=== PATIENT | male | born 1945 | race Caucasian/White ===

== ENCOUNTER 2023-09-29 06:57 | Outpatient (OUT) | payer MEDICARE, OTHER, SELFPAY ==
--- NOTE | 2023-09-29 07:06 | CA_ITS ---
Patient Name: DEL MCMAHON MR#: [id number] : 1945 Exam Date: 09/29/2023 Ordering Doctor: BLAKE MERINO CNP ECHOCARDIOGRAM REPORT PROCEDURE: CA ECHO DOPPLER COMPLETE INDICATIONS: Aortic aneurysm COMPARISON: None. DESCRIPTION: COMPLETE ECHOCARDIOGRAM Real-time transthoracic echocardiography with 2D, M-mode, spectral and color flow Doppler performed. QUALITY: Technical quality was good. LEFT VENTRICLE: Normal chamber size. Normal left ventricular wall thickness. Global left ventricular systolic function is normal. LV EF: Estimated left ventricular ejection fraction is hyperdynamic at 65 %. DIASTOLIC: Diastolic function is indeterminate. ATRIAL SEPTUM: LEFT ATRIUM: Normal chamber size. RIGHT ATRIUM: Moderate dilatation. RIGHT VENTRICLE: Normal chamber size. Normal right ventricular systolic function. TRICUSPID VALVE: Normal mobility and thickness. No stenosis with trivial regurgitation. No evidence of pulmonary hypertension. RVSP 28 mmHg MITRAL VALVE: Normal mobility and thickness. No evidence of mitral valve stenosis. There is no mitral annular calcification. Trivial mitral regurgitation. AORTIC VALVE: Normal trileaflet appearance. Thickened aortic valve. Normal leaflet mobility. No evidence of aortic valve stenosis. Trivial aortic regurgitation. AORTIC ROOT: Normal diameter and appearance, measuring 3.8 cm. Moderate dilatation of the ascending aorta measuring 4.2 cm. PULMONIC VALVE: Normal thickness and mobility. No stenosis. Mild regurgitation. PERICARDIUM: No evidence of pericardial effusion. IVC: Collapses with inspirations. Normal size. PLEURA: CONCLUSION: 1. The left ventricle is normal in size and exhibits normal systolic function. LVEF is estimated at 65%. 2. Normal right ventricular size and systolic function. 3. Moderate left atrial dilatation. 4. No significant valvular dysfunction. 5. Normal right-sided pressures. 6. Moderately dilated ascending aorta measuring 4.2 cm. Adult Echocardiography Procedure Report Left Ventricle LVEDD (3.7 - 5.6 cm): 4.53 cm LVESD (2.2 - 4.0 cm): 2.85 cm LVIVS thickness (0.6 - 1.2 cm): 1.02 cm LVPW thickness (0.5 - 1.0 cm): 0.81 cm e': 0.07 m/s E - e': 10.21 LVOT Max Gradient: 5.58 mm[Hg] LVOT Area (cm2): 1.18 m/s Peak Velocity (LVOT): 1.18 m/s Mean Velocity (LVOT): 0.81 m/s LVOT Diameter 1.96 cm Left Ventricular Ejection Fraction: 65 % Left Atrium LA Volume Index (2D A2C): 28.33 ml/m2 Left Atrium Systolic Dimension: 4.05 cm Mitral Valve MV E to A Ratio: 0.72 Mitral Valve A-Wave Peak Velocity: 0.93 m/s Mitral Valve E-Wave Peak Velocity: 0.68 m/s Right Ventricle RV Internal Diastolic Dimension: 3.19 cm Aorta AO Root Diam: 3.83 cm Ascending Ao Diam: 4.20 cm Aortic Valve AoV Area (Peak Bar): 2.18 cm2, 2.18 cm2 AoV Area (VTI): 2.10 cm2, 2.10 cm2 Peak Velocity(Antegrade Flow): 1.64 m/s Peak Gradient(Antegrade Flow): 10.72 mm[Hg] Mean Velocity(Antegrade Flow): 1.10 m/s Mean Gradient(Antegrade Flow): 5.61 mm[Hg] Velocity Time Integral: 36.48 cm Tricuspid Valve Peak Velocity (Regurgitant Flow): 2.48 m/s, 2.21 m/s, 2.32 m/s Pulmonic Valve Mean Gradient: 1.79 mm[Hg], 1.96 mm[Hg] Mean Velocity: 0.61 m/s, 0.65 m/s Peak Velocity: 1.03 m/s Peak Gradient: 4.21 mm[Hg], 4.21 mm[Hg] Right Atrium Right Atrium Systolic Pressure: 45.13 ml, 43.04 ml, 47.22 ml Dictated by: Solomon Weiss M.D. on 09/29/2023 at 19:14 Approved by: Solomon Weiss M.D. on 09/29/2023 at 19:17
== END 2023-09-29 06:58 | disposition home or self-care (01) ==
LOC: CARD 07:03
PROVIDERS: PCP Internal Medicine; Visit Provider Nurse Practitioner Family
DX: I71.21 Aneurysm of the ascending aorta, without rupture (principal)
CPT/HCPCS: 93306

== ENCOUNTER 2024-07-19 08:52 | Outpatient (OUT) | payer MEDICARE, OTHER, SELFPAY ==
[2024-07-19 11:03] LABS: Alanine Aminotransferase 55 U/L (16-63); Aspartate Amino Transferase 28 U/L (15-37); Chol HDL Ratio 2.9; Cholesterol 210 mg/dL (<=200); HDL Cholesterol 72 mg/dL (40-60); Thyroid Stimulating Hormone 4.598 uIU/mL (0.358-3.740); Triglycerides 51 mg/dL (<=150); VLDL CHOLESTEROL 10.2 mg/dL
--- OUTSIDE RECORDS SUMMARY | 2024-07-29 09:09 | XMS_ITS | CCD ---
Author Organization [facility] Care Team Providers Care Powder Worker Tnt Name Role Phone DR MARCO A HUIZAR Primary Care Unavailable BALTA ROD Attending Unavailable BALTA ROD Admitting Unavailable DR MARCO A HUIZAR Primary Care Unavailable BALTA ROD Attending Unavailable BALTA ROD Consulting Unavailable BALTA ROD Admitting Unavailable Mario Hadley Unavailable Jose Nelson Unavailable Marco A Huizar DO Primary Care Provider EMANI HOLT Admitting Unavailable EMANI HOLT Attending Unavailable MARCO A HUIZAR Primary Care Unavailable LIDYA BENTLEY Attending Unavailable MARCO A HUIZAR JR Referring Unavailable MARCO A HUIZAR JR Primary Care Unavailable JR Marco A Huizar Primary Care Provider [phone] MD Andrés Fisher Admit Provider MD Daljit Khalil Other Provider DO Dionte Rosa Attending Provider AURELIO ROUSSEAU Referring Unavailable MARCO A HUIZAR JR Primary Care Unavailable MARCO A HUIZAR JR Primary Care Unavailable AURELIO ROUSSEAU Attending Unavailable KRISTIE BURR Attending Unavailable KRISTIE BURR Referring Unavailable KMONE MARCO A CRUZ Primary Care Unavailable KRISTIE BURR Attending Unavailable KRISTIE BURR Referring Unavailable VALONE MARCO A CRUZ Primary Care Unavailable KRISTIE BURR Attending Unavailable KRISTIE BURR Referring Unavailable VALONE MARCO A CRUZ Primary Care Unavailable KRISTIE BURR Attending Unavailable KRISTIE BURR Referring Unavailable VALMARCO A COLEY JR Primary Care Unavailable MAYA Castillo Attending Provider MD Sivakumar Garcia Attending Provider Giovanna Castillo Attending Unavailable Giovanna Castillo Admitting Unavailable Marco A Huizar Primary Care Unavailable Sivakumar Garcia Attending Unavailable Sivakumar Garcia Admitting Unavailable Marco A Huizar Primary Care Unavailable Andrés Fisher Admitting Unavailab Marco A [place] Primary Care Unavailable Dionte Rosa Attending Unavailable Daljit Khalil Consulting UnavailMarco A Saunders MD Primary Care Provider Gaye Flores DO, Charles L Primary Care Provider Daljit Perez DO Unavailable [phone] Gaye Flores DO, Charles L Primary Care Provider RAYMOND VINES Attending Unavailable DALJIT PEREZ Attending Unavailable MARCO A HUIZAR Referring Unavailable RAYMOND VINES Attending Unavailable RAYMOND VINES Attending Unavailable PANCHITO BALDERAS Attending Unavailable RAYMOND VINES Attending Unavailable PANCHITO BALDERAS Attending Unavailable BLAKE MERINO Attending Unavailable AURELIO LOERA Referring Unavailable BLAKE MERINO Attending Unavailable AURELIO LOERA Referring Unavailable Allergies Allergy Classification Reported Allergen(s) Allergy Type Date of Onset Reaction(s) Facility (18 sources) Diclofenac; Translations: [DICLOFENAC SODIUM] Drug Allergy 02-10-2022 [facility] Medications Current Medications Medication Drug Class(es) Dates Sig (Normalized) Sig (Original) acetaminophen 500 mg oral tablet (2 sources) Start: 02-10-2022 End: 02-17-2022 take 2 tablets by mouth three times daily as needed acetaminophen (TYLENOL) 500 mg tablet Take 2 tablets (1,000 mg total) by mouth 3 (three) times a day for 7 days. Take every 8 hours for one week, then as needed. Do not exceed 3,000 mg daily limit. 50 tablet 0 02/10/2022 02/17/2022 Active Start: 02-10-2022 End: 02-10-2022 take 1000 mg by mouth every six hours 1,000 mg, oral, Every 6 hours scheduled, First dose on Thu02/10/22 at 1200, [facility] ALPRAZolam 0.25 mg oral tablet (3 sources) Benzodiazepine Start: 02-20-2020 ALPRAZolam (XANAX) 0.25 mg tablet Indications: Tremor due to disorder of central nervous system Once daily up to 4x per week as needed for fine motor control and tremor control 20 tablet 5 02/20/2020 Active amLODIPine 5 mg oral tablet (3 sources) Dihydropyridine Calcium Channel Maru Start: 08-07-2023 take 5 mg by mouth once daily Amlodipine Active 5 MG PO Daily August 07, 2023 12:00am aspirin 81 mg chewable tablet (2 sources) Platelet Aggregation Inhibitor, Nonsteroidal Anti-inflammatory Drug Start: 02-11-2022 End: 03-25-2022 take 1 tablet by mouth twice daily, then take 1 tablet by mouth twice daily aspirin 81 mg chewable tablet Chew 1 tablet (81 mg total) 2 (two) times a day. 1) Aspirin 81 mg, 1 tab PO BID for 6 weeks, Disp appropriate quantity. If patient is prescribed Arixtra/Lovenox/Xa relto, do not begin Aspirin until that medication is finished and then Aspirin only needs to be taken for 4 weeks. 84 each 0 02/11/2022 03/25/2022 Active Start: 02-11-2022 End: 02-10-2022 aspirin EC tablet 81 mg celecoxib 200 mg oral capsule (19 sources) Nonsteroidal Anti-inflammatory Drug Start: 07-06-2023 End: 08-07-2023 celecoxib (CeleBREX) 200 MG capsule Take 200 mg by mouth Daily Twice a week. 07/06/2023 Active Start: 02-10-2022 End: 02-10-2022 celecoxib (CeleBREX) capsule 200 mg cephalexin 500 mg oral capsule (1 source) Cephalosporin Antibacterial Start: 02-10-2022 End: 02-11-2022 take 1 capsule by mouth three times daily cephalexin (KEFLEX) 500 mg capsule Take 1 capsule (500 mg total) by mouth 3 (three) times a day for 3 doses. 3 capsule 0 02/10/2022 02/11/2022 Active levothyroxine sodium 0.1 mg oral tablet (12 sources) l-Thyroxine Start: 02-05-2021 take 100 ug by mouth once daily Levothyroxine Active 100 MCG PO Daily November 23rd, 2021 1:00am levothyroxine (S YNTHROID, LEVOTHROID) 75 MCG tablet Take 100 mcg by mouth daily. Active take 1 tablet by nubia th once daily in the morning Levothyroxine Sodium 100 MCG 1 tablet in the morning on an empty stomach Orally Once a day Active levothyroxine (Synthroid, Le voxyl) 37.5 mcg split tablet (15 sources) levothyroxine (S ynthroid, Levoxyl) 37.5 mcg split tablet levothyroxine Active multivit-min/folic/vit K/lyc op (ONE-A-DAY MEN'S MULTIVITAMIN ORAL) (3 sources) multivit-min/fol ic/vit K/lycop (ONE-A-DAY MEN'S MULTIVITAMIN ORAL) Take by mouth daily. Active multivit-min/fol ic/vit K/lycop (ONE-A-DAY MEN'S MULTIVITAMIN ORAL) Take by mouth daily. 0 Active multivitamin tablet (1 source) take 1 tablet by mouth once daily multivitamin tablet Take 1 tablet by mouth daily. 0 Active ondansetron 4 mg oral tablet (1 source) Serotonin-3 Receptor Antagonist Start: 2 End: 2 take 1 tablet by mouth every eight hours for nausea ondansetron (ZOFRAN) 4 mg tablet Take 1 tablet (4 mg total) by mouth every 8 (eight) hours if needed for nausea or vomiting for up to 7 days. 20 tablet 0 02/10/2022 02/17/2022 Active oxyCODONE hydrochloride 5 mg oral tablet (2 sources) Opioid Agonist Start: 2 End: 2 oxyCODONE (ROXICODONE) 5 mg immediate release tablet Take 1-2 tablets (5-10 mg total) by mouth every 4 (four) hours if needed for moderate pain or severe pain for up to 7 days. Dx: Z96.6 Max Daily Amount: 60 mg 40 tablet 0 02/10/2022 02/17/2022 Active Start: 02-10-2022 End: 02-10-2022 take 5 mg by mouth every four hours as needed for pain 5 mg, oral, Every 4 hours PRN, Breakthrough pain, Starting on 02/10/22 at 0757, [facility] May consider scheduled oxyCODONE instead of PRN primidone 50 mg oral tablet (20 sources) Anti-epileptic Agent Start: 06-23-2024 take 2 tablets by mouth once daily in the evening primidone (MYSOLINE) 250 mg tablet TAKE 2 TABLETS BY MOUTH EVERY DAY IN THE EVENING 180 tablet 3 06/23/2024 Active Start: 06-23-2024 take 1 tablet by nubia th once daily primidone (MYSOLINE) 50 mg tablet Indications: Benign essential tremor TAKE 2.5-3 TABLETS BY MOUTH ONCE DAILY DIRECTED 270 tablet 3 06/23/2024 Active Start: 08-05-2023 take 500 mg by mouth once daily at bedtime Primidone Active 500 MG PO Daily at bedtime August 05, 2023 12:00am Start: 01-05-2023 End: 06-23-2024 take 2 tablets by mouth once daily in the evening primidone (Mysoline) 250 MG tablet TAKE 2 TABLETS BY MOUTH EVERY DAY IN THE EVENING 01/05/2023 Active Start: 01-05-2023 End: 06-23-2024 take 1 tablet by mouth once daily primidone (MYSOLINE) 50 mg tablet Indications: Benign essential tremor TAKE 2.5-3 TABLET BY MOUTH ONCE DAILY DIRECTED 270 tablet 3 05/05/2023 06/23/2024 Discontinued Start: 01-28-2022 take 2 tablets by mo uth at bedtime primidone (MYSOLINE) 250 mg tablet Take 2 tablets (500 mg total) by mouth at bedtime. 0 01/28/2022 Active Start: 12-02-2021 take 2 tablets by mo uth once daily primidone (MYSOLINE) 50 mg tablet Take 2 tablets (100 mg total) by mouth 1 (one) time each day. 0 12/02/2021 Active Start: 02-05-2021 take 150 mg by mouth once daily in the morning Primidone Active 150 MG PO Every morning February 05, 2021 1:00am take 1 tablet by nubia th every twenty-four hours Primidone 50 MG 1 tablet Orally Once a day Active tolnaftate 10 mg/ml topical solution (6 sources) tolnaftate (Kendra ctin) 1 % external solution Apply 1 application topically in the morning and 1 application before bedtime. Active traMADol hydrochloride 50 mg oral tablet (1 source) Opioid Agonist Start: 02-10-2022 End: 02-17-2022 take 50-100 mg by mouth every six hours as needed traMADoL (ULTRAM) 50 mg tablet Take 1-2 tablets (50-100 mg total) by mouth every 6 (six) hours if needed for moderate pain for up to 7 days. Dx: Z96.6 Max Daily Amount: 400 mg 40 tablet 0 02/10/2022 02/17/2022 Active triamcinolone acetonide 1 mg/ml topical cream (15 sources) Corticosteroid Start: 03-30-2023 triamcinolone (Kenalog) 0.1 % cream Indications: Other atopic dermatitis Apply to affected areas, up to twice a day when flared, do not use one the face, groin, or underarms, 30 day supply 454 g 03/30/2023 Active Completed/Discontinued Medications Medication Drug Class(es) Dates Sig (Normalized) Sig (Original) acetaminophen 325 mg / HYDROcodone bitartrate 5 mg oral tablet (3 sources) Opioid Agonist Start: 02-12-2021 take 1 tablet by mouth every four hours as needed HYDROcodone-Acetamin ophen 5-325 MG 1 tablet as needed Orally up to every 4 hrs for 5 days Jan, Not-Taking acetaminophen 325 mg / oxyCODONE hydrochloride 5 mg oral tablet (1 source) Opioid Agonist Start: 02-10-2022 End: 02-10-2022 oxyCODONE-acetaminop hen (PERCOCET) 5-325 mg per tablet 1 tablet albuterol 0.83 mg/ml inhalation solution (1 source) beta2-Adrenergic Agonist Start: 02-10-2022 End: 02-10-2022 albuterol 2.5 mg /3 mL (0.083 %) nebulizer solution 2.5 mg amoxicillin 875 mg / clavulanate 125 mg oral tablet (3 sources) Penicillin-class Antibacterial Start: 08-07-2023 End: 09-22-2023 take 1 tablet by mouth twice daily Amoxicillin-Pot Clavulanate Discontinued 1 TAB PO Twice daily August 07, 2023 12:00am September 22, 2023 3:36pm azithromycin 500 mg oral tablet (3 sources) Macrolide Antimicrobial Start: 08-07-2023 End: 09-22-2023 Azithromycin Discontinued 500 MG PO Daily 2 August 07, 2023 12:00am September 22, 2023 3:36pm start on day 2 of therapy calcium chloride 0.0014 meq/ml / potassium chloride 0.004 meq/ml / sodium chloride 0.103 meq/ml / sodium lactate 0.028 meq/ml injectable solution (1 source) Start: 02-10-2022 End: 02-10-2022 lactated Ringer's infusion ceFAZolin (ANCEF) 2 gram/20 mL IV syringe 2 g (1 source) Start: 02-10-2022 End: 02-10-2022 2 g, intravenous, Administer over 3 Minutes, Every 8 hours, First dose on Thu02/10/22 at 1400, For 2 doses, [facility] Indication: Prophylaxis-Surgical ciclopirox 80 mg/ml topical solution (15 sources) Start: 03-30-2023 End: 07-06-2024 Ciclopirox 8 % kit Indications: Onychomycosis Apply to affected nails once a day, remove once weekly to avoid build up, 30 day supply 6.6 mL 03/30/2023 07/06/2024 Discontinued diphenhydrAMINE (1 source) Histamine-1 Receptor Antagonist Start: 02-10-2022 End: 02-10-2022 diphenhydrAMINE (BENADRYL) injection 25 mg finasteride 5 mg oral tablet (6 sources) 5-alpha Reductase Inhibitor Start: 08-05-2023 End: 08-05-2023 take 5 mg by mouth once daily Finasteride Discontinued 5 MG PO Daily August 05, 2023 12:00am August 05, 2023 7:30am GENERIC COMPOUNDING MEDICATION (2 sources) End: 12-16-2023 GENERIC COMPOUNDING MEDICATION Apply 1 application topically Daily Urea 36%/Clobetasol 0.005% cream 12/16/2023 Discontinued GENERIC COMPOUND ING MEDICATION Apply 1 application topically Daily Urea 36%/Clobetasol 0.005% cream Active hyaluronate (1 source) Start: 08-27-2021 Gel-One Aug, 3 mL 1 ml hydrALAZINE hydrochloride 20 mg/ml injection (1 source) Arteriolar Vasodilator Start: 02-10-2022 End: 02-10-2022 hydrALAZINE (APRESOLINE) injection 5 mg 0.5 ml HYDROmorphone hydrochloride 1 mg/ml prefilled syringe (1 source) Opioid Agonist Start: 02-10-2022 End: 02-10-2022 HYDROmorphone (DILAUDID) injection 0.5 mg hydroxychloroquine sulfate 200 mg oral tablet (3 sources) Antimalarial, Antirheumatic Agent Start: 08-05-2023 End: 08-07-2023 take 200 mg by mouth once daily Hydroxychloroquine Discontinued 200 MG PO Daily August 05, 2023 12:00am August 07, 2023 9:54am 1 ml meperidine hydrochloride 50 mg/ml injection (1 source) Opioid Agonist Start: 02-10-2022 End: 02-10-2022 meperidine (DEMEROL) 50 mg/mL injection 12.5 mg metoprolol tartrate 50 mg oral tablet (7 sources) beta-Adrenergic Maru Start: 08-05-2023 End: 08-05-2023 take 1 tablet by mouth once daily Metoprolol Tartrate (Lopressor) 50 mg tablet Discontinued 50 MG PO Daily August 05, 2023 12:00am August 05, 2023 7:29am Start: 11-02-2021 take 0.5 tablet by m outh once daily metoprolol succinate (TOPROL-XL) 25 mg 24 hr tablet Take 0.5 tablets (12.5 mg total) by mouth 1 (one) time each day. 0 11/02/2021 Active metoprolol tartr ate (LOPRESSOR) 50 mg tablet Take 25 mg by mouth in the morning. Active Hjbsoria-Hvc-Powit-Vit K-Lycop (One-A-Day Men's Multivitamin) 400-20-300 mcg tablet (3 sources) Start: 08-05-2023 End: 08-07-2023 take 1 tablet by mouth once daily Xgprjznt-Wvn-Oxjsy-Vit K-Lycop (One-A-Day Men's Multivitamin) 400-20-300 mcg tablet Discontinued 1 TAB PO Daily August 05, 2023 12:00am August 07, 2023 9:54am nystatin 100 unt/mg topical powder (1 source) Polyene Antifungal Start: 12-16-2023 End: 01-15-2024 nystatin (Mycostatin) [id number] UNIT/GM powder Indications: Onychomycosis Apply 1 application topically in the morning and 1 application before bedtime. 60 g 1 12/16/2023 01/15/2024 ondansetron ODT (ZOFRAN-ODT) disintegrating tablet 4 mg (1 source) Start: 02-10-2022 End: 02-10-2022 ondansetron ODT (ZOFRAN-ODT) disintegrating tablet 4 mg Oxygen Therapy, Adult (1 source) Start: 02-10-2022 End: 02-10-2022 Oxygen Therapy, Adult Sodium Chloride (1 source) Start: 02-10-2022 End: 02-10-2022 sodium chloride 0.9 % flush 10 mL tamsulosin hydrochloride 0.4 mg oral capsule (6 sources) alpha-Adrener gic Maru Start: 08-05-2023 End: 08-05-2023 take 1 capsule by mouth twice daily Tamsulosin (Flomax) 0.4 mg capsule Discontinued 0.4 MG PO Twice daily August 05, 2023 12:00am August 05, 2023 7:29am terbinafine 250 mg oral tablet (3 sources) Allylamine Antifungal Start: 08-05-2023 End: 08-07-2023 take 250 mg by mouth once daily Terbinafine Hcl Discontinued 250 MG PO Daily August 05, 2023 12:00am August 07, 2023 9:54am Problems Active Problems Problem Classification Problem Date Documented Date Episodic/Chronic Acute and unspecified renal failure (1 source) Acute kidney failure, unspecified; Translations: [Acute kidney failure, unspecified] Onset: 08-04-2023 Episodic Allergic reactions (2 sources) Atopic dermatitis; Translations: [Other atopic dermatitis] 03-31-2024 Chronic Cardiac dysrhythmias (6 sources) Ventricular tachycardia; Translations: [Sick sinus syndrome] Onset: 05-08-2021 Chronic Conditions associated with dizziness or vertigo (1 source) Dizziness Onset: 08-04-2023 Episodic Conduction disorders (20 sources) Cardiac pacemaker in situ; Translations: [Presence of cardiac pacemaker] Onset: 01-19-2019 05-14-2023 Chronic E Codes: Fall (1 source) Fall Onset: 08-04-2023 Essential hypertension (2 sources) Essential (primary) hypertension; Translations: [Essential (primary) hypertension] Onset: 07-14-2023 Chronic Malaise and fatigue (1 source) Weakness; Translations: [Weakness] Onset: 08-04-2023 Episodic Mycoses (3 sources) Onychomycosis; Translations: [Tinea unguium] 04-06-2024 Episodic Neoplasms of unspecified nature or uncertain behavior (2 sources) Neoplastic disease; Translations: [Neoplasm of unspecified behavior of bone, soft tissue, and skin] 02-03-2024 Episodic Osteoarthritis (11 sources) Osteoarthritis of right knee joint; Translations: [Unilateral primary osteoarthritis, right knee] Onset: 12-25-2020 Resolved: 08-27-2021 Chronic Other circulatory disease (2 sources) Spider nevus; Translations: [Nevus, non-neoplastic] 03-31-2024 Episodic Other hereditary and degenerative nervous system conditions (1 source) Essential tremor; Translations: [Essential tremor] Onset: 01-03-2019 Chronic Other hereditary and degenerative nervous system conditions (20 sources) Essential tremor; Translations: [Essential tremor] Onset: 01-03-2019 05-14-2023 Chronic Other lower respiratory disease (2 sources) Hilar mass; Translations: [Other nonspecific abnormal finding of lung field] 09-22-2023 Episodic Other lower respiratory disease (2 sources) Other nonspecific abnormal finding of lung field; Translations: [Swelling, mass, or lump in chest] 09-22-2023 Episodic Other non-traumatic joint disorders (4 sources) Pain in right knee; Translations: [Acute pain of right knee M25.561] Onset: 12-25-2020 Resolved: 01-15-2021 Episodic Other nutritional; endocrine; and metabolic disorders (3 sources) Body mass index 30+ - obesity; Translations: [Obesity, unspecified] Onset: 06-06-2020 06-06-2020 Chronic Other skin disorders (2 sources) Actinic keratosis; Translations: [Actinic keratosis] 03-31-2024 Episodic Other skin disorders (2 sources) Seborrheic keratosis; Translations: [Other seborrheic keratosis] 03-31-2024 Episodic Other skin disorders (2 sources) Lentiginosis; Translations: [Other melanin hyperpigmentation] 03-31-2024 Episodic Other skin disorders (2 sources) Nail deformity; Translations: [Other nail disorders] 04-06-2024 Episodic Other skin disorders (3 sources) Callosity; Translations: [Corns and callosities] 04-06-2024 Episodic Other skin disorders (1 source) Asteatosis cutis; Translations: [Xerosis cutis] 04-06-2024 Episodic Pneumonia (except that caused by tuberculosis or sexually transmitted disease) (10 sources) Pneumonia; Translations: [Pneumonia, unspecified organism] Onset: 08-04-2023 08-05-2023 Episodic Residual codes; unclassified (2 sources) Obstructive sleep apnea (adult) (pediatric); Translations: [Obstructive sleep apnea (adult) (pediatric)] Onset: 01-30-2022 Chronic Respiratory failure; insufficiency; arrest (adult) (1 source) Acute respiratory failure with hypoxia; Translations: [Acute respiratory failure with hypoxia] Onset: 08-04-2023 Episodic Septicemia (except in labor) (7 sources) Sepsis; Translations: [Sepsis, unspecified organism] Onset: 08-05-2023 08-05-2023 Episodic Thyroid disorders (15 sources) Hypothyroidism; Translations: [Hypothyroidism, unspecified] Onset: 01-19-2019 05-14-2023 Chronic Unclassified (1 source) Weakness - Generalized Onset: 08-04-2023 Unclassified (1 source) EMS Onset: 08-04-2023 Unclassified (1 source) Aneurysm of the ascending aorta, without rupture; Translations: [Aneurysm of the ascending aorta, without rupture] Onset: 07-14-2023 Unclassified (1 source) Other ventricular tachycardia; Translations: [Other ventricular tachycardia] Onset: 07-14-2023 Unclassified (1 source) Other supraventricular tachycardia; Translations: [Other supraventricular tachycardia] Onset: 07-14-2023 Past or Other Problems Problem Classification Problem Date Documented Date Episodic/Chronic Cardiac dysrhythmias (2 sources) Bradycardia, unspecified; Translations: [Bradycardia, unspecified] Onset: 01-30-2022 Episodic Joint disorders and dislocations; trauma-related (4 sources) Other tear of medial meniscus, current injury, right knee, initial encounter; Translations: [Other tear of medial meniscus, current injury, right knee, subsequent encounter] Onset: 12-25-2020 Resolved: 08-27-2021 Episodic Other lower respiratory disease (3 sources) Dyspnea; Translations: [Shortness of breath] Onset: 09-24-2018 09-24-2018 Episodic Other screening for suspected conditions (not mental disorders or infectious disease) (3 sources) Cardiovascular stress test abnormal; Translations: [Abnormal result of other cardiovascular function study] Onset: 09-24-2018 09-24-2018 Episodic Residual codes; unclassified (3 sources) Other specified postprocedural states Onset: 02-12-2021 Resolved: 08-27-2021 Episodic Syncope (3 sources) Syncope and collapse; Translations: [Syncope and collapse] Onset: 05-05-2018 05-05-2018 Episodic Unclassified (3 sources) Onset: 06-15-2021 06-15-2021 Unclassified (1 source) Aneurysm of the ascending aorta, without rupture; Translations: [Aneurysm of the ascending aorta, without rupture] Onset: 07-14-2023 Unclassified (1 source) Other ventricular tachycardia; Translations: [Other ventricular tachycardia] Onset: 07-14-2023 Unclassified (1 source) Other supraventricular tachycardia; Translations: [Other supraventricular tachycardia] Onset: 07-14-2023 Results Test Name Value Interpretation Reference Range Facility No Panel Informationon 03-31 [facility] No Panel Informationon 02-02 Type of biopsy: valentin ential Informed consent: discussed and consent obtained Informed consent comment: The risks and benefits of the biopsy were discussed. Risks include but are not limited to bleeding, infection, scarring, pain, and nerve damage. An opportunity to ask questions prior to the procedure was permitted and all questions were answered. Patient was prepped and draped in usual sterile fashion: area cleansed with alcohol. Anesthesia: the lesion was anesthetized in a standard fashion Anesthetic: 1% lidocaine w/ epinephrine 1-100,000 buffered w/ 8.4% NaHCO3 Instrument used: DermaBlade Hemostasis achieved with: electrodesiccation Outcome: patient tolerated procedure well Outcome comment: The specimen was placed in a prelabeled formalin container to be sent for pathology Post-procedure details: sterile dressing applied and wound care instructions given Post-procedure details comment: Emphasized need to contact clinic for any signs of infection, uncontrollable bleeding, or complications. Dressing type: bandage Additional details: Photo taken yes Amount of lidocaine used: 0.5 cc [facility] No Panel InformationOrdered By: Jayashree De La Cruz on 02-03-2024 [facility] Office Visiton 02-02-2024 Follow-up visit [id number] Del Mcmahon 1945 M Date Provider Department Center 02/02/2024 [facility] Family History Problem Relation Age of Onset Hypertension Sister Family Status - Relation Status Age at Sister Level of Service:37830 SC OFFICE/OUTPATIENT ESTABLISHED LOW MDM 20 MIN Reason for Visit and Comments: Aortic Aneurysm [452] Hypertension [670854] Normal [facility] PSA Total (Not a Screen)on 0 10-02-2023 PSA Total (Not a Screen) 0.850 ng/mL Normal 0.000-4.00 0 [facility] Comment on above: Result Comment: Gustavo kline tumor marker results determined by assays using different manufacturers or methods may not be comparable. 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 PERFORMED BY: [place] [address] PATHOLOGIST MACHINE SOLE LEVELER KERLINE PRICE M.D. 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 36on 10-01-2023 36 Please let him know his ECHO shows his aortic aneurysm is stable, no change in size. Recommend yearly ECHOs for follow-up along with strict BP control (<130/90). The rest of his ECHO looked good, every thing was normal. F/U as planned. Thanks! Normal [facility] Telephoneon 10-01-2023 Telephone [id number] Del Mcmahon 1945 M Date Provider Department Center 10/01/2023 BLAKE WOODARD Family History Problem Relation Age of Onset Hypertension Sister Family Status - Relation Status Age at Sister Normal [facility] CT chest w conon 09-11-2023 CT chest w con [facility] [place] [address] [place] [address] CT Scan Report Signed Patient: Del Mcmahon MR#: [id number] : 1945 Acct:[id number] Age/Sex: 78 / M ADM Date: 09/11/23 Loc: CT Room: Type: [facility] Attending Dr: TOD Metcalf APRN Copies to: Giovanna Castillo APRN, ACNP-BC Ordering Provider: Giovanna Castillo APRN, ACNP-BC Date of Service: 09/11/23 CT/CT chest w con: pneumonia, ?hilar mass CT Chest with contrast TECHNIQUE: Axial imaging with 2-D reconstruction. 90 cc of [id number] CT exam was performed using one or more the following dose reduction techniques: Automated exposure control, adjustment of the MA and/or Kv according to patient size, or use of the iterative reconstruction technique. History: Follow-up for pneumonia. Question hilar mass. COMPARISON: None THYROID: Unremarkable TRACHEA AND BRONCHI: Patent ESOPHAGUS: Unremarkable. HEART: Within normal limits PERICARDIAL EFFUSION: None CORONARY ARTERY CALCIFICATION: None MEDIASTINUM: Small mediastinal lymph nodes. PULMONARY CHRISTY: Small bilateral hilar lymph nodes. Calcified left hilar lymph nodes. Right midlung calcified granuloma. THORACIC AORTA Unremarkable LUNG NODULE None LUNGS: Lingular atelectasis. Mild posterior basilar atelectasis PLEURAL EFFUSION: None PNEUMOTHORAX: No pneumothorax seen. CHEST WALL: No abnormality AXILLA:Unremarkable BONY STRUCTURES thoracic hyperostosis UPPER ABDOMEN: Images of the upper abdomen are noncontributory. Cardiac device intact CT/CT chest w con IMPRESSION: No hilar mass. Small mediastinal and hilar lymph nodes. The lingular and posterior basilar atelectasis. Impression dictated by: Chi Morrow M.D.09/11/2023 3:07 PM Dictation Location: [place] [address] Transcribed By: [facility] 09/11/23 1507 Dictated By: Chi Morrow DO 09/11/23 1500 Signed By: 06/28/24 1507 Normal [facility] ISTAT XRay CREon 09-11-2023 ISTAT GFR > 60.0 Normal [facility] Comment on above: Result Comment: PERF ORMED BY: [place] [address] PATHOLOGIST MACHINE SOLE LEVELER KERLINE PRICE M.D. Performed By: #### I SCRE #### [address] No Panel InformationOrdered By: Giovanna Castillo on 09-11-2023 Bedside Estimated GFR (eGFR) > 60.0 [facility] Whole blood creatinine measu rementOrdered By: Giovanna Castillo on 09-11-2023 Creatinine [Mass/Vol] 1.1 mg/dL Normal 0.6-1.3 [facility] Comment on above: ER/ESD physician is notified/shown all ISTAT results.Critical values may be confirmed by laboratory testing ifdeemed necessary by ER attending doctor. Result Comment: ER/E SD physician is notified/shown all ISTAT results. Critical values may be confirmed by laboratory testing if deemed necessary by ER attending doctor. Performed By: #### I SCRE #### [address] Basic Metabolic Panelon 07-15 Creatinine Clr Calc Pharmacy 71.50 Normal [facility] Comment on above: Performed By: #### C BCNO, BMP, MG #### [address] GFR/1.73 sq M.predicted MDRD (S/P/Bld) [Vol rate/Area] mL/min/{1.73_m2} Normal [facility] Comment on above: Performed By: #### C BCNO, BMP, MG #### [address] Calcium [Mass/volume] in Ser um or PlasmaOrdered By: Dionte Rosa on 08-06-2023 Calcium [Mass/Vol] 7.8 mg/dL Low 8.6-10.3 [facility] Comment on above: Performed By: #### C BCNO, BMP, MG #### [address] Carbon dioxide, total [Moles /volume] in Serum or PlasmaOrdered By: Dionte Rosa on 08-06-2023 CO2 [Moles/Vol] 20.6 mmol/L Low 21.0-31.0 [facility] Comment on above: Performed By: #### C BCNO, BMP, MG #### [address] Chloride [Moles/volume] in S gonzalo or PlasmaOrdered By: Dionte Rosa on 08-06-2023 Chloride [Moles/Vol] 105 mmol/L Normal 98-107 [facility] Comment on above: Performed By: #### C BCNO, BMP, MG #### [address] Creatinine [Mass/volume] in Serum or PlasmaOrdered By: Dionte Rosa on 08-06-2023 Creatinine [Mass/Vol] 1.05 mg/dL Normal 0.70-1.30 [facility] Comment on above: Performed By: #### C BCNO, BMP, MG #### [address] Erythrocyte distribution wid th [Ratio] by Automated countOrdered By: Dionte Rosa on 08-06-2023 Erythrocyte distribution width (RBC) [Ratio] 13.8 % Normal 12.0-14.8 [facility] Comment on above: Performed By: #### C BCNO, BMP, MG #### [address] Erythrocytes [#/volume] in B lood by Automated countOrdered By: Dionte Rosa on 08-06-2023 RBC (Bld) [#/Vol] 3.86 10*6/uL Low 3.90-5.60 [facility] Comment on above: Performed By: #### C BCNO, BMP, MG #### [place] [address] [place] Glucose [Mass/volume] in Ser um or PlasmaOrdered By: Dionte Rosa on 08-06-2023 Glucose [Mass/Vol] 114 mg/dL High 70-100 [facility] Comment on above: ADA recommended refe rence rangeRandom Glucose Reference Range is dependent on time and content of last meal. Glucose of more than 200 mg/dL in a nonstressed, ambulatory subject supports the diagnosis of Diabetes Mellitus. Result Comment: [place] om Glucose Reference Range is dependent on time and content of last meal. Glucose of more than 200 mg/dL in a nonstressed, ambulatory subject supports the diagnosis of Diabetes Mellitus. ADA recommended reference range Performed By: #### C BCNO, BMP, MG #### [address] Hematocrit [Volume Fraction] of Blood by Automated countOrdered By: Dionte Rosa on 08-06-2023 Hematocrit (Bld) [Volume fraction] 37.9 % Low 38.8-50.0 [facility] Comment on above: Performed By: #### C BCNO, BMP, MG #### [address] Hemoglobin [Mass/volume] in BloodOrdered By: Dionte Rosa on 08-06-2023 Hemoglobin (Bld) [Mass/Vol] 12.8 g/dL Low 13.0-17.0 [facility] Comment on above: Performed By: #### C BCNO, BMP, MG #### [address] Hemogram CBC Without Diffon 08-06-2023 Mean Corpuscular HGB Conc 33.8 g/dL Normal 32.5-35.6 [facility] Comment on above: Performed By: #### C BCNO, BMP, MG #### [address] WBC (Bld) [#/Vol] 13.3 10*3/uL High 4.1-10.5 [facility] Comment on above: Performed By: #### C BCNO, BMP, MG #### [place] [address] [place] Leukocytes [#/volume] correc paul for nucleated erythrocytes in Blood by Automated counOrdered By: Dionte Rosa on 08-06-2023 WBC corrected for nucl RBC Auto (Bld) [#/Vol] 13.3 10*3/uL High 4.1-10.5 [facility] MCH [Entitic mass] by Automa paul countOrdered By: Dionte Rosa on 08-06-2023 MCH (RBC) [Entitic mass] 33.2 pg Normal 27.5-35.2 [facility] Comment on above: Performed By: #### C BCNO, BMP, MG #### [facility] [address] MCHC Auto (RBC) [Mass/Vol]Or dered By: Dionte Rosa on 08-06-2023 MCHC (RBC) [Mass/Vol] 33.8 g/dL 32.5-35.6 [facility] MCV [Entitic volume] by Auto mated countOrdered By: Dionte Rosa on 08-06-2023 MCV (RBC) [Entitic vol] 98.0 fL Normal 83.5-101 [facility] Comment on above: Performed By: #### C BCNO, BMP, MG #### [facility] [address] [place] [address] Magnesium [Mass/volume] in S gonzalo or PlasmaOrdered By: Dionte Rosa on 08-06-2023 Magnesium [Mass/Vol] 1.8 mg/dL Low 1.9-2.7 [facility] Comment on above: Result Comment: PERF ORMED BY: [place] [address] PATHOLOGIST MACHINE SOLE LEVELER KERLINE PRICE M.D. Performed By: #### C BCNO, BMP, MG #### [facility] [address] [place] [address] No Panel InformationOrdered By: Dionte Rosa on 08-06-2023 Estimated GFR (CKD-EPI) > 60.0 mL/Min [facility] Creatinine Clearance (Chem 71.50 [facility] Platelet mean volume [Entiti c volume] in Blood by Automated countOrdered By: Dionte Rosa on 08-06-2023 Platelet mean volume (Bld) [Entitic vol] 10.5 fL High 6.6-10.1 [facility] Comment on above: Result Comment: PERF ORMED BY: [place] [address] PATHOLOGIST MACHINE SOLE LEVELER KERLINE PRICE M.D. Performed By: #### C BCNO, BMP, MG #### [address] Platelets [#/volume] in Bloo d by Automated countOrdered By: Dionte Rosa on 08-06-2023 Platelets (Bld) [#/Vol] 163 10*3/uL Normal 150-450 [facility] Comment on above: Performed By: #### C BCNO, BMP, MG #### [facility] [address] [place] [address] [place] Potassium [Moles/volume] in Serum or PlasmaOrdered By: Dionte Rosa on 08-06-2023 Potassium [Moles/Vol] 4.0 mmol/L Normal 3.5-5.1 [facility] Comment on above: Performed By: #### C BCNO, BMP, MG #### [address] Serum or plasma anion gap de terminationOrdered By: Dionte Rosa on 08-06-2023 Anion gap [Moles/Vol] 14.4 mmol/L Normal 6.0-15.[address] [facility] Comment on above: Performed By: #### C BCNO, BMP, MG #### [place] [address] [place] Sodium [Moles/volume] in Ser um or PlasmaOrdered By: Dionte Rosa on 08-06-2023 Sodium [Moles/Vol] 136 mmol/L Normal 136-145 [facility] Comment on above: Performed By: #### C BCNO, BMP, MG #### [place] [address] [place] Urea nitrogen [Mass/volume] in Serum or PlasmaOrdered By: Dionte Rosa on 08-06-2023 Urea nitrogen [Mass/Vol] 16 mg/dL Normal 10-07 [facility] Comment on above: Performed By: #### C BCNO, BMP, MG #### [facility] [address] Activated partial thrombopla stin time (aPTT) in platelet poor plasma by coagulation aOrdered By: Andrés Fisher on 08-05-2023 aPTT Coag (PPP) [Time] 30.4 s 25.1-36.[address] [facility] Comment on above: A hematocrit value g reater than 55% may lead to inaccurate results in coagulation testing. Patients having hematocrit values >55% require a special collection tube for coagulation studies. Please contact the laboratory at [phone] for redraw instructions. Aerobic Cultureon 08-05-2023 Aerobic Culture Moderate Normal Respiratory Kate 2 Days Gram Stain Result 2+ White Blood Cells 1+ Epithelial Cells 3+ Gram Positive Cocci 1+ Gram Positive Bacilli 1+ Gram Negative Bacilli PERFORMED BY: [place] [address] PATHOLOGIST MACHINE SOLE LEVELER KERLINE PRICE M.D. Normal [facility] Comment on above: Performed By: #### C MP, PT, PTT, DIFF CBC #### [place] [address] [place] Alanine aminotransferase [En zymatic activity/volume] in Serum or PlasmaOrdered By: Andrés Fisher on 08-05-2023 ALT [Catalytic activity/Vol] 88 U/L High [facility] Comment on above: Performed By: #### C MP, PT, PTT, DIFF CBC #### [facility] [address] [place] [address] [place] Albumin [Mass/volume] in Ser um or Plasma by Bromocresol green (BCG) dye binding methoOrdered By: Andrés Fisher on 08-05-2023 Albumin BCG dye [Mass/Vol] 3.4 g/dL Low 3.5-5.7 [facility] Alkaline phosphatase [Enzyma tic activity/volume] in Serum or PlasmaOrdered By: Andrés Fisher on 08-05-2023 ALP [Catalytic activity/Vol] 129 U/L High 34-104 [facility] Comment on above: Performed By: #### C MP, PT, PTT, DIFF CBC #### [facility] [address] Anisocytosis [Presence] in B lood by Light microscopyOrdered By: Andrés Fisher on 08-05-2023 Anisocytosis Ql (Bld) Slight Normal [facility] Comment on above: Performed By: #### C MP, PT, PTT, DIFF CBC #### [facility] [address] Aspartate aminotransferase [ Enzymatic activity/volume] in Serum or PlasmaOrdered By: Andrés Fisher on 08-05-2023 AST [Catalytic activity/Vol] 40 U/L High 13-39 [facility] Comment on above: Performed By: #### C MP, PT, PTT, DIFF CBC #### [facility] [address] Basophils Auto (Bld) [#/Vol] Ordered By: Andrés Fisher on 08-05-2023 Basophils (Bld) [#/Vol] N/A [facility] Basophils/100 WBC Auto (Bld) Ordered By: Andrésmartin Fisher on 08-05-2023 Basophils/100 WBC (Bld) N/A [facility] Bilirubin.total [Mass/volume ] in Serum or PlasmaOrdered By: Andrés Fisher on 08-05-2023 Bilirubin [Mass/Vol] 1.1 mg/dL High 0.3-1.0 [facility] Comment on above: Performed By: #### C MP, PT, PTT, DIFF CBC #### [facility] [address] Comprehensive Metabolic Pane michel 08-05-2023 Albumin [Mass/Vol] 3.4 g/dL Low 3.5-5.7 [facility] Comment on above: Performed By: #### C MP, PT, PTT, DIFF CBC #### [address] Anion gap [Moles/Vol] 14.8 mmol/L Normal 6.0-15.0 [facility] Comment on above: Performed By: #### C MP, PT, PTT, DIFF CBC #### [address] Calcium [Mass/Vol] 8.3 mg/dL Low 8.6-10.3 [facility] Comment on above: Performed By: #### C MP, PT, PTT, DIFF CBC #### [address] Chloride [Moles/Vol] 106 mmol/L Normal 98-107 [facility] Comment on above: Performed By: #### C MP, PT, PTT, DIFF CBC #### [address] CO2 [Moles/Vol] 20.4 mmol/L Low 21.0-31.0 [facility] Comment on above: Performed By: #### C MP, PT, PTT, DIFF CBC #### [address] Creatinine [Mass/Vol] 1.08 mg/dL Normal 0.70-1.30 [facility] Comment on above: Performed By: #### C MP, PT, PTT, DIFF CBC #### [address] Creatinine Clr Calc Pharmacy 68.86 Normal [facility] Comment on above: Result Comment: PERF ORMED BY: [place] [address] PATHOLOGIST MACHINE SOLE LEVELER KERLINE PRICE M.D. Performed By: #### C MP, PT, PTT, DIFF CBC #### [address] GFR/1.73 sq M.predicted MDRD (S/P/Bld) [Vol rate/Area] mL/min/{1.73_m2} Normal [facility] Comment on above: Performed By: #### C MP, PT, PTT, DIFF CBC #### [address] Glucose [Mass/Vol] 86 mg/dL Normal 70-100 [facility] Comment on above: Result Comment: [facility] Glucose Reference Range is dependent on time and content of last meal. Glucose of more than 200 mg/dL in a nonstressed, ambulatory subject supports the diagnosis of Diabetes Mellitus. ADA recommended reference range Performed By: #### C MP, PT, PTT, DIFF CBC #### [address] Potassium [Moles/Vol] 4.2 mmol/L Normal 3.5-5.1 [facility] Comment on above: Performed By: #### C MP, PT, PTT, DIFF CBC #### [address] Sodium [Moles/Vol] 137 mmol/L Normal 136-145 [facility] Comment on above: Performed By: #### C MP, PT, PTT, DIFF CBC #### [address] Urea nitrogen [Mass/Vol] 21 mg/dL Normal 7-25 [facility] Comment on above: Performed By: #### C MP, PT, PTT, DIFF CBC #### [address] Diff and CBCon 08-05-2023 Erythrocyte distribution width (RBC) [Ratio] 13.8 % Normal 12.0-14.8 [facility] Comment on above: Performed By: #### C MP, PT, PTT, DIFF CBC #### [address] Hematocrit (Bld) [Volume fraction] 40.5 % Normal 38.8-50.0 [facility] Comment on above: Performed By: #### C MP, PT, PTT, DIFF CBC #### [address] Hemoglobin (Bld) [Mass/Vol] 13.6 g/dL Normal 13.0-17.0 [facility] Comment on above: Performed By: #### C MP, PT, PTT, DIFF CBC #### [address] MCH (RBC) [Entitic mass] 33.1 pg Normal 27.5-35.2 [facility] Comment on above: Performed By: #### C MP, PT, PTT, DIFF CBC #### [address] MCV (RBC) [Entitic vol] 98.3 fL Normal 83.5-101 [facility] Comment on above: Performed By: #### C MP, PT, PTT, DIFF CBC #### [address] Mean Corpuscular HGB Conc 33.7 g/dL Normal 32.5-35.6 [facility] Comment on above: Performed By: #### C MP, PT, PTT, DIFF CBC #### [address] Platelet Estimate Normal Normal Normal [facility] Comment on above: Performed By: #### C MP, PT, PTT, DIFF CBC #### [address] Platelet mean volume (Bld) [Entitic vol] 9.6 fL Normal 6.6-10.1 [facility] Comment on above: Result Comment: PERF ORMED BY: [place] [address] PATHOLOGIST MACHINE SOLE LEVELER KERLINE PRICE M.D. Performed By: #### C MP, PT, PTT, DIFF CBC #### [address] Platelet Morphology Normal Normal Normal [facility] Comment on above: Result Comment: PERF ORMED BY: [place] [address] PATHOLOGIST MACHINE SOLE LEVELER KERLINE PRICE M.D. Performed By: #### C MP, PT, PTT, DIFF CBC #### [place] [address] Platelets (Bld) [#/Vol] 161 10*3/uL Normal 150-450 [facility] Comment on above: Performed By: #### C MP, PT, PTT, DIFF CBC #### [address] RBC (Bld) [#/Vol] 4.12 10*6/uL Normal 3.90-5.60 [facility] Comment on above: Performed By: #### C MP, PT, PTT, DIFF CBC #### [address] Eosinophils Auto (Bld) [#/Vo l]Ordered By: Andrés Fisher on 08-05-2023 Eosinophils (Bld) [#/Vol] N/A [facility] Eosinophils/100 WBC Auto (Bl d)Ordered By: Andrés Fisher on 08-05-2023 Eosinophils/100 WBC (Bld) N/A [facility] Folate [Mass/volume] in Seru m or PlasmaOrdered By: Andrés Fisher on 08-05-2023 Folate [Mass/Vol] 19.8 ng/mL >5.9 [facility] Comment on above: Folate reference ran ge: >5.9 ng/mlThe WHO technical consultation on folate and vitamin [id number] has determined that folate concentrations lessthan 4 ng/ml are considered deficient. Gram Stainon 08-05-2023 Microscopic observation Gram stain Nom (Unsp spec) Gram Stain Result 2+ White Blood Cells 1+ Epithelial Cells 3+ Gram Positive Cocci 1+ Gram Positive Bacilli 1+ Gram Negative Bacilli PERFORMED BY: [place] [address] PATHOLOGIST MACHINE SOLE LEVELER KERLINE PRICE M.D. Normal [facility] Comment on above: Performed By: #### C MP, PT, PTT, DIFF CBC #### [address] Gram stain for investigation of transfusion reactionOrdered By: Andrés Fisher on 08-05-2023 Microscopic observation Gram stain Nom (Unsp spec) 2 Days [facility] INR in Platelet poor plasma by Coagulation assayOrdered By: Andrés Fisher on 08-05-2023 INR Coag (PPP) [Relative time] 1.4 {INR} Normal [facility] Comment on above: INR Therapeutic Rang e A) Pre- and Peroperative OAT started two weeks before surgery. NOT HIP SURGERY: 1.5 - 2.5 HIP SURGERY: 2 - 3B) Primary and secondary prevention of venous THROMBOSIS: 2 - 3C) Active venous thrombosis, pulmonary embolismand prevention of recurrent venous thrombosis: 2 - 3D) Prevention of arterial thromboembolismincluding patients with mechanical heart valves: 3 - 4.5 Result Comment: INR Therapeutic Range A) Pre- and Peroperative OAT started two weeks before surgery. NOT HIP SURGERY: 1.5 - 2.5 HIP SURGERY: 2 - 3 B) Primary and secondary prevention of venous THROMBOSIS: 2 - 3 C) Active venous thrombosis, pulmonary embolism and prevention of recurrent venous thrombosis: 2 - 3 D) Prevention of arterial thromboembolism including patients with mechanical heart valves: 3 - 4.5 Performed By: #### C MP, PT, PTT, DIFF CBC #### [facility] [address] Leukocytes [#/volume] in Blo od by Automated countOrdered By: Andrés Fisher on 08-05-2023 WBC (Bld) [#/Vol] 16.5 10*3/uL High 4.1-10.5 [facility] Comment on above: Performed By: #### C MP, PT, PTT, DIFF CBC #### [facility] [address] Lymphocytes Auto (Bld) [#/Vo l]Ordered By: Andrés Fisher on 08-05-2023 Lymphocytes (Bld) [#/Vol] N/A [facility] Lymphocytes/100 WBC Auto (Bl d)Ordered By: Andrés Fisher on 08-05-2023 Lymphocytes/100 WBC (Bld) N/A [facility] Lymphocytes/100 leukocytes i n Blood by Manual countOrdered By: Andrés Fisher on 08-05-2023 Lymphocytes/100 WBC (Bld) 5 % Low 18-42 [facility] Comment on above: Performed By: #### C MP, PT, PTT, DIFF CBC #### [facility] [address] [place] [address] Manual blood segmented neutr ophils/100 leukocytesOrdered By: Andrés Cabralesor on 08-05-2023 Segmented neutrophils/100 WBC (Bld) 91 % High 50-70 [facility] Comment on above: Performed By: #### C MP, PT, PTT, DIFF CBC #### [facility] [address] [place] [address] Monocytes Auto (Bld) [#/Vol] Ordered By: Andrés Lorenzkpor on 08-05-2023 Monocytes (Bld) [#/Vol] N/A [facility] Monocytes/100 WBC Auto (Bld) Ordered By: Andrés Lorenzkpor on 08-05-2023 Monocytes/100 WBC (Bld) N/A [facility] Monocytes/100 leukocytes in Blood by Manual countOrdered By: Andrés Lorenzkpor on 08-05-2023 Monocytes/100 WBC (Bld) 4 % Normal 2-11 [facility] Comment on above: Performed By: #### C MP, PT, PTT, DIFF CBC #### [facility] [address] [place] [address] Neutrophils Auto (Bld) [#/Vo l]Ordered By: Andrés Cabralesor on 08-05-2023 Neutrophils (Bld) [#/Vol] N/A [facility] Neutrophils/100 WBC Auto (Bl d)Ordered By: Andrés amekpor on 08-05-2023 Neutrophils/100 WBC (Bld) N/A [facility] Nucleated erythrocytes [Pres ence] in Blood by Automated countOrdered By: Andrés Cabralesor on 08-05-2023 Nucleated RBC Auto Ql (Bld) N/A [facility] Partial Thromboplastin Timeo n 08-05-2023 aPTT Coag (Bld) [Time] 30.4 s Normal 25.1-36.5 [facility] Comment on above: Result Comment: A he matocrit value greater than 55% may lead to inaccurate results in coagulation testing. Patients having hematocrit values >55% require a special collection tube for coagulation studies. Please contact the laboratory at [phone] for redraw instructions. PERFORMED BY: [place] [address] PATHOLOGIST MACHINE SOLE LEVELER KERLINE PRICE M.D. Performed By: #### C MP, PT, PTT, DIFF CBC #### [address] Peripheral white blood cell differential % bands, microscopic examOrdered By: Andrés Fisher on 08-05-2023 Band form neutrophils/100 WBC (Bld) 1 % Normal 0-5 [facility] Comment on above: Performed By: #### C MP, PT, PTT, DIFF CBC #### [address] Platelet adequacy [Presence] in Blood by Light microscopyOrdered By: Andrés Fisher on 08-05-2023 Platelets LM Ql (Bld) Normal Normal [facility] Platelet morphology finding [Identifier] in BloodOrdered By: Andrés Fisher on 08-05-2023 Platelet morphology finding Nom (Bld) Normal Normal [facility] Protein [Mass/volume] in Ser um or PlasmaOrdered By: Andrés Fisher on 08-05-2023 Protein [Mass/Vol] 6.5 g/dL Normal 6.4-8.9 [facility] Comment on above: Performed By: #### C MP, PT, PTT, DIFF CBC #### [address] Prothrombin time (PT)Ordered By: Andrés Fisher on 08-05-2023 PT Coag (PPP) [Time] 16.4 s High 9.0-12.9 [facility] Comment on above: A hematocrit value g reater than 55% may lead to inaccurate results in coagulation testing. Patients having hematocrit values >55% require a special collection tube for coagulation studies. Please contact the laboratory at [phone] for redraw instructions. Result Comment: A he matocrit value greater than 55% may lead to inaccurate results in coagulation testing. Patients having hematocrit values >55% require a special collection tube for coagulation studies. Please contact the laboratory at [phone] for redraw instructions. Performed By: #### C MP, PT, PTT, DIFF CBC #### [address] RBC morphologyOrdered By: Fr sloane Fisher on 08-05-2023 RBC morphology finding Nom (Bld) N/A [facility] Serum globulin measurement b y calculation (mass/volume)Ordered By: Andrés Fisher on 08-05-2023 Globulin (S) [Mass/Vol] 3.1 g/dL Normal [facility] Comment on above: Performed By: #### C MP, PT, PTT, DIFF CBC #### [address] Serum or plasma albumin/glob ulin mass ratioOrdered By: Andrés Fisher on 08-05-2023 Albumin/Globulin [Mass ratio] 1.1 {ratio} Normal [facility] Comment on above: Performed By: #### C MP, PT, PTT, DIFF CBC #### [address] Thyroid Stim Hormone w/Rflxo n 08-05-2023 Thyroid Stim Hormone w/Rflx 2.58 u[iU]/mL Normal 0.45-5.33 [facility] Comment on above: Performed By: #### C MP, PT, PTT, DIFF CBC #### [address] Thyrotropin [Units/volume] i n Serum or PlasmaOrdered By: Andrés Fisher on 08-05-2023 TSH Qn 2.58 m[IU]/L 0.45-5.33 [facility] Vit. B12/Folate Profileon Folate 19.8 ng/mL Normal >5.9 [facility] Comment on above: Result Comment: [place] te reference range: >5.9 ng/ml The WHO technical consultation on folate and vitamin b12 deficiencies has determined that folate concentrations less than 4 ng/ml are considered deficient. Performed By: #### V [id number], TSH3 wRFLX, [id number] #### [facility] [address] Vitamin B12 ser/plasOrdered By: Andrés Fisher on 08-05-2023 Cobalamin (Vitamin B12) [Mass/Vol] 514 pg/mL Normal 180-914 [facility] Comment on above: Performed By: #### V [id number], TSH3 wRFLX, [id number] #### [facility] [address] Vitamin D 25 Hydroxy Totalon 08-05-2023 Vitamin D 25 Hydroxy Total 33.9 ng/mL Normal 30-100 [facility] Comment on above: Result Comment: AR MIN D STATUS 25(OH)VITAMIN D RANGE (ng/mL) Deficient <20 Insufficient 20 to <30 Sufficient 30 to 100 Reference: Selma Henry, Thomas MARX, et al. Evaluation,treatment, and prevention of vitamin D deficiency; an Endocrine Society clinical practice guideline. JCEM. 2010; 96(7):1911-30. PERFORMED BY: [place] [address] PATHOLOGIST MACHINE SOLE LEVELER KERLINE PRICE M.D. Performed By: #### C MP, PT, PTT, DIFF CBC #### [facility] [address] [place] [address] Vitamin D+Metabolites [Mass/ volume] in Serum or PlasmaOrdered By: Andrés Fisher on 08-05-2023 Vitamin D+Metabolites [Mass/Vol] 33.9 ng/mL 30-100 [facility] Comment on above: VITAMIN D STATUS 25( [place])VITAMIN D RANGE (ng/mL) Deficient <20 Insufficient 20 to <30Sufficient 30 to 100Reference: Selma Henry, Thomas MARX, et al. Evaluation,treatment, and prevention of vitamin D deficiency; an Endocrine Society clinical practice guideline. JCEM. 2010; 96(7):4991-30. BLOOD CULTUREon 08-04-2023 Bacteria identified Aer cx Nom (Bld) CULTURE RESULTS NO GROWTH 5 DAYS Normal [facility] Bacteria identified Aer cx Nom (Bld) CULTURE RESULTS NO GROWTH 5 DAYS Normal [facility] CBC AND AUTO DIFFon 08-04-19 Erythrocyte distribution width (RBC) [Ratio] 13.8 % Normal 11.5-15.0 [facility] Comment on above: Performed By: #### C BCA, 38101-6, CMP, 5643-2, 2157-6, 58067- 9, 2639-3, 56898-2 #### [facility] ([id number]) [address] [place] [address] 96394 Hematocrit (Bld) [Volume fraction] 40.5 % Normal 39-49 [facility] Comment on above: Performed By: #### C RAÚL, 93085-0, CMP, 5643-2, 2157-6, 58091- 9, 2639-3, 49578-2 #### [facility] ([id number]) [address] [place] [address] 16042 Hemoglobin (Bld) [Mass/Vol] 13.8 g/dL Normal 13.0-17.0 [facility] Comment on above: Performed By: #### C BCA, 42008-0, CMP, 5643-2, 2157-6, 35079- 9, 2639-3, 60525-5 #### [facility] ([id number]) [address] [place] [address] 35250 Lymphocytes (Bld) [#/Vol] 0.4 10*3/uL Low 1.0-3.5 [facility] Comment on above: Performed By: #### C BCA, 26995-1, CMP, 5643-2, 2157-6, 67730- 9, 2639-3, 74006-5 #### [facility] ([id number]) [address] [place] [address] Lymphocytes/100 WBC (Bld) 2.0 % Normal [facility] Comment on above: Performed By: #### C BCA, 03107-0, CMP, 5643-2, 2157-6, 67129- 9, 2639-3, 02577-1 #### [facility] ([id number]) [address] [place] [address] 31023 MCH (RBC) [Entitic mass] 33.2 pg Normal 27-34 [facility] Comment on above: Performed By: #### C BCA, 47726-3, CMP, 5643-2, 2156-6, - 9, 9-3, 30713-8 #### [facility] ([id number]) [address] [place] [address] 78654 MCHC (RBC) [Mass/Vol] 34.2 g/dL Normal 32-36 [facility] Comment on above: Performed By: #### C BCA, 68751-6, CMP, 5643-2, 2156-6, 29111- 9, 2638-3, 39962-0 #### [facility] ([id number]) [address] [place] [address] 54378 MCV (RBC) [Entitic vol] 97 fL Normal 80-100 [facility] Comment on above: Performed By: #### C BCA, 44769-9, CMP, 5643-2, 2156-6, - 9, 2638-3, 23997-8 #### [facility] ([id number]) [address] [place] [address] 89150 Monocytes (Bld) [#/Vol] 1.2 10*3/uL High 0-0.9 [facility] Comment on above: Performed By: #### C BCA, 84741-9, CMP, 5643-2, 2156-6, 00528- 9, 2639-3, 61866-9 #### [facility] ([id number]) [address] [place] [address] 67512 Monocytes/100 WBC (Bld) 7.0 % Normal [facility] Comment on above: Performed By: #### C RAÚL, 08008-1, CMP, 5643-2, 2157-6, 67871- 9, 2639-3, 27742-5 #### [facility] ([id number]) [address] [place] [address] 81949 Neutrophils (Bld) [#/Vol] 16.0 10*3/uL High 1.5-6.6 [facility] Comment on above: Performed By: #### C RAÚL, 51707-4, CMP, 5643-2, 2156-6, 35939- 9, 2639-3, 14231-7 #### [facility] ([id number]) [address] [place] [address] 20486 Platelet mean volume (Bld) [Entitic vol] 9.4 fL Normal 7-12 [facility] Comment on above: Performed By: #### C RAÚL, 62373-1, CMP, 5643-2, 2156-6, 20030- 9, 2639-3, 28747-5 #### [facility] ([id number]) [address] [place] [address] 79262 Platelets (Bld) [#/Vol] 175 10*3/uL Normal 150-450 [facility] Comment on above: Performed By: #### C BCA, 04580-6, CMP, 5643-2, 2157-6, 89512- 9, 2639-3, 90396-9 #### [facility] ([id number]) [address] [place] [address] 97128 RBC COUNT 4.17 X10E12/L Normal 4.10-5.70 [facility] Comment on above: Performed By: #### C BCA, 36276-7, CMP, 5643-2, 2157-6, 97536- 9, 2639-3, 92674-1 #### [facility] ([id number]) [address] [place] [address] 52286 RBC morphology finding Nom (Bld) REVIEWED Normal [facility] Comment on above: Performed By: #### C BCA, 46857-6, CMP, 5643-2, 2157-6, 15189- 9, 2639-3, 73486-6 #### [facility] ([id number]) [address] [place] [address] 18040 SEG NEUTROPHIL 91.0 % Normal [facility] Comment on above: Performed By: #### C BCA, 19710-3, CMP, 5643-2, 2157-6, 14838- 9, 2639-3, 68861-1 #### [facility] ([id number]) [address] [place] [address] 31318 WBC (Bld) [#/Vol] 17.6 10*3/uL High 4.0-11.0 [facility] Comment on above: Performed By: #### C BCA, 93648-3, CMP, 5643-2, 2157-6, 14748- 9, 2639-3, 20121-1 #### [facility] ([id number]) [address] [place] [address] 11746 CK [Catalytic activity/Vol]o n 08-04-2023 CPK 196 U/L High 24-195 [facility] Comment on above: Performed By: #### C BCA, 63612-9, CMP, 5643-2, 2157-6, 82667- 9, 2639-3, 00101-4 #### [facility] ([id number]) [address] [place] [address] 23329 COMPREHENSIVE METABOLIC PANE Michel 08-04-2023 Albumin [Mass/Vol] 3.5 g/dL Normal 3.2-5.3 [facility] Comment on above: Performed By: #### C BCA, 60883-3, CMP, 5643-2, 2157-6, 90092- 9, 2639-3, 94939-4 #### [facility] ([id number]) [address] [place] [address] 62533 ALP [Catalytic activity/Vol] 131 U/L High 39-130 [facility] Comment on above: Performed By: #### C BCA, 11759-4, CMP, 5643-2, 2157-6, 35851- 9, 2639-3, 94347-0 #### [facility] ([id number]) [address] [place] [address] 82803 ALT [Catalytic activity/Vol] 123 U/L High 0-40 [facility] Comment on above: Performed By: #### C BCA, 02038-2, CMP, 5643-2, 2157-6, 65318- 9, 2639-3, 52637-7 #### [facility] ([id number]) [address] [place] [address] 48235 Anion gap [Moles/Vol] 12 mmol/L Normal 5-15 [facility] Comment on above: Performed By: #### C BCA, 34881-9, CMP, 5643-2, 2157-6, 04767- 9, 2639-3, 79942-5 #### [facility] ([id number]) [address] [place] [address] 20115 AST [Catalytic activity/Vol] 71 U/L High 0-41 [facility] Comment on above: Performed By: #### C BCA, 56032-8, CMP, 5643-2, 2157-6, 31647- 9, 2639-3, 78239-8 #### [facility] ([id number]) [address] [place] [address] 02841 Bilirubin [Mass/Vol] 1.1 mg/dL Normal 0.3-1.2 [facility] Comment on above: Performed By: #### C BCA, 01526-8, CMP, 5643-2, 2157-6, 38315- 9, 2639-3, 54232-2 #### [facility] ([id number]) [address] [place] [address] 79098 Calcium [Mass/Vol] 8.4 mg/dL Low 8.5-10.5 [facility] Comment on above: Performed By: #### C BCA, 26438-5, CMP, 5643-2, 2157-6, 22721- 9, 2639-3, 89351-5 #### [facility] ([id number]) [address] [place] [address] 93893 Chloride [Moles/Vol] 104 mmol/L Normal 98-109 [facility] Comment on above: Performed By: #### C BCA, 96066-2, CMP, 5643-2, 2157-6, - 9, 2639-3, 22650-3 #### [facility] ([id number]) [address] [place] [address] 38507 CO2 [Moles/Vol] 21 mmol/L Low 22-32 [facility] Comment on above: Performed By: #### C BCA, 23934-5, CMP, 5643-2, 2157-6, 30240- 9, 2639-3, 12150-8 #### [facility] ([id number]) [address] [place] [address] 91106 Creatinine [Mass/Vol] 1.53 mg/dL High 0.70-1.20 [facility] Comment on above: Result Comment: METH OD TRACEABLE TO IDMS STANDARD Performed By: #### C BCA, 01138-3, CMP, 5643-2, 2157-6, 88281-4, 2639-3, 44337-3 #### [facility] ([id number]) [address] [place] [address] 29853 GFR/1.73 sq M.predicted among non-blacks MDRD (S/P/Bld) [Vol rate/Area] 47 mL/min/{1.73_m2} Low >59 [facility] Comment on above: Result Comment: Reported eGFR is based on the CKD-EPI 2020 equation that does not use a race coefficient. Performed By: #### C BCA, 08596-1, CMP, 5643-2, 2157-6, 17678-5, 2639-3, 10422-5 #### [facility] ([id number]) [address] [place] [address] 46120 Glucose [Mass/Vol] 166 mg/dL High 65-99 [facility] Comment on above: Performed By: #### C BCA, 52357-4, CMP, 5643-2, 2156-6, 73539- 9, 2639-3, 82148-4 #### [facility] ([id number]) [address] [place] [address] 82215 Potassium [Moles/Vol] 3.9 mmol/L Normal 3.5-5.0 [facility] Comment on above: Performed By: #### C BCA, 97869-1, CMP, 5643-2, 7-6, 14433- 9, 2639-3, 92859-4 #### [facility] ([id number]) [address] [place] [address] 68937 Protein [Mass/Vol] 6.9 g/dL Normal 6.0-8.0 [facility] Comment on above: Performed By: #### C BCA, 78262-1, CMP, 5643-2, 2156-6, 66906- 9, 2639-3, 34557-9 #### [facility] ([id number]) [address] [place] [address] 61899 Sodium [Moles/Vol] 137 mmol/L Normal 134-146 [facility] Comment on above: Performed By: #### C BCA, 15743-5, CMP, 5643-2, 2157-6, 13006- 9, 2639-3, 11093-6 #### [facility] ([id number]) [address] [place] [address] Urea nitrogen [Mass/Vol] 29 mg/dL High 5-27 [facility] Comment on above: Performed By: #### C BCA, 69925-1, CMP, 5643-2, 2157-6, 04940- 9, 2639-3, 34858-5 #### [facility] ([id number]) [address] [place] [address] CT ABDOMEN AND PELVIS W CONT on 08-04-2023 CT ABDOMEN AND PELVIS W CONT CT ABDOMEN AND PELVIS W CONT History: Dizziness. Weakness. Fever. Sepsis. Elevated LFTs Exam/Technique: Abdomen and pelvis CT imaging is performed with IV contrast. Comparison: No previous CTs of the abdomen and pelvis. Contrast-enhanced chest CT from 01/26/2019 Findings: There is a prominent area of atelectasis and consolidation inferiorly in the left upper lobe with a probable left hilar mass. The liver, spleen, pancreas, adrenal glands, right kidney, and gallbladder display no significant abnormalities. No biliary dilatation demonstrated. The abdominal aorta is of normal caliber throughout its length. Status post left nephrectomy. Mild changes of diverticulosis with no evidence of associated inflammatory change. No bowel dilatation or other gross abnormalities of the unopacified bowel loops demonstrated. The appendix appears normal. There is no free intraperitoneal fluid or gas, and no gross abnormal fluid collections. There are no gross abnormalities of the unopacified urinary bladder suggested. Mild compression deformity of T12 is unchanged from a chest CT from 2019. Mild compression of the L1 vertebral body with prominent inferior endplate sclerosis is increased from that time but otherwise there are no gross studies for comparison to establish age and the appearance is suggestive of chronic fracture. IMPRESSION: * Concern with partially included mass lesion at the left hilum and some associated left upper lobe atelectasis/consolidation. * Recommend correlation with complete contrast-enhanced chest CT. * No acute abnormalities displayed in the abdomen or pelvis All CT scans at this facility use dose modulation, iterative reconstruction, and/or weight based dosing when appropriate to reduce radiation dose to as low as reasonably achievable. Finalized by Devon Pickering MD on 08/04/2023 3:41 PM Normal [facility] CT CHEST WO CONTon 4 CT CHEST WO CONT CT CHEST WO CONT CT CHEST WO CONT HISTORY: Respiratory illness, nondiagnostic x-ray, possible hilar mass on CT abdomen and pelvis. COMPARISON: CT chest without contrast 11/08/2019. CT abdomen and pelvis 08/04/2023. TECHNIQUE: Multidetector axial CT Chest performed without IV contrast. Sagittal and coronal 2-D reconstructed images were also obtained. Automated exposure control was utilized. All CT scans at this facility use dose modulation, iterative reconstruction, and/or weight based dosing when appropriate to reduce radiation dose to as low as reasonably achievable. FINDINGS: Limited evaluation of the hilar regions and vessels in the absence of IV contrast. LUNGS/PLEURA: The airways are patent without filling defect. No pneumothorax or pleural effusion. Consolidation of the inferior left upper lobe along the major fissure. Additional focus of consolidation along the medial right upper lobe apex. Mild bilateral dependent atelectasis. Unchanged 0.9 cm left lower lobe calcified 7granuloma. HEART/VESSELS/MEDIASTINUM: No cardiomegaly or pericardial effusion. No dilation of the ascending aorta measuring 4.3 cm. The pulmonary outflow tract measures 3.4 cm. No significant coronary artery calcifications. Multiple prominent mediastinal lymph nodes measuring up to 0.9 cm. Calcified left hilar lymph node measuring 1.3 cm appears stable since 2019. LOWER NECK AND MUSCULOSKELETAL: The visualized thyroid is unremarkable. No acute osseous abnormality. Chronic compression deformities of T12 and L1. UPPER ABDOMEN: No adrenal mass or splenomegaly. IMPRESSION: * Multifocal consolidation within the left upper lobe without evidence of airway obstruction, favored to represent infectious process. Underlying neoplasm cannot be completely excluded on this noncontrast examination. Follow-up recommended. Approved by Resident Wilson Perez MD on 08/04/2023 4:43 PM I, Juan Sal MD have personally reviewed the image(s) and agree with and/or edited the report Finalized by Juan Sal MD on 08/04/2023 5:26 PM Normal [facility] DRUG SCREEN, URINEon 024 AMPHETAMINE/METHAMP Negative Normal NEG [facility] Comment on above: Result Comment: AMPH /METH screening cut off = 1000 ng/mL Performed By: #### C BCA, 33966-5, CMP, 5643-2, 2157-6, 50059-6, 2639-3, 51000-4 #### [facility] ([id number]) [address] [place] [address] 25110 BARBITURATES Positive Abnormal NEG [facility] Comment on above: Result Comment: Conf irmation available upon request. Barbiturates screening cut off value = 200 ng/mL Performed By: #### C RAÚL, 01744-5, CMP, 5643-2, 7-6, 20782-6, 2639-3, 82344-5 #### [facility] ([id number]) [address] [place] [address] 13121 BENZODIAZEPINES Negative Normal NEG [facility] Comment on above: Result Comment: Angel odiazepines screening cut off value = 200 ng/mL Performed By: #### C RAÚL, 60077-5, CMP, 5643-2, 2156-6, 53826-5, 2639-3, 31576-6 #### [facility] ([id number]) [address] [place] [address] 64739 CANNABINOIDS Negative Normal NEG [facility] Comment on above: Result Comment: Jody abinoids/THC screening cut off value = 50 ng/mL Performed By: #### C BCA, 33539-3, CMP, 5643-2, 7-6, 02213-4, 2639-3, 10896-5 #### [facility] ([id number]) [address] [place] [address] 61434 COCAINE METABOLITE Negative Normal NEG [facility] Comment on above: Result Comment: Coca ine screening cut off value = 300 ng/mL Performed By: #### C BCA, 33529-3, CMP, 5643-2, 2157-6, 35717-4, 2639-3, 71582-9 #### [facility] ([id number]) [address] [place] [address] 98493 ECSTASY Negative Normal NEG [facility] Comment on above: Result Comment: Ecst asy screening cut off value = 500 ng/mL This report is intended for use in clinical monitoring or management of patients. Performed By: #### C BCA, 98610-8, CMP, 5643-2, 2157-6, 46348-8, 2639-3, 16605-4 #### [facility] ([id number]) [address] [place] [address] 41946 METHADONE Negative Normal [facility] Comment on above: Result Comment: Meth adone screening cut off value = 300 ng/mL. Performed By: #### C BCA, 52266-5, CMP, 5643-2, 7-6, 35087-6, 2639-3, 66080-3 #### [facility] ([id number]) [address] [place] [address] 24346 OPIATES Negative Normal [facility] Comment on above: Result Comment: Opia manjeet screening cut off value = 300 ng/mL NOTE: This test is used for the detection of codeine, hydrocodone (>1000 ng/mL), morphine and hydromorphone (>900 ng/mL) in urine. Performed By: #### C BCA, 87440-3, CMP, 5643-2, 2157-6, 80392-4, 2639-3, 38948-1 #### [facility] ([id number]) [address] [place] [address] [place] [address] OXYCODONE Negative Normal NEG [facility] Comment on above: Result Comment: Oxyc odone screening cut off value = 300 ng/mL NOTE: This test is used for the detection of oxycodone and oxymorphone in urine. Performed By: #### C BCA, 57277-4, CMP, 5643-2, 2157-6, 12075-4, 9-3, 27256-4 #### [facility] ([id number]) [address] [place] [address] 67225 PHENCYCLIDINE Negative Normal NEG [facility] Comment on above: Result Comment: Phen cyclidine screening cut off value = 25 ng/mL Performed By: #### C BCA, 14758-1, CMP, 5643-2, 2156-6, 25449-6, 2639-3, 46167-0 #### [facility] ([id number]) [address] [place] [address] 85874 ETHANOLon 08-04-2023 Ethanol [Mass/Vol] mg/dL Normal 0.00-0.08 [facility] Comment on above: Result Comment: This report is intended for use in clinical monitoring or management of patients. Performed By: #### C BCA, 42214-2, CMP, 5643-2, 2156-6, 22754-6, 2638-3, 64050-2 #### [facility] ([id number]) [address] [place] [address] 05423 Lactate (P mary) [Moles/Vol]o n 08-04-2023 Lactate [Moles/Vol] 1.0 mmol/L Normal 0.4-2.0 [facility] Comment on above: Performed By: #### C BCA, 58824-6, CMP, 5643-2, 2156-6, - 9, 2639-3, 73706-3 #### [facility] ([id number]) [address] [place] [address] 33180 LACTATE W/REFLEX 2.3 mmol/L High 0.4-2.0 [facility] Comment on above: Performed By: #### C BCA, 55425-3, CMP, 5643-2, 2156-6, - 9, 9-3, 97188-0 #### [facility] ([id number]) [address] [place] [address] MAGNESIUMon 08-04-2023 Magnesium [Mass/Vol] 1.8 mg/dL Normal 1.8-2.6 [facility] Comment on above: Performed By: #### C BCA, 69039-7, CMP, 5643-2, 2156-08, 9, 9-3, 74969-9 #### [facility] ([id number]) [address] [place] [address] Myoglobin [Mass/Vol]on 08-03 SERUM MYOGLOBIN 436.0 ng/mL High 17.4-105.7 [facility] Comment on above: Performed By: #### C BCA, 51875-1, CMP, 5643-2, 2156-08, , 2638-3, 24538-0 #### [facility] ([id number]) [address] [place] [address] Troponin I.cardiac High sens itivity method [Mass/Vol]on 08-04-2023 1 HOUR TROP I, HIGH SENSITIVITY 47 ng/L High <21 [facility] Comment on above: Result Comment: Elevations of hs-Troponin may be due to causes other than myocardial ischemia. Recommend serial hs-Troponin testing be performed. For the initial evaluation and management of chest pain patients, refer to the algorithms linked below. Emergency Patient: [email or web address] Inpatient: [email or web address] Performed By: #### C BCA, 01111-9, CMP, 5643-2, 2156-6, 93139-8, 9-3, 21153-3 #### [facility] ([id number]) [address] [place] [id number] TROPONIN I, HIGH SENSITIVITY 31 ng/L High <21 [facility] Comment on above: Result Comment: Elevations of hs-Troponin may be due to causes other than myocardial ischemia. Recommend serial hs-Troponin testing be performed. For the initial evaluation and management of chest pain patients, refer to the algorithms linked below. Emergency Patient: [email or web address] uh=[email or web address] Inpatient: [email or web address] uh=[email or web address] Performed By: #### C BCA, 65185-8, CMP, 5643-2, 2157-6, 82155-5, 2639-3, 82128-9 #### [facility] ([id number]) [address] [place] [id number] URN MACROSCOPIC NURon 2023 BILIRUBIN JIMY Negative Normal NEG [facility] Comment on above: Performed By: #### C BCA, 84916-7, CMP, 5643-2, 2157-6, 40068- 9, 2639-3, 45154-9 #### [facility] ([id number]) [address] [place] [address] [address] BLOOD/HGB JIMY Trace Abnormal NEG [facility] Comment on above: Performed By: #### C BCA, 02745-8, CMP, 5643-2, 2157-6, 41159- 9, 2639-3, 70449-6 #### [facility] ([id number]) [address] [place] [address] GLUCOSE JIMY Negative Normal NEG [facility] Comment on above: Performed By: #### C BCA, 52963-3, CMP, 5643-2, 2157-6, 41884- 9, 2639-3, 85143-3 #### [facility] ([id number]) [address] [place] [address]7829 KETONES JIMY Negative Normal NEG [facility] Comment on above: Performed By: #### C BCA, 08533-1, CMP, 5643-2, 2157-6, 48771- 9, 2639-3, 36869-2 #### [facility] ([id number]) [address] [place] [address] 11537 LEUKOCYTE ESTERASE JIMY Negative Normal NEG Pr [facility] Comment on above: Performed By: #### C BCA, 55785-8, CMP, 5643-2, 2156-6, 60935- 9, 9-3, 66075-5 #### [facility] ([id number]) [address] [place] [address] 57713 NITRITE JIMY Negative Normal NEG [facility] Comment on above: Performed By: #### C BCA, 55872-5, CMP, 5643-2, 2157-6, 26220- 9, 2639-3, 87434-1 #### [facility] ([id number]) [address] [place] [address]1008 PH JIMY 5.5 Normal 5.0-8.5 [facility] Comment on above: Performed By: #### C BCA, 24244-0, CMP, 5643-2, 2157-6, 48608- 9, 2639-3, 38619-3 #### [facility] ([id number]) [address] [place] [address] 86993 PROTEIN JIMY 30 mg/dL Abnormal NEG [facility] Comment on above: Performed By: #### C BCA, 35928-9, CMP, 5643-2, 2157-6, 25279- 9, 2639-3, 41581-1 #### [facility] ([id number]) [address] [place] [address] SPECIFIC GRAVITY JIMY 1.010 Normal 1.003-1 .03 5 [facility] Comment on above: Performed By: #### C BCA, 49219-1, CMP, 5643-2, 2157-6, 51956- 9, 2639-3, 61942-7 #### [facility] ([id number]) [address] [place] [address] UROBILINOGEN JIMY 1.0 eu/dL Normal <1.1 [facility] Comment on above: Performed By: #### C BCA, 67093-7, CMP, 5643-2, 7-6, 17444- 9, 2639-3, 59138-8 #### [facility] ([id number]) [address] [place] [address] Office Visiton 07-14-2023 Follow-up visit [id number] Del Mcmahon 1945 M Date Provider Department Center 07/14/2023 [facility] Family History Problem Relation Age of Onset Hypertension Sister Family Status - Relation Status Age at Sister Level of Service:10243 [place] OFFICE/OUTPATIENT ESTABLISHED LOW MDM 20 MIN Reason for Visit and Comments: Follow-up [205446] - 6 months Normal [facility] Glucose Auto test strip (Bld ) [Mass/Vol]on 02-10-2022 Glucose [Mass/Vol] 119 mg/dL High 70-99 [facility] Comment on above: Performed By: #### 2 340-8 #### [facility] [address] [place] [address] Glucose [Mass/Vol] 119 mg/dL High 70 - 99 mg/dL [facility] Interpretation and review of laboratory results Abnormal [facility] SARS-CoV-2 (COVID-19) RNA NA A+probe Ql (Resp)on 02-10-2022 Interpretation and review of laboratory results Normal [facility] SARS-CoV-2 (COVID-19) RdRp gene DILSHAD+probe Ql (Resp) Not detected Not Detected [facility] SARS-CoV-2 RNA Resp Ql DILSHAD+p robeon 02-10-2022 SARS-CoV-2 (COVID-19) RNA DILSHAD+probe Ql (Resp) Not detected Normal Not Detected [facility] Comment on above: Performed By: #### 9 4500-6 #### [facility] [address] [place] [address] Basic metabolic 2000 panelon 01-22-2022 Anion gap [Moles/Vol] 10 mmol/L Normal 6-18 [facility] Comment on above: Performed By: #### 2 4321-2 #### [facility] [address] [place] [address] Calcium [Mass/Vol] 8.9 mg/dL Normal 8.9-10.3 [facility] Comment on above: Performed By: #### 2 4321-2 #### [facility] [address] [place] [address] Chloride [Moles/Vol] 102 mmol/L Normal 98-107 [facility] Comment on above: Performed By: #### 2 4321-2 #### [facility] [address] [place] [address] CO2 [Moles/Vol] 25 mmol/L Normal 22-32 [facility] Comment on above: Performed By: #### 2 4321-2 #### [facility] [address] [facility] [address] Creatinine [Mass/Vol] 1.01 mg/dL Normal 0.60-1.30 [facility] Comment on above: Performed By: #### 2 4321-2 #### [facility] [address] [place] [address] GFR/1.73 sq M.predicted among non-blacks MDRD (S/P/Bld) [Vol rate/Area] 78 mL/min/{1.73_m2} Normal >=60 [facility] Comment on above: Result Comment: Rosalina ctive December 22, 2021, calculation based on the?Chronic Kidney Disease Epidemiology Collaboration (CKD-EPI) equation refit?without adjustment for race. Performed By: #### 2 4321-2 #### [facility] [address] [place] [address] Glucose [Mass/Vol] 70 mg/dL Normal 70-99 [facility] Comment on above: Performed By: #### 2 4321-2 #### [facility] [address] [place] [address] Potassium [Moles/Vol] 4.4 mmol/L Normal 3.6-5.1 [facility] Comment on above: Performed By: #### 2 4321-2 #### [facility] [address] [place] [address] Sodium [Moles/Vol] 137 mmol/L Normal 136-145 [facility] Comment on above: Performed By: #### 2 4321-2 #### [facility] [address] [place] [address] Urea nitrogen [Mass/Vol] 26 mg/dL High 8-20 [facility] Comment on above: Performed By: #### 2 4321-2 #### [facility] [address] [facility] [address] Urea nitrogen/Creatinine [Mass ratio] 25.7 mg/mg High 12.0-20.0 [facility] Comment on above: Performed By: #### 2 4321-2 #### [facility] [address] [place] [address] Hemogram and platelets WO di fferential panel (Bld)on 01-22-2022 Basophils (Bld) [#/Vol] 0.07 10*3/uL Normal 0.00-0.20 [facility] Comment on above: Performed By: #### 2 4317-0 #### [facility] [address] [place] [address] Basophils/100 WBC (Bld) 1.0 % Normal 0.0-2.0 [facility] Comment on above: Performed By: #### 2 4317-0 #### [facility] [address] [place] [address] Eosinophils (Bld) [#/Vol] 0.74 10*3/uL High 0.00-0.70 [facility] Comment on above: Performed By: #### 2 4317-0 #### [facility] [address] [place] [address] Eosinophils/100 WBC (Bld) 10.4 % High 0.0-7.0 [facility] Comment on above: Performed By: #### 2 4317-0 #### [facility] [address] [place] [address] Erythrocyte distribution width (RBC) [Ratio] 13.0 % Normal 11.0-14.8 [facility] Comment on above: Performed By: #### 2 4317-0 #### [facility] [address] [place] [address] Hematocrit (Bld) [Volume fraction] 47.9 % Normal 39.0-49.0 [facility] Comment on above: Performed By: #### 2 4317-0 #### [facility] [address] [place] [address] 35868 Hemoglobin (Bld) [Mass/Vol] 16.4 g/dL Normal 13.5-17.5 [facility] Comment on above: Performed By: #### 2 4317-0 #### [facility] [address] [place] [address] Immature granulocytes (Bld) [#/Vol] 0.01 10*3/uL Normal 0.00-0.10 [facility] Comment on above: Performed By: #### 2 4317-0 #### [facility] [address] [place] [address] Immature granulocytes/100 WBC (Bld) 0.1 % Normal 0.0-1.2 [facility] Comment on above: Performed By: #### 2 4317-0 #### [facility] [address] [place] [address] Lymphocytes (Bld) [#/Vol] 1.67 10*3/uL Normal 1.00-4.80 [facility] Comment on above: Performed By: #### 2 4317-0 #### [facility] [address] [place] [address] 75247 Lymphocytes/100 WBC (Bld) 23.5 % Normal 17.9-49.6 [facility] Comment on above: Performed By: #### 2 4317-0 #### [facility] [address] [place] [address] 12198 MCH 33.1 pcg Normal 27.0-34.0 [facility] Comment on above: Performed By: #### 2 4317-0 #### [facility] [address] [place] [address] MCHC (RBC) [Mass/Vol] 34.2 g/dL Normal 30.8-35.3 [facility] Comment on above: Performed By: #### 2 4317-0 #### [facility] [address] [facility] [place] [address] MCV (RBC) [Entitic vol] 96.8 fL Normal 80.0-97.0 [facility] Comment on above: Performed By: #### 2 4317-0 #### [facility] [address] [place] [address] Monocytes (Bld) [#/Vol] 0.71 10*3/uL Normal 0.00-0.90 [facility] Comment on above: Performed By: #### 2 4317-0 #### [facility] [address] [place] [address] 22903 Monocytes/100 WBC (Bld) 10.0 % Normal 0.0-12.0 [facility] Comment on above: Performed By: #### 2 4317-0 #### [facility] [address] [place] [address] 10956 Neutrophils Absolute 3.90 K/mcL Normal 1.80-7.70 [facility] Comment on above: Performed By: #### 2 4317-0 #### [facility] [address] [place] [address] 02600 Neutrophils/100 WBC (Bld) 55.0 % Normal 38.1-75.5 [facility] Comment on above: Performed By: #### 2 4317-0 #### [facility] [address] [place] [address] 64632 Platelet mean volume (Bld) [Entitic vol] 10.7 fL Normal 6.2-12.1 [facility] Comment on above: Performed By: #### 2 4317-0 #### [facility] [address] [place] [address] 69793 Platelets (Bld) [#/Vol] 181 10*3/uL Normal 142-424 [facility] Comment on above: Performed By: #### 2 4317-0 #### [facility] [address] [place] [address] 20639 RBC (Bld) [#/Vol] 4.95 10*6/uL Normal 4.30-5.70 [facility] Comment on above: Performed By: #### 2 4317-0 #### [facility] [address] [place] [address] WBC (Bld) [#/Vol] 7.1 10*3/uL Normal 4.6-10.2 [facility] Comment on above: Performed By: #### 2 4317-0 #### [facility] [address] [place] [address] Consent Formson 05-08-2021 Consent Forms [id number] Normal [facility] ECHOCARDIO M/2D COMPLETEon 0 05-08-2021 ECHOCARDIO M/2D COMPLETE Patient: DEL MCMAHON Exam Date: 05/08/2021 : 1945 Gender:M Ordering : BALTA ROD Admission #: [id number] Family : DR MARCO A HUIZAR D.O. Order #: [id number] CLICK HERE TO VIEW EXAM ECHOCARDIOGRAM REPORT PROCEDURE: CARDIO PULMONARY ECHOCARDIO M/2D COMP INDICATIONS: Ventricular tachycardia, pacemaker COMPARISON: None. DESCRIPTION: COMPLETE ECHOCARDIOGRAM Real-time transthoracic echocardiography with 2D, M-mode, spectral and color flow Doppler performed. QUALITY: Technical quality was good. LEFT VENTRICLE: Normal chamber size. Mild concentric left ventricular hypertrophy. Global left ventricular systolic function is normal. LV EF: Normal left ventricular ejection fraction, (>55%). DIASTOLIC: Diastolic function is indeterminate. ATRIAL SEPTUM: LEFT ATRIUM: Normal chamber size. RIGHT ATRIUM: Normal chamber size. RIGHT VENTRICLE: Normal chamber size. Normal systolic function. Pacer wire present. TRICUSPID VALVE: Normal mobility and thickness. No stenosis with trivial regurgitation. No evidence of pulmonary hypertension. RVSP 27 mmHg MITRAL VALVE: Normal mobility and thickness. No evidence of mitral valve stenosis. There is no mitral annular calcification. Trivial mitral regurgitation. AORTIC VALVE: Trileaflet appearance with mildly thickened leaflets. Normal leaflet mobility. No evidence of aortic valve stenosis. No aortic regurgitation. AORTIC ROOT: Normal diameter and appearance. PULMONIC VALVE: Normal thickness and mobility. No stenosis. Trivial regurgitation. PERICARDIUM: No evidence of pericardial effusion. IVC: Collapses with inspirations. PLEURA: CONCLUSION: 1. Normal ventricular systolic function. 2. No significant valvular dysfunction. 3. Mild concentric left ventricular hypertrophy. 4. Normal right sided pressures. 5. No pericardial effusion. Adult Echocardiography Procedure Report Left Ventricle LVEDD (3.7 - 5.6 cm): 3.46 cm LVESD (2.2 - 4.0 cm): 2.19 cm LVIVS thickness (0.6 - 1.2 cm): 1.27 cm LVPW thickness (0.5 - 1.0 cm): 1.28 cm e': 6.14 cm/s E - e': 10.50 LVOT Area (cm2): 4.15 cm2 LVOT Diameter 2.30 cm Left Ventricular Ejection Fraction: 67.70 % Left Atrium LA Volume Index (2D A2C): 23.70 ml/m2 Left Atrium Systolic Dimension: 3.70 cm Left Atrium Systolic Area(A2C): 18.40 cm2 Left Atrium Systolic Area(A4C): 14.20 cm2 Left Atrium Systolic Volume(A2C): 89637 mm3 Left Atrium Systolic Volume(A4C): 06362 mm3 Mitral Valve MV E to A Ratio: 0.60 Mitral Valve A-Wave Peak Velocity: 104.00 cm/s Mitral Valve E-Wave Peak Velocity: 64.70 cm/s Deceleration Time: 343 ms Right Ventricle Aorta AO Root Diam: 4.00 cm Aortic Valve AoV Area (Peak Bar): 3.23 cm2 Peak Velocity(Antegrade Flow): 120.00 cm/s Peak Gradient(Antegrade Flow): 6 mm[Hg] Tricuspid Valve Peak Velocity (Regurgitant Flow): 243.00 cm/s, 218.00 cm/s, 194.00 cm/s Pulmonic Valve Peak Velocity: 85.70 cm/s Peak Gradient: 3 mm[Hg] Right Atrium Dictated by: Solomon Weiss M.D. on 05/08/2021 at 14:17 Approved by: Solomon Weiss M.D. on 05/08/2021 at 14:22 [facility] Coding Summaryon 04-26-2021 Coding Summary HTMLBase 64 TuosteqrBEi2zHh+PGhlYWQ+PE 4AMFNoV83aqBPonE3MF8uVRD1Y VYOVVUUXIG7JXT0mvQO6OIfuB7 VybiAv TrexeJEeFA63WWp6RDP8gBifND wnpC7jyJMmJ4e5OpZsGK63wX58 VLgtWHWuLnB7LsCzepkziKIy M4yjVoKjgPAxZoj+PHRhYmxlIH bwHDWaNEcsYAEhEaPtoDpqPT9d Lh1fDZZzBOBpiMehzCNwSiCa q4yfFBVuZTlmKU0eaNnjK3NjkG X8RWEjz2c5Km91hUD+PHRkIHN0 ySwmLBclh103XhSnk7zlWFG0 bLKkQFqxTVK7R93lv9F4METjAP MuINB6rOT1bN4mnLdkagkiN1Ie tAXfVdE2KJD8tHVqjO8ulIkp zxmvlN1eUca+M21FHB4ERGJHBA 1LKnr0M4KrUmfmnIF+DA44DXKq MS67cXGyrKVrd3vmqRu4AoTo VKIsDWO7mIatUUntz8TgUXCnF0 2fjOPvp1U8VTZfsAawhATfMrAl iCB9xQ5ePDhcpcqhv4yctmgt Gokjw5ntve24wN89I91wTFktAT XpTAM7XEGiGNModQfmgw2jlO1b Ii8+MBisr5pba8fcaSs4AeOk OHKnfrGlnXaqYML2o6YaSo87T4 IwkGnrl9UjDwq4vw41cZVxo5L7 qEB0RHkjJGKdvW5ySAetHqB9 GPRhHdGjlS42iGHpTMtqSh4jyC fgoMaqMT6vODPdcpdoXJKqxN6v WQRqsDHwxCnsRS6fUSOibeik i275MvQwTFK1BUOgpTMbF0XiiZ 3xEiGmWEAnCMBuX3TxiDUjJSny I934DAkgRmZ6OZVvtwCwH3Qq CGItzJhsEhK1d9E0Hh5Rq7Jddl hmEHD3PRiqGDMwIqSrGxBkOjQ0 S8DgAuc8DVOrxReyQJ2yC1Tk WTFrnpjvhezdwOE6MCYvXNAwgL 09qHGjYHxhYj1vg7L5f782LNQv KEKxqB73Vc3gxIpbXRLdxACW pP7ggudsz0nvjlnjGsSyPTPoPJ b7YPl2QYHzoGufVwRqTIZ9ZhE2 CKJ6gBBfnA0gnPxnytxmrB1n Oyc+L07omQ1kWSC2GSI2uoldBL JugdGnYF38PB63C7EjAnekbOKp bGU+CYSowtUevUyzTM7fMjLv j8ozp1HhRAswR0NtDCEgVIcsLr r2SNWpPPM9lAN7kV3uDCIhHAnv n3U4vDF5G5RfwkFzah6cp4up VCGyWQtxF99baSDll2T1AQVtaB P5PIYqdTxwDkEtaS37Adw+PGNv yQwwd2MwXyngy9adh5tkwWr7 WaAoXKQsqqFclFfdKXM5x8DyTo 24O45iJTwgACEaHRIwDLBoXSDy qEmkol2mzJ6cIb1+PGNvbCB3 eXN8rT2uNZHhGeG8QCikZ759Gj OgjQNdOzivh7esr4vzhCc9IiIj TGCsrpNufIqjALA1t7NsKz55 Z13qOJuyLYInPMIaBPVqZSMidT jtjl5ksD7xHg6+RK0xi8ifst24 eW59mHU+DDByRYA9oQitWLcr VEDcpN4eRAwkFeX6BRBkFcTfuF 79yPPoJOhbDz7xzExhnNabDZ0n XIDrdmevq682JlAvi2bkWOYi qLZvTTonZRM0M02ti5M8SXGaTT GvKTO6nHI5xI1vaTyfujxzmTTe qPsiriWumRfbMLyaLCmaA247 IHRvcDsnPlBhdGllbnQgTmFtZT z0H1PlHux4EAJowWzfPY3jvVNq NHuoXq4bdFvslOrnDV8aVGXc hzcjm059HhMqs8egVQNzfQBvEH cdYOJ3M38he5U7OAQmJKSmWGJ4 cKA2lA9cmBxwzppnfRGuqPsg xnIcuXquOWflQGvkZ430YWBorP rrIyFamaXhMBSmtRV5YL41ER49 gHSbg1L5lLW3I3TnZDBfjbrw rdelmQC8MCDrVMQzwO33Cy0hgJ ooGa8lMCHpRPJ9UHOpwKDaI7Ru yP2xOuGnKHQgJFUoK1HaxJXd BXbhS380ZGhjBmR7HSRrswIqH5 WjIYGjzPxuVpU6y2D9Td7XS4L1 AT47ZI69rWXqt1B4vSA5E5Wq LZJiprxywkbpvLZ2YQQrRIVqcU 55Oy4wkHdbVd7yTGQaGQZ1YDMv kTQgG0PphC4cQdDwZVYrUQKx Z1AuoCJsJDrfL954YDbnCrX3CL EckjFqS2AiBPVrtSwtAbA5e6I4 Mv0SPAd0SX42MZ45eZZqr3Q3 oDV0W9VtPKSscfjvzeltoGC6JZ UkBBSuwR47Xn2piVkcTs1pZCBl KFF5ERVeqUYnH8KhuP4hSeCj VQOdTNNfO9MjqEMlANjaX491SE efEpS7YZHalnMwF3ApDWOayMwr PsP4p1W6Jp6KNTCnWJ33FLN6 oCZ9ML74PS54H3TtPdtyyBDfdR U+PHRhYmxlIHdpZHRoPScxMDAl XeMsyNdkHT0dYi4tFBOzKDTq lUaqhJWyPkSie7utYJWgEWodNP 5cuNfsO8WoyNX0ZXWdb9q4Lw90 W37lL2XpdGB+BFDpzMB7lPL3 rX8rKmBbZuY8PClkT885PqAfzD PlMrimr2sgh4uyoNv6SiI5UDMy klDudFcaDQR7k9EqXa60L96h IHdpZHRoPSIxNSUiIHZhbGlnbj 4kxS2qDy6+PPQwbJZ7nUX3nB7h HdWbQoM3VMzmT523KiCamKBs Kqvmy8bcf7kcsTo9LaMjMAQhek DmmGzmUKU2p4UdEi48M9AdtTbz d5WwWiw7jb45eLMup8R1oOA1 V9MkHAXkgcevxZQesDewXY0oUI KqixubNKHqgI5lUDLzD6v9BnLe YzX9BQhbJ1QnjjL8UJEpoKWg JIuqYLK6V29fz0H6HFZfQKDzNK K0dXY5mT4yqWoxmqnlbKLwaXzs mvFyhTdcSGxiIHwxE188YNHv uXgnCHEjmJ2bGIOrkJNxbLppDJ 2jSXPocmjcNtXJKs2GCraGCC3z OYsSAy1MWSROLKLHP5RSDJfU UjwvdGQ+NRIxCTB3dCpgVUlrPK ZapB0sPQXcJ1k4EnQqJvU1WFxi E1XoVPBdvytyJk89iQ5bOyFp KzG6OAznI6ZvpbR0XATyfOSgHR bfVFW3P96jd2H7KTZoUKVcGVK1 zOF4sB1spFhvvhumsRBwpStb akBwjUmvUTceQJqwE106DHFlnM skRiLdVzXpOpH1UNt0A2RiCrm7 CIWewCaxPB6xxDKkESiwWp7t cZsnaBwoHQ3cFDHakvpkDQVosC 0rYNGqqXDzjEtzIV0cTCPdoeuk v372RpSwUHL4XGFybDFnG2Qo pA9sIeUbLZSpDZCtM0TheQHdTK wqI627PCdgTdD9RHCpppUuJ5Qb JJRlzHkmXkS5d8M3Ns53TEJA ZWFyczwvdGQ+FSBjYQR3ePjaRB dfSZQklD9zGRNtA1w1XvUySdL0 NBkiB5FuCSEnsymmQz33tQ2m FuKiDqQ9PIruD8JlorK3WYUtuP QfQEdnJSY0M92gb3H6SYDmWHEa BLW5vEM5jM2mkLghwuwpoMWu hJzqitXetAawYHdyVHkpT652XM OknQciLp8HBPX2L0YtPht1BCQs rJirGM5jfKKbMEebEx0gxFdv xZtnCH9iFTFukfssTFEppJ0hRG VqoJTdmYphDR2eBXHpsrkuf115 FvOrRIJ2FCIrbWNmT6TfyG3g ObCgQVQfKEVxP6VwmPLuHWsnW4 29SOvrKkJ6FPMlhfDcN6ItSZXo eGspFmC7b5L3Kf9YfJMjH2Es L4t2W5KfAjaiaGD+JK34EBRzWF 18zPYikHTri9dzrYx0QcQqBNPn EPV2dHinLExdt5JlHGOnR51m zIWwt0K0CUQwtGehdIPpYoGirV V0xV8qPJjptldrh2fcdrfwUkoz f3vujd60fH40S61kAYthTKCs BDZeJTJjDEItzCabgf8ieY2aDo 8+EIPjdQS9iRP2oD0lJgVqExU4 NAcrE252XoMrgIAeDxfmp3bt v2yeqBx9KgSuPXSchpYdkXljZH O5c7RsHf60H82nRPsmQHKwUUZp WTMvRJDgcItowu2gpR1qYg2+ GV8ne6qkdy18sC92bAB+PHRkIH A7xRjhRQbqMBQmhS3vQEeiDoY9 VODqKcZxqX20nAIxJBysTt3u xSuhgMzjBD6mWTWznqgbh915Wd Qal4ufPIBunLYsBTvqEGR3B50w z9P8AFUqHHKcUZX3aUH2tZ7i bGlnbjogbGVmdDsgdmVydGljYW laCLygA663ERAurEsaWdLelLEt E6myglBSNQ1hRqyefWZ+PHRk ZMQ0uOynKPxxJMCzcF0qDTHgV8 h7MlLpFqK5SUpyG3RmayL9CXDg bYJoOXGgrWEStI7yxvpph2jo hvxwXgYlAGCuFOt7ELn2HRIcfR tqZcWyBAC7DpD6OJC8oZPpeE2h kIubnpljvC3ePpb+RklOOjwv dGQ+FQKoAVL8kYjgNBnoQWLabB 9eZLTvI4i2EtCrBzN7RTluD5Cb oeH2INJcgBTrIKVgnDAEiL7h sjrtd5qgcsnrQnWrVSAlSPd9EX x9VTItnUxrXvXuOTN7OwJ7XSQ3 hIZkbP6tpQezenimhO5nAal+ TVJOOjwvdGQ+CCLaNTQ9gNxnHE rdIPBeyT0oOLXvX9y1FjJuVqR7 IYmeX5HonmY4VNBklQQuFZOr dAQWeC8ycmuka3vaqmoiLpRaWE UkCWp2LGx5QISfpStfMwLeOQV3 AdZ1UOC8lUAwrP9afQxnowuj wZ3kLoe+VHK1ZYH4AJ52BO24N1 RyPjwvdGFibGU+PHRhYmxlIHdp BAVvQXtzXHXfMcMczZofTB8z Ym9 (more content not included)... [facility] Coding Summary HTMLBase 64 VukjucoeDFk5zEk+PGhlYWQ+PE 1DXPKkX95xzOZqnU4EC1oNJF4Z PSZQDWURNJ0KAT1sgBF9BZxjB5 VybiAv WgsbdIRbWL27YCq4DGC6jTwrMA esdF6drPKgG9o4IyOgRN38kV41 TZjnEPEtJhB2IsPbusyqdFIu Q9skMuKnuDZdPbw+PHRhYmxlIH hmWPDuGWzyJMEdWdOmpWhmBU8h Nh3eGNWoOFOnnConzYXlCxBw x3dhDCNoXBosFS5xmOftH1HukU D3HSXrg1o9Cr76xVL+PHRkIHN0 cGorWJsgm334TbCwb9ecOGG4 gLGbIJfpBBE9P52xm7M0MNWnDV RvBSN7rJS4hQ8piFdogbggJ5Ap oCYsSgQ3HJK5kXYraN7dtCkr baupoY8tOqo+U78IBF4QCJELAB 0YKrn4L4FnSkpceRA+QT23HHNk BW82mKHuwKEne4znqJa9HgXe XDCtYLC0wHkqBUtiz6KaUWYeM9 8cmIHti9U0VGYmmWcxpKLnEvJp fON2dR8qVIzbregii3dxtztn Wdbyo4gujh65jK62Z44cRSsaLY DcWIW6QXTrHKKxmQehmq5ovI6h Ii8+JFkml6jkv1xmuIn4NkTh EHAxfrMtnRenWFH0g8EtUf94J0 YdcBqny3TdBqa1ps13rPIkl6X7 rWY0PXpeWZVlrN6mRFixSkA1 FKKxVfLnyC38iIOvMXerAc3trI fwdDviXK9dBHXlbhdvSOZirF3w ATDqhSZtfXezLK3gJAHqrvfc y954NbDnZQD0KLSsqXJkP9FuoM 1bUsPmJQYeHAUnF8RjmVYqQWbn P679RBqqPwJ6OIOawpMuF2Zv FJDokUolCiR6g6J1Yw1Fa0Zkjs xtWQJ3YLpkSFKeQpMwJzXeXpN5 W1TkNqd4OXAdbXteTL6yM5Iz WSUbltrwtqwiwUY8RCTpMSIvwL 62xNVnRNmlSp3nc1T3i066DRTi ONZafN85Ib1ggZaxANTbwNZB vP5gnbkwi3spntvlLkXfYXZxHT q2ZRu7GFFrwZjeUkAxFJQ3WoW1 PBK4wGCsvS4aiBttenviyK9a Oyc+M49qsB6xOCR5REP5rhwxAC ScdnNlOD15KH90V2GzXopomZGm bGU+RXRigfMstZpkLJ2kRjKb e1xsu8ZqQMtpZ6WhRCVdWYzxWg u8ZGDiDLX2fDH5qJ0mHEAsJEcr g4Q9nSF0V5TszzGnzv9uc7wn HMPxNTfhE90jtKOrc0D8BIKktH G9ABRcgIfuWuCktX04Rcd+PGNv eIskn4YsGogqi3wnx0hmoLo5 YqBaSAGqkvBqcPbzYOY8b5SrSp 85W90lIXczZHImDRZoHAWoRUZl yWlqmb7hoL6vWc5+PGNvbCB3 yHB9pW5bZIEkClT5HDffH734Dk RnaYKhRszlk0was3tbaWh8OcOd RNNwolZnqYuwKGQ5j9TuOo69 O94vETonESIjEOYeCPCxTROuqV ysnx7rxP9gSq9+HG6cq9tktg53 fV99lHK+WMVoCEN4cGieMZbl TIQykW6uSPavBtJ1SVLeXkIyrI 88vSKzZGcsTn1reAzflOswVR9j NJCyzpfkk137EzSku3mjDISx jGKxBYneOLU2N64ug0X1QZUcGF EfAEQ5lXV0gD8riJtdnxyawPYt uFhzdcQzmIlmLOthCIauY952 IHRvcDsnPlBhdGllbnQgTmFtZT u1G4WtRbq5AAWmjCnmKD4qcBYy OCfrBg3oxNsyeIcoPW6bBQSq pgwbz855KkMpe7bgCCVcwATpXX omZIV2B43wm8D8VAJpLPIxHFG1 bVY0iW7cdFchezygbPNttMnk udFuyXmlMVsfVDfhV963XYZqdO spArMdohJfZLKwhCC9XT60QY79 tTKwe6F5hBY9S7IrBMApdwdb lnmwrVT3WNPnBJFfvU43Jm7srO bqNf8yWDIuZSO8MDHwzWVvX0Ng oA2nWtJaKBKdHGSvS0WjiWZm TOnhT165NOzlZfI1HKVvbrNwQ6 ZkDPGduJmtVzM9t1U7Ea5AD3C4 OQ67IR72dFHst3H7tSE9C7Vq DFNvdqnxqtpqpHP7HQLlDMKpoD 45Kb6xvHihYd5gVBOiJQX4SAQe wIDjI3OxkD2uDwFjKGQqGWFw I7OmsXNwATlwC413THitBvX7BO ZomoGmF9HsCCDbcGbeLcQ7o8O9 Wk2SCSj6QL59OE00eSAmq9C5 iDN8H5AlFTOonkalsjfhtXR8SD TiZGKgrR10Zz9hcPszRo8gWMHd JBF5AYDmoRVpU6JttJ8qCeUz VPNoUIQhA8AiiONlCAsrI034ZT zlUuE7URWgkzFkX8IbQTQsrCsv NvP0v4X6Ii3OBVUwRH48CDR7 vHG8QR15EJ76R6AkDdoirFQczW U+PHRhYmxlIHdpZHRoPScxMDAl GdIjqWgrVP0pDl4pHDVgUACd oVuwqTMiUwUhx5kdKONmBDneKI 2gsOfbP9VjjWK1NTAoq0q3Ze52 O51pF3BcuVT+WZOlmUP0uLN9 xB6zAoVaEqB6ZSzvE373RpWtyY WaRrqnp2cgv0nphJg1MoK8BTRk dtShwWvcGLT1o8QkOm52B42h IHdpZHRoPSIxNSUiIHZhbGlnbj 5kgR5yBc5+HKUgwOU2xIY2eL7q AeXfSyG8FNxoJ407HfRstMZx Poxqf4ail1wzuKa0YsCsJALrfc BmwHqoXHH4s7SfQn46L9DhoSre f1YtBmv6oh11nMMby8S0vJZ2 E1AdHPLuhqxprYLavIgpIC7uXX UlatlbCYKycW1jQNRjB6i1FmZo UzQ7ZOlqX4CdnjH3KEDbqHNa MOjkWIK8R69ih7T1LZEvGYKhPF U2jHL8jE3vhQifwgpufXFdfLsl ygTwrQkwBDbqNNqkI094WETd jTrtRYLijA6kUICytGCnfFwaKA 3mBPCmkimdNkJHTv9VRxfZUO2a ACaHVh3KXPOXHQMUK5HRLYdD UjwvdGQ+LWYrOCL1kQouQExzGO RmyV9xHEEtN3j2EpGkHrO7PIfy T1AqRBVhgkblKi24lK0xGmJv MzW4BHrbE4FrbxJ2NJKxvYXdOB voAKN5D67cx6V5CTBjJAAkFQI4 dEJ4dO1tfByvkbzlgHWmhIqm bhIgpTynOEkqZUygX666HZOeiB fgOoLcKmXxJuF1CWs5H1JbGvs7 UKFiyZflXC8twDGcVKysMe4x fKgabYwsRY4dGEFiclibMGCsvW 5hBBFdaQGsjFsbWL2oWJTaecwz e807NbZuHTZ5RFBfqHTwR9Mt gI8nXrTfSMEuJTJeM6YlwXNpDL kvF510TZjxGtO6NDMvgqQpO6If FLVaoVduMwL2p2S5Ia78DZNO ZWFyczwvdGQ+WRTySDZ0jZwsCM bdYPJprS1lFHEcA8p5IdHgOxO0 HZydG1WmWHYsqexzWi89xC9f QwIlRkK1YYqrH7KelhN0ZXRawB AlPOsaJOR9S69cg7J7LEQsPMSd ORV0fTB7dO2smAhuoguonBOq oJrxdbGssYicYUxvEBxkF142BS CrbIxcTw6KFOE4C8ArLho2ECRt sTsrAH0pyKMcYQnjBj5qkXbq hRqyJK3zOGAmzratZZCtsI3tIA TppPYzdUoyYE5hEBXbuctea646 TwHsROP1NVXiqCHaK6FwgU7y TfRbJROyQZKnW1YtcYNyJNonO7 18EOgiAsD6PVAjenRsC6SkPOJe uNrzWzK0h3O1Dl7APZqzM6Yo L2QmwOhisFT+IG29fr39O6NaBl zzKnt4WNNrIGI8vEC1yB8mRGDq PHmgo1K3oMH3D1QslyXkgp4a w8vuSWCaJWybM36xkRGut5M9KI HjwPX7UUZdrHknOwAweR96Rrl+ BOJepFaxt1TdFfrlf9raj7wf uTr7MjNzXSPtnnVhiQabGMH5j0 LdIx33W48hIVsfWVGhGPBrPLIh UNFhtAkfqs9wpY2bZy1+PGNv tMF8qBV1uD7uFhCdNsE2KQnwS2 57CrZjhTMsMmfdq8xks0aajVx3 KdWvYKBlkvEsoKcjIRT1o6Jm Yw40N0QabZohk3QsLnd2nm91cX Sqv5O6vRS5O4NpRIHjumshySDw lDgyOF6uIJRgnoaaSYBtmV3h VMUjA7a6FoFeIjU1HZlkL9Lsgu T5RUUlvHKbQOZzgVMAuN4ssdvn n0nvpxqwWkEiZTAkFKj4PAv2 VQQmpSbaDsIoWMP7YrM5SIO7hZ HyiZ2hgWkiyrsewE0sPoh+UGh5 d5bcbQXgEI5avPN2BG16WR27 pLZmx0X0aAW0V9VeFSOrbfalgi sbhAK2OUKoOTOgeT41Ws6hiLgn Sx5hESXfYQM2GZUtmALcK6Te fD0rClSoMKHaXUPxE1QfbQFvTO wbX328OUvcHgA7YTObdeSjR3Sh NWFqeRckDdL0b4V8Qy3BRU17 [id number] YnzloarbnuoTY7ETFhRAQyeK93 Zh5tqKamTa8eSCXuYZQ5IATb cSCyF6CkxK6mKmWeUSEtCJUxR3 HssDScYYkdG429WRvmEuF3AIWw cgBxF9ByEBGesIxcZlD0r8F9 Qg4CAi94PQ44CM74wGEfg0N0dH U9C3SeLFRkjlyihucctZO3LSNi XHHwyN73Du4qwRjlYy4nCEPe BRL3GIWjxSImT1OcsB1mZeMjJH HfSQXcX1ByzFGdYIaeE925PBdh ZxJ2BZNdxgJkB3PnVGIueVid KtQ3b6W0Gt0WUIniiuw6K9UvLq wvdHI+RA85EHCgPF34gDLdxFGi f8avgNa2DmYdKDNgKXU0tCov PSd (more content not included)... [facility] - [facility] Resultson Lab - AP Results [id number]#1.00[facility] Pathology Sendout Teston Pathology Send Out. See Report [facility] Comment on above: Order Comment: prost ate chips Performed By: #### 2 [id number] ####[facility] (DEFAULT)[address] [place] [address] Consent Formson 04-24-2021 Consent Forms [id number]#1.00[facility] Implantable Deviceson 2021 Implantable Devices [id number]#1.00[facility] Provider Orderson 04-24-2021 Provider Orders [id number]#1.00[facility] Provider Orders [id number]#[address] [place] [address] Anesthesia Noteon 04-23-2021 Anesthesia Note Patient: DEL MCMAHON Age: 76 years Sex: MALE : 1945 Associated Diagnoses: None Author: Sivakumar Larsen MD Postoperative Information Post Operative Note: Phase 2 Room 210. Anesthetic utilized: Monitored anesthesia care. Health Status Allergies: Allergic Reactions (All) No known allergies Physical Examination VS/Measurements Vital Signs (last 24 hrs) Last Charted Heart Rate Peripheral 60 bpm (APR 23 09:45) Resp Rate 16 br/min (APR 23 09:45) SBP 138 mmHg (APR 23 09:45) DBP H 95 mmHg (APR 23 09:45) General: Alert and oriented, No acute distress. Respiratory: Respirations are non-labored. Cardiovascular: Normal rate, Regular rhythm. Review / Management Condition: Stable. Assessment Anesthetic outcome No anesthetic complications noted. Adequate pain relief. No Complaint of nausea and vomiting. Plan Transfer/ Discharge: Patient can be discharged from anesthesia care. [Electronically Signed on: 04/23/2021 09:56 EST] Sivakumar Larsen MD [Verified on: 04/23/2021 09:56 EST] Sivakumar Larsen MD [facility] Anesthesia Note Patient: DEL MCMAHON Age: 76 years Sex: MALE : 1945 Associated Diagnoses: None Author: Sivakumar Larsen MD Preoperative Information Anesthesia history: Patient history: No nausea and vomiting with anesthesia, No prior anesthesia problems, No problems with local anesthetics. Review of Systems Constitutional: Negative. Respiratory: No shortness of breath. Cardiovascular: No chest pain. Health Status Allergies: Allergic Reactions (All) No known allergies Current medications: Home Medications (4) Active aspirin 81 mg oral tablet 81 mg = 1 tab(s), PO, Daily levothyroxine 100 mcg (0.1 mg) oral tablet 100 mcg = 1 tab(s), PO, Daily primidone 50 mg oral tablet 100 mg = 2 tab(s), PO, Once a day (at bedtime) triamcinolone 0.1% topical cream 1 jose, TOP, Daily Problem list (past medical history): All Problems Cardiac pacemaker / SNOMED CT 3286542142 / Confirmed Hypothyroidism / SNOMED CT 90567711 / Confirmed Tremors of nervous system / SNOMED CT 99906072 / Confirmed Histories Family History: No family history items have been selected or recorded. Procedure history: Laser ablation of prostate ([id number]) on 09/25/2020 at 75 Years. Comments: 09/25/2020 12:12 EDT - Marta Velez RN Greenlight laser, cystoscopy Kidney ([id number]). 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 Colonoscopy ([id number]). Arthroscopy of knee ([id number]). Comments: 04/05/2021 13:03 Praveena Camacho RN left Social History Electronic Cigarette/Vaping Assessment Electronic Cigarette Use: Never. Alcohol Assessment Use: Current. Comment: rarely Tobacco Assessment Never (less than 100 in lifetime) Tobacco Use:. Substance Abuse Assessment Substance use: Never. . Social & Psychosocial Habits Alcohol 09/18/2020 Alcohol Use: Current Comment: rarely - 09/18/2020 08:40 - Alexis Moran RN Substance Abuse 09/18/2020 Substance use: Never Tobacco 09/18/2020 Smoking tobacco use: Never (less than 100 in l Electronic Cigarette/Vaping 09/18/2020 Electronic Cigarette Use: Never . Physical Examination VS/Measurements Vital Signs (last 24 hrs) Last Charted Heart Rate Peripheral 60 bpm (APR 23:25) Resp Rate 16 br/min (APR 23:) SBP H 142 mmHg (APR 23:25) DBP H 91 mmHg (APR 23:) Pain assessment: Self-reports no pain. General: Alert and oriented, No acute distress, Slow historian.. Airway: Mallampati classification: I (soft palate, fauces, uvula, pillars visible). Mouth: Teeth ( Within normal limits ). Respiratory: Respirations are non-labored. Cardiovascular: Normal rate, Regular rhythm. Neurologic: Alert, Oriented. Review / Management Laboratory Results Plan [place] [employer]#(ASA) physical status classification: Class III. Anesthetic Preoperative Plan Anesthesia: General. , Plan for TIVA with LMA.. Anesthetic plan, risks, benefits, and alternatives discussed with the patient and/or family. Patient verbalized understanding. Informed consent was given. Consent was signed by the patient. present at interview. . [Electronically Signed on: 04/23/2021 08:23 EST] Sivakumar Larsen MD [Verified on: 04/23/2021 08:23 EST] Sivakumar Larsen MD [facility] ED Clinical Summaryon 2021 ED Clinical Summary [facility] - Emergency Department [address] [place], [place] [id number] ED Clinical Summary PERSON INFORMATION Name: DEL MCMAOHN Age: 76 Years Sex: MALE : 1945 MRN: Acct#: Visit Reason: Catheter check; CATHETER CHECK Arrival: 04/23/2021 13:23:04 Discharge: 04/23/2021 14:30:00 LOS: 000 01:07 Check In: 04/23/2021 13:23:04 Checkout:04/23/2021 14:30:00 Address: [address] [place] [address] [facility] [address] PCP: MARCO A HUIZAR JR. PROVIDER INFORMATION Provider Role Assigned Unassigned MARIE SORIANO ED PA 04/23/2021 13:24:57 Yoanna RN, Adina Sagastume ED Nurse 04/23/2021 13:34:30 VITALS INFORMATION Vital Sign Triage Latest Temperature Tympanic Temperature Temporal Artery Pulse Rate 59 bpm 59 bpm O2 Sat 96 % 96 % Respiratory Rate Blood Pressure /86 mmHg /86 mmHg MEDICAL INFORMATION Medications Given: Allergy Information: No known allergies PHYSICIAN DOCUMENTATION Patient: DEL MCMAHON Age: 76 years Sex: MALE : 1945 Associated Diagnoses: Valladares catheter problem; Elevated blood pressure reading Author: MARIE SORIANO Basic Information Time seen: Date & time 04/23/2021 13:32:00. History source: Patient. Arrival mode: Private vehicle, walking. Additional information: Chief Complaint from Nursing Triage Note : Chief Complaint 04/23/2021 7:25 EST Chief Complaint Difficulty starting stream- for Cystoscopy w/ TURP injection of stem cells (Modified) . History of Present Illness Patient is a 76-year-old male presenting to the emergency department with complaint of Valladares catheter not draining. Patient states earlier today he had a cystoscopy with TURP injection of stem cells by Dr. Garcia. He states that a catheter was placed he was told to keep this in place until when the reevaluate the patient. He states that since he is going home his catheter has not been draining and he feels a pressure in his bladder area feels as though he needs to urinate. States he contacted urologist was told to come to the emergency department. Patient denies any other significant issues at this time. Review of Systems Constitutional symptoms: No fever, Skin symptoms: No rash, Eye symptoms: Vision unchanged. ENMT symptoms: No sore throat, no nasal congestion. Respiratory symptoms: No shortness of breath, no cough. Cardiovascular symptoms: No chest pain, no tachycardia. Gastrointestinal symptoms: Abdominal pain, mild, suprapubic, pressure, no nausea, no vomiting, no diarrhea. Genitourinary symptoms: No dysuria, Musculoskeletal symptoms: No back pain, Neurologic symptoms: No headache, Health Status Allergies: Allergic Reactions (Selected) No known allergies. Medications: (Selected) Inpatient Medications Ordered LR 1,000 mL: 20 mL/hr, IV Lidocaine 1% injectable solution: 0.1 mL, ID, Once, PRN: Other (see comment) traMADol: 50 mg = 1 tab(s), PO, Once, PRN: Pain - Moderate Prescriptions Prescribed Keflex 500 mg oral capsule: 500 mg = 1 cap(s), PO, q8hr, for 5 day(s), 15 cap(s), 0 Refill(s) Ultram 50 mg oral tablet: 50 mg = 1 tab(s), PO, q6hr (int), PRN: as needed for pain, 10 tab(s), 0 Refill(s) Documented Medications Documented aspirin 81 mg oral tablet: 81 mg = 1 tab(s), PO, Daily, 30 tab(s), 0 Refill(s) levothyroxine 100 mcg (0.1 mg) oral tablet: 100 mcg = 1 tab(s), PO, Daily, 30 tab(s), 0 Refill(s) primidone 50 mg oral tablet: 100 mg = 2 tab(s), PO, Once a day (at bedtime), 60 tab(s), 0 Refill(s) triamcinolone 0.1% topical cream: 1 jose, TOP, Daily, 80 gm, 0 Refill(s). Past Medical/ Family/ Social History Family history: No family history items have been selected or recorded.. Social history: Social & Psychosocial Habits Alcohol 09/18/2020 Alcohol Use: Current Comment: rarely - 09/18/2020 08:40 - Alexis Moran RN Substance Abuse 09/18/2020 Substance use: Never Tobacco 09/18/2020 Smoking tobacco use: Never (less than 100 in l Electronic Cigarette/Vaping 09/18/2020 Electronic Cigarette Use: Never . Physical Examination Vital Signs Vital Signs 04/23/2021 10:30 EST Peripheral Pulse Rate 60 bpm Respiratory Rate 16 br/min Systolic Blood Pressure 145 mmHg HI Diastolic Blood Pressure 100 mmHg HI SpO2 97 % Oxygen Therapy Room air 04/23/2021 10:15 EST Peripheral Pulse Rate 61 bpm Respiratory Rate 16 br/min Systolic Blood Pressure 141 mmHg HI Diastolic Blood Pressure 100 mmHg HI SpO2 97 % Oxygen Therapy Room air 04/23/2021 10:00 EST Peripheral Pulse Rate 62 bpm Respiratory Rate 16 br/min Systolic Blood Pressure 149 mmHg HI Diastolic Blood Pressure 96 mmHg HI SpO2 97 % Oxygen Therapy Room air 04/23/2021 9:45 EST Peripheral Pulse Rate 60 bpm Respiratory Rate 16 br/min Systolic Blood Pressure 138 mmHg Diastolic Blood Pressure 95 mmHg HI SpO2 97 % Oxygen Therapy Room air 04/23/2021 9:40 EST Peripheral Pulse Rate 62 bpm Respiratory Rate 16 br/min Systolic Bloo (more content not included)... Normal [facility] ED Note - Physicianon 2021 ED Note - Physician Patient: DEL MCMAHON Age: 76 years Sex: MALE : 1945 Associated Diagnoses: Valladares catheter problem; Elevated blood pressure reading Author: MARIE SORIANO Basic Information Time seen: Date & time 04/23/2021 13:32:00. History source: Patient. Arrival mode: Private vehicle, walking. Additional information: Chief Complaint from Nursing Triage Note : Chief Complaint 04/23/2021 7:25 EST Chief Complaint Difficulty starting stream- for Cystoscopy w/ TURP injection of stem cells (Modified) . History of Present Illness Patient is a 76-year-old male presenting to the emergency department with complaint of Valladares catheter not draining. Patient states earlier today he had a cystoscopy with TURP injection of stem cells by Dr. Garcia. He states that a catheter was placed he was told to keep this in place until when the reevaluate the patient. He states that since he is going home his catheter has not been draining and he feels a pressure in his bladder area feels as though he needs to urinate. States he contacted urologist was told to come to the emergency department. Patient denies any other significant issues at this time. Review of Systems Constitutional symptoms: No fever, Skin symptoms: No rash, Eye symptoms: Vision unchanged. ENMT symptoms: No sore throat, no nasal congestion. Respiratory symptoms: No shortness of breath, no cough. Cardiovascular symptoms: No chest pain, no tachycardia. Gastrointestinal symptoms: Abdominal pain, mild, suprapubic, pressure, no nausea, no vomiting, no diarrhea. Genitourinary symptoms: No dysuria, Musculoskeletal symptoms: No back pain, Neurologic symptoms: No headache, Health Status Allergies: Allergic Reactions (Selected) No known allergies. Medications: (Selected) Inpatient Medications Ordered LR 1,000 mL: 20 mL/hr, IV Lidocaine 1% injectable solution: 0.1 mL, ID, Once, PRN: Other (see comment) traMADol: 50 mg = 1 tab(s), PO, Once, PRN: Pain - Moderate Prescriptions Prescribed Keflex 500 mg oral capsule: 500 mg = 1 cap(s), PO, q8hr, for 5 day(s), 15 cap(s), 0 Refill(s) Ultram 50 mg oral tablet: 50 mg = 1 tab(s), PO, q6hr (int), PRN: as needed for pain, 10 tab(s), 0 Refill(s) Documented Medications Documented aspirin 81 mg oral tablet: 81 mg = 1 tab(s), PO, Daily, 30 tab(s), 0 Refill(s) levothyroxine 100 mcg (0.1 mg) oral tablet: 100 mcg = 1 tab(s), PO, Daily, 30 tab(s), 0 Refill(s) primidone 50 mg oral tablet: 100 mg = 2 tab(s), PO, Once a day (at bedtime), 60 tab(s), 0 Refill(s) triamcinolone 0.1% topical cream: 1 jose, TOP, Daily, 80 gm, 0 Refill(s). Past Medical/ Family/ Social History Family history: No family history items have been selected or recorded.. Social history: Social & Psychosocial Habits Alcohol 09/18/2020 Alcohol Use: Current Comment: rarely - 09/18/2020 08:40 - Alexis Moran RN Substance Abuse 09/18/2020 Substance use: Never Tobacco 09/18/2020 Smoking tobacco use: Never (less than 100 in l Electronic Cigarette/Vaping 09/18/2020 Electronic Cigarette Use: Never . Physical Examination Vital Signs Vital Signs 04/23/2021 10:30 EST Peripheral Pulse Rate 60 bpm Respiratory Rate 16 br/min Systolic Blood Pressure 145 mmHg HI Diastolic Blood Pressure 100 mmHg HI SpO2 97 % Oxygen Therapy Room air 04/23/2021 10:15 EST Peripheral Pulse Rate 61 bpm Respiratory Rate 16 br/min Systolic Blood Pressure 141 mmHg HI Diastolic Blood Pressure 100 mmHg HI SpO2 97 % Oxygen Therapy Room air 04/23/2021 10:00 EST Peripheral Pulse Rate 62 bpm Respiratory Rate 16 br/min Systolic Blood Pressure 149 mmHg HI Diastolic Blood Pressure 96 mmHg HI SpO2 97 % Oxygen Therapy Room air 04/23/2021 9:45 EST Peripheral Pulse Rate 60 bpm Respiratory Rate 16 br/min Systolic Blood Pressure 138 mmHg Diastolic Blood Pressure 95 mmHg HI SpO2 97 % Oxygen Therapy Room air 04/23/2021 9:40 EST Peripheral Pulse Rate 62 bpm Respiratory Rate 16 br/min Systolic Blood Pressure 135 mmHg Diastolic Blood Pressure 100 mmHg HI SpO2 100 % Oxygen Flow Rate 6 L/min Oxygen Therapy Simple mask 04/23/2021 9:35 EST Peripheral Pulse Rate 60 bpm Respiratory Rate 16 br/min Systolic Blood Pressure 128 mmHg Diastolic Blood Pressure 88 mmHg SpO2 100 % Oxygen Flow Rate 7 L/min Oxygen Therapy Simple mask 04/23/2021 9:30 EST Peripheral Pulse Rate 60 bpm Respiratory Rate 18 br/min Systolic Blood Pressure 116 mmHg Diastolic Blood Pressure 83 mmHg SpO2 98 % Oxygen Flow Rate 7 L/min Oxygen Therapy Simple mask 04/23/2021 9:25 EST Peripheral Pulse Rate 60 bpm Respiratory Rate 18 br/min Systolic Blood Pressure 118 mmHg Diastolic Blood Pressure 78 mmHg SpO2 99 % Oxygen Flow Rate 7 L/min Oxygen Therapy Simple mask 04/23/2021 9:20 EST Peripheral Pulse Rate 60 bpm Respiratory Rate 16 br/min Systolic Blood Pressure 113 mmHg Diastolic Blood Pressure 70 mmHg SpO2 99 % Oxygen Flow (more content not included)... Normal [facility] ED Note-Nursingon 04-23-2021 ED Note-Nursing Patient arrives to [facility] ED via private vehicle. Ambulated with a steady gait to ED room 3. Alert and oriented X4.C/O catheter problem. Patient reports having surgery today by Dr. Garcia. Patient reports having scar tissue removed and stem cells injected this morning. States was discharged with catheter in place around 1000. Patient reports calling Dr. Garcia after experiencing pelvic pressure and noticing decrease in urine output. Patient reports was advised to go to the ED. Noted small amount of red urine in leg bag. Normal [facility] ED Patient Summaryon 022 ED Patient Summary [facility] - Emergency Department [address] [place] [address] PATIENT DISCHARGE INSTRUCTIONS Patient Information Name: DEL MCMAHON Age: 76 Years Date of : 1945 Reason For Visit: Catheter check; CATHETER CHECK Arrival Time: 04/23/2021 13:23:04 Primary Care Physician: MARCO A HUIZAR JR. Attending Physician: Rolly Rivas MD Comment: Visit Diagnosis: Diagnoses This Visit Catheter check ([id number]) Elevated blood pressure reading (R03.0) Valladares catheter problem (T83.9XXA) Prescription Information: If you have been given a prescription for narcotics, seek immediate medical attention if you have any difficulty breathing or any sudden status changes such as confusion and sleepiness. If you or anyone you know is experiencing suicidal thoughts, mental health, alcohol and/or drug addiction problems; contact the [facility] 06/10 Crisis Hotline -Text 4HAEQ to 032758. If you received any narcotics, sedation, or any other medication that causes drowsiness for the next 24 hours, unless otherwise directed: ? Do not drive a car. ? Do not operate machinery such as power tools, lawn mowers, drills, sewing machines, or stoves ? Avoid alcoholic beverages and drugs for allergies, nerves, or sleep ? Do not make important personal or business decisions or sign any legal documents With: Address: When: MARCO A HUIZAR JR. [address] [place] [address] [id number] Business (1) Within 3 to 5 days With: Address: When: Sivakumar Garcia [address] [place] [address] [phone] Business (1) Within 2 to 4 days Comments: Follow-up with your urologist in the next few days. Continue to keep a close eye on the catheter, if this continues to cause you issues with draining return to the emergency department for reevaluation. Medication Information: The exam and treatment you received today in the [facility] Emergency Department were for an urgent problem and are not intended as complete care. It is important for you to follow up with a doctor, nurse practitioner, or physician?s assistant vice president for ongoing care. If your symptoms become worse or you do not improve as expected and you are unable to reach your usual health care provider, you should return to the Emergency Department, we are available 24 hours a day. For those patients who have received Radiology results, the interpretation of your X-ray as given to you by our Emergency Department physician is only a preliminary report. The Radiologist will review your films and if there is a change in the diagnosis you will be notified by phone. Please make sure you have provided a working phone number so we can reach you if necessary. In the event that you had a lab culture while you were a patient in the Emergency Department, you will be notified by phone if there is a need to change your antibiotic. Please make sure you have provided a working phone number so we can reach you if necessary. [facility] Emergency Department has provided you with a complete list of medications post discharge. Please inform your rn primary care/provider of your visit and for further instruction on these medications. Any specific questions regarding your chronic medications and dosages should be discussed with your primary care physician(s) and/or pharmacist. Additional medications on your home medication list not specifically addressed. Please contact the ordering physician if you have questions about these medications. aspirin (aspirin 81 mg oral tablet) 1 tab(s) Oral every day. cephalexin (Keflex 500 mg oral capsule) 1 cap(s) Oral Every 8 hours for 5 Days. Refills: 0. levothyroxine (levothyroxine 100 mcg (0.1 mg) oral tablet) 1 tab(s) Oral every day. primidone (primidone 50 mg oral tablet) 2 tab(s) Oral once a day (at bedtime). traMADol (Ultram 50 mg oral tablet) 1 tab(s) Oral every 6 hours as needed as needed for pain. Refills: 0. triamcinolone topical (triamcinolone 0.1% topical cream) 1 jose Topical every day. Visit Information Allergies: Substance Reaction Symptoms Type Comments No known allergies Drug Vital Signs: Vitals and Measurements this Visit (last charted value for your 04/23/2021 visit) Vital Signs This Visit Temperature Oral: 36.4 DegC Peripheral Pulse Rate: 59 bpm Systolic Blood Pressure: 168 mmHg Diastolic Blood Pressure: 86 mmHg SpO2: 96 % Oxygen Therapy: Room air Measurements This Visit Height/Length Dosin.340 cm Height/Length Estimated: 180.340 cm Weight Dosin.400 kg Weight Estimated: 101.400 kg Problems List: Problem Onset Comments Cardiac pacemaker Hypothyroidism Tremors of nervous system Patient Education Hypertension, Adult High blood pressure (hypertension) is when the force of blood pumping through the arteries is too (more content not included)... Normal [facility] Inpatient Patient Summaryon 04-23-2021 Inpatient Patient Summary [place] [id number] Patient Discharge Instructions Name: DEL MCMAHON : 1945 Patient Address: [address] [place] [address] [place] [id number] Primary Care Provider: Name: GAYE MARCO A After you are discharged if you find you have any questions, please, call [phone] ext [phone] to speak to a nurse. Discharge Diagnosis: Bladder neck contracture Prescription Information: If you have been given a prescription for narcotics, seek immediate medical attention if you have any difficulty breathing or any sudden status changes such as confusion and sleepiness. If you or anyone you know is experiencing suicidal thoughts, mental health, alcohol and/or drug addiction problems; contact the [facility] 06/10 Crisis Hotline -Text 4HOPE to 761849. If you received any narcotics, sedation, or any other medication that causes drowsiness for the next 24 hours, unless otherwise directed: ? Do not drive a car. ? Do not operate machinery such as power tools, lawn mowers, drills, sewing machines, or stoves ? Avoid alcoholic beverages and drugs for allergies, nerves, or sleep ? Do not make important personal or business decisions or sign any legal documents [facility] would like to thank you for allowing us to assist you with your healthcare needs. The following includes patient education materials and information regarding your injury/illness. DEL MCMAHON has been given the following list of follow-up instructions, prescriptions, and patient education materials: Follow-up Instructions With: Address: When: MARCO A GAYE FLORES [address] [place] [address] [place] [id number] Business (1) Medications During the course of your visit, your medication list was updated with the most current information. The details of those changes are reflected below: New Medications Printed Prescriptions cephalexin (Keflex 500 mg oral capsule) 1 cap(s) Oral Every 8 hours for 5 Days. Refills: 0. traMADol (Ultram 50 mg oral tablet) 1 tab(s) Oral every 6 hours as needed as needed for pain. Refills: 0. Medications That Were Updated - Follow Below Instructions Other Medications Updated: triamcinolone topical (triamcinolone 0.1% topical cream) 1 jose Topical every day. Medications to Continue That Have Not Changed Other Medications aspirin (aspirin 81 mg oral tablet) 1 tab(s) Oral every day. levothyroxine (levothyroxine 100 mcg (0.1 mg) oral tablet) 1 tab(s) Oral every day. primidone (primidone 50 mg oral tablet) 2 tab(s) Oral once a day (at bedtime). It is important to always keep an active list of medications available so that you can share with other providers and manage your medications appropriately. As an additional courtesy, we are also providing you with your final active medications list that you can keep with you. aspirin (aspirin 81 mg oral tablet) 1 tab(s) Oral every day. cephalexin (Keflex 500 mg oral capsule) 1 cap(s) Oral Every 8 hours for 5 Days. Refills: 0. levothyroxine (levothyroxine 100 mcg (0.1 mg) oral tablet) 1 tab(s) Oral every day. primidone (primidone 50 mg oral tablet) 2 tab(s) Oral once a day (at bedtime). traMADol (Ultram 50 mg oral tablet) 1 tab(s) Oral every 6 hours as needed as needed for pain. Refills: 0. triamcinolone topical (triamcinolone 0.1% topical cream) 1 jose Topical every day. Take only the medications listed above. Contact your doctor prior to taking any medications not on this list. Diet & Activity Patient Activity Level: As Tolerated Patient Diet: Regular Patient Activity Restrictions: Other: remove valladares on at home. There are 10mLs in the balloon. Hold aspirin for 7 days following the procedure. Comment: Patient education materials, if any, will display below Viruses or Bacteria What?s got you sick? Antibiotics only treat bacterial infections. Viral illnesses cannot be treated with antibiotics. When an antibiotic is not prescribed, ask your healthcare professional for tips on how to relieve symptoms and feel better. Usual Cause Illness Viruses Bacteria Antibiotic Needed Cold/Runny Nose NO Bronchitis/Chest Cold (in otherwise healthy children and adults) NO Whooping Cough Yes Flu NO Strep Throat Yes Sore Throat (except strep) NO Fluid in the middle ear (otitis media with effusion) NO Urinary Tract Infection Yes Antibiotics Aren?t Always the Answer www.cdc.gov/getsmart GET SMART Know When Antibiotics Work [place] Department of Health and Human Services Centers for Disease Control and Prevention November 2013 [facility] MAGR Intraoperative Recordon 04-23-2021 MAGR Intraoperative Record MAGR Intra-Op Record Summary Primary Physician: Sivakumar Garcia MD Finalized Date/Time: 04/23/21 09:47:53 Pt. Name: DEL MCMAHON Kym/Sex: 1945 MALE Med Rec #: [id number] Physician: Sivakumar Garcia MD Financial #: [id number] Pt. Type: D Room/Bed: / Admit/Disch: 04/23/21 06:30:35 - Institution: Case Times MAGR Entry 1 Patient In Room Time 04/23/21 08:27:00 Out Room Time 04/23/21 09:14:00 Anesthesia Start Time 04/23/21 08:25:00 Stop Time 04/23/21 09:15:00 Surgery Start Time 04/23/21 08:40:00 Stop Time 04/23/21 09:06:00 Last Modified By: Christy Gupta RN 04/23/21 09:35:08 Case Attendance MAGR Entry 1 Entry 2 Entry 3 Case Attendee Sivakumar Garcia MD, Bradley MD Radloff, Leigh-Ann CST Role Performed Surgeon - Primary Anesthesiologist of Drawbench Operator Record Time In 04/23/21 08:27:00 04/23/21 08:27:00 04/23/21 08:27:00 Time Out 04/23/21 09:14:00 04/23/21 09:14:00 04/23/21 09:14:00 Procedure Cystoscopy TURP Cystoscopy TURP Cystoscopy TURP Last Modified By: Alonso LEROY, Christy Gupta RN, Christy Gupta RN, Christy Moore 04/23/21 09:35:09 04/23/21 09:35:09 04/23/21 09:35:09 Entry 4 Entry 5 Case Attendee Boo GREEN, Brigitte Echeverria RN Role Performed Scrub Personnel Repair Coil Winder Time In 04/23/21 08:27:00 04/23/21 08:27:00 Time Out 04/23/21 09:14:00 04/23/21 09:14:00 Procedure Cystoscopy TURP Cystoscopy TURP Last Modified By: Gupta Christy LEROY RN, Kristin N 04/23/21 09:35:09 04/23/21 09:35:09 Surgical Procedures MAGR Pre-Care Text: A.20 Verifies operative procedure, surgical site, and laterality Im.150 Develops individualized plan of care Entry 1 Procedure Cystoscopy TURP Primary Procedure Yes Primary Surgeon Jose LYLE, Sivakumar Ott Surgeon Comment Cystoscopy, TURP with injection of stem cells Start 04/23/21 08:40:00 Stop 04/23/21 09:06:00 Anesthesia Type MAC Surgical Service Urology Wound Class Clean-Contaminated Technique Details Closure Technique N/A Entire procedure No was performed via laparoscope or robotic assistance Last Modified By: Christy Gupta RN 04/23/21 09:47:25 Post-Care Text: O.730 The patient's care is consistent with the individualized perioperative plan of care General Case Data MAGR Pre-Care Text: A.350.1 Classifies surgical wound Entry 1 Case Information OR MAGR OR 01 Case Level Level 3 Wound Class Clean-Contaminated Specialty Urology ASA Class 3 Diagnosis Preop Diagnosis Bladder neck contracture Postop Same As Preop Yes Postop Diagnosis Bladder neck contracture Blunt or No Is the procedure No penetrating injury considered occured prior to Emergent/Urgent? the start of the procedure: Last Modified By: Christy Gupta RN 04/23/21 09:47:46 Post-Care Text: O.760 Patient receives consistent and comparable care regardless of the setting Time Out MAGR Entry 1 Time out date/time 04/23/21 08:37:00 All team members Yes have introduced themselves by name and role Surgeon, Yes Surgeon reviews Yes anesthesia, nurse critical or confirm patient, unexpected steps, site, procedure operative duration, anticipated blood loss Anesthesia team Yes Nursing team Yes reviews any reviews sterility patient-specific (including concerns indicator results) and equipment issues/concerns Antibiotic Antibiotic Yes Administration Time 08:26 prophylaxis given within the last 60 minutes Is essential N/A imaging displayed? Last Modified By: Christy Gupta RN 04/23/21 08:52:36 Patient Positioning MAGR Pre-Care Text: A.280 Identifies baseline musculoskeletal status Im.40 Positions the patient Im.80 Applies safety devices Entry 1 Procedure Cystoscopy TURP Body Position Low Lithotomy Left Arm Position Extended on padded arm Right Arm Position Extended on padded arm board board Left Leg Position Secured in Stirrup Right Leg Position Secured in Stirrup Feet Uncrossed? Yes Press Points Checked Yes Positioning Device Stirrups, Safety Strap Outcome Met (O.80) Yes Last Modified By: Christy Gupta RN 04/23/21 08:47:04 Post-Care Text: E.290 Evaluates musculoskeletal status O.80 Patient is free from signs and symptoms of injury related to positioning Skin Prep MAGR Pre-Care Text: A.30 Verifies allergies Im.270 Performs skin preparation Im.270.1 Implements protective measures to prevent skin and tissue injury due to chemical sources Entry 1 Skin Prep Syntegrity Prep Agents (Im.270) Other Prep By Brigitte Kathleen RN Prep Area (Im.270) Perineum Prep Area Details Bilateral Skin Prep Agent Dry Yes Without Pooling Hair Removal Syntegrity Hair Removal Methods No hair removal performed Outcome Met (O.100) Yes Last Modified By: Christy Gupta RN 04/23/21 08:47:31 Post-Care Text: E.10 Evaluates for signs and symptoms of physical injury to skin and tissue O.100 Patient is free from s (more content not included)... [facility] Postoperative Record MAGR Phase II Record Summary Primary Physician: Sivakumar Garcia MD Finalized Date/Time: 04/23/21 10:47:18 Pt. Name: DEL MCMAHON Kym/Sex: 1945 MALE Med Rec #: [id number] Physician: Sivakumar Garcia MD Financial #: [id number] Pt. Type: D Room/Bed: / Admit/Disch: 04/23/21 06:30:35 - Institution: Phase II Case Times MAGR Pre-Care Text: Patient is free from s/s of injury. Patient remains free from compromised physical state related to surgery or anesthesia. Patient comfort maintained. Patient/family verbalize understanding of discharge instructions. Entry 1 In PACU II 04/23/21 09:17:00 Discharge from PACU 04/23/21 10:45:00 II Last Modified By: Ligia Cerna RN 04/23/21 10:47:16 Post-Care Text: The patient remains free from s/s of injury. Patient's vital signs stable, circulation maintained, return to preop mental and physical status, opsite/dressing intact, minimal or absent nausea and vomiting, tolerates po intake. Patient verbalizes adequate pain control. Patient/family express understanding of discharge instructions. General Comments: Fast-tracked to OPS room 210 Finalized By: Ligia Cerna RN Document Signatures Signed By: Ligia Cerna RN 04/23/21 10:47 [facility] MAGR Preoperative Record MAGR Pre-Op Record Summary Primary Physician: Sivakumar Garcia MD Finalized Date/Time: 04/23/21 09:22:29 Pt. Name: DEL MCMAHON /Sex: 1945 MALE Med Rec #: [id number] Physician: Sivakumar Garcia MD Financial #: [id number] Pt. Type: D Room/Bed: / Admit/Disch: 04/23/21 06:30:35 - Institution: Pre-Op Case Times MAGR Pre-Care Text: Patient will be optimally prepared for surgery. Patient is free from s/s of injury. Provide information to patient/family related to plan of care. Verify patient allergies. Confirm identity and verify consent before the operative or invasive procedure. Entry 1 Patient Arrival Time 04/23/21 06:45:00 Preop Departure 04/23/21 08:25:00 Last Modified By: Ligia Cerna RN 04/23/21 09:22:24 Post-Care Text: Patient is prepared mentally and physically and is ready for surgery. The patient remains free from s/s of injury. Patient/family express understanding of plan of care and participate in decisions affecting his or her perioperrative plan of care. Allergies documented appropriately. Patient identifiers and consent correct. General Comments: Patient arrived to [facility].Patient denies any sleep apnea, diabetes, or CP. Patient does have pacemaker and states he has has a nonproductive and runny nose/nasal drainage that is clear to occasionnally yellow- Dr. Valenzuela notified Finalized By: Ligia Cerna RN Document Signatures Signed By: Ligia Cerna RN 04/23/21 09:22 [facility] Patient Handouton 04-23-2021 Patient Handout Normal [facility] 2019 Novel Coronavirus (CoVI D-19), DILSHAD LCon 04-18-2021 SARS-CoV-2 (COVID-19) RNA DILSHAD+probe Ql (Unsp spec) Not detected Invalid Interpretation Code Not Detected [facility] Comment on above: Order Comment: [id number] Result Comment: This nucleic acid amplification test was developed and its performance characteristics determined by [employer] Nucleic acid amplification tests include RT- PCR and TMA. This test has not been FDA cleared or approved. This test has been authorized by FDA under an Emergency Use Authorization (EUA). This test is only authorized for the duration of time the declaration that circumstances exist justifying the authorization of the emergency use of in vitro diagnostic tests for detection of SARS-CoV-2 virus and/or diagnosis of COVID-19 infection under section 564(b)(1) of the Act, 21 U.S.C. 360bbb-3(b) (1), unless the authorization is terminated or revoked sooner. When diagnostic testing is negative, the possibility of a false negative result should be considered in the context of a patient's recent exposures and the presence of clinical signs and symptoms consistent with COVID-19. An individual without symptoms of COVID-19 and who is not shedding SARS-CoV-2 virus would expect to have a negative (not detected) result in this assay. Performed At: [address] [id number] Dedra Martinez PhD Ph:[phone] Performed By: #### [id number] ####[facility] (DEFAULT)[address] [place] [address] Coding Summaryon 04-18-2021 Coding Summary [employer]Base 64 PzmhhbybNDu2nGq+PGhlYWQ+PE 3CWUIrB02lwJCswS9MW2xZSS2O KQSVJIKENZ1PIX8dpYI9WQoqA9 VybiAv QrwmyDWqCK88UPi7URU7mNqoKW asqT3uoNNiN3q7ShMaEK43yM47 KPnpXUSxPjL5HaNjlctenLDb R0msSfCbaIKoNyd+PHRhYmxlIH uyTFJpSOozYWQiCyNpnRaaVC5n Kx1bVXLqIGEizIjxaXIaLkZp x2jvCRHxJWcvXL7bmHfwO9HnmV Y0CVXqv9n2Qf67eNP+PHRkIHN0 vSheUNlzf688QjZdt0ddHFJ5 mDQdVJvsUBG5L12ha2C3WUWnIM MlBDW0pDC5pI0vpKeejymfP4Th kRAjQyX8URO4gYQbzM9ogRsj cfghkF4uMyq+F42RTT6NYAPBZQ 4XTqx0E3PfTwxthUN+NS81JFDz SS22pJCaaMRwt9ioqNg0XfAn OMEeFAL5fWhhGNyha2JcKMKhK1 6bnFGto7G8OLMmpYgxyCGyDrKb eMH5bH6sHPcyyswxm7ohpbmi Shvqe7hork43jX43Q03zVFckEP NaVJO0FFSbLUTkxZhcio3acW5q Ii8+QJszw7olc4losWv6XgDo HSHvtsTgaLlbXZU3s2FaNv40B8 ZcaGqlt8AqIfy4kd86hUYvr9O3 lBY9HEhgAMYteE1kRJciUkC6 JXDmIrTezZ14yGYhWElvUd6qbO hzgPagRQ0gJTZcgwndSAKjnF4q XYAwbUKkmTciVM7gNDNarrep h563RcNlTOQ4HVTitKTzU1AnaZ 8uZyUkVKBoYUDmB7MqbKUsSFwx B798LSczErI2MDOxeuUwD4In XAXeyNhnFfR1x6W8Wf7Hp0Jddx egHBT0PGopMJQpWlYqXsGvAlF3 Q5RgFoe0QWExlVylVT5aD8Ls RNSoegxesagxjDR9GNAaJFUjuP 16uGVtAMlyGg0rm1P1c672OFPw ZDNegR70Xb5uvVeuAVWdiDSW aF5dzsdfu5cgeowlYnOlFWReDQ d6WDz4TLXnvIovZcApJNG1AjP3 TBC4jLAzoG1vtXmuxuediO5h Oyc+S50wfR7hJDY7ZSB9rlzdNO SgltZsQT61ID50I1SqQnewgOXm bGU+ALTtxbIryXgrWQ9sDhUm p4mlj7GcQHvbI7XpTHDlKCqqOk h7GRFtPNP5mTS4iW9dOVLqGTch o1O6rBL2L2MezmFuhc2jw6op JCAfYLepV80yfFGah5I7GKAowU L7BHVkbNfaIpDefN94Qvo+PGNv oMtzn0BzFknww1nde9ialEw2 KpLlXADfpqCuuDebLBP8f1JhFv 34K66pHVkbKZCsFGHvFMCeCALj ePvvbd2lpQ4mEe0+PGNvbCB3 fXY9bJ5zEQQcYyB0DScsN720Bm WfcHDaLqmsa9ubq3pyzHl6KzZl MFUkuaLufPguQRB0g1XdIr06 U24sYYmdVKXuDRTdPGIkZJFlyW hpvw3cdJ2bVr6+OH4se2ekyw49 uP37pQS+NVMzWLL0pNdsAQuh XTAaiK8kVXlyVyX3KXWbYjVizP 53rSNgGXpvAo5beGdppHkxNZ1n BPJrpvspi757CeEme6piXBZf xYMcFTbaEUL3S43te0R4UCHhQS TuXHA3xLN6pS3ezQpznsblwUVv nZnutqGhsUrhDNtzIPpvC616 IHRvcDsnPlBhdGllbnQgTmFtZT b9P3JlMdd4NKKexWlsPW3ffWVh MHoyMi9clRkoxRmuFT8jODSv qqifx215FjBdo0mgNAMccUYnRM htZUL5A49ms9Y9NKJuQHWeNWX0 pEI1gJ6pvPavytkohWFdsXvk uqYzgLidABkhFYvqB265SWXouZ ygVwMxceTaRGIjtWD7ZU28HV93 pAXnl6P7dUK1I6IrRVAsiwrm xzclmNM4BKIcQVFnhE06An9oyR fbFe2bALJxKKX8FLNxqWVwJ8Fo tF1jUeCrHNPsTSJwV9WuvEQu LYqdV647HIpvCcF9MIXhzlPfO1 JsKNJrgDesNjA9u1Q0Ik6YF8U7 XI97IU89rSLpn9A5tEL2L6Su GMKuyxhimsbdqDH8PUSwLFAcnH 02Nj1alHrdKb1vZSUiAGV5GBQw lTWoZ1IxjA1kLjSuFQFiALPh C2WjbANyPDizM546EXldRlR7TI FylwIyG8XgJDMfoSyzDgM0t3W2 Wm7IYDw0CN69IJ56yCVke5O2 hER5E5DeQBJkxrheppnguKX6UR HrLHGrfR53Rh3haPayNa8cCKRj BEB5RHGmbKUhM0TfgZ0mAdIg VJXjHGTcQ4VdiDUyMWgdL454FK vlVuL1KORuviAfA8YfDCAijIrq VnR1q8O5Hq9DGAZgRX88MIY7 dIB3HF96HO99D3QtNzntyHHppB U+PHRhYmxlIHdpZHRoPScxMDAl OdHpvCbjQF3rGb8kPYLbUPUr lGuhpMZrVwGjk2fiMTYzFKvqBC 5qqHliO5HqhRC5ZVUfx3o4Pb67 V25uI6XnxSD+SXZhzXX9zTH9 lV7jLsFxXwJ7IMioR539GjZuvF WjIjjpz2bgw6bvaVi2WnP8YCTp nhIbdKrgKSV2u8JmOc29O19t IHdpZHRoPSIxNSUiIHZhbGlnbj 0kgM1qDd3+JKMszYU1nZQ6qY2c DrFsYaR1OZwuO388ZeUpxLYu Wmvhp7zua0sqqLd0AdFhUZXwju VtqQwcBMB1i2UzJs82O8IfwUbb p5ZwEbb4lq29lOMly2B6pVU6 W7YdZHNcjgibjRZdfSpvSQ6fKI VvdahpGIJsuN6oIDQaI6m5JtZk IrD7EJioG9LkgsO0LUQdcAZj HNyrTMM1A46zm0U2HDXpLXAyMB A7kPM4cT1lpMvzhxzdpEYalRcs aaRfpTqbLQkkEHvrT768GXJr yKngCANvvJ5gBMXopNXnuJruGC 9qIHDmygrzSgGWSe4UQcvUBY2h MFcLRv6FAHSTZBBTW8NWAFsU UjwvdGQ+ECQfFHQ2cZywOGxzNE NnjU6qAQPqD4d0VpKhZkT2WWzn R5YqMJLpdxjtBy23yZ8zQvSa DvM0OLvtQ0UrsvL4WUOmfLMtQP ykAYV3Y35xx2S1HJTlNOYvUCJ2 aJJ3dA5qlNprfjyhyMJztTts ujCndHyfYVmgPRucE195OVNcvB zbLwSzTnArPxU5QEw7X5JePlr8 IYBsiNtuBN7ahAQoJYivQi5d vPhsvAufSM8wDWUrmaysIYTmeP 7yQAKzjGFnzLwfYI9sZKLsssez f802YdNvFIH9KTBkmNPdN7Za jO3dBgMfEYTyKQAiK7NnsWFkAU llY098AJhbOhY9DVIrehYiE2El PQMypIwxMsD3b8E0Xt62WLQY ZWFyczwvdGQ+MLJwFND9pIhnJZ itQNYmuX3uAWCrN8j1CtEjHgC7 CDhnR5AdYEUiqfkoSp06wX6n AjKzIdC6FCqxH8JtqlR3ZACdfU SsGNmvVEI4R05in6I9SWZtMMFl QYL7sAT9fU8pbXxehizgzYRh wMdfieCdtNcnYVrsWMlgW934IU BmwYjwHm9SVTJ7J8ZmCzl6KHYf iMfsZV5axPHkUEokGm2fsTib iZjpYK8bZBEojpukNMLuwD0aHM QgeJOeaKfeFE0xNTViledsv566 CqGzQZL8XFYjgOZrS2WroE8a CwPsVWXsSMXsA9MfnNEyDVzuM3 28LKovKbC1TGNbshXqP2MmHHGi cKwiIvW9s3O2Av0ERKxypEU+ GA17ta66C0FxAfdgAen0VKIeVF P0lJC6kT1hXUHdWAakt9E5sYE7 T6CynxTzff3lb3heTTVdPIpd E14atXXja7A0YKRmiSH0AJHqlY viSzKhxU00Vyz+BRVhvIgvr2Du Inaum7zom0qzrDj2MpPuGGWh vzStwSveDHJ2j4MdIc15B50vHG npKYQsTPLwZTZqRGRhxUykyd0u nQ7pKp7+WIWlySJ7uRC1xS1r GlMqUwQ1IUtbE731LePsrVGtOa cwc6qpc3ruvEy6NxPmXZIedgKl aUavTDA1c8IzWu07D8OutDgl r8VbBpu8vk10fLSel9H4mYL6O6 RbYBKzpwownKPngJxvQJ1bERHr yimnWRVfpF6cQPJnL5y2OeWx NeF7SPuiR1QwpuR2BXHvtXXaKJ XbcCXMtZ7fsecge7gehktoAsWd RANvZUr7CJc7LKXexCoxXsBp DNZ9DcO5BHV6oSBdqL9vwCcsws hrdY0sOdl+CKb1f4vesPZsKT4i pSV1MH30UY90fOIfz4R2dOX0 I9PoPJYfcgbxbipioZC7BAOhYF FlyO32Qv5rfXogXu5oNSDqQPG0 SHKhaWLmK4CslG6pGlRsLJWt VOJeK7WliMLrPTciH093MHewCw D6FWYyieRyY2AiHYWuuKlrPbF1 k4J8Yp6UFZ63RU54CT06nABc q7B7tXP8V5CxCHXsuyrfcyafiR M5EKJhQEJksL30Jj8kuFurUp9u DMGuNCI7BQXmiOCxD9UcjY4r TlIhNSVgBPBgU0HtwMUhTThaE8 16ZNfnIzN7WAWkadLjL1WdMACs xAykDkV5l1W2Nk7WKn70TY26 XB59wIOho1Y4jYI3C7KqABIgst gxhnvhmHO2EXMwPEShfD66Wf6z xFhgOt8kDGSkXXP1TPHmvVLd D5LrzJ0yUlXjYAYaTPOwK1CpzD YzATrdF403UFvdFsQ5VDAoatNw Y7ZnQGCctVpnVlZ1p4H5Ol1T KYeuati5I3AoRrbuvTW+PC90YW JzDU91kSWcpJTsg8tjhTj2QkJv TZNzQTY6iKkbIUgyw1LyYPHa Y29 (more content not included)... [facility] Coding Summaryon 04-11-2021 Coding Summary HTMLBase 64 HljmsofdIFz8sGm+PGhlYWQ+PE 8HGNJbT81dfDJnxN4YF6lZDB3E XKXFDPFXWY5RKP6dqOG6SQzfX0 VybiAv CexepJIwFB87KTu3HPY5qCaiHG ufmT5zbFZoU3x7ChBdMU51sN72 EUjjCKWzVyU3FyOjjjhjxWYq A9uxFkTdzHJkJfn+PHRhYmxlIH wbHGVwRWqrWNWkDrLwnSykSD7h Vj6iLFBhNDRcmZdddUOkGzVk s8puXBLlURwzDJ2knLxfY8WfsI Z7ZQRcc7b1Zn15cKK+PHRkIHN0 bEpaKUxem288LuZpy9oqAZM2 zEJiAOvyWWK4S15wd4F6RXRaNB OfLIK9cVJ6iM9wbKrjkqecH8Nh jPHkZjR7WTY2lZNgqO6sqWdr saqwtO2lYwu+W04UJU8JDXJKVH 1WFkl0J0GfEexmkFR+ZC52JJQl JG99oNKnjXIgy5ypqAp9ZmJd JGXiWQB2wKrbKMzqe6PnBKKzQ7 6xnLEpj6E6IHGofIeswSSsAqCy yHW3tF2kTSvccxqjp3hgatxq Waixf9rket44vW73U57vWJjrYS IbZZZ2AKAgXKBiuBsrqn3ksV8c Ii8+NFvpp1hdx3qhtGi8GtCa OGRbddRhpObyBSF2s5NiGf04B4 AemZgwl7KpCwp8xh74yGIyd2A1 mIN3PLowZAKhzL5lJFckFlY2 HYHpNgLcwV30pNRaWSfsJc2axB rteJecTD6xGWJebiwnLSLqaW3i TPVbhQVyjWswFA5iTFPoiarp l595BjPtHAF8FIPxpSFwS5CqfG 8gOdJlGTPrMHZjA1VwuHDwAAgj S229KNlbCrL1LYKagzOlW4Vs XOQrnRlkGuJ9g4U0Jo0Lb4Lasu oqGHU1QKzjXPCuKiL9DhZjEwD6 E8KpYjl3IWFstKmiTX7hK7Di NMHmigdxqjfksHY4UPNuWXAwgE 80hPWxUJjiXp2ag6Q6l114OYCj GNFwcL99Pu9fiUkhKEVcxARI uW2bkrmct0xihcljGyIcWRHsHW a3SZq3YRKphHscUrIaOLY4UvR8 NGQ5rCUcyT9acWpqofetfP8j Oyc+W22bbA4rSMG3QLF0yahtKT NnyaGaXC56WM56S2AoDixjwLWl bGU+OKDuokWbiZriBC5oWoTe e3znx3MwDAlyE1ZnPMQrHNzfEc f3BQYxPZH7aMF0qI3eHFKyUCet g5S9xQB7G2BelfYvpt1bw1vn ZSEfUYgsH35edOEap0M6QFOirR P9GSQicExuHfDstF20Yzi+PGNv kAysf2NnOdjtx7cbs5wrqYu7 UeVdNBCndpPqmCtfOXS6s3SdIt 99I56wRErdNSYsYNVuNAXqXVJp sJhhpw1dyK7mOs9+PGNvbCB3 xPS9vU5bZMZgUwS9MCveO385Rc WpmFUzDqzbp9pvu3rjyMw4JfEz EBVpmbPbqWlfCHF7v6AkMi26 B57nOLbxUPUmQLFuCTStUUTgfG rvdf0nhG4cCw2+JN0wt4dnub19 eK00aYI+VVNdUHM6rVgsAZnb WXBhdR2bFEcvTcN4KZNxNbTtqL 16xMCjGUsrEn8hyGtgvSyhHI5x TWHzmfqro940GtVzz6rnYZQt aZMsNTgwLSS3R99oy9L0UMElZC GcOMH1wFU3pI9ppIhyjccurXUo qYmwooArqXtrNIxaPAvjR458 IHRvcDsnPlBhdGllbnQgTmFtZT h6G4QrObu8BAYdbIsnYP0ypYGo EHmeAr9ffLzfqRtaGT3rJFNl iwwwf195TfTgj2fzBHMgoILePO nzPGP8E29ju6A6KPGiXPIbXGY3 jVR0pS0auPtfbumchVHzsQqf awNpiTjcKTrlAWokZ593PIVvaI cnDsXebxLaNUSriGN4YY18BJ01 lDCrw3M9qSI4R8QxMMRqofwk bqklbOD2ZHXiGDKkfS11Oj9rjJ bbXv4fSDQqSLG8HSVlvQFxN9Kt nV4oSjQlHHErWTWmI3VvcFUi ISbkX894JRfuUyZ2DYVkhqUfD7 NnAEVgdEneKmJ9j4D0Es7DR8J3 QZ29BB85hBCyn0N8cQQ0K1Pr YHUmlgepqwhxqTU5RIDoCWQioX 87Bx3icDpuXp6lBJGjBFO2JDYm iQJxU8QlyP3vRqBiRXWfVDIi G7VlnXJaQIiaE956UKwmBhH7MG QwnjMmH4XpHMIwoExwJgV7y5D9 Cc7SLUd3RW39ND72vQCac6Y4 lLS1M7NqSYEmsqwacyijpUY0SQ JnYHGnyJ78Iu7cyBwwHn5uUQJj CSG4FHAbtEXyM1GtdB3gLoWq BEYnZVEuE3DqzDWlXUoyL793HT hpStX3OIMkhbYtU4ZaNGMtlIii DgL8z2G7Bz9UPWYkPI36FSM2 mLW5UP25MX91A5RqGceamLMrgA U+PHRhYmxlIHdpZHRoPScxMDAl NfPomWjyOW8kWe9jEIDoDEWs sPlbhXQmVzNlv7leAMQvQGvbCB 5xuHbeT7QdpJF0OPZth7r4Ra75 F68eI6ZbeRI+NBFysHL5vWP7 eM6yPqHtWnH9ULjhZ226DaOcaW ZbNgcdo5ubp2bhlBt8WeO3EJOh scPseVgeKFT8q4EzJy90K52m IHdpZHRoPSIxNSUiIHZhbGlnbj 5glY4jJr8+WUPemBE1cBH4iM5d OePjTeW5LNocF730SqOndSDp Xjhiq8vhm7ypaBz3GyAsIETurz GsrBnaTVM3i9BcGb36P7ZnyHze q5CtIqz8ka80yERpd2C9tVW5 M9LuUJVzweczdWRpdCslQN3qMM VfeuzgOEGauN3rVAKgL0c4QzEd OiC1HDtuM4IioqC7KQLfbPFp MJvkING0W23mo3X1YTBlWONhSV D2bIE0uR5hlRsijfajwGFgnSdq rzXvoDndDFwbJYslY194WNTo eBqcOPFucH9iVXJkmJIvgXqoXE 2tKIDpfzhqKjKPJx3LDjfSQM3x WKdGQi6AVRGUAZHRH7UTPCdT UjwvdGQ+FYHiYYP8hFofOCreQW FdyJ4xDQYqM2r9PxDqAiD1CMbo P7JcMUPohxhuVn43nS5tTdAr LpN4IVmhZ9YaehR9EQIdwRJqGR xpZIS4E05kv2M0UPGjCEKtUWO7 bVB2vM7atYwobcwcqVUurPdr ceRdiMztAPrmOUagO323JBPgfZ csAqCdOuEnDlZ1UYq3Q7IqDch1 JDEblIpoII0vkSHxMGeqEa2i iGrwxGtoJX1fHNYqbqblIKKzsD 3dKZWwqFPgbRcjCG2gLTVdevbz v660KpOlCAU7ZOPztAKmE4Yo vF9tLcYbKJTzEJWsO3JwmCWdCS fyB646XAgfByG5PNNlfgTbE0Gc PRXhaAynAuA4v4A5Pi00MBSD ZWFyczwvdGQ+XCCyQNM5nCfkMO jhSJMnkL2eDCImZ6a3TuBxEbC1 YGjaJ2HxAELzewdjPt54wG2o QuBtAjU6JJbpW3CeeuA7IYGggA TeYNovYJM7E98to0F4VDXeHMJb QRP0wMI9sM1vyPgsxqfjjLAx hBytjiYbcOsoKBwsUZgxL698UK GfqQruUo1XWNJ8Q5QhRmd4DQSw oAtlNV6waYQxOWfoEn6wbKta bIayPN1qOEHcammdFHSeqS6oGC TnuPEhgQqvRA2kDWQtehges073 BwWbMXR7ATOcvRZhI9MguM6s BkLaZBMqAMEtO2XtvAGcXYngP7 18QZxgXfB8IMFkfaYzY3IoKBZb bSleTjW7y2F8Oo6XRJcvqDZ+ LZ81gm67J8TeNzpmMlr6CUNxOV F3dJL8oS1cDVIuXOqqq4T1zGY9 A6BfzmTacm9jn4gxKDMaSEzo N64wqIZvd0N3XYLusSL2CRKwdJ fbQmTcaH16Wqr+WJDnsKydt5My Gcazt0emn2cwkBi3PvJeSWQl jfCclNqrZDE8h0DwQz14J06mHO blBIEcEQTiKNAwJRZzzWdcxw8g qG3pDb4+SSPucFI7bHJ3zY5t ZhHlArF9TMitU248OaPqlDBbYj ijs0ftl8qtuQt3MzKaWREczhBc zNbqFFM5o5KtCh63M5HngBri u1CrWqh8ky21gJXeo1G2pPR3O7 BdXXHebbjdbFGjrIxfDT9kHDBo ahzbVZPgbO6oHGFoY1n1UbHk EhM1USwvZ4RnptJ5AONbhRJlKF ShkQELpP2ukgwfo4wwlbbcZjHk FOQcSZa5OCt7EKEvjUhoUtXd LMG3QvU9BSG9yTAuqS5lvImnom yqpA0rQdo+IYt1t3xenPSlKL0i fYW7EF85ES70jLYrq7T1gDS0 U0GeOHHnoefxzokosBX1NAAxTG WwqR27Uv1nbKykPv1sZPBjRQB0 FOJqgFLgS8LocI5iFjBcRNHr IVMnC1EnvPJdARpyO149ZTnuPh N2TZSaaeBzF4KdPUGwpMmsWiY7 g5O0Ug8NGM12UJ40GI59qGLa z7R3aNZ7T6FoJBRqzwpwdcyqrT U9TIQxYUEsfW99Mi8okAaoFj6g FBMkUFF9GGJmpRHdF1RrpA2y PvAcPYKnUCKiB3HftKDiFSvfG6 83VAouRdB9KECfzmQdD5DgVVPs mQkuMsM1k1H0Td0JIu58CN97 DN24aOPer6O8jVD3V0JzIYHpat oenkripDR6FGWwVHCjuP00Cd2x eEnrWv9qRMUrDXW2FGBwgAOo P4YsdN8zWgCeFZWoRUBqU6KkqH GmCHpwQ569FDguMhK2KBYrakMw W9GwWOCpyFmbWnC7v7G0Rn7R LUabvjc9O5PgUkbhiIL+PC90YW MiOD23bNJsuSOld0dqsYl7FvVu UPQgEAL2tAqtMVwep8MyDIZq Y29 (more content not included)... [facility] Progress Note - Nurseon 03-17 Progress Note - Nurse PAT review done dahiana Deng, no orders received. [Electronically Signed on: 04/09/2021 14:57 EST] Praveena Lowe RN [Verified on: 04/09/2021 14:57 EST] Praveena Lowe RN [facility] Provider Orderson 04-08-2021 Provider Orders [id number] [facility] C Urineon 04-07-2021 C Urine No growth at 2 days. Normal [facility] Comment on above: Performed By: #### 6 [id number] #### [facility] (DEFAULT) [address] [place] [address] .Auto Diff 1on 04-05-2021 Auto Mower % 11 % Normal 12 [facility] Comment on above: Performed By: #### 7 [id number] ####[facility] (DEFAULT)[address] [place] [address] Baso Abs# 0.0 x10 Normal 0.0-0.2 [facility] Comment on above: Performed By: #### 7 [id number] ####[facility] (DEFAULT)[address] [place] [address] Basophils/100 WBC (Bld) 0.7 % Normal 0.2-2.0 [facility] Comment on above: Performed By: #### 7 [id number], [id number] ####[facility] (DEFAULT)[address] [place] [address] [id number] Eos Abs# 1.0 x10 High 0.0-0.4 [facility] Comment on above: Performed By: #### 7 [id number], [id number], [id number] ####[facility] (DEFAULT)[address] [place] [address] 42850 Eosinophils/100 WBC (Bld) 12.9 % High 0.9-4.0 [facility] Comment on above: Performed By: #### 7 [id number], [id number], [id number] ####[facility] (DEFAULT)[address] [place] [address] Lymph Abs# 1.8 x10 Normal 1.3-2.9 [facility] Comment on above: Performed By: #### 7 [id number], [id number] ####[facility] (DEFAULT)[address] [place] [address] 64794 Lymphocytes/100 WBC (Bld) 24 % Normal 14-48 [facility] Comment on above: Performed By: #### 7 [id number], [id number], [id number] ####[facility] (DEFAULT)[address] [place] [address] Mower Abs# 0.9 x10 High 0.0-0.8 [facility] Comment on above: Performed By: #### 7 [id number], [id number], [id number] ####[facility] (DEFAULT)[address] [place] [address] [id number] Neut Abs# 3.9 x10 Normal 1.5-9.2 [facility] Comment on above: Performed By: #### 7 [id number], [id number], [id number] ####[facility] (DEFAULT)[address] [place] [address] Neutrophils/100 WBC (Bld) 51 % Normal 44-88 [facility] Comment on above: Performed By: #### 7 [id number], [id number], [id number] ####[facility] (DEFAULT)[address] [place] [address] BMP Standardon 04-05-2021 eGFR Non AA >60 Invalid Interpretation Code [facility] Comment on above: Performed By: #### 7 [id number], [id number], [id number] ####[facility] (DEFAULT)[address] [place] [address] 53341 eGFR AA >60 Invalid Interpretation Code [facility] Comment on above: Result Comment: [place] [employer] rosmery Kidney disease could be indicated at eGFRs of less than 60 ml/min/1.73m2. Kidney Failure is indicated at less than 15 ml/min/1.73m2 Performed By: #### 7 [id number], [id number], [id number] ####[facility] (DEFAULT)[address] [place] [address] Anion gap [Moles/Vol] 12.0 mmol/L Normal 5.0-19.0 [facility] Comment on above: Performed By: #### 7 [id number], [id number], [id number] ####[facility] (DEFAULT)[address] [place] [address] 72115 Calcium [Mass/Vol] 9.0 mg/dL Normal 8.9-10.3 [facility] Comment on above: Performed By: #### 7 [id number], [id number], [id number] ####[facility] (DEFAULT)[address] [place] [address] 30182 Chloride [Moles/Vol] 102 mmol/L Normal 101-111 [facility] Comment on above: Performed By: #### 7 [id number], [id number], [id number] ####[facility] (DEFAULT)[address] [place] [address] 46841 CO2 [Moles/Vol] 27 mmol/L Normal 21-32 [facility] Comment on above: Performed By: #### 7 [id number], [id number], [id number] ####[facility] (DEFAULT)[address] [place] [address] 29977 Creatinine [Mass/Vol] 1.12 mg/dL Normal 0.90-1.30 [facility] Comment on above: Performed By: #### 7 [id number], [id number], [id number] ####[facility] (DEFAULT)[address] [place] [address] 14176 Glucose [Mass/Vol] 93.0 mg/dL Normal 74.0-118.0 [facility] Comment on above: Performed By: #### 7 [id number], [id number], [id number] ####[facility] (DEFAULT)[address] [place] [address] 63113 Osmolality 279 mOsm/L Invalid Interpretation Code [facility] Comment on above: Performed By: #### 7 [id number], [id number], [id number] ####[facility] (DEFAULT)[address] [place] [address] 93559 Potassium [Moles/Vol] 4.1 mmol/L Normal 3.6-5.1 [facility] Comment on above: Performed By: #### 7 [id number], [id number], [id number] ####[facility] (DEFAULT)[address] [place] [address] 92179 Sodium [Moles/Vol] 137.0 mmol/L Normal 136.0-144 . 0 [facility] Comment on above: Performed By: #### 7 [id number], [id number], [id number] ####[facility] (DEFAULT)[address] [place] [address] 44045 Urea nitrogen [Mass/Vol] 29 mg/dL High 8-26 [facility] Comment on above: Performed By: #### 7 385205, [id number], [id number] ####[facility] (DEFAULT)[address] [place] [address] 69490 Urea nitrogen/Creatinine [Mass ratio] 26.0 mg/mg High 4.6-16.2 [facility] Comment on above: Performed By: #### 7 155581, [id number], [id number] ####[facility] (DEFAULT)[address] [place] [address] 31893 CBC w/ Auto Diffon Erythrocyte distribution width (RBC) [Ratio] 13.6 % Normal 11.5-15.0 [facility] Comment on above: Performed By: #### 7 [id number], [id number], [id number] ####[facility] (DEFAULT)[address] [place] [address] 41372 Hematocrit (Bld) [Volume fraction] 49.4 % Normal 34.8-51.9 [facility] Comment on above: Performed By: #### 7 [id number], [id number], [id number] ####[facility] (DEFAULT)[address] [place] [address] 35331 Hemoglobin (Bld) [Mass/Vol] 16.0 g/dL Normal 11.8-17.7 [facility] Comment on above: Performed By: #### 7 204197, [id number], [id number] ####[facility] (DEFAULT)[address] [place] [address] Instr WBC 7.7 x10 Invalid Interpretation Code [facility] Comment on above: Performed By: #### 7 [id number], [id number], [id number] ####[facility] (DEFAULT)[address] [place] [address] Man Diff? Auto Normal [facility] Comment on above: Performed By: #### 7 [id number], [id number], [id number] ####[facility] (DEFAULT)[address] [place] [address] MCH (RBC) [Entitic mass] 31 pg Normal 24-34 [facility] Comment on above: Performed By: #### 7 [id number], [id number], [id number] ####[facility] (DEFAULT)[address] [place] [address] 07926 MCHC (RBC) [Mass/Vol] 32 g/dL Normal 26-37 [facility] Comment on above: Performed By: #### 7 [id number], [id number], [id number] ####[facility] (DEFAULT)[address] [place] [address] 02165 MCV (RBC) [Entitic vol] 97 fL Normal 81-100 [facility] Comment on above: Performed By: #### 7 [id number], [id number], [id number] ####[facility] (DEFAULT)[address] [place] [address] Platelet 172 x10 Normal 138-427 [facility] Comment on above: Performed By: #### 7 081274, [id number], [id number] ####[facility] (DEFAULT)[address] [place] [address] 48846 Platelet mean volume (Bld) [Entitic vol] 9.9 fL Normal 6.3-10.2 [facility] Comment on above: Performed By: #### 7 350170, [id number], [id number] ####[facility] (DEFAULT)[address] [place] [address] RBC 5.11 x10 Normal 3.70-5.30 [facility] Comment on above: Performed By: #### 7 075893, [id number], [id number] ####[facility] (DEFAULT)[address] [place] [address] 03391 WBC 7.7 x10 Normal 3.5-10.5 [facility] Comment on above: Performed By: #### 7 907441, [id number], [id number] ####[facility] (DEFAULT)[address] [place] [address] Provider Orderson 02-03-2021 Provider Orders [id number] Normal [facility] Progress Note - Nurseon 01-14 Progress Note - Nurse Patient to PSW amb ulatory- pt accompanied with - pt arrived for valladares removal. 16 Fr valladares present on arrival and connected to leg bag draining clear yellow urine. Balloon deflated then valladares removed without difficulty- no bleeding noted. Both patient and informed if patient unable to urinate in 6-8 hours then to contact Dr. Garcia or go to Emergency room. [Electronically Signed on: 01/25/2021 08:34 EST] Marta Velez RN [Verified on: 01/25/2021 08:34 EST] Marta Velez [facility] Coding Summaryon 01-24-2021 Coding Summary HTMLBase 64 HlfuypaxKSo8oTc+PGhlYWQ+PE 0LDLFoO12uzZDmtU0NN6fFFL1K CQWKVADKJL0FOS6vkHD2HWorN5 VybiAv TofnkTBxIE80NOy7EQP0kCfmTU fxjC0juVKiO3h5JrVuVT36iG81 IIbrLNTnJzP8BqXdyhbeuUUa H4veIdMqdUWeHpq+PHRhYmxlIH yrZPLkPXnhNUDoFvOvbUidWG4n Ou4pFPOaWWOacDeaxHAmDzEa a7dlCSZlVFueVR2asSiwW3WlhQ F3NZJue3d3Vn31lDE+PHRkIHN0 wIhuXKtkm522DmWus4xdDKB8 xLCfPSoqSCR6G07nx9C0MNVbXH RqBXY5mGR6cU4unBzuvwgcX4Ud nHAnUoG9WRS2uWVnyC7gcIcr jjisqW2cMet+U80PXC8KRENKKD 3GTen5U7TnZdepmMM+RN54INKm TV98qSCfxCYys0zmzDa3CpYw JLIlFWJ0lYzvNJaqz5CsMRRdE3 7fcPMba8T9SOYewQydoRUwJbFa vVJ1vS5bBXrewpahy1vuxgyu Kzpwv1jiom95vB05U48qWNgcDQ JoHCK1FYWfWXPmlNohqs7yqX3x Ii8+CNvkd7mle4wrbKk6OkCr PEWkwyFeoPjeGBH8x5IiIl88R6 FfvVafo0OnTda4bj80sRCtb0B5 nPT1MGxaGXLakE5nMMeoNmS6 PITzHjLamC92pOByEMupVn6rzK fpuAsjBT6jLICtcaimAIMffM6q SDXzxMAevZqeWI3qLLJdjmdr t747FpMbLFL6YMErrNAbW4KpnU 5sMkYqBCZlTQXkH8YmvKKrQOhc L854IXhhEtF8ZOGwmrKmN3Dv WFLsxTzgSrJ3q4N9Xc9Ch3Bkrk ezSPQ3JSyiCFOzBtUqXtNyAvC6 N3WuRzh9IPVdcScxSW7aD2Wt AGFwnwhtaumqkUS2TBJzXUNcsO 91rRGnMJalMe3oo7Q0n438GDPe KQQnlG51Yt1nrMsiQSMsyAZV zI8mqtdwi3fdosonOcTlJASeFZ b2UBy3LNAbfUygFyJyPQR0HzN6 XMA6yJSmuQ1klOkgzsvqqC2d Oyc+U20fkY3tYTC5SWH2arksRT HjtyLpTG01EF12B1FqLwwqjXPs bGU+YOHsprNtfVttER8jChJy f8wez6WlJGotZ5CmCBVfRNdsPf x0BQVcMGX2eIV1qF3qWKWbSGok f4O7tDP1A7KrjwFrat5ot1so TXEuJFqwV21yrYHea6L7HPTzlY L6WEYdsOpvEbCrdN45Yfw+PGNv bUbnm4MqPsokf3vgw9pfdYn2 IbXjSHNomzWjhUotLFS6f5TwAu 71O05rSZeiWBHzPXLhSEXdEHWv vXvmxg4jsC1cIn2+PGNvbCB3 fHL4yD5rZGIiOcK8EPqvS571Vh MqoCIeAltfl6mfe0pbtEv6TzPo AOFfrvNnkOybRAC4j8QbDy55 Q05tUGqgJAVzAAItKRCrMUBwjW vrmg2aeY4zDf3+LZ1rj4omfg32 mN38nPE+PBQpVSB5hRvxNMns LZQwvB5wVMawHrY6UFLmKpYtrX 99vAWnIOwbUn8cvYdodLceEQ5d JICgehuqo551NeBif5uiFGCx jHFrDKffIRN0W15sg4J3WKSnGX PdISL8zGE8cW8zsCsrqocknHSx mVxhxiTowOneEGwrVQvwS037 IHRvcDsnPlBhdGllbnQgTmFtZT t7K6CpMse0YVDzyJsbSO5neMQe JIpkHa8arGxolIatNR1tWZQv hrntz456IuQmd6hrFLBktSLjZP ebOWI4W54an0G9XEQoBTWzNXQ9 fHX2pM2ioRoewsjfdIWnkGki fiHmiUjeEUdgNCrsE528VFWfdQ kcKeLewiAlRDDroYP3AZ64BJ23 nHKso3F3iFD2T9DcFNGmmofc pvoejFZ1CFUiLWEovN92Bf2bmC krGm4lSBVjYSO6QGRsaTVaN5So vV6wPaUkKQXpMWQnV9FcvZZx FAtqZ165OHiwJbB3BUIcdzLaC1 NuSDEzkShaDnH3k1H6Xx1OK9M4 FW13NF93mSCzx8J4pHV9J2Qe RYYxpgsoikhgbBX8XQVoUVHldH 57Ta3nqQraLc7iLEQiOBQ7PCBv aEItP8XhoD4gDzSeEQWgOMRq F8HdcYSzTXvnJ684VDjiVmE0IW SbpqHrS8QyZJKckLdoLbJ5p6E2 Hv6BJZc0DY83CD52qZKzr6Y9 oFC5I6CpRLGicxkivxpxwJP2UN EfXIPvaC55Hk4ujNhwDr9cJYIm NVT0BDXijMXuP8VtbD3sIlAf XNRiLGWqF7GhuTJkDJlwO710CZ laGaZ2JVSlnbFjI4AmYPLbgXek KqF3f5J7Nk4VYRGzTA02MVS1 jRC4FP78UU21A8SwUueltBUiyQ U+PHRhYmxlIHdpZHRoPScxMDAl OnFedQzfIR3iDi5fOPZtZIEg dAvotYUnQdXou0psAXPrXTesXN 7woDjhQ8KijHG2UNMni6r7Eu50 A31gL1NxuOG+CPNakHW9oYH9 fE0cOqJdNdB0HAemU017GjZbtN StFtmbs8ehn2vvtSp3YiY4KQKh zyNdiJvjRJS3w7XpTm37A46q IHdpZHRoPSIxNSUiIHZhbGlnbj 2phX9bMo3+MNAqoHZ9gPS5oT1z DoPvVoT9LRytW522DmMlbGFv Kfned4abe9pljGv3WbWlSTEggo AdeIplKDX6d8ZuCp58N7NwsXvt y4SmHea3de64dSKqn9T3gDX3 V9KyDROaituixDIeoGvlME9tSI OoaddpGIQqqY7qKYZnB5h1ZpRj SmT0YShmJ0TipqS6BVWxzMYw NYuyLCD2W72fk5E2NWGtWURyGB E0qIV3oT7tkNrwefbzxJSzwMhh siWreBhpVOflAVtwV523BIEw hCopUCGscG0kQVQvuREodDzzUF 3hTEXmqgrpTbDNGj8AXnhZRP1c GUoUXq3ZHZwxhAJ+PHRkIHN0 kGeoDNkyIZLeuC9gHZXhP8w2Qn YuKlA3YMqzO7XjXMMkcnoqBb34 oK5jPcXrFcU9PFhnX7TmohQ5 QJOktWQkUPgjYRZ5D44wy0Y1OE IyOZQwGMZ2yEQ4qZ8ocVrwhido bGVmdDsgdmVydGljYWwtYWxp C967XPMcjNrpUoBqPnNdFoN6FQ v7X1YrVwu0PKJraQfxMZ4ydGGk ELjbRu4iyOpysJwbAB3aTQPi mxnnIHQerD6aEHQcvOOmsKcpHC 3gDBTfdrgva752OrDxMQN0CTKd aWSzK9IqsV2xCyNzQPIlXWAx P0FzrIWoYBpxC325HXixUyK9HG DtaeGyR9DyUQKdsSbdErZ8n3A4 Yj40SkGVPXMqmgqtgGI+PHRk BDG4dCkyIUdkVDLsiA9aTIBgW9 i9GiSmAhU1YCuvM0LiZQSipfzs Gd51vE5mIcRiIzA3TKcyX7Cn dqH1PCSvyNMhJLoqFLE5S42xs6 O7VEYhBKUnAZQ9yRL0eC9knGor bjogbGVmdDsgdmVydGljYWwt KIwiP533DSEoaAlrVd8ZXFL4S9 ZhSvb3IUQqrNgcXB1arRGiYXho Pd8udUswhAsjJA0kUOIvpnoo SGQogY8nHWFonMThjZnjFW2uWW Xzaustl028RyHyDVI0IERmgDUv X7EwtL0tFlLzDBMnDORnL2Pv pVZiPWxdP647UZrlZbT6YBXfmv OtP3NlLUGqnGhwEnH1t5U3La3I RKwxI9IgV3KdjUdksMU+PC90 rs67B0HiVrhkLmu7LUAnCXV9cT L6cS0wMPSmLRmoo9J7eVE4L8Qr njZfqc0vd0ifCFJcKFxrN06y kTRxm5E8LSJhjYY3VXWwvUnjWd DyyX50Xyd+YILvhWjkc0TyQeqf c9opj4rjeLn9EnDkESRbjxMz aXjgVZE7r5RbCl94L99pBOywUC XsAZXzIXCsCOMjvSxsww9bfW7t Ii8+HGEyxVD4xHJ1hQ1uGaWs QcS2LNcgG022PaXczYKiMwsao6 nwz7nbjWf6KtPoNTTrfnLusEhp OVY4n2PzZk00O5MicAuac1Gg Lml4cs54iIGbr1J7kHY1G5DzMJ HkkdzxtMOoeRclPD0sATXcxpqd BZQytQ6hSUSxV1p6JlBcOiC5 AFvhQ7JteuU1FRSqfLAlDQHnaV WPvC8phwfmc4ethbmqPfAkAFDg PQt1NDr4SUPwsPacBnCyHQL9 JcR4VFY1wVOfyA5rhLdazpbvqZ 9wOyc+LKm2d6filKZwUU0mcOY5 JI18BF74lCOni9W6aWN3Z1Ni DYCizkurycwziKF6YRDoGQGvfZ 83Wr0xgQrhLg8aKWLqIBD6ZHWs iXTaS7BozC8nGxDyPGVrFMZp X9XfrGAzGEdrY203FZobWtG8BM HcjpWyV3BjEYKchQxuRpN9e5S8 Au6EVA61MI06MD48kOZzn3C1 lXZ7U6EnYBUomkkocblrhYZ1GN GjBCJugE35Hg7fwAboPn0uCOYb VZU6LARkgDXeI1EscB2aCdNt OUVsYCEpC4TaxARjRXlqI402TC buHeB9BYKlubEgZ8LaEVGwvWxh FqF3a3F3Gd4FWp77WE50CG58 sIJkw7O3oLW3W9GkFKGvfppkri qxwLZ2OVPiBKEiiG45La0wcPhs Cl3zWPWtRZU4BVKrlWVvB3Pc jN4oPhTmRKLdRAStO9XixJYqJS azG320JSxbZiS4DLArcdFzX1Pu XDEigTawEcD7o4E5Dv9MGCib yfn5L2SuGpmtwRR+VN08NIVjYH 30eMFwnAZzf1itsPp2AnMsEWNe QST9hReqTAqgg8OlRVLqO64j bGF (more content not included)... [facility] Consent Formson 01-23-2021 Consent Forms [id number] [facility] Consent Forms [id number] [facility] Inpatient Patient Summaryon 01-22-2021 [place] [address] Patient Discharge Instructions Name: DEL MCMAHON : 1945 Patient Address: [address] [place] [address] [place] [address] Primary Care Provider: Name: MARCO A HUIZAR JR. After you are discharged if you find you have any questions, please, call [phone] ext [phone] to speak to a nurse. Discharge Diagnosis: OAB (overactive bladder) Prescription Information: If you have been given a prescription for narcotics, seek immediate medical attention if you have any difficulty breathing or any sudden status changes such as confusion and sleepiness. If you or anyone you know is experiencing suicidal thoughts, mental health, alcohol and/or drug addiction problems; contact the [facility] 06/10 Crisis Hotline -Text 4HOPE wl 140858. If you received any narcotics, sedation, or any other medication that causes drowsiness for the next 24 hours, unless otherwise directed: ? Do not drive a car. ? Do not operate machinery such as power tools, lawn mowers, drills, sewing machines, or stoves ? Avoid alcoholic beverages and drugs for allergies, nerves, or sleep ? Do not make important personal or business decisions or sign any legal documents [facility] would like to thank you for allowing us to assist you with your healthcare needs. The following includes patient education materials and information regarding your injury/illness. DEL MCMAHON has been given the following list of follow-up instructions, prescriptions, and patient education materials: Follow-up Instructions With: Address: When: MARCO A HUIZAR JRWilla [address] [place], [place] [id number] Business (1) Medications During the course of your visit, your medication list was updated with the most current information. The details of those changes are reflected below: New Medications Printed Prescriptions ciprofloxacin (Cipro 500 mg oral tablet) 1 tab(s) Oral Every 12 hours scheduled time for 3 Days. Refills: 0. Medications to Continue That Have Not Changed Other Medications levothyroxine (levothyroxine 100 mcg (0.1 mg) oral tablet) 1 tab(s) Oral every day. primidone (primidone 50 mg oral tablet) 2 tab(s) Oral once a day (at bedtime). It is important to always keep an active list of medications available so that you can share with other providers and manage your medications appropriately. As an additional courtesy, we are also providing you with your final active medications list that you can keep with you. ciprofloxacin (Cipro 500 mg oral tablet) 1 tab(s) Oral Every 12 hours scheduled time for 3 Days. Refills: 0. levothyroxine (levothyroxine 100 mcg (0.1 mg) oral tablet) 1 tab(s) Oral every day. primidone (primidone 50 mg oral tablet) 2 tab(s) Oral once a day (at bedtime). Take only the medications listed above. Contact your doctor prior to taking any medications not on this list. Diet & Activity Patient Activity Level: As Tolerated Patient Diet: Regular Patient Activity Restrictions: Comment: Patient education materials, if any, will display below Viruses or Bacteria What?s got you sick? Antibiotics only treat bacterial infections. Viral illnesses cannot be treated with antibiotics. When an antibiotic is not prescribed, ask your healthcare professional for tips on how to relieve symptoms and feel better. Usual Cause Illness Viruses Bacteria Antibiotic Needed Cold/Runny Nose NO Bronchitis/Chest Cold (in otherwise healthy children and adults) NO Whooping Cough Yes Flu NO Strep Throat Yes Sore Throat (except strep) NO Fluid in the middle ear (otitis media with effusion) NO Urinary Tract Infection Yes Antibiotics Aren?t Always the Answer www.cdc.gov/getsmart GET SMART Know When Antibiotics Work [place] Department of Health and Human Services Centers for Disease Control and Prevention November 2013 [facility] MAGR Intraoperative Recordon 01-22-2021 MAGR Intraoperative Record MAGR Intra-Op Record Summary Primary Physician: Sivakumar Garcia MD Finalized Date/Time: 01/22/21 09:45:21 Pt. Name: DEL MCMAHON /Sex: 1945 MALE Med Rec #: [id number] Physician: Sivakumar Garcia MD Financial #: [id number] Pt. Type: D Room/Bed: / Admit/Disch: 01/22/21 07:47:00 - Institution: Case Times MAGR Entry 1 Patient In Room Time 01/22/21 09:12:00 Out Room Time 01/22/21 09:32:00 Anesthesia Start Time 01/22/21 09:17:00 Stop Time 01/22/21 09:30:00 Surgery Start Time 01/22/21 09:17:00 Stop Time 01/22/21 09:30:00 Last Modified By: Lara Lofton RN 01/22/21 09:31:16 Case Attendance MAGR Entry 1 Entry 2 Entry 3 Case Attendee Sivakumar Garcia MD RN, Scott Lawrence [facility] Role Performed Surgeon - Primary Scrub Personnel Repair [employer] Winder Time In 01/22/21 09:12:00 01/22/21 09:12:00 01/22/21 09:12:00 Time Out 01/22/21 09:30:00 01/22/21 09:32:00 01/22/21 09:32:00 Procedure Cystoscopy Local Cystoscopy Local Cystoscopy Local Last Modified By: Lara Lofton RN 01/22/21 Lara Lofton RN 01/22/21 Lara Lofton RN 01/22/21 09:31:26 09:31:26 09:31:26 Entry 4 Case Attendee Lara Lofton RN Role Performed Repair Coil Winder Time In 01/22/21 09:12:00 Time Out 01/22/21 09:32:00 Procedure Cystoscopy Local Last Modified By: Lara Lofton RN 01/22/21 09:31:26 Surgical Procedures MAGR Pre-Care Text: A.20 Verifies operative procedure, surgical site, and laterality Im.150 Develops individualized plan of care Entry 1 Procedure Cystoscopy Local Primary Procedure Yes Primary Surgeon Sivakumar Garcia MD Surgeon Comment LOCAL CYSTO Start 01/22/21 09:17:00 Stop 01/22/21 09:30:00 Anesthesia Type Local Surgical Service Urology Wound Class Clean-Contaminated Technique Details Closure Technique N/A Entire procedure No was performed via laparoscope or robotic assistance Last Modified By: Lara Lofton RN 01/22/21 09:31:32 Post-Care Text: O.730 The patient's care is consistent with the individualized perioperative plan of care General Case Data MAGR Pre-Care Text: A.350.1 Classifies surgical wound Entry 1 Case Information OR MAGR OR 02 Case Level Level 2 Wound Class Clean-Contaminated Specialty Urology ASA Class N/A Diagnosis Preop Diagnosis URINARY FREQUENCY Postop Diagnosis BNC Blunt or No Is the procedure No penetrating injury considered occured prior to Emergent/Urgent? the start of the procedure: Last Modified By: Lara Lofton RN 01/22/21 09:20:55 Post-Care Text: O.760 Patient receives consistent and comparable care regardless of the setting Time Out MAGR Entry 1 Time out date/time 01/22/21 09:16:00 All team members Yes have introduced themselves by name and role Surgeon, Yes Surgeon reviews Yes anesthesia, nurse critical or confirm patient, unexpected steps, site, procedure operative duration, anticipated blood loss Anesthesia team Yes Nursing team Yes reviews any reviews sterility patient-specific (including concerns indicator results) and equipment issues/concerns Antibiotic Last Modified By: Lara Lofton RN 01/22/21 09:21:21 Patient Positioning MAGR Pre-Care Text: A.280 Identifies baseline musculoskeletal status Im.40 Positions the patient Im.80 Applies safety devices Entry 1 Procedure Cystoscopy Local Body Position Supine Left Arm Position Resting at Side Right Arm Position Resting at Side Left Leg Position Extended Right Leg Position Extended Press Points Checked Yes Outcome Met (O.80) Yes Last Modified By: Lara Lofton RN 01/22/21 09:21:31 Post-Care Text: E.290 Evaluates musculoskeletal status O.80 Patient is free from signs and symptoms of injury related to positioning Skin Prep MAGR Pre-Care Text: A.30 Verifies allergies Im.270 Performs skin preparation Im.270.1 Implements protective measures to prevent skin and tissue injury due to chemical sources Entry 1 Skin Prep Syntegrity Prep Agents (Im.270) Other Prep By Lara Lofton RN Prep Area (Im.270) Perineum Skin Prep Agent Dry Yes Without Pooling Hair Removal Syntegrity Hair Removal Methods No hair removal performed Outcome Met (O.100) Yes Last Modified By: Lara Lofton RN 01/22/21 09:22:05 Post-Care Text: E.10 Evaluates for signs and symptoms of physical injury to skin and tissue O.100 Patient is free from signs and symptoms of chemical injury General Comments: HIBICLENS USED FOR PREP Departure from OR MAGR Entry 1 Present on Depart N/A Via Stretcher Post-op Destination Home Skin DFO Condition Dry Description Condition Warm Description Airway Maintenance Patient Status Stable Oxygen in Use? No Last Modified By: Lara Lofton RN 01/22/21 09:31:00 Case Comments Finalized By: Lara Lofton RN Document Signatures Signed By: Lara Lofton RN 01/22/21 09:45 [facility] Preoperative Record MAGR Pre-Op Record Summary Primary Physician: Sivakumar Garcia MD Finalized Date/Time: 01/22/21 09:48:36 Pt. Name: DEL MCMAHON/Sex: 1945 MALE Med Rec #: [id number] Physician: Sivakumar Garcia MD Financial #: [id number] Pt. Type: D Room/Bed: / Admit/Disch: 01/22/21 07:47:00 - Institution: Pre-Op Case Times MAGR Pre-Care Text: Patient will be optimally prepared for surgery. Patient is free from s/s of injury. Provide information to patient/family related to plan of care. Verify patient allergies. Confirm identity and verify consent before the operative or invasive procedure. Entry 1 Patient Arrival Time 01/22/21 07:55:00 Preop Departure 01/22/21 09:05:00 Last Modified By: Praveena Lowe RN 01/22/21 09:48:33 Post-Care Text: Patient is prepared mentally and physically and is ready for surgery. The patient remains free from s/s of injury. Patient/family express understanding of plan of care and participate in decisions affecting his or her perioperrative plan of care. Allergies documented appropriately. Patient identifiers and consent correct. General Comments: Patient arrived to [facility] ambulatory. Patient denies any recent cold/flu symptoms, SOB, sleep apnea, diabetes, or CP. Patient does have a pacemaker. Finalized By: Praveena Lowe RN Document Signatures Signed By: Praveena Lowe RN 01/22/21 09:48 [facility] Patient Handouton 01-22-2021 Patient Handout [facility] Coding Summaryon 09-27-2020 Coding Summary HTMLBase 64 KngeasbvWBg2jMt+PGhlYWQ+PE [id number] GBCBKZZOKQ5TNH8rfZQ5VDhnW4 VybiAv PgzevOJgQQ95NOx0VIE5hIuxDE jilC5cpWQbI4m3DlKzRE77cE24 MZccRCXlCeD3OhWzhmhiyNCe B5dxLwAhqVYuNbj+PHRhYmxlIH fpVSNfLYzaQOUjYgAtvNtsUQ1k Kx7hMJGsVKJmyAkknJQqYgHm x7zeABPtWAgjYU0qaYwsV5VgkJ B4NRVkb9i3Al89iJK+PHRkIHN0 cMbpXHfjy222ZqXpf0jfQST8 yVHoAUbyPIQ7Y03te5H0OVEgBK PmUUT7fEP8qA4ckSptysuvI2Cm dKZfXcJ2TUU4zUCcoI4uyTvw acgqyI3lKyr+C46DLV4DKEFCQS 1NUlb4Q4NyYncuoVQ+WD02BLUk EZ56mRTmvBAbp4jruFl3BqAk SWSeOIG3dHovVZvpp1PcIVRpT6 4xnJZui2N5RYPesCzfmDVqJfEg kFF0kG1pSUqokqrse1hpcklu Jwxrz1shkq72cA79M38nYRkrAB IjICA8EIIePCBkjEvhrj8gqM2c Ii8+GKlqn4mqg8vufCa4NwOj JBAxdyDwyNaeLXG6t4PuBt25Y4 FkrYeuj1XzCfr5lc91pBDsm8C7 mWC3HXwcTGFhaH8xTGszFdD2 PSAnJbPxbP87uXXfEDwlLm8hxV fvuQogDN7iITBsszafJADeeQ4o PULllQLmtKkqJS5jOSPfjgwe u539BjVxVVE7UNEvnBLeP1DcuH 1cDiEwQXFqLODkF8RgjUNnGOqe R318VOhoFfB7OYChflAgV6Hc WIGwuUjhFfI3b9B1Po8Js2Kpsh mjCDI9LTfbDFP7MnA2OnMwMbH8 Y8UdAds9QVShkMkmSX5bU8Ms ZNBxdkdzsnyhzDX2FXLgXDKpyP 44oOMeQUrtMc9gn1P0u871YFUf BHShxD51Bv0gxYgwBKJnqMRO fU4sejppv5wxjfycRvJyGBSjJD h3MXu5XJUjnXqlAkBhZMG5MxX2 LZQ9hQOcqC0byHpyjhffgS9s Oyc+W46adF9dZPG3EQD4ptolTE NdzoXhIZ17BY15A9MeYwkfnSEw bGU+WHUhdiDkxGmuDM6qLgVm z1zjb7VhWEwgN6UjMTGzFUhtPm n0CIInYIH0jFJ2fZ3iEFGaIUcs o0T7pOE8C6PgusAown9zz2cy MDYpZMhdQ23rbLWme7Z6NFJvjZ F1ZRRlkCdjGrOmwS22Mwi+PGNv iXcki5NsQblkm4vme7gccHh0 MpFfAFMvqnYrlKajLBY0k0GxSm 07F76mINazYUQyHGIhUFAkQMBd aUulrt7cdL2wZe2+PGNvbCB3 dIL5pN5oNISyMfK6OPvsP708Hz WwiBTiGqyyd4whw0whyEt8NpCd RSVjukBvuTtyOCQ3g4SbDd59 Z10nIBqdANTiMNXwBATeLZGkvB sioc2mvD2uVp1+WQ3tb1norb50 yM62pWQ+MSAmWTO1mSodVQte RHPprG0cRAyvDfW6ZCOlMyDurK 36nKVySGabFq9kqRnvaXizLX4f PLVgumuuq063LlPzf3lhCABv qORiWDenMZB3R53ij0W9VAIaPA BnATF9xFW4qE6gcZbatkxpjHMr lPptbqDhjSzeIKhwJNyqV415 IHRvcDsnPlBhdGllbnQgTmFtZT p8D4NtDry9OUTpuBxbGM2qxZLs RHpxKg3wpLznzWqeQE9zERKl smiqa685VrYmn7jeJFXrhQGzSZ kdXYK7V35xv4V3QXQiMTJrSDG5 qXE9rK7snYqnlytgeMJsbHge slHlgDzfPPfrPDlsY656UVTqlD tzVxUmtbKgECVcxAR2MS37TQ44 tOLfh8I0kFB9A2EgCMOhdprv cqgazXT7ONItRXLkoF89Vp7ejE xvVg4xHOLoEFA7UMIupUOpZ1Xk mT2pQcJkDZXnFNIpI1JzuFOy VPvvQ567OHebDyS1VVJyjnEzA1 DjKEShcIyyLiN6k6M3Wd7EB8N7 GU23DV95sSAyn6C5wLW7A3Qz JTWpbrfpdrwdsEB1SOKtCQXxnR 11Yz8ziDppVw7iJRXpXHK0YNFm cAGbL3OrmO3sTjCvUAOyHWGh C2IlmEChVWowD877QRkjJoJ5DQ EhxxUgA5BjJGCnlHhwRbS9r5U6 Zz0ECGl0DA76HH18pUVvb9N1 xRK7C7IePIElwygparvjqPR0BC KkSDYegL77Pd8dxGdnLp2oELNu NNN8TSTfuRAyM2LtjE5dGgEl AVZbJVKcX4VbdWBvLZnlR831LB boEfV5NCSerlBqY6NrADYehCzd QuL7s7F1Oq8DDLMnDH33VBF8 dUA9XM91IU87U9GnQmeciAQupE U+PHRhYmxlIHdpZHRoPScxMDAl UpTtjFxkIV2eHq7xVXRdTAZu jKsrxDVdDqGgo8biRCEtTYspML 9jrJrrG5XxwLW2PVIvf5j1Qs53 O37uL7AsuDZ+HUCsgKG3tHA2 wK5xDnScZoP6UKhkO574GhAfjS SaKzjqg1ndo8ncgKj5FjG1RGTa ykQxlQcyTYS4c2BfJb97B74h IHdpZHRoPSIxNSUiIHZhbGlnbj 4tvF8aUv4+IKAquAS0iTM4bB4z DlHiRtL6HZjfT313IkWxyGSq Wjkvy4gix7bjvUx1GaYuJXLypa WiqSisFVL7z1KmWg20D9TwkJqp r9XrPru9oo22tAHra8B9dUV4 P7ReFURwyilblHKliCgtFA3jGE XxkfwoCLNdwM5hQMAyL5k5BbVo MuE1FUdfJ3LpiiV4WDUcgIGb DSioFZY6S03zd2Z0REMhHIViJQ D7oIG9sK7xcNgbbjxvhBLhlBvg ufRadCqkPAvsNOzwM857DWQy qQenJIBqbD2xCLJnySGofCxdDT 7fULMoxwjxQtKRWo1LYzgUGV3p TOmIWh7DVTaqsWQ+PHRkIHN0 vOfqWRwnJRHnrV8rZBZnN6p3Nn BbFwZ5CUidV6PyHXFnsbwqHb35 iJ2nUuLcHiI2IJhuQ3SsuiA2 FBGfrNLbFEgaGSR9D58nz8M8FA WoLSDjTUF0vAG6wE9tgWyjbroh bGVmdDsgdmVydGljYWwtYWxp D617ZRErqDsgGhPcCjXbXaJ0XZ g1O2JpIvz9ZIBnzOnsEE9cvTIq FPxuRu2ijNcfvNmrMA8sKGIz rbzhOWTyqG1iZHVvxCOktEztXM 8iSUKnqhizt066MrWhRMF7DZRm aNGgT0EglQ0eTmFjFUBtJPQj Q5YnbYTjBGnmG616FBumNbR1YH QptuEuO6IyHSBqsRfgCaX6j3W4 Zk91YbVOMJLvwokmxMF+PHRk OWA0nSjtPYvbXOOffL7hCOQgW1 b8ReFzYeL7ADizF1QdAHTscjar Je54nZ0oWgZcCxS0AOceV7Cy dwL9DXWvsVLxJIxrEMX7Q29hj5 C9RPPoPWEeCTU8fEJ4uC0iiPij bjogbGVmdDsgdmVydGljYWwt SAjpD784JGLodAptGl2NDKQ8G4 FrFgt9VKPvmFohBW5uoCLwXYjf Rt0nnKqonPwoAB9jNFXrdmjy OLGcaS3iBJLroRRknGeoSM2rJK Gfpgrbv367LvLjNUG0FWTzfJTh O9YcbW8rKzZjBZMbDIElJ6Sv oJShOMosT553MGrtXcT2JBJcow UvH7KtINWfsXhtUbB7g9N7Mw3M KHgcS5UtI3EdxDiemBC+PC90 ga68Q6XlDeibVsv2XBLpINP4gX V6uD4fWBMsLCjzu8J1pRL8G9Ok foNhoe4uf4wpXDTcNQqyX73a aHVbz3K8XVCikPZ1APAksAstIc AocK09Lro+HWCwaJqgu0TwAzpg m1uix4ornQf5WlFiPZJmndIn oIlpMTI3n1KjCt04X68rCRjcUD ZrNHPmBLIjHLWznVpthd0fyX3m Ii8+KIVflWH9eMI9rW8iEnHa QwP6VWzgP274PiUvjYVjZktnr0 mev2izgDv9ZlVbFKOecmExxWqf NMD5l5UhEr50W2SciPtxv1Ts Eda2ba72dXXiv6O3rHG7O2UzXR NzbfjcbKGwuXpzPW7dFBWfrxoe WLQqvP0aLYHaX3n5ZsCwYzI8 SHwfP2IjwnN4YHGeaMGePYFflM VQcA9lglsjj5yijsndAyLxDHMp HSa2RNj4AKKhoOeyAlGiFGN2 JgS7ISL7hDFuhH3jdFijdgnroY 9wOyc+OPw6w5objCDeAC5efII6 ZA38LZ31cZXwp5R7iCD8I8Gm PMBenzsqubjupXW2GUKkMPSjeY 96Zf5psPihHw1fOYXlJEP3VVJh hVDyP0ZwmI4dEdSzJRWoNTRa H2XobKClNMigA636MBhiZsO2KI WimxBhE5JdLZIkxSeyMeU3r8I6 Ka1MTI48OP20VF88cDAge6H3 fYY3I2XnDSNydsgsgpmwpEC9TS BaBKEvvK97Ak4doSnoNf4lGQDq PON5OOEsaBIaZ4JxtN2sPqLo FAUrWTWeK1LybNAfPQojX835JV gbNtK0VDIbvgPmP5VtJRUlnNav OkA8k5G1Zm7ROa47YT00ZS83 mOMqs4I9mOU2C5BgBWIptotitn gezKW1XYKsYNVolA58Pe8doKbw Pq0lKKKwLXM2PGFflMJjS6Oy hO1nHjZzZGFtXEZgH5WoxAWoYI lcS117IGfxOwS1IRGynxQkO9Qb JBBbuCxuIyW6p8F8Wv7ZQGzl lys6O6ZnCdyxaSX+PA96ILBpBC 34bFXrrSNem7zjmIr1EeIeERZk BUY9sBrsKLkya6OaJAXeJ44a bGF (more content not included)... [facility] Provider Orderson 09-27-2020 Provider Orders [id number]#1.00[facility] Advance Directive Documentso n 09-26-2020 Advance Directive Documents [id number]#1.00[facility] Advance Directive Documents [id number]#1.00[facility] Consent Formson 09-26-2020 Consent Forms [id number]#1.00[facility] Implantable Deviceson 2020 Implantable Devices [id number]#1.00[facility] Outside Recordson 09-26-2020 Outside Records [id number]#1.00[facility] Telemetry Stripson Telemetry Strips [id number]#1.00[facility] Anesthesia Noteon 09-25-2020 Anesthesia Note Patient: DEL MCMAHON Age: 75 years Sex: MALE : 1945 Associated Diagnoses: None Author: Corbin Tang MD Postoperative Information Post Operative Note: Post Anesthesia Care Unit. Health Status Allergies: Allergic Reactions (All) No known allergies Physical Examination General: No acute distress. Respiratory: Respirations are non-labored. Review / Management Condition: Stable. Assessment Anesthetic outcome No anesthetic complications noted. Adequate pain relief. No Complaint of nausea and vomiting. Plan Transfer/ Discharge: Patient can be discharged from PACU when criteria met. Condition stable. [Electronically Signed on: 09/25/2020 08:29 EDT] Corbin Tang MD [Verified on: 09/25/2020 08:29 EDT] Corbin Tang MD [facility] Anesthesia Note Patient: DEL MCMAHON Age: 75 years Sex: MALE : 1945 Associated Diagnoses: None Author: Corbin Tang MD Preoperative Information Anesthesia history: Patient history: slow to wake up, No difficult intubation, No malignant hyperthermia. Family history: No malignant hyperthermia. Review of Systems Respiratory: No shortness of breath, No apnea. Cardiovascular: pacemaker for SSS, No chest pain. Gastrointestinal: No heartburn. Health Status Allergies: Allergic Reactions (All) No known allergies Current medications: Home Medications (5) Active finasteride 5 mg oral tablet 5 mg = 1 tab(s), PO, Daily levothyroxine 100 mcg (0.1 mg) oral tablet 100 mcg = 1 tab(s), PO, Daily Multivitamin, generic 1 tab(s), PO, Daily primidone 50 mg oral tablet 100 mg = 2 tab(s), PO, Once a day (at bedtime) tamsulosin 0.4 mg oral capsule 0.4 mg = 1 cap(s), PO, BID Problem list (past medical history): All Problems Cardiac pacemaker / SNOMED CT 0416565644 / Confirmed Hypothyroidism / SNOMED CT 49509857 / Confirmed Histories Family History: No family history items have been selected or recorded. Procedure history: Kidney (820532333). 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 Social History Electronic Cigarette/Vaping Assessment Electronic Cigarette Use: Never. Alcohol Assessment Use: Current. Comment: rarely Tobacco Assessment Never (less than 100 in lifetime) Tobacco Use:. Substance Abuse Assessment Substance use: Never. . Physical Examination VS/Measurements Vital Signs (last 24 hrs) Last Charted Heart Rate Peripheral 71 bpm (SEP 25 06:15) Resp Rate 18 br/min (SEP 25 06:15) SBP H 156 mmHg (SEP 25:36) DBP H 103 mmHg (SEP 25:) General: Alert and oriented, No acute distress. Airway: Mallampati classification: II (soft palate, fauces, uvula visible). Mouth: Within normal limits. Respiratory: Respirations are non-labored. Cardiovascular: Normal rate. Review / Management Laboratory Results ECG interpretation: atrial paced, old inferior infarct. Plan [place] [employer]#(ASA) physical status classification: Class III. Anesthetic Preoperative Plan Anesthesia: General. . Anesthetic plan, risks, benefits, and alternatives discussed with the patient and/or family. Patient verbalized understanding. Family/Guardian present. Informed consent was given. Consent was signed by the patient. [Electronically Signed on: 09/25/2020 07:08 EDT] Corbin Tang MD [Verified on: 09/25/2020 07:08 EDT] [facility] Coding Summaryon 09-25-2020 Coding Summary HTMLBase 64 ZzvvadwkEWr3xQt+PGhlYWQ+PE 8WLXAgL35hiJBodZ5KL4bYWQ4U UMLUCBHZZK3QNV6czPA3NOlvS5 VybiAv VmtqvLNlUG74VFm0RTD2jGdmPA pgcO9pnJVxK6j7VsEeBQ06cL40 CGfcLDFgHrF4XfXqlzlkrFPr E8opQhKwgGYyUjo+PHRhYmxlIH zvBDVxFQdvRNJkYsCrmVgbTT1l Ng0zLIFrKSPepOxmcGRlBwOz q8uzFYMpTDdtUY0xgWtpY5KddM S4GJGjk8n0Ez88nOT+PHRkIHN0 lWfaUZeru006RtQff1dmGCM5 qIXoPGanRIQ6B93ep5D5JQFgBD AwZAP5dXS7pW8pkWtmbipnH5Al tVYsFdN4DPC3pVMteA2hwZnx fmnmyT4aVik+I33TZO8TLDBVZT 1ESjn8R2YzFwhfoDH+VY49FJHr RS80fKHjhJGll9uhmYv4JxIj VFTxAYC1oMrdSHnwz3PiCNXnB8 4ztMZsz3H7WTBjiZnhfMZmHzWb rPV6xH8eYMdwrdyei5kdparm Dnwid8qnff69jK45Z86mEEskVZ YfYQV7DLWzZGHyuMyhap8woE6d Ii8+XDfai2wks5cffNk8OxWm UGWwrlUrmIrnTWH4x9LmSk75F7 ZsoYzrf3BzRpc7sm94hUJdz0X2 rXU9DVymOCNjnG4oGDsrQbT8 ATRdXjSpdC39fQLsKOglOu4ssS havIijVW1xWIAshxrvBIUxrX7x AVRszZEuuTeiTY7ySZSsaege j187LzGxTZK0WGHtdSQfE3ViaK 2cRwSfMYXsNZByA5SphUMfHYth S707GKppRdB6MVVahkQlT7Ly JEWxkHghUcB6l9W5St8Ya2Vaak kdKTR3YAvhLFB2EuXwIgCfVkY4 R7OjJne6YISiePvyLR8gV8Jl WBSpeiitdrexiZC7JRGtHVAcqV 83jHCmIEnlMw8sm5C2v617CHJm NGRzvK41Ee2pnYqoILQpvQAQ rK2bvfhcy7xnfaevMtKmBOFbMA h6VCe7JQSncBjwIpNnBWG7FyG1 YNZ7yDRtvV0pqOxfksrpdQ4c Oyc+Y35zjK0hLGZ4BEI8awmnDC AobzLiKX04VL41V8NxTglkpQZo bGU+EHBoovYsyUcnGE7bGiBs j8wag7LsNLttS0UtXUYuYBxhUp n9DAZyHKP8bOV6cR9rYCGxZNig s7P5yZA9C2EtawIrlm2ue6dj AYRiSQrzJ58lmOLch8O7XFTtyI W8BTSbdEmpMsOheA82Ftf+PGNv vMxik3AeBmvhz1wic6hrdYx1 GjEqEJUtnwGwkYajZCL6h3QiTd 96T83kBNykGOVfFGQtIBBpIXNb sWafou3enT1bRp1+PGNvbCB3 sES7gU8fNNOySpA1MRvxI979Ch RhkBAzQxpty9dmr0lzdMj8VqYu VUHlfyNjrCxnBCO1m1DcIe51 V13kYHweXSQjHUZiUWBgVREcfU sfvn7yzS9vLx7+EV1xu0aerd70 oO43dAC+CDHfAHU9sKnzAMgf XCMqjJ7aKEgmQyK0UUMpNrJcpU 59lDQcQYkoPb1xnKwxoObiMK2k KLFkyicur208KtUlw3cmTTCn bQYnRHbqUKZ6E64sy0U3ZNRdPW SyCCZ4rQX0qT4esLteykhnkGJq aVnrqsChlKbsUNrxYPzoF509 IHRvcDsnPlBhdGllbnQgTmFtZT g1P8ZrHhu4DWYxeLfgHS8dkMXe DUdmYm8kyTnffYrdUZ4cAVGu hdaey395MfXvy4dbIVJpoYKrFP qnKCC0W08ar5L8IWHvUVRuWTJ1 tNK0cB2clEvrfnxwjJHmpJca tjGifWfeAOjsFFhyO709TEGvlI hoFwCnkxWyDSYjuHK2NL87AF74 lUVqe9E2nHJ2H0HaPMHeabio swpmnCP8GWXoIEIzrO20Za0ojT vrGv5tYIRpHGK8BDAnlIZsH3Py rH4nPbXvJOVmJVPtZ3QpnGLm VFcoC763AQiwMmZ4FBAqvaTaM1 BsPSOxvCwbAuC8k8R7Gg2FZ4K4 CP14EZ02tMJvh1B3dJY3X2Lq QCRctkcrcuxfcOI7HBFdIKGceW 54Dl9kqXjuAy9jABYyRCT1GNKd lEBmH1PidV7rQrZkYDMqNDNb W6PnrUMtEYnwK100YVfmEsW4GG ForeIeI2OnUPQrqXvgJuE9b6G1 Wr7PTGh9PE93KM84mTOvt0J6 aJR3I5KqJGPdydopqxbqkHL4BM LqHNHhdX71Fd8knEvsFw3rFURq VRS0XNGqcJVlO6JgvJ0yWdPb GZNjKZWwX7DyeVQkDPuzE546BG woLsI6INWumiUaF7QaMUAvbSoc BcQ8g1X7Ha8JHHAmRD08QEY9 uYD5RW82OF36V6XzBiwdkALscP U+PHRhYmxlIHdpZHRoPScxMDAl DgKwsCykYD0rPc6yLKOiPFGz lBhrtFKbOmOby9srPMVzFUnpBL 6tyAocX5FknFD5VVTre4s3Ms38 K46eM9ZyhZH+DCGuiVB4oCM9 lB5yIzLaUrF5ZUdyK861BkJgeZ QqKthze5jip6fxeTw8VgO2LRIk opOblGmoLTI6b9CiHr31B27w IHdpZHRoPSIxNSUiIHZhbGlnbj 3yyI4jJv0+HPXvvTR6aMX2gY3y YzEkNgP9JCjyZ647TsOcmKRs Ikrqk4waz5fgyZa5NhFsYJAojb EqjLslUYP1d3RfLf15H0XnpImq j3KkJkr2mw07tPLlp6G6fKV1 U4FfXAWrybiboUOsqOnxFW2sMS TpzownBHFepK5vGIBlW7d0UgYh MqG1IGtoE8UpzaO1POCopUHp AKabHAU8L29te7Y2FFUmPMRfEB T9eZU1aC5ukBdtfldsaGAgpAax ypSyrUfiYTuzCVnaF904BHVe nIvvALYjrD6cIYGttLWvxBhkCG 7vSMDkqmkbVcBDHi4CZlbAOG8n IUuOAo1WOIrcjRL+PHRkIHN0 rGuxRMmhWUVurO8yNOIlW7d7Hu EyDnY0CAzfF0HxBCLsdmlrZl08 kK7mDiKvKcE0HJgiY8QgchO1 WXFnvJEiLSarWCD3Y77km6O5ME MhVHXgGKP4fUS8uP2gcGwbyoym bGVmdDsgdmVydGljYWwtYWxp Y198YXJbyIooWiEkPfSoFnQ0ZB a9J6HjTvb9DUUdvWotNW0lqDQk GXrtRt7jvBjfqEtqGB4vJWGg lstkTGFasG1mOKXsuDXlwKqdFF 0pPTPdnhrnn962WbJzMHP6BWGg iBBuV2UilH0oAfWdFIFzXMMg S3OblYYbRUaxX354DHveEeG2KT EgacOqZ8DhYIYmvChcYcI8j7H1 Ec00FmSVJTFgsrzijUW+PHRk KFJ0qBakHSbpVUPihF6wSRWtK6 c0FbKeWvE0KYovT0JlHDBaruxq Pu98eS3pHpJyGnO7YVzjS4Lb hbJ6GEVdxAYtDAifBVD6I84rc1 A9WMWdBFKfJCI6mGH1dG8rfQgn bjogbGVmdDsgdmVydGljYWwt EMiqD995LHVfaJmpCz6YEWL8N0 NbMre7XVZgoHtlMI6htILlEAdo Nn0hkFgcyYgpSO3kAJXwxsaj COUcfW8iUYLadQRogMfzOX7hNB Mmpllwm880CkFdVSW7QTYbnEHg E7OvtK4aGsGtDFJcHUOnT3Cb aMTmZDjyK188RTckIjO6LRFrws DtV8GiFQAkfJdkArZ0s6A2Ax1V UDwvdGQ+PS52ff05L0DdEvda Rwu0GYLwPRX8qRR4gO2eOXExQO qau2C9vGK0O5WpllScov1zi6ut ZNIhLCjeY38hvAVux7Y7GVKk xFK6BHFpbXeeQeQnrL60Onw+PG WnmDuqi3TnEseps7azw4mboQh8 QiStGWYhkqVnkWfbCGO9n1Rq Xc47I20eRAhrJEXgFYAzGIUsNT QzyHdchl8gqQ1eWh4+PGNvbCB3 mYS1cU2cLkHeTrK5FIsyL560 XcUugZRvQhrti6jhx3alsUs9Ch GqSWGtkdYvlNiuQHP5a5DgGs53 X0KdpFoxc2LeIjz4rg43pSWv k5U6kKS3A5KrCZHuwsypmZCtnX bkCV0wEJXacebxPIStpN4aOUQz G0c0OzIrLtW9WYmbI4WalhT3 OTErtTNeVRIacABXmT4dvrqom8 tthufkOtAsCCUpWYf3YOd7OWFq vDfkRuBgBUP4UdT9RZK2cSJo dD5riMrnkgasqY4iMlr+UGh5c2 oooITeEX3aiDJ5TH20NM87xIBa u4B4sSJ3V4HvJRGqwdvoshkt oCU9FQZnENUotP02Ja1lyJxqTn 6vRITiIIZ3BMFftOSlQ7GdnR3q ZjWgDQArUSZcP6YxiFMkSPpt Z382SRnjLaE2PMWnxlUqJ6EbTQ IjpWfuMdV4f6L4Lp5BMY41VX40 LV84uFSec8H2iRS3R3KwACWu hkwsievqgXQ6FDDeQYGlhV38Sk 1gaSzhEb7rXGYqIIB3NNDwkNVe I8TopL8fIvEkKAKmVYRzS5Cb yJDaJPyaB733ASozSfY0XCSxzl XvX2TuORBcjLivBlD6n4C0Ro8E Hu70XE73CB18nOCpr7F3fVS1 P6XcPLYcemmaupyvhEQ9QDSrRQ DuzF32Fp4veJocOc5iTOHmHVO3 SJUtgBTtM1ItkU1vPiDgTQDv EDUaL6TqaMBsOQojG967XJsdQm R5SBWgpmGyX4FoBWPgpDdcAyC4 p3D2Je1LKBvuzxh8D0SwZwrb dHI+YG66LLPtKM39bZXvlDTpl0 ibpOe6McVxHATsPPL6tXmhMGtg q5PaHVThJ62gmSJhx8N3DHOk bGx (more content not included)... [facility] Inpatient Patient Summaryon 09-25-2020 Inpatient Patient Summary [place] [id number] Patient Discharge Instructions Name: DEL MCMAHON : 1945 Patient Address: [address] [place] [address] [address] [facility] Primary Care Provider: Name: MARCO A HUIZAR JR. After you are discharged if you find you have any questions, please, call [phone] ext [phone] to speak to a nurse. Discharge Diagnosis: BPH (benign prostatic hyperplasia) Prescription Information: If you have been given a prescription for narcotics, seek immediate medical attention if you have any difficulty breathing or any sudden status changes such as confusion and sleepiness. If you or anyone you know is experiencing suicidal thoughts, mental health, alcohol and/or drug addiction problems; contact the [facility] 06/10 Crisis Hotline -text 4HHHA ie 714340. If you received any narcotics, sedation, or any other medication that causes drowsiness for the next 24 hours, unless otherwise directed: ? Do not drive a car. ? Do not operate machinery such as power tools, lawn mowers, drills, sewing machines, or stoves ? Avoid alcoholic beverages and drugs for allergies, nerves, or sleep ? Do not make important personal or business decisions or sign any legal documents [facility] would like to thank you for allowing us to assist you with your healthcare needs. The following includes patient education materials and information regarding your injury/illness. LISANDRO DEL has been given the following list of follow-up instructions, prescriptions, and patient education materials: Follow-up Instructions With: Address: When: Follow up with family doctor about your elevated blood pressure during pre-admission testing and the day of surgery. With: Address: When: Sivakumar Garcia [address] [facility], [place] [address] Business (1) With: Address: When: MARCO A HUIZAR JR. [address] [place] [address] [phone] Business (1) Medications During the course of your visit, your medication list was updated with the most current information. The details of those changes are reflected below: New Medications Printed Prescriptions cephalexin (Keflex 500 mg oral capsule) 1 cap(s) Oral Every 8 hours. Refills: 0. traMADol (Ultram 50 mg oral tablet) 1 tab(s) Oral every 6 hours as needed as needed for pain. Refills: 0. Medications to Continue That Have Not Changed Other Medications levothyroxine (levothyroxine 100 mcg (0.1 mg) oral tablet) 1 tab(s) Oral every day. multivitamin (Multivitamin, generic) 1 tab(s) Oral every day. primidone (primidone 50 mg oral tablet) 2 tab(s) Oral once a day (at bedtime). tamsulosin (tamsulosin 0.4 mg oral capsule) 1 cap(s) Oral 2 times a day. No Longer Take the Following Medications finasteride (finasteride 5 mg oral tablet) 1 tab(s) Oral every day. It is important to always keep an active list of medications available so that you can share with other providers and manage your medications appropriately. As an additional courtesy, we are also providing you with your final active medications list that you can keep with you. cephalexin (Keflex 500 mg oral capsule) 1 cap(s) Oral Every 8 hours. Refills: 0. levothyroxine (levothyroxine 100 mcg (0.1 mg) oral tablet) 1 tab(s) Oral every day. multivitamin (Multivitamin, generic) 1 tab(s) Oral every day. primidone (primidone 50 mg oral tablet) 2 tab(s) Oral once a day (at bedtime). tamsulosin (tamsulosin 0.4 mg oral capsule) 1 cap(s) Oral 2 times a day. traMADol (Ultram 50 mg oral tablet) 1 tab(s) Oral every 6 hours as needed as needed for pain. Refills: 0. Take only the medications listed above. Contact your doctor prior to taking any medications not on this list. Diet & Activity Patient Activity Level: As Tolerated Patient Diet: Regular Patient Activity Restrictions: Comment: Patient education materials, if any, will display below Green Light Laser Prostate Treatment, Care After This sheet gives you information about how to care for yourself after your procedure. Your health care provider may also give you more specific instructions. If you have problems or questions, contact your health care provider. What can I expect after the procedure? After the procedure, it is common to have: ? Swelling and discomfort around your urethra. The opening of the urethra is at the end of the penis. ? Blood in your urine. This should go away after a few days. ? Trouble urinating or sudden need to urinate (urgency). These problems should get better over time. You may continue to have a thin tube (catheter) inserted into your urethra to help drain your urine from your bladder for a few days after the procedure. Follow these instructions at home: Medicines ? Take ehus-oxp-ivxtnzd and prescription medicines only as told by your health care provider. ? If you were (more content not included)... [facility] MAGR Intraoperative Recordon 09-25-2020 MAGR Intraoperative Record MAGR Intra-Op Record Summary Primary Physician: Sivakumar Garcia MD Finalized Date/Time: 09/25/20 08:48:17 Pt. Name: DEL MCMAHON/Sex: 1945 MALE Med Rec #: [id number] Physician: Sivakumar Garcia MD Financial #: [id number] Pt. Type: D Room/Bed: / Admit/Disch: 09/25/20 06:01:00 - Institution: Case Times MAGR Entry 1 Patient In Room Time 09/25/20 07:34:00 Out Room Time 09/25/20 08:25:00 Anesthesia Start Time 09/25/20 07:34:00 Stop Time 09/25/20 08:28:00 Surgery Start Time 09/25/20 07:44:00 Stop Time 09/25/20 08:20:00 Last Modified By: Leyla Hdz RN 09/25/20 08:47:53 Case Attendance MAGR Entry 1 Entry 2 Entry 3 Case Attendee Jose LYLE, Corbin Fowler MD, Barbara RN Role Performed Surgeon - Primary Anesthesiologist of Repair Coil Winder Record Time In 09/25/20 07:34:00 09/25/20 07:34:00 09/25/20 07:34:00 Time Out 09/25/20 08:25:00 09/25/20 08:25:00 09/25/20 08:25:00 Procedure Cystoscopy PVP Cystoscopy PVP Cystoscopy PVP Greenlight Laser Greenlight Laser Greenlight Laser Prostate Prostate Prostate Last Modified By: Leyla Hdz RN, Barbara RN Long, Barbara RN 09/25/20 08:25:22 09/25/20 08:25:22 09/25/20 08:25:22 Entry 4 Case Attendee Rosanna Gonzales Role Performed Scrub Personnel Time In 09/25/20 07:34:00 Time Out 09/25/20 08:25:00 Procedure Cystoscopy PVP Greenlight Laser Prostate Last Modified By: Leyla Hdz RN 09/25/20 08:25:22 General Comments: Jacek Boss Surgical Procedures MAGR Pre-Care Text: A.20 Verifies operative procedure, surgical site, and laterality Im.150 Develops individualized plan of care Entry 1 Procedure Cystoscopy PVP Primary Procedure Yes Greenlight Laser Prostate Primary Surgeon Sivakumar Garcia MD Surgeon Comment CYSTOSCOPY GREENLIGHT Start 09/25/20 07:44:00 Stop 09/25/20 08:20:00 Anesthesia Type General Surgical Service Urology Wound Class Clean-Contaminated Technique Details Closure Technique N/A Entire procedure No was performed via laparoscope or robotic assistance Last Modified By: Leyla Hdz RN 09/25/20 08:25:28 Post-Care Text: O.730 The patient's care is consistent with the individualized perioperative plan of care General Case Data MAGR Pre-Care Text: A.350.1 Classifies surgical wound Entry 1 Case Information OR MAGR OR 01 Case Level Level 4 Wound Class Clean-Contaminated Specialty Urology ASA Class 3 Diagnosis Preop Diagnosis BPH Postop Same As Preop Yes Postop Diagnosis BPH Blunt or No Is the procedure No penetrating injury considered occured prior to Emergent/Urgent? the start of the procedure: Last Modified By: Leyla Hdz RN 09/25/20 07:48:54 Post-Care Text: O.760 Patient receives consistent and comparable care regardless of the setting Time Out MAGR Entry 1 Time out date/time 09/25/20 07:43:00 All team members Yes have introduced themselves by name and role Surgeon, Yes Surgeon reviews Yes anesthesia, nurse critical or confirm patient, unexpected steps, site, procedure operative duration, anticipated blood loss Anesthesia team Yes Nursing team Yes reviews any reviews sterility patient-specific (including concerns indicator results) and equipment issues/concerns Antibiotic Antibiotic Yes Administration Time 07:32 prophylaxis given within the last 60 minutes Last Modified By: Leyla Hdz RN 09/25/20 07:49:49 Patient Positioning MAGR Pre-Care Text: A.280 Identifies baseline musculoskeletal status Im.40 Positions the patient Im.80 Applies safety devices Entry 1 Procedure Cystoscopy PVP Body Position Low Lithotomy Greenlight Laser Prostate Left Arm Position Extended on padded arm Right Arm Position Extended on padded arm board board Left Leg Position Secured in Stirrup Right Leg Position Secured in Stirrup Press Points Checked Yes Positioning Device Safety Strap, Stirrups Outcome Met (O.80) Yes Last Modified By: Leyla Hdz RN 09/25/20 07:49:58 Post-Care Text: E.290 Evaluates musculoskeletal status O.80 Patient is free from signs and symptoms of injury related to positioning Skin Prep MAGR Pre-Care Text: A.30 Verifies allergies Im.270 Performs skin preparation Im.270.1 Implements protective measures to prevent skin and tissue injury due to chemical sources Entry 1 Skin Prep Syntegrity Prep Agents (Im.270) Other Prep By Leyla Hdz RN Prep Area (Im.270) Perineum Skin Prep Agent Dry Yes Without Pooling Hair Removal Syntegrity Hair Removal Methods No hair removal performed Outcome Met (O.100) Yes Last Modified By: Leyla Hdz RN 09/25/20 07:50:42 Post-Care Text: E.10 Evaluates for signs and symptoms of physical injury to skin and tissue O.100 Patient is free from signs and symptoms of chemical injury General Comments: hibiclens prep Patient Care Devices MAGR Pre-Care Text: A.200 Assesses risk for normoth (more content not included)... [facility] MAGR PACU Recordon MAGR PACU Record MAGR PACU Record Sum sudhir Primary Physician: Sivakumar Garcia MD Finalized Date/Time: 09/25/20 09:41:02 Pt. Name: DEL MCMAHON/Sex: 1945 MALE Med Rec #: [id number] Physician: Sivakumar Garcia MD Financial #: [id number] Pt. Type: D Room/Bed: / Admit/Disch: 09/25/20 06:01:00 - Institution: PACU Case Times MAGR Entry 1 In PACU I 09/25/20 08:26:00 Discharge from PACU 09/25/20 09:20:00 I Last Modified By: Lara Lofton RN 09/25/20 09:41:01 Finalized By: Lara Lofton RN Document Signatures Signed By: Lara Lofton RN 09/25/20 09:41 [facility] MAGR Postoperative Recordon 09-25-2020 MAGR Postoperative Record MAGR Phase II Record Summary Primary Physician: Sivakumar Garcia MD Finalized Date/Time: 09/25/20 12:23:31 Pt. Name: DEL MCMAHON/Sex: 1945 MALE Med Rec #: [id number] Physician: Sivakumar Garcia MD Financial #: [id number] Pt. Type: D Room/Bed: / Admit/Disch: 09/25/20 06:01:00 - Institution: Phase II Case Times MAGR Pre-Care Text: Patient is free from s/s of injury. Patient remains free from compromised physical state related to surgery or anesthesia. Patient comfort maintained. Patient/family verbalize understanding of discharge instructions. Entry 1 In PACU II 09/25/20 09:20:00 Discharge from PACU 09/25/20 11:05:00 II Last Modified By: Marta Velez RN 09/25/20 12:23:26 Post-Care Text: The patient remains free from s/s of injury. Patient's vital signs stable, circulation maintained, return to preop mental and physical status, opsite/dressing intact, minimal or absent nausea and vomiting, tolerates po intake. Patient verbalizes adequate pain control. Patient/family express understanding of discharge instructions. General Comments: Patient discharged per protocol. Finalized By: Marta Velez RN Document Signatures Signed By: Marta Velez RN 09/25/20 12:23 [facility] MAGR Preoperative Recordon 0 09-25-2020 MAGR Preoperative Record MAGR Pre-Op Record Summary Primary Physician: Sivakumar Garcia MD Finalized Date/Time: 09/25/20 07:47:12 Pt. Name: DEL MCMAHON.O.B./Sex: 1945 MALE Med Rec #: [id number] Physician: Sivakumar Garcia MD Financial #: [id number] Pt. Type: D Room/Bed: / Admit/Disch: 09/25/20 06:01:00 - Institution: Pre-Op Case Times MAGR Pre-Care Text: Patient will be optimally prepared for surgery. Patient is free from s/s of injury. Provide information to patient/family related to plan of care. Verify patient allergies. Confirm identity and verify consent before the operative or invasive procedure. Entry 1 Patient Arrival Time 09/25/20 06:10:00 Preop Departure 09/25/20 07:32:00 Last Modified By: Leyla Hdz RN 09/25/20 07:47:12 Post-Care Text: Patient is prepared mentally and physically and is ready for surgery. The patient remains free from s/s of injury. Patient/family express understanding of plan of care and participate in decisions affecting his or her perioperrative plan of care. Allergies documented appropriately. Patient identifiers and consent correct. General Comments: Reviewed with patient/ for the next 24 hours not to do anything that takes concentration. Denies chest pain, shortness of breath or illnessess. Pacemaker upper left chest. Denies sleep apnea. Finalized By: Leyla Hdz RN Document Signatures Signed By: Leyla Hdz RN 09/25/20 07:47 [facility] Patient Handouton 09-25-2020 Patient Handout Urology Green Light Laser Prostate Treatment, Care After This sheet gives you information about how to care for yourself after your procedure. Your health care provider may also give you more specific instructions. If you have problems or questions, contact your health care provider. What can I expect after the procedure? After the procedure, it is common to have: ? Swelling and discomfort around your urethra. The opening of the urethra is at the end of the penis. ? Blood in your urine. This should go away after a few days. ? Trouble urinating or sudden need to urinate (urgency). These problems should get better over time. You may continue to have a thin tube (catheter) inserted into your urethra to help drain your urine from your bladder for a few days after the procedure. Follow these instructions at home: Medicines ? Take [id number] and prescription medicines only as told by your health care provider. ? If you were prescribed an antibiotic medicine, take it as told by your health care provider. Do not stop taking the antibiotic even if you start to feel better. Bathing ? Do not take baths, swim, or use a hot tub until your health care provider approves. Ask your health care provider if you may take showers. You may only be allowed to take sponge baths. Activity ? Do not drive for 24 hours if you were given a medicine to help you relax (sedative) during your procedure. ? Do not drive or use heavy machinery while taking prescription pain medicine. ? Ask your health care provider what activities are safe for you. Most people can return to normal activities within a few days. ? Do not have sex or engage in sexual activity until your health care provider approves. ? Do not lift anything that is heavier than 10 lb (4.5 kg), or the limit that you are told, until your health care provider says that it is safe. General instructions ? If you have a urinary catheter, care for it as told by your health care provider. This may include: ? Washing your hands before and after touching the catheter. ? Emptying your drainage bag when it is ??? full, or emptying it at least 2?3 times a day. ? Keeping the area around the catheter clean and dry. ? Avoiding any bends or breaks in the catheter. ? Keeping air out of the catheter. ? Making sure that the catheter is not placed under water. ? Do not use any products that contain nicotine or tobacco, such as cigarettes and e-cigarettes. If you need help quitting, ask your health care provider. ? Drink enough fluid to keep your urine pale yellow. ? Keep all follow-up visits as told by your health care provider. This is important. Contact a health care provider if: ? You have trouble: ? Having a bowel movement. ? Getting an erection. ? You have swelling around your urethra and it gets worse. ? You have blood in your urine for more than 2 days after the procedure. ? You have pain or burning when you urinate, or other problems that do not go away or cause discomfort. ? You have problems with your catheter or your catheter is blocked. ? You have a fever. ? You have nausea or you vomit. ? You have swelling in your legs. Get help right away if: ? Your urine has blood clots in it. ? Your urine is dark red. ? You cannot urinate after your catheter is removed. ? You have blood in your stool. ? You have severe pain that does not get better with medicine. ? You have shortness of breath. Summary ? After the procedure, it is common to have swelling and discomfort around your urethra and blood in your urine for a few days. ? Some men may have problems urinating after this procedure. These problems should go away after a few days. If you have pain or burning while urinating, contact your health care provider. ? If you have a catheter after this procedure, care for it as told by your health care provider. ? If you have severe pain, dark red urine, or urine with blood clots, get medical help right away. This information is not intended to replace advice given to you by your health care provider. Make sure you discuss any questions you have with your health care provider. Document Revised: 06/23/2019 Document Reviewed: 09/10/2017 [employer] ([employer]) Patient Education ? 2019 [employer] ([employer]) Inc. Normal [facility] C Urineon 09-20-2020 C Urine <10,000 cfu/ml Normal [facility] Comment on above: Performed By: #### 6 [id number] ####[facility] (DEFAULT)[address] [place] [address] [id number] Progress Note - Nurseon 07-0 Progress Note - Nurse PAT review done dahiana Graham, no orders received. [Electronically Signed on: 09/19/2020 09:34 EDT] Praveena Lowe RN [Verified on: 09/19/2020 09:34 EDT] Praveena Lowe RN Normal [facility] Provider Orderson 09-19-2020 Provider Orders [id number] [facility] .Auto Diff 1on 09-18-2020 Auto Mower % 14 % High 1-12 [facility] Comment on above: Performed By: #### 7 [id number], [id number] #### [facility] (DEFAULT) [address] [place] [address] 24539 Baso Abs# 0.0 x10 Normal 0.0-0.2 [facility] Comment on above: Performed By: #### 7 [id number], [id number] #### [facility] (DEFAULT) [address] [place] [address] 13671 Basophils/100 WBC (Bld) 0.7 % Normal 0.2-2.0 [facility] Comment on above: Performed By: #### 7 [id number], [id number] #### [facility] (DEFAULT) [address] [place] [address] 09551 Eos Abs# 0.7 x10 High 0.0-0.4 [facility] Comment on above: Performed By: #### 7 [id number], [id number] #### [facility] (DEFAULT) [address] [place] [address] 88935 Eosinophils/100 WBC (Bld) 10.1 % High 0.9-4.0 [facility] Comment on above: Performed By: #### 7 [id number], [id number] #### [facility] (DEFAULT) [address] [place] [address] 34386 Lymph Abs# 1.5 x10 Normal 1.3-2.9 [facility] Comment on above: Performed By: #### 7 [id number], [id number] #### [facility] (DEFAULT) [address] [place] [address] 58732 Lymphocytes/100 WBC (Bld) 21 % Normal 14-48 [facility] Comment on above: Performed By: #### 7 [id number], [id number] #### [facility] (DEFAULT) [address] [place] [address] 09834 Mower Abs# 1.0 x10 High 0.0-0.8 [facility] Comment on above: Performed By: #### 7 [id number], [id number] #### [facility] (DEFAULT) [address] [place] [address] 91077 Neut Abs# 3.8 x10 Normal 1.5-9.2 [facility] Comment on above: Performed By: #### 7 [id number], [id number] #### [facility] (DEFAULT) [address] [place] [address] 26298 Neutrophils/100 WBC (Bld) 55 % Normal 44-88 [facility] Comment on above: Performed By: #### 7 [id number], [id number] #### [facility] (DEFAULT) [address] [place] [address] 65096 CBC w/ Auto Diffon 1 Erythrocyte distribution width (RBC) [Ratio] 13.3 % Normal 11.5-15.0 [facility] Comment on above: Performed By: #### 7 [id number], [id number] #### [facility] (DEFAULT) [address] [place] [address] 90675 Hematocrit (Bld) [Volume fraction] 44.8 % Normal 34.8-51.9 [facility] Comment on above: Performed By: #### 7 [id number], [id number] #### [facility] (DEFAULT) [address] [place] [address] 30878 Hemoglobin (Bld) [Mass/Vol] 15.0 g/dL Normal 11.8-17.7 [facility] Comment on above: Performed By: #### 7 [id number], [id number] #### [facility] (DEFAULT) [address] [place] [address] 42133 Instr WBC 7.0 x10 Invalid Interpretation Code [facility] Comment on above: Performed By: #### 7 [id number], [id number] #### [facility] (DEFAULT) [address] [place] [address] 20109 Man Diff? Auto Normal [facility] Comment on above: Performed By: #### 7 [id number], [id number] #### [facility] (DEFAULT) [address] [place] [address] 17975 MCH (RBC) [Entitic mass] 32 pg Normal 24-34 [facility] Comment on above: Performed By: #### 7 [id number], [id number] #### [facility] (DEFAULT) [address] [place] [address] 68750 MCHC (RBC) [Mass/Vol] 34 g/dL Normal 26-37 [facility] Comment on above: Performed By: #### 7 [id number], [id number] #### [facility] (DEFAULT) [address] [place] [address] 85080 MCV (RBC) [Entitic vol] 97 fL Normal 81-100 [facility] Comment on above: Performed By: #### 7 [id number], [id number] #### [facility] (DEFAULT) [address] [place] [address] 00361 Platelet 132 x10 Low 138-427 [facility] Comment on above: Performed By: #### 7 [id number], [id number] #### [facility] (DEFAULT) [address] [place] [address] 72647 Platelet mean volume (Bld) [Entitic vol] 9.9 fL Normal 6.3-10.2 [facility] Comment on above: Performed By: #### 7 [id number], [id number] #### [facility] (DEFAULT) [address] [place] [address] 30755 RBC 4.61 x10 Normal 3.70-5.30 [facility] Comment on above: Performed By: #### 7 [id number], [id number] #### [facility] (DEFAULT) [address] [place] [address] 84251 WBC 7.0 x10 Normal 3.5-10.5 [facility] Comment on above: Performed By: #### 7 [id number], [id number] #### [facility] (DEFAULT) [address] [place] [address] Progress Note - Nurseon 08-16 Progress Note - Nurse Patient was schedu led today for upcoming surgery 09/25/20. Patient did not show up. Multiple calls attempted with no answer. Call made to Dr. Garcia's office. Spoke with Latoya informed of above. [Electronically Signed on: 09/12/2020 13:21 EDT] Abimbola Neri RN [Verified on: 09/12/2020 13:21 EDT] Abimbola Neri RN [facility] NM DARWIN SCANon 03-14-2020 NM DARWIN SCAN [facility] Department of Radiology [address] [place] [address] Patient Name: DEL MCMAHON : 1945 Sex: M Age: Race: White Pt. Location: [facility] Patient Status: D Ordered Date: 02/20/2020 12:15:00 PM Completed Date: 03/14/2020 01:36 PM Requesting Provider: AMANDA CONLEY Attending Provider: AMANDA CONLEY Report Copy To: MARCO A HUIZAR Signs & Symptoms: R25.1 History: Order in [facility] [phone] NPC PER MEDICARE ABN PASSED [id number] 02-22-20 ROGERS Comments: r/o Essential vs. PD tremor Exam: NM DARWIN SCAN NM DARWIN SCAN 03/14/2020 1:36 PM CLINICAL INDICATIONS: R25.1 TECHNOLOGIST COMMENTS: Hx of hand tremors for years, rule out ET vs PD. 5.5 mCi I123 DaTscan. 400 mg potassium perchlorate given 1 hour prior to injection. QUESTION FOR THE RADIOLOGIST: r/o Essential vs. PD tremor PROTOCOL: Following injection of 99mTc Ioflupane, SPECT images of the head were obtained and reconstructed in axial plane. Radiopharmaceutical Dose: Datscan Ioflupane I 123 Injection, 5.5 Millicuries, Intravenous COMPARISON: None available.. FINDINGS: There is symmetric accumulation of radiotracer material within the globus pallidus and caudate nucleus giving rise to the normal comma shaped distribution. There is no evidence of asymmetry. IMPRESSION: There is no molecular imaging evidence of nigrostriatal degeneration. Electronically signed: Mookie Schafer. Transcribed by: [email or web address], User Resident: Electronically Signed by: MOOKIE SCHAFER @ 03/15/2020 03:41 PM Normal [facility] Comment on above: Order Comment: r/o E ssential vs. PD tremor Vital Signs Date Time Vital Sign Value Performing Clinician Malui tomas 05-05-2024 08:23-0500 Body weight 101.42 kg Daljit Perez [employer] Work Phone: [facility] [employer] 05-05-2024 08:23-0500 Diastolic blood pressure 88 mm[Hg] [employer] Work Phone: [facility] [employer] 05-05-2024 08:23-0500 Heart rate 65 /min [employer] Work Phone: [facility] 05-05-2024 08:23-0500 SaO2% (BldA) [Mass fraction] 97 % [employer] Work Phone: [facility] 05-05-2024 08:23-0500 Systolic blood pressure 158 mm[Hg] Daljit Perez DO Work Phone: [facility] 09-22-2023 15:39-0400 Body height 180.34 cm JR Strickland [employer] Work Phone: [facility] 09-22-2023 15:39-0400 Body mass index (BMI) [Ratio] 28 kg/m2 JR Marco A Valone Work Phone: [facility] 09-22-2023 15:39-0400 Body temperature 96.8 [degF] JR Marco A Valone Work Phone: [facility] 09-22-2023 15:39-0400 Body weight 91.17 kg JR Marco A Valone Work Phone: [facility] 09-22-2023 15:39-0400 Diastolic blood pressure 75 mm[Hg] JR Marco A Valone Work Phone: [facility] 09-22-2023 15:39-0400 Heart rate 65 /min JR Strickland Valone Work Phone: [facility] 09-22-2023 15:39-0400 Respiratory rate 20 /min JR Marco A Valone Work Phone: [facility] 09-22-2023 15:39-0400 SaO2% (BldA) [Mass fraction] 98 % JR Marco A Valone Work Phone: [facility] 09-22-2023 15:39-0400 Systolic blood pressure 118 mm[Hg] JR Marco A Valone Work Phone: [facility] 08-07-2023 08:30-0400 Body temperature 98.5 [degF] JR Marco A Valone Work Phone: [facility] 08-07-2023 08:30-0400 Diastolic blood pressure 82 mm[Hg] Marco A Valone Work Phone: [facility] 08-07-2023 08:30-0400 Heart rate 65 /min JR Marco A Valone Work Phone: [facility] 08-07-2023 08:30-0400 Respiratory rate 22 /min JR Marco A Huizar Work Phone: [facility] 08-07-2023 08:30-0400 SaO2% (BldA) [Mass fraction] 93 % JR Marco A Huizar Work Phone: [facility] 08-07-2023 08:30-0400 Systolic blood pressure 165 mm[Hg] JR Marco A Huizar Work Phone: [facility] 08-07-2023 06:00-0400 Body weight 98 kg JR Marco A Huizar Work Phone: [facility] 08-06-2023 08:30-0400 Inhaled oxygen flow rate 1 L/min JR Marco A Huizar Work Phone: [facility] 08-05-2023 15:41-0400 Body height 180.34 cm JR Marco A Huizar Work Phone: [facility] 05-05-2023 10:42-0500 Body height 180.3 cm Lidya Bentley MD Work Phone: [facility] 05-05-2023 10:42-0500 Body mass index (BMI) [Ratio] 28.6 kg/m2 Lidya Bentley MD Work Phone: [facility] [employer] [facility] 05-05-2023 10:42-0500 Body weight 92.99 kg Lidya Bentley MD Work Phone: [facility] 05-05-2023 10:42-0500 Diastolic blood pressure 77 mm[Hg] Lidya Bentley MD Work Phone: [facility] [employer] [facility] 05-05-2023 10:42-0500 Heart rate 60 /min Lidya Bentley MD Work Phone: [facility] [employer] [facility] 05-05-2023 10:42-0500 Systolic blood pressure 132 mm[Hg] Lidya Bentley MD Work Phone: [employer] 02-10-2022 10:29-0500 Body temperature 98.2 [degF] Emani Holt MD Work Phone: [employer] 02-10-2022 10:29-0500 Diastolic blood pressure 94 mm[Hg] Emani Holt MD Work Phone: [employer] 02-10-2022 10:29-0500 Heart rate 59 /min Emani Holt MD Work Phone: [employer] 02-10-2022 10:29-0500 Respiratory rate 16 /min Emani Holt MD Work Phone: [employer] 02-10-2022 10:29-0500 SaO2% (BldA) [Mass fraction] 92 % Emani Holt MD Work Phone: [employer] 02-10-2022 10:29-0500 Systolic blood pressure 173 mm[Hg] Emani Holt MD Work Phone: [employer] 02-10-2022 05:45-0500 Body height 180.3 cm Emani Holt MD Work Phone: [employer] 02-10-2022 05:45-0500 Body mass index (BMI) [Ratio] 28.5 kg/m2 Emani Holt MD Work Phone: [employer] 02-10-2022 05:45-0500 Body weight 92.7 kg Emani Holt MD Work Phone: [employer] 08-27-2021 12:15-0400 Body height 180.34 cm Jose Olexa Other [employer] Other 08-27-2021 12:15-0400 Body mass index (BMI) [Ratio] 29.29 kg/m2 Jose Olexa Other [employer] Other 08-27-2021 12:15-0400 Body weight 95.26 kg Jose Olexa Other [employer] Other 02-19-2021 11:45-0500 Body height 180.34 cm Jose Olexa Other [employer] Other 02-19-2021 11:45-0500 Body mass index (BMI) [Ratio] 29.84 kg/m2 Jose Olexa Other [employer] Other 02-19-2021 11:45-0500 Body weight 97.07 kg Jose Olexa Other [employer] Other 01-15-2021 10:00-0400 Body height 180.34 cm Jose Olexa Other [employer] Other 01-15-2021 10:00-0400 Body mass index (BMI) [Ratio] 29.76 kg/m2 Jose Olexa Other [employer] Other 01-15-2021 10:00-0400 Body weight 96.8 kg Jose Olexa Other [employer] Other 12-25-2020 09:30-0400 Body height 180.34 cm Mario Hadley Other [employer] Other 12-25-2020 09:30-0400 Body mass index (BMI) [Ratio] 28.59 kg/m2 Mario Hadley Other [employer] Other 12-25-2020 09:30-0400 Body weight 92.99 kg Mario Hadley Other [employer] Other Encounters Encounter Date Encounter Type Care Provider Facility Start: 07-06-2024 End: 07-06-2024 Anisha flowsvon Vines DPM Work Phone: [facility] Start: 07-06-2024 End: 07-06-2024 Bamboo flowsheet Raymond Vines DPM Work Phone: [facility] Start: 07-06-2024 End: 07-06-2024 ambulatory RAYMOND VINES Not Available Start: 07-06-2024 End: 07-06-2024 Patient encounter procedure Raymond Vines DPM Work Phone: [facility] Comment on above: Onychomycosis; Deformity of toenail; Pre-ulcerative calluses Start: 07-05-2024 End: 07-05-2024 ambulatory [facility] Start: 06-22-2024 End: 06-23-2024 Agnes Bentley MD [facility] Comment on above: Benign essential irwin mor Start: 05-05-2024 End: 05-05-2024 Bamboo flowsheet Daljit Perez DO Work Phone: [facility] Start: 05-05-2024 End: 05-05-2024 Bamboo flowsheet Daljit Perez DO Work Phone: [facility] Start: 05-05-2024 End: 05-05-2024 Office outpatient new 45 minutes Daljit Perez DO Work Phone: [facility] Comment on above: Essential tremor (Pr imary Dx); Sick sinus syndrome (CMS/HCC); AICD (automatic cardioverter/defibrillator) present Start: 05-05-2024 End: 05-05-2024 ambulatory DALJIT PEREZ Not Available Start: 04-06-2024 End: 04-06-2024 Bamboo flowsheet Raymond Vines DPM Work Phone: [facility] Start: 04-06-2024 End: 04-06-2024 Bamboo flowsheet Raymond Vines DPM Work Phone: [facility] Start: 04-06-2024 End: 04-06-2024 Office outpatient visit 15 minutes Raymond Vines DPM Work Phone: [facility] Comment on above: Onychomycosis (Prima ry Dx); Deformity of toenail; Pre-ulcerative calluses; Xerosis of skin Start: 04-06-2024 End: 04-06-2024 ambulatory RAYMOND VINES Not Available Start: 03-31-2024 End: 03-31-2024 Bamerick Balderas MD Work Phone: [facility] Start: 03-31-2024 End: 03-31-2024 Bamgilberto chantal Balderas MD Work Phone: [facility] Start: 03-31-2024 End: 03-31-2024 ambulatory PANCHITO BALDERAS Not Available Start: 03-31-2024 End: 03-31-2024 Office outpatient visit 15 minutes Panchito Balderas MD Work Phone: [facility] Comment on above: Other atopic dermati tis (Primary Dx); Actinic keratosis; Capillary angioma; Seborrheic keratosis; Lentigines Start: 02-03-2024 End: 02-03-2024 Anisha Balderas MD Work Phone: [facility] Start: 02-03-2024 End: 02-03-2024 Bamerick Balderas MD Work Phone: [facility] Start: 02-03-2024 End: 02-03-2024 Patient encounter procedure Panchito Balderas MD Work Phone: [facility] Comment on above: Neoplasm of unspecif ied behavior of bone, soft tissue, and skin (Primary Dx) Start: 02-03-2024 End: 02-03-2024 ambulatory PANCHITO BALDERAS Not Available Start: 02-02-2024 End: 02-02-2024 ambulatory [facility] Start: 12-22-2023 End: 12-22-2023 ambulatory [facility] Start: 12-16-2023 End: 12-16-2023 Patient encounter procedure Raymond Vines DPM Work Phone: [facility] Comment on above: Pre-ulcerative callu ses (Primary Dx); Onychomycosis Start: 12-16-2023 End: 12-16-2023 Bamboo flowsheet Raymond Vines DPM Work Phone: [facility] Start: 12-16-2023 End: 12-16-2023 Bamboo flowsheet Raymond Vines DPM Work Phone: [facility] Start: 12-16-2023 End: 12-16-2023 ambulatory RAYMOND VINES Not Available Start: 10-02-2023 End: 10-02-2023 Patient encounter procedure JR Marco A Huizar Work Phone: [facility] [place] Work Phone: Start: 10-02-2023 End: 10-02-2023 ambulatory Marco A Huizar Work Phone: [facility] Work Phone: Start: 09-22-2023 End: 09-22-2023 ambulatory JR Marco A Huizar Work Phone: [facility] Work Phone: Start: 09-22-2023 End: 09-22-2023 Patient encounter procedure Marco A Huizar Work Phone: [facility] Work Phone: Start: 09-11-2023 End: 09-11-2023 Patient encounter procedure Marco A Huizar Work Phone: [facility] [place] Work Phone: Start: 09-11-2023 End: 09-11-2023 ambulatory Giovanna Anna Facility:[facility] Start: 08-06-2023 End: 08-06-2023 ambulatory AURELIO ROUSSEAU [facility] Start: 08-05-2023 End: 08-07-2023 Non-patient / Non-visit JR Marco A Huizar Work Phone: [facility] Work Phone: Start: 08-05-2023 End: 08-07-2023 Evaluation and management of inpatient JR Marco A Huizar Work Phone: [facility] [place] [facility] Work Phone: Start: 08-04-2023 End: 08-05-2023 Emergency department patient visit [facility] Start: 08-04-2023 End: 08-05-2023 Emergency department patient [facility] Start: 08-04-2023 End: 08-05-2023 Emergency department patient visit MARCO A HUZIAR [facility] Start: 08-04-2023 End: 08-04-2023 ambulatory RAYMOND VINES Not Available Start: 07-14-2023 End: 07-14-2023 ambulatory [facility] Start: 06-28-2023 End: 06-29-2023 Refill Lidya Bentley MD Work Phone: [facility] Comment on above: Benign essential irwin mor Start: 05-05-2023 End: 05-05-2023 ambulatory LIDYA BENTLEY [facility] Start: 05-05-2023 End: 05-05-2023 Office outpatient visit 15 minutes Lidya Bentley MD Work Phone: [facility] Comment on above: Benign essential irwin mor (Primary Dx) Start: 02-10-2022 End: 02-10-2022 ambulatory EMANI HOLT [facility] Start: 02-10-2022 End: 02-10-2022 Evaluation and management of inpatient Emani Holt MD Work Phone: [facility] Start: 02-10-2022 End: 02-10-2022 Subsequent hospital visit by physician Emani Holt MD Work Phone: [facility] Start: 08-27-2021 End: 08-27-2021 ambulatory Jose Olexa Other [employer] Other Start: 08-27-2021 Office outpatient vi sit 15 minutes Jose Adkinsxa [facility] Start: 05-08-2021 End: 05-09-[address] MARCO A HUIZAR Facility:[facility]1 Start: 02-19-2021 End: 02-19-2021 ambulatory Jose Olexa Other [place] [facility] Other Start: 02-19-2021 Postop follow up vis it related to original px Jose Olexa [facility] Start: 02-12-2021 End: 02-12-2021 ambulatory Jose Olexa Other [place] Other Start: 02-12-2021 Telephone encounter Jose Adkinsxa [facility] Start: 01-15-2021 End: 01-15-2021 ambulatory Jose Olexa Other [place] Other Start: 01-15-2021 Encounter for other preprocedural examination Jose Olexa [facility] Start: 01-15-2021 Office outpatient vi sit 25 minutes Jose Adkinsxa [facility] Start: 12-25-2020 Office outpatient vi sit 25 minutes Mario Hadley [facility] Procedures Date Procedure Procedure Detail Performing Clinician Start: 03-31-2024 CRYOTHERAPY SKIN LESION Panchito Balderas MD Work Phone: Start: 02-03-2024 SKIN / NAIL BIOPSY Kt Balderas MD Work Phone: Start: 09-11-2023 CT of thorax with contrast JR Marco A Huizar Work Phone: Start: 08-05-2023 Investigation of transfusion reaction JR Marco A Huizar Work Phone: Start: 02-10-2022 POCT GLUCOSE BLOOD Jv Holt MD Work Phone: Start: 02-10-2022 Sars-cov-2 detection by dna/rna Emani Holt MD Work Phone: Plan of Treatment Date Care Activity Detail Author Start: 03-30-2025 End: 03-30-2025 Patient encounter procedure 03/30/2025 10:20 AM EST Office Visit [facility] [address] [place] [address] Panchito Balderas MD [address] [place] [address] [facility] Start: 11-14-2024 Influenza vaccination [facility] Start: 10-05-2024 End: 10-05-2024 Patient encounter procedure 10/05/2024 1:15 PM EDT Procedure Visit [facility] [address] [place] [phone] Raymond Vines, DPM [address] [place] [address] [facility] Start: 08-23-2024 End: 08-23-2024 Patient encounter procedure 08/23/2024 8:40 AM EDT Office Visit [facility] [address] [facility] [address] [place] [phone] Jessica Ardon, SUZANNE [address] [address] [facility] Start: 08-03-2024 Tobacco Screening Tobacco Screening [facility] Start: 07-05-2024 End: 07-05-2024 Patient encounter procedure 07/05/2024 9:45 AM EDT Procedure Visit [facility] [address] [place] [phone] Raymond Vines, DPM [address] [place] [address] [facility] Start: 05-05-2024 Adult BMI Screening Adult BMI Screening [facility] Start: 05-05-2024 Tobacco Screening Tobacco Screening [facility] Start: 05-05-2024 End: 05-05-2024 Patient encounter procedure 05/05/2024 8:30 AM EST Office Visit [facility] [address] [facility] [address] [place] [phone] Daljit Perez DO [address] [place] [address] Arrived [facility] Comment on above: Arrived Start: 04-06-2024 End: 04-06-2024 Patient encounter procedure [facility] Comment on above: Arrived Start: 03-31-2024 End: 03-31-2024 Patient encounter procedure 03/31/2024 10:30 AM EST Office Visit [facility] [address] [place] [phone] Panchito Balderas MD [address] [place] [address] [facility] Start: 03-24-2024 End: 03-24-2024 Patient encounter procedure 03/24/2024 1:15 PM EST Procedure Visit [facility] [address] [place] [phone] Raymond Vines DPM [address] [place] [address] [facility] Start: 02-03-2024 End: 02-03-2024 Patient encounter procedure 02/03/2024 11:35 AM EST Office Visit [facility] [address] [place] [phone] Panchito Balderas MD [address] [place] [address] Arrived [facility] Comment on above: Arrived Start: 12-16-2023 End: 12-16-2023 Patient encounter procedure 12/16/2023 2:15 PM EDT Procedure Visit [facility] [address] [place] [phone] Raymond Vines, DPM [address] [place] [address] Arrived [facility] Comment on above: Arrived Start: 11-15-2023 COVID-19 Vaccine ( season) COVID-19 Vaccine ( season) [facility] Start: 11-15-2023 Influenza vaccination [facility] Start: 08-07-2023 [facility] Start: 08-05-2023 Consultation [facility] Start: 08-05-2023 Hospital admission [facility] Start: 02-10-2023 Falls Risk Assessment Falls Risk Assessment [facility] Start: 11-28-2022 Adult BMI Screening Adult BMI Screening [facility] Start: 11-28-2022 Tobacco Screening Tobacco Screening [facility] Start: 11-14-2022 COVID-19 Vaccine ( season) COVID-19 Vaccine ( season) [facility] Start: 11-14-2022 Influenza vaccination Influenza Vaccine [facility] Start: 06-11-2022 Adult BMI Follow Up Plan Adult BMI Follow Up Plan [facility] Start: 02-10-2022 End: 02-10-2022 Arthrp knee condyle&plateau medial/lat cmprt ARTHROPLASTY KNEE UNICONDYLAR Unilateral primary osteoarthritis, right knee Pain in right knee 02/10/2022 6:30 AM EST [facility] Start: 11-14-2021 Influenza vaccination Influenza Vaccine (#1) [facility] Start: 11-13-2021 Adolescent depression screening assessment Depression Screening [facility] Start: 11-13-2021 Hepatitis C screening Hepatitis C Screening [facility] Start: 11-13-2021 Lipid panel Cholesterol Screening (Lipid Panel) [facility] Start: 11-13-2021 Medicare Annual Wellness Visit Medicare Annual Wellness Visit [facility] Start: 11-13-2021 Screening for malignant neoplasm of colon Colorectal Cancer Screening: Colonoscopy [facility] Start: 11-13-2021 Social Influencers of Health Screening Social Influencers of Health Screening [facility] Start: 2021 COVID-19 Vaccine (3 - Booster for Yanet series) COVID-19 Vaccine (3 - Booster for Yanet series) [facility] Start: 2012 Fall Risk Screening Fall Risk Screening [facility] Start: 2012 Pneumococcal Vaccine: 65+ Years (1 of 1 - PCV) Pneumococcal Vaccine: 65+ Years (1 of 1 - PCV) [facility] Start: 1997 Pneumococcal Vaccine: 65+ Years (1 of 1 - PCV) Pneumococcal Vaccine: 65+ Years (1 of 1 - PCV) [facility] Start: 1966 DTaP,Tdap and Td Vaccines (1 - Tdap) DTaP,Tdap and Td Vaccines (1 - Tdap) [facility] Start: 1966 DTaP,Tdap,and Td Vaccines (1 - Tdap) DTaP,Tdap,and Td Vaccines (1 - Tdap) [facility] Start: 1966 Zoster Vaccines (1 of 2) Zoster Vaccines (1 of 2) [facility] Start: 1965 Adult BMI Follow Up Plan Adult BMI Follow Up Plan [facility] Start: 1959 Depression Screening Depression Screening [facility] Start: 1953 Pneumococcal Vaccine: 65+ Years (1 - PCV) Pneumococcal Vaccine: 65+ Years (1 - PCV) [facility] Start: 1947 Hepatitis B Vaccines (1 of 3 - 3-dose series) Hepatitis B Vaccines (1 of 3 - 3-dose series) [facility] Start: 1947 Medicare Annual Wellness Visit Medicare Annual Wellness Visit [facility] CT Chest W contrast IV [facility] Dermatopathology exam Dermatopat hology exam Pathology and Cytology Timed Neoplasm of unspecified behavior of bone, soft tissue, and skin Release Upon Ordering for 1 Occurrences starting 02/03/2024 [facility] Work Phone: Comment on above: Release Upon Ordering for 1 Occurrences starting 02/03/2024 Patient Education Know your Meds [facility] Work Phone: Patient referral [facility] Work Phone: Immunizations Immunization Date Immunization Notes Care Provider Kim peralta 01-09-2021 COVID-19 mRNA-1273 (Moderna) JR Marco A Huizar Work Phone: [facility] 05-21-2020 COVID-19 Ad26.COV2.S (Yanet) Marco A Huizar Work Phone: [facility] 01-14-2019 influenza virus vaccine, unspecified formulation Lidya Bentley MD Work Phone: [facility] [employer] [facility] Payers Date Payer Category Payer Unknown [id number] 2023 Self-pay [id number] 2023 Private Health Insurance [employer] [id number] 2013 Managed Care Other (unspecified) [facility] [id number] 2013 Unknown [id number] [id number]. [id number] 2013 Unknown [id number] [id number] 2012 Medicare [id number] [id number]. [id number] 1959 Medicare [id number] 1959 Self-pay [id number] 1959 Unknown [id number] 1947 Unknown [id number] 2.16.840.1.165287.3.579. 2.593 1947 Unknown [id number] 2.16.840.1.596905.3.579. 2.593 1947 Unknown [id number] 2.16.840.1.258699.3.579. 2.1143 1947 Unknown [id number] 2.16.840.1.796335.3.579. 2.1286 1947 Unknown [id number] 2.16.840.1.303637.3.579. 2.1286 1947 Unknown [id number] 2.16.840.1.448838.3.579. 2.1286 1947 Unknown [id number] 2.16.840.1.067430.3.579. 2.1286 1947 Unknown [id number] 2.16.840.1.066501.3.579. 2.1286 1947 Unknown [id number] 2.16.840.1.315802.3.579. 2.1286 1947 Unknown [id number] 2.16.840.1.986541.3.579. 2.1286 1947 Unknown [id number] 2.16.840.1.915701.3.579. 2.1259 1947 Unknown [id number] 2.16.840.1.399553.3.579. 2.1259 1947 Unknown [id number] 2.16.840.1.859928.3.579. 2.1259 1947 Unknown [id number] 2.16.840.1.639609.3.579. 2.1259 1947 Unknown [id number] 2.16.840.1.766382.3.579. 2.1259 1947 Unknown [id number] 2.16.840.1.708507.3.579. 2.1259 1947 Unknown [id number] 2.16.840.1.941234.3.579. 2.1259 Unknown [id number] 2.16.840.1.681149.3.579. 2.531 Unknown [id number] 2.16.840.1.754698.3.579. 2.531 Social History Date Type Detail Facility Start: 08-04-2023 End: 07-06-2024 Sex Assigned At [facility] Other Start: 02-03-2022 End: 03-30-2023 Tobacco smoking status MNIS Never smoked tobacco [facility] Start: 02-03-2022 End: 03-30-2023 Tobacco use and exposure Smokeless tobacco non-user [facility] Start: 02-10-2022 Alcohol intake Ex-drinker (finding) [facility] Start: 02-03-2022 Alcohol Comment social [facility] Start: 1945 Sex Assigned At Not on file T [facility] Start: 01-24-2022 End: 02-03-2022 Exposure to SARS-CoV-2 (event) Not sure [facility] Start: 1945 Sex Assigned At Male [facility] Start: 08-10-2023 End: 07-06-2024 Alcoholic beverage intake Lifetime non-drinker (finding) [facility] Start: 08-04-2023 End: 07-06-2024 History of Social function [facility] Start: 05-05-2023 End: 08-04-2023 Alcohol intake Current non-drinker of alcohol (finding) [facility] Frequency of Alcohol Consumption Never [facility] Start: 10-19-2014 Sex Male (finding) [facility] Medical Equipment Procedure Code Equipment Code Equipment Origin al Text Equipment Identifier Dates Cement Bone Biom et R 1x40 [facility] - [id number], [id number] FDA Start: 02-10-2022 Femoral Component [id number] [id number], [id number] FDA Start: 02-10-2022 Goals Date Patient Goal Desired Activity /State Functional Status Date Assessment Result Facility 08-07-2023 Functional status Patient at Baseline [facility] Work Phone: Mental Status Date Assessment Result Facility 08-07-2023 Cognitive function Cognitive Sta tus Patient at Baseline [facility] Work Phone: Clinical Notes 09-25-2020 to 07-06-2024 Raymond Vines DPM - 07/06/2024 1:00 PM Toño Perez DO - 05/05/2024 8:30 AM Sheri Vines DPM - 04/06/2024 8:00 AM Ksenia Balderas MD - 03/31/2024 10:30 AM EST Note Date & Type Note Facility 07-06-2024 History of Present illness Narrative Images from the original note were not included. Reason for Visit: Established Patient: Recheck onychomycosis/Nailcare HPI Established patient seen today for recheck of onychomycosis and debridement of elongated, mycotic toenails. Patient is applying Tolcylen to all toenails once a day. He is applying OTC powder to the feet once daily. Patient has no pain to the toenails. PCP: Dr. Huizar Date Last seen: 06/2024. Review of Systems General: Chills denies. Fatigue denies. Fever denies. Night sweats denies. Endocrine: Diabetes denies. Hyperpigmentation denies. Weakness denies. Cardiovascular: Chest pain denies. Shortness of breath denies. Gastrointestinal: Constipation denies. Diarrhea denies. Nausea denies. Vomiting denies. Hematology: Anemia denies. Bleeding problems denies. Easy bruising denies. Musculoskeletal: Bone/joint symptoms denies. Leg cramps denies. Peripheral Vascular: Edema denies. Raynaud's denies. Rest pain denies. Varicose veins denies. Skin: Nail changes denies. Rash denies. Skin lesion(s) denies. Ulceration admits. Neurologic: Dizziness denies. Gait abnormality denies. Headache denies. Tingling/Numbness denies. Examination General Examination: GENERAL EXAMINATION: awake, aware of surroundings, in no acute distress. Vascular: DORSALIS PEDIS PULSE: palpable bilateral. POSTERIOR TIBIAL PULSE: palpable bilateral. TEMPERATURE GRADIENT: warm to cool. EDEMA: none. VARICOSITIES: present bilaterally. CAPILLARY FILLING TIME(sec): less than 2 seconds bilateral. Ankle / Foot: MUSCLE STRENGTH: 5/5 to the major muscle groups. Neurologic: NEUROLOGIC: normal. Dermatologic: SKIN FINDINGS: Skin is thin, shiny, atrophic and dry with absent pedal hair to the bilateral lower extremity. Patient's skin is exceptionally dry with xerosis. High risk for infection unless changes are made. HYPERKERATOSIS: Pre-ulcerative callus: Bilateral plantar medial hallux, Bilateral foot first MPJ region. NAIL PATHOLOGY: Intact toenails to 1-5 bilaterally. Orthopedic: JOINT RANGE OF MOTION: normal. DEFORMITIES: hallux valgus bilaterally SHOE GEAR EVALUATION: casual lace up shoes bilateral foot. Nail Pathology Left: 1 Long, Thick, Crumbly, Deformed, Discolored, Brittle, Dystrophic. 2 Elongated, non-dystrophic. 3 Long, Thick, Crumbly, Deformed, Discolored, Brittle, Dystrophic. 4 Elongated, non-dystrophic. 5 Elongated, non-dystrophic. Nail Pathology Right: 1 Long, Thick, Crumbly, Deformed, Discolored, Brittle, Dystrophic. 2 Long, Thick, Crumbly, Deformed, Discolored, Brittle, Dystrophic. 3 Elongated, non-dystrophic. 4 Long, Thick, Crumbly, Deformed, Discolored, Brittle, Dystrophic. 5 Long, Thick, Crumbly, Deformed, Discolored, Brittle, Dystrophic. Assessments B35.1 Onychomycosis - Elongated, mycotic toenails 1,2,4,5 right and 1,3 left L60.8 - Deformity of toenail - Elongated, non-dystrophic toenails 3 right and 2,4,5 left L84 - Pre-ulcerative callus - Bilateral hallux, Bilateral foot first MPJ region Xerosis of skin bilateral foot Plan Onychomycosis 1. Patient seen today for follow up examination. 2. I debrided elongated, onychomycotic toenails 1,2,4,5 right and 1,3 left via manual and mechanical means. 3. Patient should continue to wash and dry bilateral foot twice a day and re-start application of topical Tolcylen twice a day to all ten toenails until full resolution of onychomycosis. Patient dispensed one tube of Tolcylen, at his cost, for topical treatment. Patient advised that Tolcylen is a patient responsibility, understood and purchased today. Patient advised that he may stop Penlac 8% application to the toenails. 4. Patient should obtain refill of Urea 36%/Clobetasol 0.005% cream from [facility] and apply to thickened toenails at bedtime under occlusion. 5. Patient should continue to self-debride toenails with emery board, not using same surface twice, to avoid recontamination. 6. Patient should apply topical Nystatin powder twice a day to bilateral foot web spaces, post bathing, to assist with moisture and fungal reduction and prevention. 7. Reappoint 10-12 weeks. Deformity of toenail 1. Established patient seen today for examination. 2. I debrided elongated, non-dystrophic toenails 3 right and 2,4,5 left via manual and mechanical means. 3. Reappoint in 10-12 weeks. Pre-ulcerative Callus 1. Established patient seen today for examination. 2. I debrided pre-ulcerative calluses to the bilateral hallux and bilateral foot first MPJ region via manual and mechanical means. 3. RX: Urea 36%/Clobetasol 0.005% cream from [facility] and apply to calluses twice a day as prescribed to soften callused skin. 4. Reappoint in 10-12 weeks. Xerosis of skin Patient was seen today for follow up examination. Patient shows extreme dry xerotic type skin he was advised that his skin is his protection from outside morrow of germs and needs to cream his skin significantly more often and it was advised about types of skin cream that are thick, heavy, unscented that he should apply these include though are not limited to the following: Eucerin, Aveeno, gold schmitt, CeraVe. He should keep the skin clean, soft and supple well hydrated and daily foot inspections are imperative , or skin could crack and infection could set it including need for treatment for cellulitis, hospitalization or amputation. documented in this encounter [facility] 05-05-2024 History of Present illness Narrative Images from the original note were not included. Chief complaint: Tremor Subjective Del Maria Dolores Mcmahon, 79 y.o., male Patient presents today for a neurologic consult at the request of Dr. Huizar for tremor. Patient states he has had a tremor for at least 5 years. This is located in bilateral hands. This is constant but some days worse than others. He is right handed but thinks they are both about the same. He notices a change in his handwriting. He admits to some difficulty with drinks especially coffee in the morning. This is why he decided to be seen he said this can be embarrassing. 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 He has been on primidone a few years and he is unsure if this is helpful. He noticed an improvement when he first started taking this. Review of Systems Constitutional: Negative for appetite change, fatigue and fever. Respiratory: Negative for cough, shortness of breath and wheezing. Cardiovascular: Negative for chest pain, palpitations and leg swelling. Gastrointestinal: Negative for abdominal pain, constipation, diarrhea and nausea. Musculoskeletal: Negative for arthralgias, gait problem and myalgias. Neurological: Positive for tremors. Negative for dizziness, numbness and headaches. Past Medical History: Diagnosis Date Actinic keratosis Hypothyroidism (acquired) ([facility]/HCC) Pacemaker 12/2019 Pneumonia 10/2023 Past Surgical History: Procedure Laterality Date CARDIAC PACEMAKER PLACEMENT CT ANGIOGRAM HEART CORONARY 11/01/2018 CT ANGIOGRAM HEART CORONARY 11/01/2018 NEPHRECTOMY PROSTATE SURGERY Family History Problem Relation Name Age of Onset Melanoma Neg Hx Social History Tobacco Use Smoking status: Never Smokeless tobacco: Never Substance Use Topics Alcohol use: Never Allergies: Diclofenac sodium Vitals: 05/05/24 0823 BP: 158/88 Pulse: 65 SpO2: 97% There is no height or weight on file to calculate BMI. weight: 223 lb 9.6 oz Neurologic exam: Mental status: Awake, alert to person, place and time. Recent and remote memory are intact. Language is fluent without aphasia. Vocal tremor noted. Attention and concentration are normal. Fund of knowledge is appropriate for level of education. Cranial nerves: CN II: Visual acuity is normal. Visual manzanares full to confrontation. CN III, IV, : pupils equal round and reactive to light. Extraocular movements intact. No ptosis present. CN V: Facial sensation is normal. CN VII: Full and symmetric facial movement. CN VIII: Hearing is normal to finger rub bilaterally: CN IX and X: Palate elevates symmetrically. CN XI: Shoulder shrug is normal bilaterally. CN XII: Tongue is midline without atrophy or fasciculation. Motor: RUE Strength deltoid, , biceps , triceps , wrist extensors , wrist flexor , managing broker strength 5/5. LUE Strength deltoid , biceps , triceps , wrist extensors , wrist flexor , managing broker strength 5/5. RLE Strength illopsoas, quadriceps, tibialis anterior, and gastrocnemius strength 5/5. LLE Strength illopsoas, quadriceps, tibialis anterior, and gastrocnemius strength 5/5. Normal tone x4 extremities. Bulk is normal. Tremor noted in the bilateral upper extremities. No rigidity. No bradykinesia. Sensory: Sensation is intact to light touch throughout Four extremities. Reflexes: RUE biceps reflex 2+ brachioradialis reflex 2+ . LUE biceps reflex 2+ brachioradialis reflex 2+ . RLE knee reflex 2+ . LLE knee reflex 2+ . Martin's sign negative. Coordination: [id number]-[id number] testing and rapid alternating movements are normal Gait: Normal Review and summary of old records: I have reviewed the patient's notations from [place] [facility], Dr. Bentley, on 05/05/2023. The patient was seen after an 18 month gapping care and the decision was made to increase the patient's primidone 150 mg in the morning and 500 mg at night. They suggested to monitor for dizziness, sleepiness or being off balance and wanted to see the patient back in follow up in 6 months. Assessment/Plan Diagnoses and all orders for this visit: Essential tremor Sick Sinus Syndrome AICD Present It is my impression that the patient has essential tremor. The patient has been seen [place] movement disorder specialist, Dr. Lidya Bentley and last saw the patient in April of 2023 with a plan to increase primidone to 150 mg in the morning and 500 mg at night. The patient states that he occasionally notices the tremor and that it really does not bother him as much but his considers it somewhat socially embarrassing. She wants him to get a further opinion and explore potential surgical options. He is quite fearful of this option. He also shared with me that he has previously had a monitoring specialist placed and was found to have pauses and had an AICD placed after being diagnosed with sick sinus syndrome. As such, He is not on propranolol. PLAN: Avoid propranolol due to history of sick sinus syndrome Continue primidone 150 mg in the morning and 500 mg at night. Data would suggest increase dosages beyond this are unlikely to be clinically beneficial and the patient already does complain of some fatigability. I did offer to send a referral to [facility] for consideration of surgical intervention for essential tremor. Patient states that he is not comfortable with this at this time and does not wish to pursue this. Should he change his mind in the future we can pursue it. Pt has been fully educated on their diagnosis, lab results, treatment options, follow up plan, and return instructions documented in this encounter [facility] 04-06-2024 History of Present illness Narrative Images from the original note were not included. Reason for Visit: Established Patient: Recheck onychomycosis/Nailcare HPI Established patient seen today for recheck of onychomycosis and debridement of elongated, mycotic toenails. Patient is applying Tolcylen to all toenails and Nysatin Powder in between toes once a day. Patient has no pain to the toenails. PCP: Dr. Huizar Date Last seen: 12/15/2023. Review of Systems General: Chills denies. Fatigue denies. Fever denies. Night sweats denies. Endocrine: Diabetes denies. Hyperpigmentation denies. Weakness denies. Cardiovascular: Chest pain denies. Shortness of breath denies. Gastrointestinal: Constipation denies. Diarrhea denies. Nausea denies. Vomiting denies. Hematology: Anemia denies. Bleeding problems denies. Easy bruising denies. Musculoskeletal: Bone/joint symptoms denies. Leg cramps denies. Peripheral Vascular: Edema denies. Raynaud's denies. Rest pain denies. Varicose veins denies. Skin: Nail changes denies. Rash denies. Skin lesion(s) denies. Ulceration admits. Neurologic: Dizziness denies. Gait abnormality denies. Headache denies. Tingling/Numbness denies. Examination General Examination: GENERAL EXAMINATION: awake, aware of surroundings, in no acute distress. Vascular: DORSALIS PEDIS PULSE: palpable bilateral. POSTERIOR TIBIAL PULSE: palpable bilateral. TEMPERATURE GRADIENT: warm to cool. EDEMA: none. VARICOSITIES: present bilaterally. CAPILLARY FILLING TIME(sec): less than 2 seconds bilateral. Ankle / Foot: MUSCLE STRENGTH: 5/5 to the major muscle groups. Neurologic: NEUROLOGIC: normal. Dermatologic: SKIN FINDINGS: Skin is thin, shiny, atrophic and dry with absent pedal hair to the bilateral lower extremity. Patient's skin is exceptionally dry with xerosis. High risk for infection unless changes are made. HYPERKERATOSIS: Pre-ulcerative callus: Bilateral plantar medial hallux, Bilateral foot first MPJ region. NAIL PATHOLOGY: Intact toenails to 1-5 bilaterally. Orthopedic: JOINT RANGE OF MOTION: normal. DEFORMITIES: hallux valgus bilaterally SHOE GEAR EVALUATION: casual lace up shoes bilateral foot. Nail Pathology Left: 1 Long, Thick, Crumbly, Deformed, Discolored, Brittle, Dystrophic. 2 Elongated, non-dystrophic. 3 Long, Thick, Crumbly, Deformed, Discolored, Brittle, Dystrophic. 4 Elongated, non-dystrophic. 5 Elongated, non-dystrophic. Nail Pathology Right: 1 Long, Thick, Crumbly, Deformed, Discolored, Brittle, Dystrophic. 2 Long, Thick, Crumbly, Deformed, Discolored, Brittle, Dystrophic. 3 Elongated, non-dystrophic. 4 Long, Thick, Crumbly, Deformed, Discolored, Brittle, Dystrophic. 5 Long, Thick, Crumbly, Deformed, Discolored, Brittle, Dystrophic. Assessments B35.1 Onychomycosis - Elongated, mycotic toenails 1,2,4,5 right and 1,3 left L60.8 - Deformity of toenail - Elongated, non-dystrophic toenails 3 right and 2,4,5 left L84 - Pre-ulcerative callus - Bilateral hallux, Bilateral foot first MPJ region Xerosis of skin bilateral foot Plan Onychomycosis 1. Patient seen today for follow up examination. 2. I debrided elongated, onychomycotic toenails 1,2,4,5 right and 1,3 left via manual and mechanical means. 3. Patient should continue to wash and dry bilateral foot twice a day and re-start application of topical Tolcylen twice a day to all ten toenails until full resolution of onychomycosis. Patient dispensed one tube of Tolcylen, at his cost, for topical treatment. Patient advised that Tolcylen is a patient responsibility, understood and purchased today. Patient advised that he may stop Penlac 8% application to the toenails. 4. Patient should obtain refill of Urea 36%/Clobetasol 0.005% cream from [facility] and apply to thickened toenails at bedtime under occlusion. 5. Patient should continue to self-debride toenails with emery board, not using same surface twice, to avoid recontamination. 6. Patient should apply topical Nystatin powder twice a day to bilateral foot web spaces, post bathing, to assist with moisture and fungal reduction and prevention. 7. Reappoint 10-12 weeks. Deformity of toenail 1. Established patient seen today for examination. 2. I debrided elongated, non-dystrophic toenails 3 right and 2,4,5 left via manual and mechanical means. 3. Reappoint in 10-12 weeks. Pre-ulcerative Callus 1. Established patient seen today for examination. 2. I debrided pre-ulcerative calluses to the bilateral hallux and bilateral foot first MPJ region via manual and mechanical means. 3. Patient should obtain refill of Urea 36%/Clobetasol 0.005% cream from [facility] and apply to calluses twice a day as prescribed to soften callused skin. 4. Reappoint in 10-12 weeks. Xerosis of skin Patient was seen today for follow up examination. Patient shows extreme dry xerotic type skin he was advised that his skin is his protection from outside morrow of germs and needs to cream his skin significantly more often and it was advised about types of skin cream that are thick, heavy, unscented that he should apply these include though are not limited to the following: Eucerin, Aveeno, gold schmitt, CeraVe. He should keep the skin clean, soft and supple well hydrated and daily foot inspections are imperative , or skin could crack and infection could set it including need for treatment for cellulitis, hospitalization or amputation. documented in this encounter [facility] 03-31-2024 History of Present illness Narrative Skin Check Location: Patient requests a skin examination from the waist up Dermatologic history: history of Actinic Keratosis Last visit: 1 year ago Established patient Lesions: Location: back of right leg Duration: months Quality: itchy Modifying factors: rubs on clothing Associated symptoms: rough Treatments: none Follow up Diagnosis: atopic dermatitis Location: legs Last visit: 1 year ago Status: clear per patient Current treatment: TAC 0.1% cream- has not used, states Dr. Huizar is prescribing something else for him that he is happy with Follow up Diagnosis: Onychomycosis Location: Left Hallux Toe Nail Plate, Right Hallux Toe Nail Plate Last visit: 1 year ago Symptoms: nail thickening Status: improved, seeing podiatry Current treatment: Ciclopirox 8% solution-not using All pertinent medical history, medications, and allergies were reviewed. General Exam: alert, oriented to person, place, and time, normal affect, well appearing Unaccompanied A complete skin exam was offered, pt declined. Areas not examined despite medical recommendation: From the knees down Scalp, Examined Head, Face Examined Neck Examined Chest Examined Back Examined Abdomen Examined Right arm Examined Left arm Examined Hands Examined Digits,nails: Examined Right Leg: Examined Lymphatics: Not examined 1. Actinic keratosis Right Parotid Area Erythematous scaly papules Patient was counseled regarding these sun-induced growths that can develop into squamous cell carcinoma if left untreated. Discussed treatment with cryotherapy. It was emphasized that any treated lesions that fail to resolve should be re-evaluated. Cryotherapy performed today; see procedure note Diagnosis: Actinic keratosis Indication: Precancerous Location: see skin exam Consent: Verbal consent was obtained and risks were discussed, including, but not limited to risks of scarring, darker or crab meat processor pigmentary changes, recurrence, incomplete removal and infection. Method: Liquid nitrogen was used to treat the lesion(s) with two 5-10 second freeze-thaw cycles. Number of lesions treated: 1 Post-procedure instructions: Instructions were given orally and in writing. The office will be contacted if the lesion fails to resolve despite treatment, or if a side effect develops such as abnormal crusting, scabbing, redness or tenderness Cryotherapy, skin lesion - Right Parotid Area 2. Capillary angioma Torso - Posterior (Back) Scattered reyes-red papule(s). The patient was informed that angiomas are benign growths on the the skin. No treatment is necessary. 3. Other atopic dermatitis Torso - Posterior (Back) Scaly erythematous plaques, lichenification, excoriations. Some flaring today. Discussed that atopic dermatitis is a chronic condition that can be controlled but not cured. Continue using cream PCP prescribes. Notify office if worsening despite current treatment. Related Medications triamcinolone (Kenalog) 0.1 % cream Apply to affected areas, up to twice a day when flared, do not use one the face, groin, or underarms, 30 day supply 4. Seborrheic keratosis (3) Left Arm, Right Anterior Neck, Right Arm Stuck on verrucous, youssef-brown papules and plaques. Patient was counseled regarding these benign growths. Removal is normally not necessary, but they may be removed if they are symptomatic or for cosmetic reasons. 5. Lentigines (3) Head - Anterior (Face), Left Arm, Right Arm Scattered youssef macules in sun-exposed areas. The patient was informed that lentigines are benign pigmented lesions that occur on sun-exposed and sun-damaged skin. No treatment is necessary. Recommended regular use of broad spectrum sunscreen SPF 30 or higher Next Visit: 1 year documented in this encounter [facility] 02-02-2024 Note Patient here for 6 m o follow up AAA, NSVT, and symptomatic bradycardia s/p PPM. Had device check and EKG last month. Echo was performed back in September 2023. He's been taking a full tablet of metoprolol daily, instead of half tablet PRN. He denies chest pain, SOB, and palpitations. Doing very well. Review of Systems Skin: Positive for suspicious lesions. All other systems reviewed and are negative. [facility] 02-02-2024 Note Cardiovascular Medic [facility] SUBJECTIVE Chief Complaint Patient presents with Aortic Aneurysm Hypertension Del Mcmahon is a 78 y.o. male here for follow-up. HPI Past medical history including bradycardia s/p PPM placement and brief NSVT consistent with AT noted on device interrogation. BRENNAN. Aortic aneurysm. He denies any cardiac changes since last seen. He had PNA over the summer. Denies any cardiac sx's including no CP, dyspnea, orthopnea, PND, LE edema, dizziness/LH, palpitations. He has a skin lesion above his left eye. Patient Active Problem List Diagnosis Abnormal stress test Benign essential tremor Cardiac pacemaker in situ SOB (shortness of breath) Hypothyroidism Obesity (BMI 30-39.9) Obstructive sleep apnea syndrome Symptomatic sinus bradycardia Syncope and collapse Tremor Other atopic dermatitis Bradycardia Hilar mass Pneumonia Sepsis (CMS/HCC) Past Medical History: Diagnosis Date Abnormal ECG Aneurysm (CMS/HCC) Arrhythmia Hypertension Hypothyroidism Sleep apnea Symptomatic sinus bradycardia Family History Problem Relation Name Age of Onset Hypertension Sister Social History Tobacco Use Smoking status: Never Smokeless tobacco: Never Substance Use Topics Alcohol use: Not Currently Allergies Allergen Reactions Diclofenac Sodium the doctor gave me this and it turned red and ate my knee Review of Systems Constitutional: Negative for chills, decreased appetite, fever, malaise/fatigue and weight gain. Eyes: Negative. Cardiovascular: Negative for chest pain, claudication, dyspnea on exertion, irregular heartbeat, leg swelling, near-syncope, orthopnea, palpitations, paroxysmal nocturnal dyspnea and syncope. Hematologic/Lymphatic: Negative for bleeding problem. Does not bruise/bleed easily. OBJECTIVE Visit Vitals BP 108/70 (BP Location: Left arm, Patient Position: Sitting) Pulse 60 Ht 1.803 m (5' 11 ) Wt 98 kg (216 lb) SpO2 94% BMI 30.13 kg/m??? Smoking Status Never BSA 2.22 m??? Medications: Current Outpatient Medications: hydroxychloroquine (Plaquenil) 200 mg tablet, Take 1 tablet by mouth in the morning., Disp: , Rfl: levothyroxine (Synthroid, Levoxyl) 100 mcg tablet, TAKE ONE TABLET BY MOUTH IN THE MORNING BEFORE MEALS, Disp: , Rfl: metoprolol succinate XL (Toprol-XL) 25 mg 24 hr tablet, Take 25 mg by mouth in the morning., Disp: , Rfl: primidone (Mysoline) 250 mg tablet, Take 500 mg by mouth., Disp: , Rfl: amLODIPine (Norvasc) 5 mg tablet, Take 5 mg by mouth in the morning., Disp: , Rfl: celecoxib (CeleBREX) 200 mg capsule, TAKE 1 CAPSULE BY MOUTH WITH SUPPER, Disp: , Rfl: Physical Exam Vitals reviewed. Constitutional: Appearance: Normal appearance. He is normal weight. HENT: Head: Normocephalic and atraumatic. Right Ear: External ear normal. Left Ear: External ear normal. Eyes: Extraocular Movements: Extraocular movements intact. Pupils: Pupils are equal, round, and reactive to light. Neck: Vascular: No carotid bruit. Cardiovascular: Rate and Rhythm: Normal rate and regular rhythm. Pulses: Normal pulses. Heart sounds: Normal heart sounds. Pulmonary: Effort: Pulmonary effort is normal. Breath sounds: Normal breath sounds. Abdominal: General: Bowel sounds are normal. Palpations: Abdomen is soft. Musculoskeletal: General: Normal range of motion. Cervical back: Neck supple. Right lower leg: No edema. Left lower leg: No edema. Skin: General: Skin is warm and dry. Neurological: General: No focal deficit present. Mental Status: He is alert and oriented to person, place, and time. Psychiatric: Mood and Affect: Mood normal. Behavior: Behavior normal. Thought Content: Thought content normal. Judgment: Judgment normal. Labs: 08/04/2023 Cr 1.53, BUN 29, K 3.9, Na 137, eGFR 47, AST 71, ALT 123 WBC 17.6, hgb 13.8, plt 175 Testing/Procedures: Legacy Encounter on 01/11/2019 Component Date Value Ref Range Status Ventricular Rate 01/11/2019 60 BPM Final Atrial Rate 01/11/2019 60 BPM Final SC Interval 01/11/2019 208 ms Final QRS DURATION 01/11/2019 76 ms Final QT Interval 01/11/2019 394 ms Final QTC CALCULATION(BEZET) 01/11/2019 394 ms Final P [place] 01/11/2019 -5 degrees Final R-[place] 01/11/2019 -27 degrees Final T Wave [place] 01/11/2019 38 degrees Final Diagnosis 01/11/2019 Final Value:Atrial-paced rhythm Inferior infarct (cited on or before 07-JAN-2019) Abnormal ECG When compared with ECG of 07-JAN-2019 22:20, Electronic atrial pacemaker has replaced Sinus rhythm Confirmed by Kole Mckeon ([id number]) on 01/11/2019 8:27:44 AM ECHO 09/29/2023 LVEF 65% Normal RV size and systolic function Moderate LA dilatation No significant valvular dysfunction Normal right sided pressures Moderately dilated AscAo measuring 4.2cm ECHO 05/08/2021 CTA coronary with calcium scoring (11/09/2018) IMPRESSIONS: * Total danette (more content not included)... [facility] 12-16-2023 History of Present illness Narrative Images from the original note were not included. Reason for Visit: Established Patient: Recheck onychomycosis/Nailcare HPI Established patient seen today for recheck of onychomycosis and debridement of elongated, mycotic toenails. Patient is applying Penlac 8% to toenails. He was applying Tolcylen to all toenails twice a day however its about out. Patient states GRACE hallux is giving problems with fungus. PCP: Dr. Huizar Date Last seen: 12/15/2023. Review of Systems General: Chills denies. Fatigue denies. Fever denies. Night sweats denies. Endocrine: Diabetes denies. Hyperpigmentation denies. Weakness denies. Cardiovascular: Chest pain denies. Shortness of breath denies. Gastrointestinal: Constipation denies. Diarrhea denies. Nausea denies. Vomiting denies. Hematology: Anemia denies. Bleeding problems denies. Easy bruising denies. Musculoskeletal: Bone/joint symptoms denies. Leg cramps denies. Peripheral Vascular: Edema denies. Raynaud's denies. Rest pain denies. Varicose veins denies. Skin: Nail changes denies. Rash denies. Skin lesion(s) denies. Ulceration admits. Neurologic: Dizziness denies. Gait abnormality denies. Headache denies. Tingling/Numbness denies. Examination General Examination: GENERAL EXAMINATION: awake, aware of surroundings, in no acute distress. Vascular: DORSALIS PEDIS PULSE: palpable bilateral. POSTERIOR TIBIAL PULSE: palpable bilateral. TEMPERATURE GRADIENT: warm to cool. EDEMA: none. VARICOSITIES: present bilaterally. CAPILLARY FILLING TIME(sec): less than 2 seconds bilateral. Ankle / Foot: MUSCLE STRENGTH: 5/5 to the major muscle groups. Neurologic: NEUROLOGIC: normal. Dermatologic: SKIN FINDINGS: Skin is thin, shiny, atrophic and dry with absent pedal hair to the bilateral lower extremity. HYPERKERATOSIS: Pre-ulcerative callus: Bilateral plantar medial hallux, Bilateral foot 1st and 5th MPJ region. NAIL PATHOLOGY: Intact toenails to 1-5 bilaterally. Orthopedic: JOINT RANGE OF MOTION: normal. DEFORMITIES: hallux valgus bilaterally SHOE GEAR EVALUATION: casual lace up shoes bilateral foot. Nail Pathology Left: 1 Long, Thick, Crumbly, Deformed, Discolored, Brittle, Dystrophic. 2 Elongated, non-dystrophic. 3 Long, Thick, Crumbly, Deformed, Discolored, Brittle, Dystrophic. 4 Elongated, non-dystrophic. 5 Elongated, non-dystrophic. Nail Pathology Right: 1 Long, Thick, Crumbly, Deformed, Discolored, Brittle, Dystrophic. 2 Long, Thick, Crumbly, Deformed, Discolored, Brittle, Dystrophic. 3 Elongated, non-dystrophic. 4 Long, Thick, Crumbly, Deformed, Discolored, Brittle, Dystrophic. 5 Long, Thick, Crumbly, Deformed, Discolored, Brittle, Dystrophic. Assessments B35.1 Onychomycosis - Elongated, mycotic toenails 1,2,4,5 right and 1,3 left L60.8 - Deformity of toenail - Elongated, non-dystrophic toenails 3 right and 2,4,5 left L84 - Pre-ulcerative callus - Bilateral hallux, Bilateral foot 1st and 5th MPJ region Plan Onychomycosis 1. Patient seen today for follow up examination. 2. I debrided elongated, onychomycotic toenails 1,2,4,5 right and 1,3 left via manual and mechanical means. 3. Patient should continue to wash and dry bilateral foot twice a day and re-start application of topical Tolcylen twice a day to all ten toenails until full resolution of onychomycosis. Patient dispensed one tube of Tolcylen, at his cost, for topical treatment. Patient advised that Tolcylen is a patient responsibility, understood and purchased today. Patient advised that he may stop Penlac 8% application to the toenails. 4. Patient should obtain refill of Urea 36%/Clobetasol 0.005% cream from [facility] and apply to thickened toenails at bedtime under occlusion. 5. Patient should continue to self-debride toenails with emery board, not using same surface twice, to avoid recontamination. 6. Patient should apply topical Nystatin powder twice a day to bilateral foot web spaces, post bathing, to assist with moisture and fungal reduction and prevention. Refill of Nystatin powder eRx(G8553) to [facility] for continued use. 7. Reappoint 10-12 weeks. Deformity of toenail 1. Established patient seen today for examination. 2. I debrided elongated, non-dystrophic toenails 3 right and 2,4,5 left via manual and mechanical means. 3. Reappoint in 10-12 weeks. Pre-ulcerative Callus 1. Established patient seen today for examination. 2. I debrided pre-ulcerative calluses to the bilateral hallux and bilateral foot First and 5th MPJ region via manual and mechanical means. 3. Patient should obtain refill of Urea 36%/Clobetasol 0.005% cream from [facility] and apply to calluses twice a day as prescribed to soften callused skin. 4. Reappoint in 10-12 weeks. documented in this encounter [facility] 08-06-2023 Progress note Note Date/Time August 06, 2023 8:02am [facility] [address] [place], [place] [address] Pulmonology Progress Note Signed Patient: Del Mcmahon MR#: [id number] : 1945 Acct:[id number] Age/Sex: 78 / M Adm Date: 4 Loc: Room: [address] [place] [address] Type: ADM IN Attending Dr: Dionte Rosa DO Copies to: ~ Date of Service: 08/06/2023 Subjective Subjective Narrative: Patient is awake and sitting in chair. Overall he does report feeling better. He has no further vertigo and denies respiratory complaints Exam Physical Exam Vital Signs: Temp Pulse Resp BP Pulse Ox O2 Del Method O2 Flow Rate 98.2 F 61 26 H 159/81 H 94 L Nasal Cannula 2 08/06/23 03:57 08/06/23 03:57 08/06/23 03:57 08/06/23 03:57 08/06/23 03:57 08/06/23 03:57 08/06/23 03:57 Const General: cooperative Orientation: alert and awake HEENT Head: normal to inspection Ears: hearing grossly normal bilaterally and external ears normal Nose: external nose normal Face and sinus: normal facial exam Eyes Eyelids: eyelids normal Sclera: sclerae normal Neck Neck: normal visual inspection Resp Effort & Inspection: normal respiratory effort Auscultation: clear to auscultation bilaterally, diminished lung sounds, no rales, no rhonchi and no wheezes Cardio Rate: regular rate Rhythm: regular rhythm Heart Sounds: S1 normal, S2 normal and no murmurs GI Inspection: normal to inspection Palpation: soft and nontender General: deferred Skin General: no rashes or lesions noted (Warm and dry) Extrem General: no pedal edema Objective Intake and Output I&O - Last 24 Hours: Intake & Output 08/05/23 08/06/23 08/06/23 23:59 07:59 15:59 Intake Total 850 / 1550 600 / 600 Balance 850 / 1550 600 / 600 Weight 216 lb 7.903 oz Labs 08/06/23 04:31 08/06/23 04:31 Microbiology Micro: Microbiology 3 08/05/23 11:40 Gram Stain - Final Sputum - Expectorated Sputum revealed moderate normal respiratory kate x 1 day Assessment/Plan Assessment/Plan (1) Sepsis: (2) Pneumonia: Plan Hospital day #2 for patient admitted in transfer from [facility] for left upper lobe pneumonia with concern for hilar mass. As per discussion with hospitalist and in their note, plan is to complete course of treatment for commune acquired pneumonia with repeat CT scan of the thorax with contrast in 4 to 6 weeks after presumed clearance of consolidation. This was also discussed with the patient who voiced understanding of this plan. Patient was given our contact information. We will arrange for follow-up appointment in 4 to 6 weeks and can work on arranging repeat CT scan of the thorax with contrast immediatelyprior to that visit. Documented By: Daljit Khalil MD 4 [id number] Signed By: <Electronically signed by MD Daljit Khalil> 08/06/231999 [facility] Work Phone: [phone] 305-382605-23-2024 Progress note Author Dionte Rosa [facility] August 06, 2023 11:49am Note Date/Time August 06, 2023 11:50 am [facility] [address] [place] [address] Hospitalist Progress Note Signed Patient: Del Mcmahon MR#: [id number] : 1945 Acct:[id number] Age/Sex: 78 / M Adm Date: 4 Loc: Room: [address] [place] [address] Type: ADM IN Attending Dr: Dionte Rosa DO Copies to: ~ Date of Service: 08/06/2023 Subjective Subjective Narrative: Seen and evaluated, patient currently laying in bed and says he feels tired. Heis still requiring nasal cannula this morning, did instruct the bedside RN to titrate off today to see how he does on room air. Patient did have some questions regarding the possible mass seen on CT scan, I did review the plan with him to treat his pneumonia now and then he will follow-up with pulmonology in approximately 4 to 6 weeks for a repeat CT scan with contrast for further information. Patient was appreciative of the conversation. was not present at bedside though he says she will be here later. Exam Physical Exam Vital Signs: Temp Pulse Resp BP Pulse Ox O2 Del Method O2 Flow Rate 98.1 F 60 22 154/81 H 95 Room Air 1 08/06/23 11:42 08/06/23 11:42 08/06/23 11:42 08/06/23 11:42 08/06/23 11:42 08/06/23 11:42 08/06/23 08:30 Narrative: General: Awake alert, no acute distress HEENT: head atraumatic, normocephalic, moist mucous membranes Neck: supple no masses, no lymphadenopathy CVS: regular rate and rhythm, no murmurs or gallops Respiratory: Lung sounds are CTAB, did not really appreciate any rales or rhonchi over the area of question on the CT scan GI: soft, nondistended, nontender, positive bowel sounds with no organomegaly Extremity: moves all extremities, no restrictions of movements, no calf tenderness, no edema Neuro: AOx3, CN II-VII intact. Moves all extremities in all planes of motion. Skin: dry, intact no rashes or lesions Objective Lab Results 08/06/23 04:31 08/06/23 04:31 Microbiology Results Microbiology 08/05/23 11:40 Sputum - Expectorated Aerobic Culture - Preliminary Moderate Normal Respiratory Kate 1 Day 08/05/23 11:40 Sputum - Expectorated Gram Stain - Final Meds Allergies and Active Meds Allergies No Known Allergies Allergy (Verified 02/13/21 11:21) Active Meds: Active Medications Generic Name Dose Route Start Last Admin Trade Name Freq PRN Reason Stop Dose Admin Acetaminophen 650 mg 08/05/23 06:09 08/05/23 12:18 Acetaminophen 325 Mg Tablet PO 08/04/24 06:08 650 mg Q6HR PRN Administration Pain Scale 1 - 3 or fever Albuterol 2.5 mg 08/05/23 07:21 Albuterol Neb 2.5 Mg/3 Ml Vial.Neb INHALATION 08/04/24 07:20 Q3H PRN Shortness Of Breath Amlodipine Besylate 5 mg 08/06/23 10:00 08/06/23 10:42 Amlodipine 5 Mg Tablet PO 08/05/24 09:59 5 mg DAILY ILDA Administration Enoxaparin Sodium 40 mg 08/05/23 10:00 08/06/23 10:14 Enoxaparin 40 Mg/0.4 Ml Syringe SUBCUT 08/04/24 09:59 Not Given DAILY@10 ILDA Azithromycin 500 mg in 250 mls @ 250 mls/hr 08/05/23 12:30 08/05/23 14:12 Zithromax IV 250 mls/hr Q24H ILDA Administration Ceftriaxone Sodium 1 gm in 50 mls @ 100 mls/hr 08/05/23 14:00 08/05/23 14:12 Rocephin IV 08/07/23 14:29 100 mls/hr Q24H ILDA Administration Magnesium Sulfate 4 gm in 100 mls @ 25 mls/hr 08/06/23 08:30 08/06/23 08:35 Magnesium Sulf 4 Gm-*Swfi* IV 08/06/23 12:29 25 mls/hr ONCE ONE Administration Levothyroxine Sodium 100 mcg 08/05/23 06:30 08/06/23 06:18 Levothyroxine 100 Mcg Tablet PO 08/04/24 06:29 100 mcg DAILY@0630 ILDA Administration Loperamide HCl 2 mg 08/05/23 09:58 08/06/23 08:35 Loperamide 2 Mg Capsule PO 08/04/24 09:57 2 mg Q2H PRN Administration Diarrhea Ondansetron HCl 4 mg 08/05/23 06:09 Ondansetron 4 Mg/2 Ml Vial IV-PUSH 08/04/24 06:08 Q6H PRN Nausea And Vomiting Potassium Chloride 40 meq 08/05/23 06:09 Potassium Chloride Er 20 Meq Tab.Er.Prt PO 08/04/24 06:08 DAILY PRN Hypokalemia Primidone 500 mg 08/05/23 22:00 08/05/23 21:23 Primidone 250 Mg Tablet PO 08/04/24 21:59 500 mg QHS ILDA Administration Primidone 150 mg 08/05/23 09:00 08/06/23 08:35 Primidone 50 Mg Tablet PO 08/04/24 08:59 150 mg QAM ILDA Administration Sodium Chloride 0 ml 08/05/23 06:09 Sodium Chloride 0.9 % 10 Ml Syringe IV-PUSH 08/04/24 06:08 PRN PRN Flush A&P - Hospitalist Assessment/Plan (1) Sepsis: Plan Sepsis Acute hypoxia Left-sided Multifocal Pneumonia Concern for L hilar mass -Supplemental O2, wean as tolerated -Continue ceftriaxone azithromycin for CAP -Consult pulmonary, input is appreciated -Albuterol nebulizers as needed Other chronic medical conditions noted below, continue home regimens unless otherwise specified: Essential tremor Hypothyroidism CODE STATUS: Full code Documented By: Dionte Rosa DO 08/06/23 1147 Signed By: <Electronically signed by Dionte Rosa DO> 08/06/23 1149 [facility] Work Phone: 1(649) 606-735605-22-2024 Consult note Author Daljit Khalil [facility] August 05, 2023 6:30pm Note Date/Time August 05, 2023 8:53a m [facility] [address] [place] [address] Pulmonology Consult Note Signed Patient: Del Mcmahon MR#: [id number] : 1945 Acct:[id number] Age/Sex: 78 / M Adm Date: 4 Loc: 4 Room: [address] [place] [address] Type: ADM IN Attending Dr: Dionte Rosa DO Copies to: Marco A Huizar Jr, MD Dionte Escalona, ~ HPI Date/Time of Consultation: Date of Service: 08/05/2023 Time of Service: 08:50 Consulting Provider: Daljit Khalil Requesting Provider: [place] Rosa History of Present Illness History of present illness: Mr. Mcmahon is a 78 year old male seen at the request of the hospitalist service for left-sided pneumonia and concern for hilar mass on CT scan. Patientreportedly presented to the emergency department at [facility] due to cough with falls and dizziness. Patient also complained of fatigue and near syncope. At [place] emergency department patient was febrile with a temperature of 39.5 centigrade with evidence of leukocytosis and mild renal insufficiency with urine drug screen positive for barbiturates and CT scan of the thorax reportedly revealing left upper lobe atelectasis/consolidation and concern for mass lesion of the left hilum. Patient did admit to feeling subjectively warm over the last several days but related this primarily to ambient temperature and did not endorse fever, shaking shivering chills, nor sweats. He denies significant weight loss nor significant decrease in appetite. Patient denied persistent cough with only minimal yellow sputum production on arrival in the hospital. He denies palpitations and denies lower extremity edema. He denies nausea, vomiting, diarrhea, constipation, dysuria, no hematuria. His main concern had been for his dizziness/vertigo. 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 He is a never smoker with no prior history of malignancy. He has no family history of lung cancer. Review of Systems Review of Systems All other systems reviewed & are negative unless noted below or in HPI [facility] Medical History (Updated 08/05/23 @ 08:59 by Daljit Khalil MD) Essential tremor Problem List clean-up per request of Phys. EHR Cmte Arthritis Problem List clean-up per request of Phys. EHR Cmte Skin cancer Problem List clean-up per request of Phys. EHR Cmte History of cataract Problem List clean-up per request of Phys. EHR Cmte BPH (benign prostatic hyperplasia) Problem List clean-up per request of Phys. EHR Cmte Kidney stones Problem List clean-up per request of Phys. EHR Cmte Hypothyroidism Problem List clean-up per request of Phys. EHR Cmte Pacemaker Problem List clean-up per request of Phys. [facility] History (Updated 08/05/23 @ 01:24 by Keysha Ladd RN) History of partial knee replacement right H/O transurethral resection of prostate Problem List clean-up per request of Phys. EHR Cmte History of kidney removal left Problem List clean-up per request of Phys. EHR Cmte Family History (Updated 08/05/23 @ 01:26 by Keysha Ladd RN) Sister Hypertension Cancer Father Mother Social History Smoking Status: Never smoker Substance Use Type: None Meds Medications and Allergies Allergies No Known Allergies Allergy (Verified 02/13/21 11:21) Home Medications levothyroxine 100 mcg tablet 100 mcg PO DAILY 02/05/21 [History Confirmed 08/05/23] primidone 50 mg tablet 150 mg PO QAM essential tremors 02/05/21 [History Confirmed 08/05/23] celecoxib 200 mg capsule 200 mg PO DAILY 08/05/23 [History Confirmed 08/05/23] hydroxychloroquine 200 mg tablet 200 mg PO DAILY 08/05/23 [History Confirmed 08/05/23] xwlxesmp-ocsewtgv-pdkva acid 400 mcg-vit K 20 mcg-lycop 300 mcg tablet (One-A-Day Men's Multivitamin) 1 tab PO DAILY 08/05/23 [History Confirmed 08/05/23] primidone 250 mg tablet 500 mg PO QHS 08/05/23 [History Confirmed 08/05/23] terbinafine HCl 250 mg tablet 250 mg PO DAILY 08/05/23 [History Confirmed 08/05/23] Exam Physical Exam Vital Signs: Temp Pulse Resp BP Pulse Ox O2 Del Method O2 Flow Rate 98.3 F 62 30 H 160/72 H 94 L Nasal Cannula 2 08/05/23 08:45 08/05/23 08:45 08/05/23 08:45 08/05/23 08:45 08/05/23 08:45 08/05/23 08:45 08/05/23 08:45 Const General: cooperative Orientation: alert and awake HEENT Head: normal to inspection Ears: hearing grossly normal bilaterally and external ears normal Nose: external nose normal Face and sinus: normal facial exam Eyes Eyelids: eyelids normal Sclera: sclerae normal Neck Neck: normal visual inspection Resp Effort & Inspection: normal respiratory effort Auscultation: clear to auscultation bilaterally, diminished lung sounds, no rales, no rhonchi and no wheezes Cardio Rate: regular rate Rhythm: regular rhythm Heart Sounds: S1 normal, S2 normal and no murmurs GI Inspection: normal to inspection Palpation: soft and nontender General: deferred Skin General: no rashes or lesions noted (Warm and dry) Extrem General: no pedal edema Results - Pulmonology Intake and Output I&O - Last 24 Hours: Intake & Output 08/04/23 08/05/23 08/05/23 23:59 07:59 15:59 Intake Total 450 / 450 Balance 450 / 450 Weight 212 lb 1.355 oz Labs 08/05/23 06:42 08/05/23 06:[address] scan - chest: Status: image reviewed by me Additional comments: CT scan of the thorax of August 04, 2023 from [facility] was reviewed personally. To my review, there is some patchy groundglass opacity noted in the left upper lobe and right upper lobe with questionable adenopathy in the AP window and calcified left hilar adenopathy with possible evidence of medial atelectasis along the inferior portion of the left upper lobe with aeration noted distal to this area of possible atelectasis/consolidation and patent airways appreciated. It is difficult to determine if there is a mass at the left hilum without intravenous contrast. Assessment/Plan (1) Sepsis: (2) Pneumonia: Plan Hospital day #1 for patient admitted in transfer from [facility] for left upper lobe pneumonia with concern for hilar mass. As the CT scan of the thorax was done without contrast it is difficult to determine if there is underlying mass. Nevertheless the airways are open and I am less concerned for postobstructive pneumonia particularly with air radiation distal to the area of consolidation. There also appears to be evidence of left hilar calcification which could also suggest prior history of granulomatous disease. Recommendationis to complete treatment for community-acquired pneumonia with follow-up CT scanof the thorax with contrast in 4 to 6 weeks to ensure resolution of pneumonia and better delineate any mass of the left hilum. I agree with hospitalist service in changing from cefepime and vancomycin to standard community-acquired pneumonia antibiotics. Plan was discussed with patient and hospitalist service. Documented By: Daljit Khalil MD 4 0850 Signed By: <Electronically signed by MD Daljit Khalil> 08/05/23 7004 [facility] Work Phone: 1(213) 247-358805-22-2024 Progress note Author Dionte Rosa [facility] August 05, 2023 12:29pm Note Date/Time August 05, 2023 12:29 pm [facility] [address] [place] [address] Hospitalist Progress Note Signed Patient: Del Mcmahon MR#: [id number] : 1945 Acct:[id number] Age/Sex: 78 / M Adm Date: 4 Loc: Room: [address] [place] [address] Type: ADM IN Attending Dr: Dionte Rosa DO Copies to: ~ Date of Service: 08/05/2023 Subjective Subjective Narrative: Seen and evaluated, overnight story was corroborated. Patient does endorse feeling better while he has been in the hospital after receiving antibiotics andIV fluids, when asked about his home medications he does not really seem to knowwhat meds he takes and does appear noncompliant with swelling as well. He is currently requiring 2 L nasal cannula, he does endorse coughing for the last couple days but is not aware of any fevers other than the when he presented presented with. Exam Physical Exam Vital Signs: Temp Pulse Resp BP Pulse Ox O2 Del Method O2 Flow Rate 100.6 F H 71 24 148/77 H 95 Nasal Cannula 2 08/05/23 12:00 08/05/23 12:00 08/05/23 12:00 08/05/23 12:00 08/05/23 12:00 08/05/23 12:00 08/05/23 12:00 Narrative: General: Awake alert, no acute distress HEENT: head atraumatic, normocephalic, moist mucous membranes Neck: supple no masses, no lymphadenopathy CVS: regular rate and rhythm, no murmurs or gallops Respiratory: Lung sounds are CTAB, did not really appreciate any rales or rhonchi over the area of question on the CT scan GI: soft, nondistended, nontender, positive bowel sounds with no organomegaly Extremity: moves all extremities, no restrictions of movements, no calf tenderness, no edema Neuro: AOx3, CN II-VII intact. Moves all extremities in all planes of motion. Skin: dry, intact no rashes or lesions Objective Lab Results 08/05/23 06:42 08/05/23 06:42 Meds Allergies and Active Meds Allergies No Known Allergies Allergy (Verified 02/13/21 11:21) Active Meds: Active Medications Generic Name Dose Route Start Last Admin Trade Name Freq PRN Reason Stop Dose Admin Acetaminophen 650 mg 08/05/23 06:09 08/05/23 12:18 Acetaminophen 325 Mg Tablet PO 08/04/24 06:08 650 mg Q6HR PRN Administration Pain Scale 1 - 3 or fever Albuterol 2.5 mg 08/05/23 07:21 Albuterol Neb 2.5 Mg/3 Ml Vial.Neb INHALATION 08/04/24 07:20 Q3H PRN Shortness Of Breath Enoxaparin Sodium 40 mg 08/05/23 10:00 08/05/23 11:50 Enoxaparin 40 Mg/0.4 Ml Syringe SUBCUT 08/04/24 09:59 40 mg DAILY@10 ILDA Administration Finasteride 5 mg 08/05/23 09:00 08/05/23 11:41 Finasteride 5 Mg Tablet PO 08/04/24 08:59 Not Given DAILY ILDA Magnesium Sulfate 2 gm in 50 mls @ 25 mls/hr 08/05/23 06:09 Magnesium Sulf 2gm-*Swfi* IV 08/04/24 06:08 DAILY PRN Magnesium Level < 1.7 Cefepime HCl 2 gm in 50 mls @ 12.5 mls/hr 08/05/23 14:00 Maxipime IV Q8H ILDA Vancomycin HCl 1 gm in 250 mls @ 250 mls/hr 08/05/23 08:00 08/05/23 08:41 Vancomycin IV 250 mls/hr Q12H ILDA Administration Azithromycin 500 mg in 250 mls @ 250 mls/hr 08/05/23 12:30 Zithromax IV Q24H ILDA Ceftriaxone Sodium 1 gm in 50 mls @ 100 mls/hr 08/05/23 14:00 Rocephin IV 08/07/23 14:29 Q24H ILDA Levothyroxine Sodium 100 mcg 08/05/23 06:30 08/05/23 06:30 Levothyroxine 100 Mcg Tablet PO 08/04/24 06:29 100 mcg DAILY@0630 ILDA Administration Loperamide HCl 2 mg 08/05/23 09:58 08/05/23 12:22 Loperamide 2 Mg Capsule PO 08/04/24 09:57 2 mg Q2H PRN Administration Diarrhea Metoprolol Tartrate 50 mg 08/05/23 09:00 08/05/23 10:04 Metoprolol Tartrate 50 Mg Tablet PO 08/04/24 08:59 Not Given DAILY ON LICENSE OF [facility] Ondansetron HCl 4 mg 08/05/23 06:09 Ondansetron 4 Mg/2 Ml Vial IV-PUSH 08/04/24 06:08 Q6H PRN Nausea And Vomiting Potassium Chloride 40 meq 08/05/23 06:09 Potassium Chloride Er 20 Meq Tab.Er.Prt PO 08/04/24 06:08 DAILY PRN Hypokalemia Primidone 500 mg 08/05/23 22:00 Primidone 250 Mg Tablet PO 08/04/24 21:59 QHS ILDA Primidone 150 mg 08/05/23 09:00 08/05/23 08:41 Primidone 50 Mg Tablet PO 08/04/24 08:59 150 mg QAM ILDA Administration Sodium Chloride 0 ml 08/05/23 06:09 Sodium Chloride 0.9 % 10 Ml Syringe IV-PUSH 08/04/24 06:08 PRN PRN Flush Tamsulosin HCl 0.4 mg 08/05/23 09:00 08/05/23 10:04 Tamsulosin 0.4 Mg Cap.Er.24h PO 08/04/24 08:59 Not Given BID ILDA Vancomycin HCl 1 each 08/05/23 06:09 Vancomycin - Pharmacy Dosing 1 Each Miscell IV ONCE PRN ZZ.Pharmacy Consult Protocol A&P - Hospitalist Assessment/Plan (1) Sepsis: Plan Sepsis Acute hypoxia Left-sided Multifocal Pneumonia Concern for L hilar mass -Supplemental O2, wean as tolerated -De-escalate antibiotics to ceftriaxone and azithromycin for CAP -Consult pulmonary, input is appreciated -Albuterol nebulizers as needed Other chronic medical conditions noted below, continue home regimens unless otherwise specified: Essential tremor Hypothyroidism CODE STATUS: Full code Documented By: Dionte Rosa DO 08/05/23 1227 Signed By: <Electronically signed by Dionte Rosa DO> 08/05/23 1229 [facility] Work Phone: 1(782) 461-725905-22-2024 History and physical note Author Andrés Fisher [facility] August 05, 2023 7:38am Note Date/Time August 05, 2023 4:32a m [facility] [address] [place] [address] Hospitalist H&P Signed Patient: Del Mcmahon MR#: [id number] : 1945 Acct:[id number] Age/Sex: 78 / M Adm Date: 4 Loc: Room: [address] [place] [address] Type: ADM IN Attending Dr: Dionte Rosa DO Copies to: DO Andrés Campbell Jr, MD Shawn J Warner, ~ HPI DATE OF EXAMINATION: 08/05/23 CHIEF COMPLAINT: Weakness, falls HISTORY OF PRESENT ILLNESS: Mr. Mayer is a 78-year-old male with PMH of hypothyroidism, essential tremor, BPH who presented to the emergency department at [facility] with complaints of cough, falls and dizziness today. 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 As he was ambulating in the field, he had sudden onset of dizziness/lightheadedness and felt as though he was going to pass out. He states he deliberately went to the ground to make sure that he would not fall and injure himself severely. He did this approximately 4 times, and after the fourth time, he was unable to stand under his own power. Luckily, he was close to the road, and thus a motorcyclist passing by noticed him and called squad to bring him into the emergency department. Patient has noticed an increase in cough over the last few days, but does not report significant shortness of breath. He denies history of smoking. In the emergency department at [facility], patient has significantly elevated temperature of 39.5C. Blood culture, CBC, CMP, ethanol, CPK, lactic acid were obtained. WBC significantly elevated at 17.6, hemoglobin 13.8 and platelets were 175. Initial troponin mildly elevated at 31. Chemistry is as follows: Sodium 137, potassium 3.9, chloride 104, CO2 21, BUN/creatinine 29/1.53, albumin 3.5, AST/ALT 71/123, lactic acid 2.3. Urine drug screen positive for barbiturates. Chest x- ray did not demonstrate acute findings. CT of the chest noted concern of mass lesion in the left hilum and associated left upper lobe atelectasis/consolidation. Review of Systems Review of Systems Review of systems: 10 point ROS reviewed and is negative except for that which is noted above in HPI [facility] Medical History (Updated 08/05/23 @ 07:38 by Andrés Fisher MD) Essential tremor Problem List clean-up per request of Phys. EHR Cmte Arthritis Problem List clean-up per request of Phys. EHR Cmte Skin cancer Problem List clean-up per request of Phys. EHR [facility] History of cataract Problem List clean-up per request of Phys. EHR Cmte BPH (benign prostatic hyperplasia) Problem List clean-up per request of Phys. EHR Cmte Kidney stones Problem List clean-up per request of Phys. EHR Cmte Hypothyroidism Problem List clean-up per request of Phys. EHR Cmte Pacemaker Problem List clean-up per request of Phys. EHR [facility] Surgical History (Updated 08/05/23 @ 01:24 by Keysha Ladd RN) History of partial knee replacement right H/O transurethral resection of prostate Problem List clean-up per request of Phys. EHR Cmte History of kidney removal left Problem List clean-up per request of Phys. EHR Cmte Family History (Updated 08/05/23 @ 01:26 by Keysha Ladd RN) Sister Hypertension Cancer Father Mother Social History Smoking Status: Never smoker Substance Use Type: None Meds Medications and Allergies Allergies No Known Allergies Allergy (Verified 02/13/21 11:21) Home Medications levothyroxine 100 mcg tablet 100 mcg PO DAILY 02/05/21 [History Confirmed 08/05/23] primidone 50 mg tablet 150 mg PO QAM essential tremors 02/05/21 [History Confirmed 08/05/23] celecoxib 200 mg capsule 200 mg PO DAILY 08/05/23 [History Confirmed 08/05/23] hydroxychloroquine 200 mg tablet 200 mg PO DAILY 08/05/23 [History Confirmed 08/05/23] yuclsanc-luqwwmua-fpggh acid 400 mcg-vit K 20 mcg-lycop 300 mcg tablet (One-A-Day Men's Multivitamin) 1 tab PO DAILY 08/05/23 [History Confirmed 08/05/23] primidone 250 mg tablet 500 mg PO QHS 08/05/23 [History Confirmed 08/05/23] terbinafine HCl 250 mg tablet 250 mg PO DAILY 08/05/23 [History Confirmed 08/05/23] Exam Physical Exam Vital Signs: Temp Pulse Resp BP Pulse Ox O2 Del Method O2 Flow Rate 98.3 F 62 18 161/91 H 96 Nasal Cannula 2 08/05/23 04:00 08/05/23 04:00 08/05/23 04:00 08/05/23 04:00 08/05/23 04:00 08/05/23 04:00 08/05/23 04:00 Narrative: Constitutional: Elderly WM, resting in bed comfortably HEENT: Moist mucous membranes, neck supple, breathing comfortably on nasal cannula O2 Cardiovascular: RRR, no M/R/G, normal S1 and S2, no JVD Respiratory: Lungs clear to auscultation bilaterally, no wheezes, rales or rhonchi GI: Soft, NTND, normoactive bowel sounds : Deferred Neuro: AAO x3, no focal deficits. CN II-XII grossly intact, Strength 5/5 throughout Extremities: No clubbing, cyanosis or edema Psych: Patient calm, cooperative and conversant Assessment & Plan Assessment/Plan (1) Sepsis: Plan Sepsis Acute hypoxia Left-sided Multifocal Pneumonia Concern for L hilar mass Patient presented with sepsis likely due to pneumonia. Was started on broad- spectrum antibiotic therapy. Given that mass cannot be ruled out on CT without contrast, will consult pulmonary for their assessment and evaluation. Patient has no self reported history of lung disease, thus there is a lower suspicion for postobstructive pneumonia, but will continue with broad-spectrum antibioticsfor now -Supplemental O2, wean as tolerated -Continue IV vancomycin and cefepime -Consult pulmonary -Albuterol nebulizers as needed Other chronic medical conditions noted below, continue home regimens unless otherwise specified: Essential tremor Hypothyroidism CODE STATUS: Full code IP vs OBS Justification Based on differential dx, clinical care plan, and risk of adverse events, if untreated, in my clinical judgement this patient requires an acute care setting as: INPATIENT because of an expectation of an over 2 midnight stay. Estimated length of stay (# of days): 3 Documented By: Andrés Fisher MD 4 0426 Signed By: <Electronically signed by Andrés Fisher MD> 08/05/23 0738 [facility] Work Phone: 1(133) 472-107805-21-2024 NoteXR CHEST 1 VW Procedure: Chest x-ray performed Number of views:AP portable erect History:Hypoxia and dizziness Comparison:05/05/2018 Findings: The heart and lungs show no acute findings, and the mediastinum and christy are grossly negative . Impression: No acute process Finalized by Kayce Loya DO on 08/04/2023 2:29 [facility] NoteCardiovascular Medicine [facility] SUBJECTIVE Chief Complaint Patient presents with Follow-up 6 months Del Mcmahon is a 78 y.o. male here for follow-up. HPI Past medical history including bradycardia s/p PPM placement and brief NSVT consistent with AT noted on device interrogation. He denies any changes since last seen. Denies any cardiac sx's including no CP, dyspnea, orthopnea, PND, LE edema, dizziness/LH, palpitations. 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 Patient Active Problem List Diagnosis Abnormal stress test Benign essential tremor Cardiac pacemaker in situ SOB (shortness of breath) Hypothyroidism Obesity (BMI 30-39.9) Obstructive sleep apnea syndrome Symptomatic sinus bradycardia Syncope and collapse Tremor Other atopic dermatitis Bradycardia Past Medical History: Diagnosis Date Hypothyroidism Sleep apnea Symptomatic sinus bradycardia Family History Problem Relation Name Age of Onset Hypertension Sister Social History Tobacco Use Smoking status: Never Smokeless tobacco: Never Substance Use Topics Alcohol use: Not Currently Allergies Allergen Reactions Diclofenac Sodium the doctor gave me this and it turned red and ate my knee Review of Systems Constitutional: Negative for chills, decreased appetite, fever, malaise/fatigue and weight gain. Eyes: Negative. Cardiovascular: Negative for chest pain, claudication, dyspnea on exertion, irregular heartbeat, leg swelling, near-syncope, orthopnea, palpitations, paroxysmal nocturnal dyspnea and syncope. Hematologic/Lymphatic: Negative for bleeding problem. Does not bruise/bleed easily. OBJECTIVE Visit Vitals BP 122/80 (BP Location: Right arm, Patient Position: Sitting, BP Cuff Size: Adult) Pulse 61 Resp 16 Ht 1.803 m (5' 11 ) Wt 96.5 kg (212 lb 12.8 oz) SpO2 97% BMI 29.68 kg/m??? Smoking Status Never BSA 2.2 m??? Medications: Current Outpatient Medications: celecoxib (CeleBREX) 200 mg capsule, TAKE 1 CAPSULE BY MOUTH WITH SUPPER, Disp: , Rfl: hydroxychloroquine (Plaquenil) 200 mg tablet, Take 1 tablet by mouth in the morning., Disp: , Rfl: levothyroxine (Synthroid, Levoxyl) 100 mcg tablet, TAKE ONE TABLET BY MOUTH IN THE MORNING BEFORE MEALS, Disp: , Rfl: metoprolol succinate XL (Toprol-XL) 25 mg 24 hr tablet, Take 12.5 mg by mouth if needed., Disp: , Rfl: nystatin (Mycostatin) 100,000 unit/gram powder, APPLY TO AFFECTED AREA TOPICALLY IN THE MORNING AND AT BEDTIME, Disp: , Rfl: primidone (Mysoline) 250 mg tablet, Take 500 mg by mouth., Disp: , Rfl: triamcinolone (Kenalog) 0.1 % cream, APPLY TWICE A DAY TO THE SKIN UNTIL HEALED, Disp: , Rfl: Physical Exam Vitals reviewed. Constitutional: Appearance: Normal appearance. He is normal weight. HENT: Head: Normocephalic and atraumatic. Right Ear: External ear normal. Left Ear: External ear normal. Eyes: Extraocular Movements: Extraocular movements intact. Pupils: Pupils are equal, round, and reactive to light. Neck: Vascular: No carotid bruit. Cardiovascular: Rate and Rhythm: Normal rate and regular rhythm. Pulses: Normal pulses. Heart sounds: Normal heart sounds. Pulmonary: Effort: Pulmonary effort is normal. Breath sounds: Normal breath sounds. Abdominal: General: Bowel sounds are normal. Palpations: Abdomen is soft. Musculoskeletal: General: Normal range of motion. Cervical back: Neck supple. Right lower leg: Edema present. Left lower leg: Edema present. Comments: Trace BLE edema Skin: General: Skin is warm and dry. Neurological: General: No focal deficit present. Mental Status: He is alert and oriented to person, place, and time. Psychiatric: Mood and Affect: Mood normal. Behavior: Behavior normal. Thought Content: Thought content normal. Judgment: Judgment normal. Labs: Testing/Procedures: ECHO 05/08/2021 Legacy Encounter on 01/11/2019 Component Date Value Ref Range Status Ventricular Rate 01/11/2019 60 BPM Final Atrial Rate 01/11/2019 60 BPM Final SC Interval 01/11/2019 208 ms Final QRS DURATION 01/11/2019 76 ms Final QT Interval 01/11/2019 394 ms Final QTC CALCULATION(BEZET) 01/11/2019 394 ms Final P [place] 01/11/2019 -5 degrees Final R-[place] 01/11/2019 -27 degrees Final T Wave [place] 01/11/2019 38 degrees Final Diagnosis 01/11/2019 Final Value:Atrial-paced rhythm Inferior infarct (cited on or before 07-JAN-2019) Abnormal ECG When compared with ECG of 07-JAN-2019 22:20, Electronic atrial pacemaker has replaced Sinus rhythm Confirmed by Kole Mckeon ([id number]) on 01/11/2019 8:27:44 AM CTA coronary with calcium scoring (11/09/2018) IMPRESSIONS: * Total coronary calcium score 0.0 * No hemodynamically significant stenosis of the coronary arteries. - RCA/PDA: No hemodynamically significant stenosis. - Left circumflex: No dynamically significant stenosis. - LAD: No hemodynamically significant stenosis. (more content not included)...[facility]02-20-2024 History of Present illness Narrative* Lidya Bentley MD - 05/05/2023 10:30 AM EST Images from the original note were not included. [address] [facility] [id number] Patient: Del Mcmahon Date of : 1945 Encounter Date: 05/05/2023 Patient Care Team: Marco A Huizar Jr., DO as PCP - General (Internal Medicine) History of Present Illness: Del Mcmahon is a 78 y.o. male, an established patient, and is here for 18 month follow-up for Essential Tremor. At his last visit no medication changes were made. He continues on primidone 100mg AM and 500mg HS. Since his last visit, he has had progressively worsening handwriting, which he first noticed about 1 year ago. He has had increased difficulty drinking coffee. 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 He has had generalized body soreness, especially in his hands. He has had more difficulty standing from a low height seat. Allergies: Patient has no known allergies. Review of Relevant Patient Questionnaires: HIT 6: No data to display PHQ-9: No data to display PHQ-15: No data to display CHELY-7: No data to display PTSD: No data to display [place]: No data to display YOAN-10: No data to display Past Medical, Family, Surgical, and Social History Update: The following portions of the patient's history were reviewed and updated as appropriate: allergies, current medications, past family history, past medical history, past social history, past surgicalhistory and problem list. Past Medical History: Diagnosis Date Back pain Benign prostatic hyperplasia Essential tremor bilateral Hypothyroidism Obesity (BMI 30-39.9) 06/06/2020 Pacemaker Prostate disorder Renal insufficiency Syncope Thyroid disorder Tremor Varicella Family History Problem Relation Age of Onset No Known Problems Mother Dementia Father Hypertension Sister Leukemia Sister Past Surgical History: Procedure Laterality Date COLONOSCOPY 2018 KIDNEY SURGERY Left 40 years ago removal of left kidney PROSTATE SURGERY Current Outpatient Medications Medication Sig Dispense Refill levothyroxine (SYNTHROID, LEVOTHROID) 75 MCG tablet Take 100 mcg by mouth daily. primidone (MYSOLINE) 250 mg tablet TAKE 2 TABLETS BY MOUTH EVERY DAY IN THE EVENING 180 tablet 1 ALPRAZolam (XANAX) 0.25 mg tablet Once daily up to 4x per week as needed for fine motor control andtremor control (Patient not taking: Reported on 06/11/2021) 20 tablet 5 finasteride (PROSCAR) 5 mg tablet Take 5 mg by mouth daily. (Patient not taking: Reported on 06/11/2021) metoprolol tartrate (LOPRESSOR) 50 mg tablet Take 25 mg by mouth in the morning. (Patient not taking: Reported on 05/05/2023) multivit-min/folic/vit K/lycop (ONE-A-DAY MEN'S MULTIVITAMIN ORAL) Take by mouth daily. (Patient not taking: Reported on 11/28/2021) primidone (MYSOLINE) 50 mg tablet TAKE 2.5-3 TABLET BY MOUTH ONCE DAILY DIRECTED 270 tablet 3 tamsulosin (FLOMAX) 0.4 mg capsule Take 0.4 mg by mouth 2 (two) times a day. (Patient not taking: Reported on 06/11/2021) No current facility-administered medications for this visit. (All medications reviewed and updated by provider since last office visit or hospitalization) Tobacco History: Social History Tobacco Use Smoking Status Never Smokeless Tobacco Never (If patient a smoker, smoking cessation counseling offered) Social History: Social History Substance and Sexual Activity Alcohol Use No Review of Systems: Review of Systems Musculoskeletal: Positive for back pain and myalgias. Negative for gait problem. Neurological: Positive for tremors. Physical Exam: Vitals: Vitals: 05/05/23 1042 BP: 132/77 BP Site: Left Arm BP Postition: Sitting BP CUFF SIZE: M (9-13 inches) Pulse: 60 Weight: 93 kg (205 lb) Height: 180.3 cm (5' 10.98 ) Neurological Physical Exam: Physical Exam: Mental Status: Speech: Normal quality and patient has normal vocabulary. Language: Normal. Cranial Nerves: CN III, IV, : CN III: EOM full, no nystagmus, no ptosis and no PRICILA. Pupil Size: right = left. Motor: Muscle Bulk: Normal. Power: Normal strength throughout. 5/5 strength in shoulder, elbows, hands, thighs, and knees. Mild right-sided cogwheel rigidity withactivation maneuvers versus superimposed essential tremor. No bradykinesia.. Gait/Coord/DTR: Casual gait with normal base and stride and without ataxia or circumduction. Tremor: Positive Findings: Intention tremor right and intention tremor left. Negative findings: no dysdiadochokinesia right and no dysdiadochokinesia left. No rest tremor. Increased tremor with finger to nose test. No bradykinesia. Stands from seated position with arms crossed.. Assessment and Plan: Diagnoses and all orders for this visit: Benign essential tremor - primidone (MYSOLINE) 50 mg tablet; TAKE 2.5-3 TABLET BY MOUTH ONCE DAILY DIRECTED Problem List Nervous and Auditory Benign essential tremor - Primary Relevant Medications primidone (MYSOLINE) 50 mg tablet Del Mcmahon is a 78 y.o. male with Essential Tremor. He has had progressively worsening handwriting, difficulty drinking from a mug, and decreased managing broker strength. He has had generalized soreness, especially in his hands; however, strengths are 5/5 in all extremities including hand muscles. He also had possible right wrist rigidity with activation, but no other parkinsonian features, will monitor. Impression Essential Tremor - Increase morning primidone dose to 2.5 tabs of 50 mg for 1 week followed by 3 tabs of 50 mg each morning - Continue evening primidone 2 tabs 250 mg - If symptoms of dizziness, sleepiness, or off balance present, return to previous primidone dose and call office - Follow-up with PCP for generalized soreness, do not suspect neurologic cause Follow-up: 6 months Chad Reeves, MS4 LIDYA BENTLEY MD This note was created with the assistance of a speech recognition program. While intending to generate a timely document that accurately reflects the content of the visit, no guarantee can be provided that every grammatical or spelling mistake has been or will be identified or corrected. Thank you for your understanding. documented in this encounterOhioHealthQuest Insp[facility] [id number] Instructions* Patient Instructions* Lidya Bentley MD - 05/05/2023 10:30 AM EST Increase primidone to 2.5 tabs morning for 1 week, then increase further to 3 tab morning Keep bedtime primidone he same If you get dizzy, sleepy, or off balance with increased dose, lower back down and notify Dr. Bentley See family doctor for stiffness [facility] History of Present illness Narrative* Lauren Ferrell RN - 02/10/2022 11:24 AM EST Patient has met goals for discharge from Phase II: o Dressing dry and intact o Pain controlled with oral medication o Meet physical therapy goals for ambulation o No nausea or vomiting, or that it is mild o Able to void Patient met all goals and was given discharge instructions by RN with present. All questions answered. Patient aware of when they last had pain meds and when they can have them again next. Patient escorted to vehicle via wheelchair by RN. * Violeta Munoz, PT - 02/10/2022 9:50 AM EST [facility] PT Discharge Recommendations: Outpatient PT Distance Ambulated (ft): 100 Device: Standard walker RLE Weight Bearing Status: As Tolerated R Knee Flexion 0-140: 6-86 Strength RLE R Ankle Dorsiflexion: 5/5 R Ankle Plantar Flexion: 5/5 Strength LLE L Ankle Dorsiflexion: 5/5 L Ankle Plantar Flexion: 5/5 PT - OK to Discharge: Yes AM-PAC: * Emani Holt MD - Primary Procedure(s): Right medial unicompartmental knee arthroplasty Day of Surgery Fall prevention education provided including use of call light in hospital, use of appropriate assistive device, safe mobility techniques, and safety measures at home. Continue PT as per POC. Subjective Subjective: Pt supine and drowsy upon arrival. Pt/spouse trained throughout session due to drowsiness. Pt assisted with pant application sitting EOB. + void while up. Trained with handout, verbal, and demonstrations. Stair completion without issued x4 steps and folded walker cga. Pt defers wheels for front of AD. Pt met PT goals for home. There is no problem list on file for this patient. Past Medical History: Diagnosis Date Adverse effect of anesthesia slow to wake up Arthritis BPH (benign prostatic hyperplasia) Disease of thyroid gland Essential tremor Hypertension Irregular heart beat Sick Sinus Syndrome Sleep apnea mouth guard Past Surgical History: Procedure Laterality Date INSERT / REPLACE / REMOVE PACEMAKER KNEE ARTHROPLASTY Right NEPHRECTOMY Left Objective 02/10/22 0950 General Family/Caregiver Present Yes (spouse) PT Time Calculation PT Start Time 0950 PT Stop Time 1023 PT Time Calculation (min) 33 min Precautions Medical Precautions Fall Risk Safety Interventions Call altamirano within reach;Gait belt RLE Weight Bearing Status As Tolerated Pain Assessment Pain Assessment 0-10 Pain Score 4 Pain Type Surgical pain Pain Location Knee Pain Orientation Right Pain Descriptors Aching;Tightness Pain Interventions Cold applied;Repositioned Cognition Orientation Level Oriented X4 Home Living Type of Home House Lives With Spouse Home Adaptive Equipment Walker - standard Home Layout One level Home Access Stairs to enter without rails (via garage) Entrance Stairs-Rails None Entrance Stairs-Number of Steps 2 Prior Function Level of [place] Independent with mobility and functional transfers Prior Device Use None of the given options Vocational Other (Comment);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[employer]) Static Sitting Balance Static Sitting-Level of Assistance Supervision or touching assistance Dynamic Sitting Balance Dynamic Sitting-Level of Assistance Supervision or touching assistance Static Standing Balance Static Standing-Level of Assistance Supervision or touching assistance Dynamic Standing Balance Dynamic Standing-Level of Assistance Supervision or touching assistance Bed Mobility Sitting to Lying Assistance Supervision or touching assistance Lying to Sitting Assistance Supervision or touching assistance Transfers Sit to Stand Assistance Supervision or touching assistance Sit to Stand Deficit Supervision/safety awareness Toilet Transfer Assistance Supervision or touching assistance Toilet Transfer Deficit Supervision/safety awareness;Verbal cueing Ambulation Walking Assistance Supervision or touching assistance Walking Deficit Supervision/safety awareness;Increased time to complete Device Standard walker Distance Ambulated (ft) 100 Comments offered wheels for walker, pt prefers standard walker Stairs 4 steps: Assistance Contact guard 4 steps: Deficit Verbal cueing;Supervision/safety awareness Rails None (Comment) Device (folded standard walker) Number of Stairs 4 Stairs Comments No HR, spouse present RLE Assessment RLE Assessment Additional Yes AROM RLE (degrees) R Knee Flexion 0-140 6-86 Strength RLE R Ankle Dorsiflexion 5/5 R Ankle Plantar Flexion 5/5 LLE Assessment LLE Assessment Additional Yes Strength LLE L Ankle Dorsiflexion 5/5 L Ankle Plantar Flexion 5/5 PT Assessment PT Assessment/ Barriers to discharge Decreased strength;Decreased range of motion;Impaired gait;Decreased mobility;Pain Prognosis Good Evaluation/Treatment Tolerance Patient tolerated treatment well Comments + void while up with PT, pajaziel franklins applied, met PT goals Medical Staff Made Aware Yes Comments MARIAA Aguilar notified Plan Treatment/Interventions Functional transfer training;Patient/family training;Gait training;Bed mobility;LE strengthening/ROM PT Plan Skilled PT PT Frequency 7 days per week PT Duration of Sessions PRN PT Treatments per day 1-2 times per day PT Discharge Recommendations Outpatient PT Equipment Recommended owns standard walker, deferred wheels for AD PT - Evaluation Status Complete PT - OK to Discharge Yes PT Evaluation Time Entry PT Evaluation (Low) Time Entry 15 Treatment performed during evaluation: Gait Training Gait Training Time Entry: 10 Gait Training Activity 1: Gait with standard walker [id number] SBA, cues for speed Gait Training Activity 2: Stair training with folded FWW x4 steps, no HR Therapeutic Activity Therapeutic Activity Time Entry: 8 Therapeutic Activity 1: HEP review with handout Therapeutic Activity 2: B LE VRE x10 reps Therapeutic Activity 3: OOB to R SBA Therapeutic Activity 4: Transfer training with cues Therapeutic Activity 5: Toilet transfers with SBA, + void Other Activity Other Activity 1: Assist with pajama bottom placement Goals and Education Encounter Problems Encounter Problems (Active) There are no active problems. Encounter Problems (Resolved) Template: Physical Therapy Problem: PT Short Term Goals Dates: Start: 02/10/22 Resolved: 02/10/22 Goal: Pt will perform bed mobility with CGA. (Resolved) Dates: Start: 02/10/22 Expected End: 02/11/22 Met: 02/10/22 Outcomes Date/Time User Outcome 02/10/22 1038 Violeta Munoz, PT Completed Goal: Pt will transfer with SBA. (Resolved) Dates: Start: 02/10/22 Expected End: 02/11/22 Met: 02/10/22 Outcomes Date/Time User Outcome 02/10/22 1038 Violeta Munoz PT Completed Goal: Pt will ambulate 100 ft. with walker and SBA (Resolved) Dates: Start: 02/10/22 Expected End: 02/11/22 Met: 02/10/22 Outcomes Date/Time User Outcome 02/10/22 1038 Violeta Welsheimer, PT Completed Goal: Pt will ascend/descend steps with CGA and LRAD (Resolved) Dates: Start: 02/10/22 Expected End: 02/11/22 Met: 02/10/22 Outcomes Date/Time User Outcome 02/10/22 1038 Violeta Munoz PT Completed Goal: Pt will demo good understanding of HEP protocol (Resolved) Dates: Start: 02/10/22 Expected End: 02/11/22 Met: 02/10/22 Outcomes Date/Time User Outcome 02/10/22 1038 Violeta Munoz PT Completed Education Documentation Precautions, taught by Violeta uMnoz PT at 02/10/2022 9:50 AM. Learner: Significant Other, Patient Readiness: Acceptance Method: Explanation, Demonstration, Handout Response: Verbalizes Understanding, Demonstrated Understanding, Indicates Understanding in Bedside Comment: B LE VRE x10 reps, HEP with handout, transfer training, mobility OOB hourly, stair education. Home Exercise Program, taught by Violeta Munoz PT at 02/10/2022 9:50 AM. Learner: Significant Other, Patient Readiness: Acceptance Method: Explanation, Demonstration, Handout Response: Verbalizes Understanding, Demonstrated Understanding, Indicates Understanding in Bedside Comment: B LE VRE x10 reps, HEP with handout, transfer training, mobility OOB hourly, stair education. Mobility Training, taught by Violeta Munoz PT at 02/10/2022 9:50 AM. Learner: Significant Other, Patient Readiness: Acceptance Method: Explanation, Demonstration, Handout Response: Verbalizes Understanding, Demonstrated Understanding, Indicates Understanding in Bedside Comment: B LE VRE x10 reps, HEP with handout, transfer training, mobility OOB hourly, stair education. Education Comments No comments found. * Penelope Benitez RN - 02/10/2022 7:29 AM EST Applied at the end of the procedure documented in this encounterPenn State Health [facility] [id number] Procedure note* Emani Holt MD - 02/10/2022 7:00 AM EST [facility], A Member of [employer] OPERATIVE REPORT PATIENT NAME: Del Mcmhaon DATE OF : 1945 [facility]#: [id number] SURGEON: Emani Holt MD DATE OF SERVICE: 02/10/2022 DATE OF SURGERY: 02/10/2022 PREOPERATIVE DIAGNOSIS: OA right knee (M17.11) POSTOPERATIVE DIAGNOSIS: OA right knee (M17.11) PROCEDURE: Right Medial Compartment Unicondylar Arthroplasty (84294) Femoral Component: Medacta, Lauren Medial Femoral Component , Size: 4 Tibial Component: Lauren Medial Tibial Baseplate , Size: 4 Polyethylene: Lauren Medial Tibial Insert , 9mm Fixation: Biomet Bone Cement with 1g Vancomycin ATTENDING SURGEON: Emani Holt MD AIR AND WATER TESTER: Vita Reynaga PA-C INDICATIONS: Patient is a 76-year-old Male with end-stage degenerative joint disease involving the medial compartment. The patient has failed conservative medical measures including activity modification and medical management. The risks, benefits, alternative treatments and potential outcomes of the medial comp artment unicondylar arthroplasty have been described to the patient in detail. The patient appears to understand these risks and appears to be a good candidate with full correction on their preoperative stress films, and their anterior cruciate ligament appears to be intact radiographically. We, therefore, proceed to the operating room, after consent was obtained for a medial compartment unicondylar arthroplasty. PATIENT IDENTIFICATION: Patient was seen in preop, consent was reviewed, operative procedure was identified, surgical site and thigh marked. ANESTHESIA: Pre-Anesthesia Assessment: A History and Physical has been performed, and patient medication allergies have been reviewed. The risks and benefits of the procedure and the sedation options and risks were discussed with the patient. All questions were answered and informed consent was obtained. Anesthesia administered: FINDINGS: Bone/cartilage: Degenerative disease confined to the medial compartment was identified with medial osteophytes. Patellofemoral articulation was satisfactory. The anterior cruciate ligament was preserved and what could be visualized of the lateral compartment was also satisfactory. DESCRIPTION OF PROCEDURE: Intraoperative Inputs and Outputs: Outs: Estimated Blood Loss: 50 mL. Ins: Lactated Ringer's: 2500ml. Intraoperative Medications: Drains: No DESCRIPTION OF PROCEDURE: After suitable and adequate induction of anesthesia the patient was positioned on the operating table. The knee and lower extremity were then prepped and draped in a standard fashion. Prior to performance of surgical procedure, a time out was performed to identify the patient, date of , pertinent allergies, surgical procedure, surgical site, perioperative medications to include preoperative antibiotics given, preoperative x-rays and relevant images and results are noted and displayed, and availability of implants and supplies. The extremity was then exsanguinated and the tourniquet elevated. An incision was outlined from the superior pole of the patella to the tibial tubercle. The skin and subcutaneous tissues were dissected and a median parapatellar arthrotomy was performed. A smallportion of the fat pad was excised and the anterior portion of the medial meniscus was also excised. The proximal tibia was exposed and was resected perpendicular to the tibial shaft axis in the coronal plane with 5 degrees of posterior slope in the sagittal plane. The depth of resection was determined with assistance of the stylus. It was then measured to a Size: 4 . An additional resection of the tibia required. The flexion gap was sized to a 9mm spacer. The knee was then brought to full extension and the extension gap was tensed with the 9mm spaced and appropriate shims. The femoral component downsized using the resection guide. The distal femoral cutting guide was drilled and secured inposition. The distal femoral cut was then performed. The femoral size was inserted and the femur was sized to a Size: 4 . The central weight bearing line of the tibia was identified and transferred to the femur in both flexion and extension. The Size: 4 femoral cutting jig was applied to the distalfemur. The medial/lateral position and rotation was adjusted according to the andrade applied to the femur in the previous step and the guide was secured in place with 3 pins. The 2 pegs were then drilled. The posterior femoral resection was performed and then the distal chamfer resection. The medialmeniscus and osteophytes were removed. The Size: 4 tibial guide was drilled in position and the 2 drill holes for the pegs were made. The trial Size: 4 tibial baseplate was placed as well as the trial Size: 4 femoral component. The 9mm polyethylene was inserted and flexion/extension balance was determined to be satisfactory. The trial components were removed. The Size: 4 tibial component was inserted and impacted in position. The Size: 4 femoral component was inserted and impacted in position. The 9mm tibial polyethylene was then secured. The knee was taken through a full range of motion withgood stability. The tourniquet was released after 24 minutes, hemostasis was accomplished. The capsular tissue was approximated with #2 Quill PDO, subcutaneous tissue with 0 Quill Monoderm and the skin closed with 2-0 Quill Monoderm and Dermabond. A sterile dressing was applied. PATIENT RECOVERY: The patient was awakened from anesthesia and taken to recovery room awake, alert, and stable in good condition. AIR AND WATER TESTER/ATTENDING PARTICIPATION: Vita Reynaga PA-C assisted with proper preoperative positioning, preoperative templating, determining availability of proper implants, prepping and draping of patient, manipulation placement of instruments, protection of ligaments and vital soft tissue structures, assistance in maintaining hemostasis and assistance with closure of the wound. Their skills and knowledge of the steps of the operation and the desired outcome of each surgical step was crucial, allowing for efficient choreography of surgical procedure, and closure of the wound which lead to reduced surgical time, less blood loss,and less risk of complications for the patient. Digitally Signed By: Emani Holt MD on 02/10/2022 07:36:10 [facility], A Member of [facility] OPERATIVE REPORT PATIENT NAME: Del Mcmahon DATE OF : 1945 CSN#: [id number] SURGEON: Emani Holt MD DATE OF SERVICE: 02/10/2022 DATE OF SURGERY: 02/10/2022 REF 05.03.IF4.09. LOT [id number] LAUREN Partial Knee System - Medial Tibial insert fix S4 RM - 9mm UseBy 2024-11-06 () [id number] [phone] [id number] [id number] REF 05.03.TF4.RM LOT [id number] LAUREN Partial Knee System - Medial Tibial Tray Fix Cemented S4 RM Use By 2026-10-14 () [id number] [id number] [id number] REF 05.03.004RM LOT [id number] LAUREN Partial Knee System - Medial Anatomical Femoral Component CementedS4 RM Use By 2026-11-24 () [id number] [id number] [phone] [id number] [facility] [id number] Procedure note* Emani Holt MD - 02/10/2022 7:00 AM EST [facility], A Member of [facility] OPERATIVE REPORT PATIENT NAME: Del Mcmahon DATE OF : 1945 THE [facility] [id number] SURGEON: Emani Holt MD DATE OF SERVICE: 02/10/2022 DATE OF SURGERY: 02/10/2022 PREOPERATIVE DIAGNOSIS: OA right knee (M17.11) POSTOPERATIVE DIAGNOSIS: OA right knee (M17.11) PROCEDURE: Right Medial Compartment Unicondylar Arthroplasty (94641) Femoral Component: Medacta, Lauren Medial Femoral Component , Size: 4 Tibial Component: Lauren Medial Tibial Baseplate , Size: 4 Polyethylene: Lauren Medial Tibial Insert , 9mm Fixation: Biomet Bone Cement with 1g Vancomycin ATTENDING SURGEON: Emani Holt MD AIR AND WATER TESTER: Vita Reynaga PA-C INDICATIONS: Patient is a 76-year-old Male with end-stage degenerative joint disease involving the medial compartment. The patient has failed conservative medical measures including activity modification and medical management. The risks, benefits, alternative treatments and potential outcomes of the medial comp artment unicondylar arthroplasty have been described to the patient in detail. The patient appears to understand these risks and appears to be a good candidate with full correction on their preoperative stress films, and their anterior cruciate ligament appears to be intact radiographically. We, therefore, proceed to the operating room, after consent was obtained for a medial compartment unicondylar arthroplasty. PATIENT IDENTIFICATION: Patient was seen in preop, consent was reviewed, operative procedure was identified, surgical site and thigh marked. ANESTHESIA: Pre-Anesthesia Assessment: A History and Physical has been performed, and patient medication allergies have been reviewed. The risks and benefits of the procedure and the sedation options and risks were discussed with the patient. All questions were answered and informed consent was obtained. Anesthesia administered: FINDINGS: Bone/cartilage: Degenerative disease confined to the medial compartment was identified with medial osteophytes. Patellofemoral articulation was satisfactory. The anterior cruciate ligament was preserved and what could be visualized of the lateral compartment was also satisfactory. DESCRIPTION OF PROCEDURE: Intraoperative Inputs and Outputs: Outs: Estimated Blood Loss: 50 mL. Ins: Lactated Ringer's: 2500ml. Intraoperative Medications: Drains: No DESCRIPTION OF PROCEDURE: After suitable and adequate induction of anesthesia the patient was positioned on the operating table. The knee and lower extremity were then prepped and draped in a standard fashion. Prior to performance of surgical procedure, a time out was performed to identify the patient, date of , pertinent allergies, surgical procedure, surgical site, perioperative medications to include preoperative antibiotics given, preoperative x-rays and relevant images and results are noted and displayed, and availability of implants and supplies. The extremity was then exsanguinated and the tourniquet elevated. An incision was outlined from the superior pole of the patella to the tibial tubercle. The skin and subcutaneous tissues were dissected and a median parapatellar arthrotomy was performed. A smallportion of the fat pad was excised and the anterior portion of the medial meniscus was also excised. The proximal tibia was exposed and was resected perpendicular to the tibial shaft axis in the coronal plane with 5 degrees of posterior slope in the sagittal plane. The depth of resection was determined with assistance of the stylus. It was then measured to a Size: 4 . An additional resection of the tibia required. The flexion gap was sized to a 9mm spacer. The knee was then brought to full extension and the extension gap was tensed with the 9mm spaced and appropriate shims. The femoral component downsized using the resection guide. The distal femoral cutting guide was drilled and secured inposition. The distal femoral cut was then performed. The femoral size was inserted and the femur was sized to a Size: 4 . The central weight bearing line of the tibia was identified and transferred to the femur in both flexion and extension. The Size: 4 femoral cutting jig was applied to the distalfemur. The medial/lateral position and rotation was adjusted according to the andrade applied to the femur in the previous step and the guide was secured in place with 3 pins. The 2 pegs were then drilled. The posterior femoral resection was performed and then the distal chamfer resection. The medialmeniscus and osteophytes were removed. The Size: 4 tibial guide was drilled in position and the 2 drill holes for the pegs were made. The trial Size: 4 tibial baseplate was placed as well as the trial Size: 4 femoral component. The 9mm polyethylene was inserted and flexion/extension balance was determined to be satisfactory. The trial components were removed. The Size: 4 tibial component was inserted and impacted in position. The Size: 4 femoral component was inserted and impacted in position. The 9mm tibial polyethylene was then secured. The knee was taken through a full range of motion withgood stability. The tourniquet was released after 24 minutes, hemostasis was accomplished. The capsular tissue was approximated with #2 Quill PDO, subcutaneous tissue with 0 Quill Monoderm and the skin closed with 2-0 Quill Monoderm and Dermabond. A sterile dressing was applied. PATIENT RECOVERY: The patient was awakened from anesthesia and taken to recovery room awake, alert, and stable in good condition. AIR AND WATER TESTER/ATTENDING PARTICIPATION: Vita Reynaga PA-C assisted with proper preoperative positioning, preoperative templating, determining availability of proper implants, prepping and draping of patient, manipulation placement of instruments, protection of ligaments and vital soft tissue structures, assistance in maintaining hemostasis and assistance with closure of the wound. Their skills and knowledge of the steps of the operation and the desired outcome of each surgical step was crucial, allowing for efficient choreography of surgical procedure, and closure of the wound which lead to reduced surgical time, less blood loss,and less risk of complications for the patient. Digitally Signed By: Emani Holt MD on 02/10/2022 07:36:10 [facility], A Member of [facility] OPERATIVE REPORT PATIENT NAME: Del Mcmahon DATE OF : 1945 [facility] [id number] SURGEON: Emani Holt MD DATE OF SERVICE: 02/10/2022 DATE OF SURGERY: 02/10/2022 REF 02.18.IF4.09. LOT [id number] LAUREN Partial Knee System - Medial Tibial insert fix S4 RM - 9mm UseBy 2024-11-06 () [id number]) [id number] (04) [id number] REF 02..TF4.RM LOT [id number] LAUREN Partial Knee System - Medial Tibial Tray Fix Cemented S4 RM Use By 2026-10-14 () [id number]) [id number] (10) [id number] REF 02.18.004RM LOT [id number] LAUREN Partial Knee System - Medial Anatomical Femoral Component CementedS4 RM Use By 2026-11-24 (21) [id number] [id number] ([phone] [id number] * Kiya Bowles RN - 02/10/2022 6:[address] Holt notified of patient having an abrasion to right first digit with antibiotics taken up until 1 to 2 days ago, no further orders at this time. * Kiya Bowles RN - 02/10/2022 6:[address] Acosta notified that patient did not take his metoprolol this morning, no further orders at this time. documented in this encounter[address]28-2022 Procedure note* Kiya Bowles RN - 02/10/2022 6:[address] Holt notified of patient having an abrasion to right first digit with antibiotics taken up until 1 to 2 days ago, no further orders at this time. [address]28-2022 Procedure note* Kiya Bowles RN - 02/10/2022 6:[address] Acosta notified that patient did not take his metoprolol this morning, no further orders at this time. [address]28-2022 History and physical note* Emani Holt MD - 02/10/2022 6:12 AM EST History and Physical Update ( H&P completed within the previous thirty days ) I personally reviewed the History and Physical, interviewed and examined the patient prior to surgery. No changes have occurred in the patient's condition since the History and Physical was completed. [place] [employer] Work Phone: 1(493) 447-305511-28-2022 History and physical note* Emani Holt MD - 02/10/2022 6:12 AM EST History and Physical Update ( H&P completed within the previous thirty days ) I personally reviewed the History and Physical, interviewed and examined the patient prior to surgery. No changes have occurred in the patient's condition since the History and Physical was completed. documented in this encounterP[facility] [id number] Hospital course Narrative* Marta Santillan RN - 02/03/2022 10:28 AM EST Pre-Surgery Instructions: Medication Instructions levothyroxine (SYNTHROID, LEVOTHROID) 100 mcg tablet Take morning of surgery with sip of water, no other fluids metoprolol succinate (TOPROL-XL) 25 mg 24 hr tablet Take morning of surgery with sip of water, no other fluids multivitamin tablet Take as recommended by your specialist primidone (MYSOLINE) 250 mg tablet Take as recommended by your specialist primidone (MYSOLINE) 50 mg tablet Take as recommended by your specialist Pt to follow Gen Med instructions regarding medications Additional Instructions: Instructions to prepare for surgery: Increase water intake day PRIOR to surgery. Eat light meals or follow surgeon specific food instructions day PRIOR to surgery. At Midnight, nothing is allowed in your mouth. NO food, water, gum, candy, coffee, mints, tobacco, NOTHING AFTER MIDNIGHT. When you wake up, brush your teeth and use mouthwash. Don't swallow. Take small sip of water with meds that are to be taken DOS. Shower night prior and morning of surgery with antibiotic cleanser OR Dial antibacterial soap (as designated by surgeon). No lotions, creams, powders on your skin. You may wear deodorant (unless surgery is on your shoulder or breast(s)). No shaving surgical site (within 48 hours of surgery). Remove all jewelry, piercings and leave that at home. Leave valuable at home. Wear loose fitting clothes. Bring photo ID, medical insurance card, and copay as needed when you check in for surgery. In addition, bring any of the following: CPAP, living will/ medical POA, glasses, case, hearing aid container, shoulder sling, back brace, walker, cervical collar. Bring your COVID vaccine card, if applicable. Leave walker &/or cane (unless needed prior to surgery) and overnight bag in the car until after your procedure when you are assigned a room. Only 1 designated adult is allowed to go back into Pre-Op area with you. Surgical times are subject to change up until 5:30pm the evening prior to your surgery. Check in at reception centre manager desk [address] [place] [address]. If Outpatient, these additional instructions apply: An adult must stay with you the whole time you are here and drive you home. An adult must stay withyou at home for 24 hours due to Anesthesia. If you have BRENNAN, you are required to stay 3 hours after your surgery before we can discharge you. documented in this encounterPenn State Health [facility]. [facility] Medical [id number] Evaluation note* Encounter Date Diagnosis Assessment Notes Treatment Notes Treatment Clinical Notes Aug, Primary osteoarthritis of right knee (ICD-10 - M17.11) Radiographs reviewed with patient as progressive arthritic changes within the knee. The patient is suffering from degenerative arthritis involving the knee. We discussed the conservative treatment options which can be beneficial in relieving pain, including gentle non-impact motion exercise and non-steroidal anti-inflammatory medication. We discussed the use of occasional cortisone injections that can provide pain relief as well as hyaluronan lubricant injection. As patient just had a cortisone injection 1 month ago, advised patient would ideally wait another 2 months before repeating. Patient was prepped and gel one injected into the right knee under sterile conditions. Patient tolerated well with no adverse reactions. Instructed on use of voltaren gel to help decrease pain and inflammation. Activity as tolerated. Call with questions/concerns . Aug, Other tear of medial meniscus, current injury, right knee, subsequent encounter (ICD-10 - S83.241D) Aug, Other specified postprocedural states (ICD-10 - Z98.890) [place] Other [id number] Note [id number]#1.00[facility]02-09-2022 [id number] 04-23-2021 NoteEducation Materials Hypertension, Adult High blood pressure (hypertension) is when the force of blood pumping through the arteries is too strong. The arteries are the blood vessels that carry blood from the heart throughout the body. Hypertension forces the heart to work harder to pump blood and may cause arteries to become narrow or stiff. Untreated or uncontrolled hypertension can cause a heart attack, heart failure, a stroke, kidneydisease, and other problems. A blood pressure reading consists of a higher number over a lower number. Ideally, your blood pressure should be below 120/80. The first ( top ) number is called the systolic pressure. It is a measure of the pressure in your arteries as your heart beats. The second ( bottom ) number is called the diastolic pressure. It is a measure of the pressure in your arteries as the heart relaxes. What are the causes? The exact cause of this condition is not known. There are some conditions that result in or are related to high blood pressure. What increases the risk? Some risk factors for high blood pressure are under your control. The following factors may make you more likely to develop this condition: ? Smoking. ? Having type 2 diabetes mellitus, high cholesterol, or both. ? Not getting enough exercise or physical activity. ? Being overweight. ? Having too much fat, sugar, calories, or salt (sodium) in your diet. ? Drinking too much alcohol. Some risk factors for high blood pressure may be difficult or impossible to change. Some of these factors include: ? Having chronic kidney disease. ? Having a family history of high blood pressure. ? Age. Risk increases with age. ? Race. You may be at higher risk if you are . ? Gender. Men are at higher risk than women before age 45. After age 65, women are at higher risk than men. ? Having obstructive sleep apnea. ? Stress. What are the signs or symptoms? High blood pressure may not cause symptoms. Very high blood pressure (hypertensive crisis) may cause: ? Headache. ? Anxiety. ? Shortness of breath. ? Nosebleed. ? Nausea and vomiting. ? Vision changes. ? Severe chest pain. ? Seizures. How is this diagnosed? This condition is diagnosed by measuring your blood pressure while you are seated, with your arm resting on a flat surface, your legs uncrossed, and your feet flat on the floor. The cuff of the bloodpressure monitor will be placed directly against the skin of your upper arm at the level of your heart. It should be measured at least twice using the same arm. Certain conditions can cause a difference in blood pressure between your right and left arms. Certain factors can cause blood pressure readings to be lower or higher than normal for a short period of time: ? When your blood pressure is higher when you are in a health care provider's office than when you are at home, this is called white coat hypertension. Most people with this condition do not need medicines. ? When your blood pressure is higher at home than when you are in a health care provider's office, this is called masked hypertension. Most people with this condition may need medicines to control blood pressure. If you have a high blood pressure reading during one visit or you have normal blood pressure with other risk factors, you may be asked to: ? Return on a different day to have your blood pressure checked again. ? Monitor your blood pressure at home for 1 week or longer. If you are diagnosed with hypertension, you may have other blood or imaging tests to help your health care provider understand your overall risk for other conditions. How is this treated? This condition is treated by making healthy lifestyle changes, such as eating healthy foods, exercising more, and reducing your alcohol intake. Your health care provider may prescribe medicine if lifestyle changes are not enough to get your blood pressure under control, and if: ? Your systolic blood pressure is above 130. ? Your diastolic blood pressure is above 80. Your personal target blood pressure may vary depending on your medical conditions, your age, and other factors. Follow these instructions at home: Eating and drinking ? Eat a diet that is high in fiber and potassium, and low in sodium, added sugar, and fat. An example eating plan is called the DASH (Dietary Approaches to Stop Hypertension) diet. To eat this way: ? Eat plenty of fresh fruits and vegetables. Try to fill one half of your plate at each meal with fruits and vegetables. ? Eat whole grains, such as whole-wheat pasta, brown rice, or whole-grain bread. Fill about one fourth of your plate with whole grains. ? Eat or drink low-fat dairy products, such as skim milk or low-fat yogurt. ? Avoid fatty cuts of meat, processed or cured meats, and poultry with skin. Fill about one fourth of your plate with lean proteins, such as fish, chicken without skin, beans, eggs, or tofu. ? (more content not included)...[facility] [id number] [facility] SURGERY Clinical Discharge Summary PERSON INFORMATION Name DEL MCMAHON Age 76 Years 1945 Sex MALE Language Somali PCP MARCO A HUIZAR JR. Marital Status Med Service Ambulatory Surgery Acct# Arrival 04/23/2021 06:30:35 Visit Reason Surgery-Cystoscopy TURP with injection of Stem Cells Acuity LOS 025 01:57 Address: [address] [place] [address] [place] [id number] Comment: PROVIDER INFORMATION VITALS INFORMATION Vital Sign Triage Latest Temp Oral Temp Temporal Temp Intravascular Temp Axillary Temp Rectal 02 Sat 95 % 100 % Respiratory Rate Peripheral Pulse Rate Apical Heart Rate Blood Pressure / 91 mmHg / 100 mmHg Comment: MEDICAL INFORMATION Allergy Info: No known allergies Prescriptions Given: aspirin (aspirin 81 mg oral tablet) 1 tab(s) Oral every day. cephalexin (Keflex 500 mg oral capsule) 1 cap(s) Oral Every 8 hours for 5 Days. Refills: 0. levothyroxine (levothyroxine 100 mcg (0.1 mg) oral tablet) 1 tab(s) Oral every day. primidone (primidone 50 mg oral tablet) 2 tab(s) Oral once a day (at bedtime). traMADol (Ultram 50 mg oral tablet) 1 tab(s) Oral every 6 hours as needed as needed for pain. Refills: 0. triamcinolone topical (triamcinolone 0.1% topical cream) 1 jose Topical every day. Medication List: New Medications Printed Prescriptions cephalexin (Keflex 500 mg oral capsule) 1 cap(s) Oral Every 8 hours for 5 Days. Refills: 0. traMADol (Ultram 50 mg oral tablet) 1 tab(s) Oral every 6 hours as needed as needed for pain. Refills: 0. Medications That Were Updated - Follow Below Instructions Other Medications Updated: triamcinolone topical (triamcinolone 0.1% topical cream) 1 jose Topical every day. Medications to Continue That Have Not Changed Other Medications aspirin (aspirin 81 mg oral tablet) 1 tab(s) Oral every day. levothyroxine (levothyroxine 100 mcg (0.1 mg) oral tablet) 1 tab(s) Oral every day. primidone (primidone 50 mg oral tablet) 2 tab(s) Oral once a day (at bedtime). New Medications Printed Prescriptions cephalexin (Keflex 500 mg oral capsule) 1 cap(s) Oral Every 8 hours for 5 Days. Refills: 0. traMADol (Ultram 50 mg oral tablet) 1 tab(s) Oral every 6 hours as needed as needed for pain. Refills: 0. Medications That Were Updated - Follow Below Instructions Other Medications Updated: triamcinolone topical (triamcinolone 0.1% topical cream) 1 jose Topical every day. Medications to Continue That Have Not Changed Other Medications aspirin (aspirin 81 mg oral tablet) 1 tab(s) Oral every day. levothyroxine (levothyroxine 100 mcg (0.1 mg) oral tablet) 1 tab(s) Oral every day. primidone (primidone 50 mg oral tablet) 2 tab(s) Oral once a day (at bedtime). New Medications Printed Prescriptions cephalexin (Keflex 500 mg oral capsule) 1 cap(s) Oral Every 8 hours for 5 Days. Refills: 0. traMADol (Ultram 50 mg oral tablet) 1 tab(s) Oral every 6 hours as needed as needed for pain. Refills: 0. Medications That Were Updated - Follow Below Instructions Other Medications Updated: triamcinolone topical (triamcinolone 0.1% topical cream) 1 jose Topical every day. Medications to Continue That Have Not Changed Other Medications aspirin (aspirin 81 mg oral tablet) 1 tab(s) Oral every day. levothyroxine (levothyroxine 100 mcg (0.1 mg) oral tablet) 1 tab(s) Oral every day. primidone (primidone 50 mg oral tablet) 2 tab(s) Oral once a day (at bedtime). Comment: Lab and Radiology Results Laboratory or Other Results This Visit (last charted value for your 04/23/2021 visit) No Laboratory or Other Results This Visit DIET & ACTIVITY Patient Activity Level: Patient Diet: Patient Activity Restrictions: DISCHARGE INFORMATION Discharge Disposition: Discharge Location: DEPART REASON INCOMPLETE INFORMATION PATIENT EDUCATION INFORMATION Instructions: Follow up: With: Address: When: MARCO A HUIZAR JR. [address] [place] [address] [place] [id number] [facility] (1) DIAGNOSIS Bladder neck contracture Comment: PHYS DOC [facility]12-07-2021 Evaluation note* Encounter Date Diagnosis Assessment Notes Treatment Notes Treatment Clinical Notes Feb, Primary osteoarthritis of right knee (ICD-10 - M17.11) Feb, Other tear of medial meniscus, current injury, right knee, subsequent encounter (ICD-10 - S83.241D) Patient is progressing well from surgery. We discussed the importance of continuing to work on range of motion and strength exercise. Ice and elevate Call with questions or concerns Feb, Other specified postprocedural states (ICD-10 - Z98.890) [place] Other 11-30-2021 Evaluation note* Encounter Date Diagnosis Assessment Notes Treatment Notes Treatment Clinical Notes Jan, Other specified postprocedural states (ICD-10 - Z98.890) [place] Other 11-21-2021 Note [id number]2021 [facility] SURGERY Clinical Discharge Summary PERSON INFORMATION Name DEL MCMAHON Age 75 Years 1945 Sex MALE Language Somali PCP MARCO A HUIZAR JR. Marital Status Med Service Ambulatory Surgery Acct# Arrival 01/22/2021 07:47:00 Visit Reason SURGERY - LOCAL CYSTO Acuity LOS 011 22:47 Address: [address] [place] [address] [place] [id number] Comment: PROVIDER INFORMATION VITALS INFORMATION Vital Sign Triage Latest Temp Oral Temp Temporal Temp Intravascular Temp Axillary Temp Rectal 02 Sat 96 % 96 % Respiratory Rate Peripheral Pulse Rate Apical Heart Rate Blood Pressure / 69 mmHg / 69 mmHg Comment: MEDICAL INFORMATION Allergy Info: No known allergies Prescriptions Given: ciprofloxacin (Cipro 500 mg oral tablet) 1 tab(s) Oral Every 12 hours scheduled time for 3 Days. Refills: 0. levothyroxine (levothyroxine 100 mcg (0.1 mg) oral tablet) 1 tab(s) Oral every day. primidone (primidone 50 mg oral tablet) 2 tab(s) Oral once a day (at bedtime). Medication List: New Medications Printed Prescriptions ciprofloxacin (Cipro 500 mg oral tablet) 1 tab(s) Oral Every 12 hours scheduled time for 3 Days. Refills: 0. Medications to Continue That Have Not Changed Other Medications levothyroxine (levothyroxine 100 mcg (0.1 mg) oral tablet) 1 tab(s) Oral every day. primidone (primidone 50 mg oral tablet) 2 tab(s) Oral once a day (at bedtime). New Medications Printed Prescriptions ciprofloxacin (Cipro 500 mg oral tablet) 1 tab(s) Oral Every 12 hours scheduled time for 3 Days. Refills: 0. Medications to Continue That Have Not Changed Other Medications levothyroxine (levothyroxine 100 mcg (0.1 mg) oral tablet) 1 tab(s) Oral every day. primidone (primidone 50 mg oral tablet) 2 tab(s) Oral once a day (at bedtime). New Medications Printed Prescriptions ciprofloxacin (Cipro 500 mg oral tablet) 1 tab(s) Oral Every 12 hours scheduled time for 3 Days. Refills: 0. Medications to Continue That Have Not Changed Other Medications levothyroxine (levothyroxine 100 mcg (0.1 mg) oral tablet) 1 tab(s) Oral every day. primidone (primidone 50 mg oral tablet) 2 tab(s) Oral once a day (at bedtime). Comment: Lab and Radiology Results Laboratory or Other Results This Visit (last charted value for your 01/22/2021 visit) No Laboratory or Other Results This Visit DIET & ACTIVITY Patient Activity Level: Patient Diet: Patient Activity Restrictions: DISCHARGE INFORMATION Discharge Disposition: Home Discharge Location: Home DEPART REASON INCOMPLETE INFORMATION PATIENT EDUCATION INFORMATION Instructions: Follow up: With: Address: When: MARCO A HUIZAR JR. [address] [place] [address] Business (1) DIAGNOSIS OAB (overactive bladder) Comment: PHYS DOC [facility]11-02-2021 Evaluation note* Encounter Date Diagnosis Assessment Notes Treatment Notes Treatment Clinical Notes Jan, Acute pain of right knee (ICD-10 - M25.561) Jan, Other tear of medial meniscus, current injury, right knee, subsequent encounter (ICD-10 - S83.241D) MRI and xray reviewed with patient as medial meniscal tear as well as arthritis within the knee. Discussed that a menisectemy would address the meniscal tear, but not the arthritis, and he may continue to have some level of discomfort due to the arthritis. Patient was in understanding and wishes to proceed with surgery. We will plan on arthroscopy and menisectemy. We have discussed continued non-operative treatments including gentle exercise, use of medications and activity modification. Patient states that they would like to proceed with surgery at this time. We discussed the surgery process in detail including nothing by mouth 8 hrs prior to sugery, thorough washing of leg pior to coming to surgery. We discussed the multiple potential risks of anesthesia including respiratory, cardiac and patient positioning issues. We discussed the multiple risks of surgery particularly wound infection, deep venous thrombosis(DVT), persistent swelling, pain and stiffness after surgery, as well as worsening of pre-existing arthritic symptoms. Patient has agreed to understanding of these risks and would like to proceed. Jan, Primary osteoarthritis of right knee (ICD-10 - M17.11) Jan, Pre-op exam (ICD-10 - Z01.818) [facility] Other 10-12-2021 Evaluation note* Encounter Date Diagnosis Assessment Notes Treatment Notes Treatment Clinical Notes Dec, Other tear of medial meniscus of right knee as current injury, initial encounter (ICD-10 - S83.241A) Extensive discussion about current condition and treatment options available. MRI results reviewed with patient and . Discussed that patient not only has arthritis of the knee but also has a medial meniscal tear. I suspect that majority of symptoms are coming from meniscal tear. I recommend treating meniscal tear first and seeing how he does. Patient agreeable with plan. Patient will followup with Dr Nelson. In the meantime, patient instructed on use of anti-inflammatori es. Dec, Acute pain of right knee (ICD-10 - M25.561) Dec, Primary osteoarthritis of right knee (ICD-10 - M17.11) [facility] Other 07-21-2021 Note [id number]#1.00[facility]07-15-2021 [id number]#1.00[facility] 09-26-2020 [id number]#1.00[facility]07-14-2021 [id number]07-13-2021 [facility] SURGERY Clinical Discharge Summary PERSON INFORMATION Name DEL MCMAHON Age 75 Years 1945 Sex MALE Language Somali PCP MARCO A HUIZAR JR. Marital Status Med Service Ambulatory Surgery Acct# Arrival 09/25/2020 06:01:00 Visit Reason SURGERY - CYSTOSCOPY GREENLIGHT Acuity LOS 221 21:25 Address: [address] [place] [address] [place] [id number] Comment: PROVIDER INFORMATION VITALS INFORMATION Vital Sign Triage Latest Temp Oral Temp Temporal Temp Intravascular Temp Axillary Temp Rectal 02 Sat 96 % 100 % Respiratory Rate Peripheral Pulse Rate Apical Heart Rate Blood Pressure / 94 mmHg / 96 mmHg Comment: MEDICAL INFORMATION Allergy Info: No known allergies Prescriptions Given: cephalexin (Keflex 500 mg oral capsule) 1 cap(s) Oral Every 8 hours. Refills: 0. levothyroxine (levothyroxine 100 mcg (0.1 mg) oral tablet) 1 tab(s) Oral every day. multivitamin (Multivitamin, generic) 1 tab(s) Oral every day. primidone (primidone 50 mg oral tablet) 2 tab(s) Oral once a day (at bedtime). tamsulosin (tamsulosin 0.4 mg oral capsule) 1 cap(s) Oral 2 times a day. traMADol (Ultram 50 mg oral tablet) 1 tab(s) Oral every 6 hours as needed as needed for pain. Refills: 0. Medication List: New Medications Printed Prescriptions cephalexin (Keflex 500 mg oral capsule) 1 cap(s) Oral Every 8 hours. Refills: 0. traMADol (Ultram 50 mg oral tablet) 1 tab(s) Oral every 6 hours as needed as needed for pain. Refills: 0. Medications to Continue That Have Not Changed Other Medications levothyroxine (levothyroxine 100 mcg (0.1 mg) oral tablet) 1 tab(s) Oral every day. multivitamin (Multivitamin, generic) 1 tab(s) Oral every day. primidone (primidone 50 mg oral tablet) 2 tab(s) Oral once a day (at bedtime). tamsulosin (tamsulosin 0.4 mg oral capsule) 1 cap(s) Oral 2 times a day. No Longer Take the Following Medications finasteride (finasteride 5 mg oral tablet) 1 tab(s) Oral every day. New Medications Printed Prescriptions cephalexin (Keflex 500 mg oral capsule) 1 cap(s) Oral Every 8 hours. Refills: 0. traMADol (Ultram 50 mg oral tablet) 1 tab(s) Oral every 6 hours as needed as needed for pain. Refills: 0. Medications to Continue That Have Not Changed Other Medications levothyroxine (levothyroxine 100 mcg (0.1 mg) oral tablet) 1 tab(s) Oral every day. multivitamin (Multivitamin, generic) 1 tab(s) Oral every day. primidone (primidone 50 mg oral tablet) 2 tab(s) Oral once a day (at bedtime). tamsulosin (tamsulosin 0.4 mg oral capsule) 1 cap(s) Oral 2 times a day. No Longer Take the Following Medications finasteride (finasteride 5 mg oral tablet) 1 tab(s) Oral every day. New Medications Printed Prescriptions cephalexin (Keflex 500 mg oral capsule) 1 cap(s) Oral Every 8 hours. Refills: 0. traMADol (Ultram 50 mg oral tablet) 1 tab(s) Oral every 6 hours as needed as needed for pain. Refills: 0. Medications to Continue That Have Not Changed Other Medications levothyroxine (levothyroxine 100 mcg (0.1 mg) oral tablet) 1 tab(s) Oral every day. multivitamin (Multivitamin, generic) 1 tab(s) Oral every day. primidone (primidone 50 mg oral tablet) 2 tab(s) Oral once a day (at bedtime). tamsulosin (tamsulosin 0.4 mg oral capsule) 1 cap(s) Oral 2 times a day. No Longer Take the Following Medications finasteride (finasteride 5 mg oral tablet) 1 tab(s) Oral every day. Comment: Lab and Radiology Results Laboratory or Other Results This Visit (last charted value for your 09/25/2020 visit) No Laboratory or Other Results This Visit DIET & ACTIVITY Patient Activity Level: Patient Diet: Patient Activity Restrictions: DISCHARGE INFORMATION Discharge Disposition: Discharge Location: DEPART REASON INCOMPLETE INFORMATION PATIENT EDUCATION INFORMATION Instructions: [facility] Laser Prostate Treatment, Care After Follow up: With: Address: When: Follow up with family doctor about your elevated blood pressure during pre- admission testing and the day of surgery. With: Address: When: Sivakumar Garcia [address] [place] [address] [place] [id number] Business (1) With: Address: When: MARCO A HUIZAR JR. [address] [place], [place] [id number] Business (1) DIAGNOSIS BPH (benign prostatic hyperplasia) Comment: [facility] summary Author Dionte Rosa [facility] August 07, 2023 2:17pm Note Date/Time August 07, 2023 2:00p m [facility] [address] [place] [address] Discharge Summary Signed Patient: Del Mcmahon MR#: [id number] : 1945 Acct:[id number] Age/Sex: 78 / M Adm Date: 4 Loc: Room: [address] [place] [address]: Dionte Rosa DO Copies to: DO Dionte Campbell Jr, DO~ Providers Date of Admission: 08/05/23 Date of Discharge: 08/07/23 Discharging Provider: Dionte Rosa Primary Care Provider: Marco A Huizar Consults: 08/05/23 06:09 Consult to Occupational Therapy Routine Comment: Physician Instructions: Consult to OT for:: Evaluation and Treat Consult to Physical Therapy Routine Comment: Physician Instructions: Consult to PT for:: Evaluation and Treat Consult to Speech Therapy Routine Comment: Reason for ST Consult: Bedside Swallow Eval & Tx Diet per ST Recommendations: Yes Contact Physician Before Ordering Diet: No Modified Barium Swallow Study, If Recommended: Yes 08/05/23 06:41 Consult to Pulmonology Routine Comment: sent from Consulting Provider: Daljit Khalil Reason For Exam: L-sided pneumonia, concern for hilar mass on CT Has Provider Been Notified: Yes Date of Notification: 08/05/23 Time of Notification: 07:45 Discharge Diagnosis (1) Sepsis: (2) Pneumonia: Final Diagnosis Final Discharge Diagnosis: As above Summary Hospital Course Hospital course: Mr Mcmahon is a 78-year-old male who was admitted here from outside facility for concerns for a hilar/mediastinal mass and pneumonia seen on CT scan without contrast. 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 Upon evaluation here, the patient was continued on antibiotics for community-acquired pneumonia with ceftriaxone and azithromycin, he was requiring2 to 3 L nasal cannula and given there was concern for a hilar mass, pulmonologywas consulted. On further review of the imaging, it was deemed that without contrast it was unable to identify what the structure was per recommendations ofpulmonology, we treated him with a full course of antibiotics for community-acquired pneumonia and the patient is to follow-up with pulmonology in 4 to 6 weeks for a repeat CT scan of his chest with contrast to further delineate what this structure/mass is and then obtain of the plan of care from there. The patient was kept in the hospital, he received IV antibiotics as mentioned, the afternoon of August 06 the patient was saturating well on room air, his labs remained stable and he was subsequently discharged with 2 more days of oral antibiotics Augmentin and azithromycin. 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 The patient did have a few medication errors on his home meds from admission, helikes to note that he is not on tamsulosin and has not taken his metoprolol in quite some time. He does take primidone for essential tremors. He is on levothyroxine for his hypothyroidism. While he was admitted I did initiate amlodipine low-dose 5 mg for hypertension. Condition Condition at Discharge: Stable Time Spent with Patient Time spent providing/coordinating discharge services (# min): 35 Discharge Plan Discharge Plan Patient Disposition: Home Activity: No Activity Restriction Diet: Regular and Other Comment: See speech therapy recommendations below. Additional Instructions: Speech therapy recommendations: *Take pills whole, one at a time, with water *Sit upright at 90 degrees with all oral intake *Effortful swallow *Take small bites and sips *Alternate liquids and solids *Pace yourself and eat at a slow rate *Sit upright for 30 minutes after meals and snacks Repeat CT Chest in 6 weeks, an order has been sent electronically to [facility] and you will be provided with a copy of the order at discharge. Please call [facility] Central Scheduling at [phone] to schedule the imaging. It may requirea prior authorization through your insurance, Central Scheduling will initiate this if needed. Instructions: Know your Meds Prescriptions: New amlodipine 5 mg Tablet 5 mg PO DAILY 30 Days Qty: 30 0RF amoxicillin-pot clavulanate 875-125 mg tablet 1 tab PO BID Qty: 4 0RF azithromycin 500 mg tablet 500 mg PO DAILY 2 Days Qty: 2 0RF Rx Instructions: start on day 2 of therapy Continued primidone 50 mg tablet 150 mg PO QAM levothyroxine 100 mcg tablet 100 mcg PO DAILY primidone 250 mg tablet 500 mg PO QHS Discontinued One-A-Day Men's Multivitamin 400-20-300 mcg tablet 1 tab PO DAILY celecoxib 200 mg capsule 200 mg PO DAILY Rx Instructions: Wed & Sun hydroxychloroquine 200 mg tablet 200 mg PO DAILY terbinafine HCl 250 mg tablet 250 mg PO DAILY Other Ambulatory Orders: CT chest w con (Routine) Timeframe: 6 Weeks Location: Determined by Patient Ordered By: Giovanna Castillo Follow Up: Daljit Khalil MD [Active Staff] - 09/22/23 4:00 pm ( Please arrive at 3:30pm to complete paperwork. Chest CT needs completed within week prior to appointment.) Marco A Huizar JR, DO [Primary Care Provider] - 08/11/23 12:30 pm (You have been scheduled for a follow up appointment for the following date and time, please call to reschedule if needed.) Exam Physical Exam Vital Signs: Temp Pulse Resp BP Pulse Ox O2 Del Method O2 Flow Rate 98.5 F 65 22 165/82 H 93 L Room Air 1 08/07/23 08:30 08/07/23 08:30 08/07/23 08:30 08/07/23 08:30 08/07/23 08:30 08/07/23 08:30 08/06/23 08:30 Narrative: General: Awake alert, no acute distress HEENT: head atraumatic, normocephalic, moist mucous membranes Neck: supple no masses, no lymphadenopathy CVS: regular rate and rhythm, no murmurs or gallops Respiratory: Lung sounds are CTAB, did not really appreciate any rales or rhonchi over the area of question on the CT scan GI: soft, nondistended, nontender, positive bowel sounds with no organomegaly Extremity: moves all extremities, no restrictions of movements, no calf tenderness, no edema Neuro: AOx3, CN II-VII intact. Moves all extremities in all planes of motion. Skin: dry, intact no rashes or lesions Documented By: Dionte Rosa DO 08/07/23 1359 Signed By: <Electronically signed by Dionte Rosa DO> 08/07/23 1417 [facility] Work Phone: Evaluation note* Diagnosis Onset Date Resolution Status Pneumonia acute Sepsis acute [facility] Work Phone: Evaluation note* Diagnosis Onset Date Resolution Status Pneumonia resolved Sepsis resolved Hilar mass acute Pneumonia resolved [facility] Work Phone: Evaluation note* Diagnosis Neoplasm of unspecified behavior of bone, soft tissue, and skin- Primary documented in this encounter [facility] HealthcareEvaluation note* Diagnosis Other atopic dermatitis- Primary Actinic keratosis Capillary angioma Nevus, non-neoplastic Seborrheic keratosis Lentigines documented in this encounter [facility] HealthcareEvaluation note* Diagnosis Onychomycosis- Primary Dermatophytosis of nail Deformity of toenail Unspecified disease of nail Pre-ulcerative calluses Xerosis of skin documented in this encounter [facility] HealthcareEvaluation note* Diagnosis Pre-ulcerative calluses- Primary Onychomycosis Dermatophytosis of nail documented in this encounter [facility] HealthcareEvaluation note* Diagnosis Benign essential tremor- Primary Essential and other specified forms of tremor [facility] Diagnosis Benign essential tremor Essential and other specified forms of tremor documented [facility]* Diagnosis Essential tremor- Primary Sick sinus syndrome (CMS/HCC) Sinoatrial node dysfunction AICD (automatic cardioverter/defibrillator) present Automatic implantable cardiac defibrillator in situ documented in this encounter [facility] HealthcareEvaluation note* Diagnosis Benign essential tremor Essential and other specified forms of tremor [facility]* Diagnosis Onychomycosis Dermatophytosis of nail Deformity of toenail Unspecified disease of nail Pre-ulcerative calluses documented in this encounter [facility] HealthcareHistory general Narrative - Reported* Type Description Date Medical History thyroid disease Medical History enlarged prostate Surgical History prostate Surgical History cardiac pacemeker Surgical History kidney removed Hospitalization History See Above [facility] Other [facility] general Narrative - Reported* Type Description Date Medical History thyroid disease Medical History enlarged prostate Surgical History prostate Surgical History cardiac pacemeker Surgical History kidney removed Surgical History right knee scope wit h medial meniscectomy and chondral debridement (DOS 02/13/2021) Hospitalization History See Above [facility] Other [facility] general Narrative - Reported* Type Description Date Medical History thyroid disease Medical History enlarged prostate Surgical History prostate Surgical History cardiac pacemeker Surgical History kidney removed Surgical History right knee scope wit h medial meniscectomy and chondral debridement (DOS 02/13/2021) Surgical History Prostate Surgery 05/07 Hospitalization History See Above [facility] Other History of Present illness Narrative* Panchito Balderas MD - 02/03/2024 11:35 AM EST Images from the original note were not included. Lesions: Location: Left upper eyelid Duration: months Quality: denies bleeding Associated symptoms: growing quickly Treatments: none All pertinent medical history, medications, and allergies were reviewed. General Exam: alert, oriented to person, place, and time, normal affect, well appearing Unaccompanied A focused exam completed based on patient reported problems, see below: 1. Neoplasm of unspecified behavior of bone, soft tissue, and skin Left Supraorbital Region Hyperkeratotic papule Lesion biopsy Type of biopsy: tangential Informed consent: discussed and consent obtained Informed consent comment: The risks and benefits of the biopsy were discussed. Risks include but are not limited to bleeding, infection, scarring, pain, and nerve damage. An opportunity to ask questions prior to the procedure was permitted and all questions were answered. Patient was prepped and draped in usual sterile fashion: area cleansed with alcohol. Anesthesia: the lesion was anesthetized in a standard fashion Anesthetic: 1% lidocaine w/ epinephrine 1-100,000 buffered w/ 8.4% NaHCO3 Instrument used: DermaBlade Hemostasis achieved with: electrodesiccation Outcome: patient tolerated procedure well Outcome comment: The specimen was placed in a prelabeled formalin container to be sent for pathology Post-procedure details: sterile dressing applied and wound care instructions given Post-procedure details comment: Emphasized need to contact clinic for any signs of infection, uncontrollable bleeding, or complications. Dressing type: bandage Additional details: Photo taken yes Amount of lidocaine used: 0.5 cc Specimen A - Dermatopathology exam Differential Diagnosis: SCC vs ISK Check Margins: No Size of lesion: 1.4 x 1.0 cm Next Visit: pending biopsy results documented in this encounterRay [facility] HospitalInstructionsNot on filedocumented in this encounterProCleveland Clinic [facility] SystemInstructionsNot on filedocumented in this encounterKettering Health SpringfieldReason for visit Narrative* Auth/Cert Specialty Diagnoses / Procedures Referred By Jhonatan t Referred To Contact Diagnoses Unilateral primary osteoarthritis, right knee Pain in right knee M17.11 M25.561 Procedures SC ARTHROPLASTY KNEE CONDYLE AND PLATEAU MEDIAL OR LATERAL COMPARTMENT SC ARTHROPLASTY KNEE CONDYLE AND PLATEAU MEDIAL OR LATERAL COMPARTMENT Right medial unicompartmental knee arthroplasty Emani Holt MD [address] [place] [address] [address] [place] [address] Referral ID Status Reason Start Date Expiration Date Visits Re quested Visits Authorized [id number] 1 1 [facility] for visit Narrative* Consultation (Routine) - Closed Specialty Diagnoses / Procedures Referred By Contac t Referred To Contact Neurology Diagnoses Tremor, unspecified Procedures SC OFFICE/OUTPATIENT NEW LOW MDM 30 MINUTES Marco A Huizar MD [address] [facility] [place] [address] Phone: tel: fax: Shawn Lockett MD [address] [place] [address] Phone: tel: fax: Referral ID Status Reason Start Date Expiration Date V isits Requested Visits Authorized [id number] Closed Consult and Treat 04/29/2024 10/26/2024 1 1 [facility] Healthcare Summary Purpose Family History Relationship Condition Age at Onset Recorded Date/T mansi sister Hypertension Unknown Malignant neoplasm Unknown Unknown father Unknown Not Specified Unknown Relationship Condition Age at Onset Recorded Date/T mansi sister Hypertension Unknown Malignant neoplasm Unknown Unknown father Unknown mother Unknown Advance Directives Advance Directive Response Recorded Date/ Time Advance Directives No October 19, 2 021 4:54pm Latest Code Status on File Code Status Date Activated Date Inactivated Comments Full Code 05/06/2018 4:39 PM 05/06/2018 7:33 PM Date Activated Date Inactivated Comments 05/06/2018 4:39 PM 05/06/2018 7:33 PM Chief Complaint and Reason for Visit Chief Complaint Pneumonia Pneumonia Reason for Visit Pneumonia Sepsis Chief Complaint Pneumonia Pneumonia Pneumonia Hospital f/u- Pneumonia and Hilar Mass Reason for Visit Pneumonia Sepsis Hilar mass Pneumonia Chief Complaint Pneumonia Pneumonia Pneumonia Hospital f/u- Pneumonia and Hilar Mass n40.0 Reason for Visit Pneumonia Sepsis Hilar mass Pneumonia Additional Source Comments (unrecognized sect ion and content) No Status Records FoundNo Status Records FoundNo Status Records FoundNo Status Records FoundNo Status Records FoundNo Status Records FoundNo Status Records FoundNo Status Records FoundNo Status Records FoundNo Status Records Found INFORMATION SOURCE (unrecogn ized section and content) DATE CREATED AUTHOR 03/30/2020 [facility] DATE CREATED AUTHOR AUTHOR'S ORGANIZ ATION 05/09/2021 [facility] DATE CREATED AUTHOR AUTHOR'S ORGANIZ ATION 05/09/2021 [facility] DATE CREATED AUTHOR AUTHOR'S ORGANIZ ATION 02/10/2022 [facility] DATE CREATED AUTHOR AUTHOR'S ORGANIZ ATION 05/12/2023 [facility] DATE CREATED AUTHOR AUTHOR'S ORGANIZ ATION 08/08/2023 [facility] DATE CREATED AUTHOR AUTHOR'S ORGANIZ ATION 08/09/2023 [facility] DATE CREATED AUTHOR AUTHOR'S ORGANIZ ATION 10/05/2023 [facility] DATE CREATED AUTHOR AUTHOR'S ORGANIZ ATION 07/07/2024 [facility] DATE CREATED AUTHOR AUTHOR'S ORGANIZ ATION 07/08/2024 [facility] REASON FOR VISIT (unrecogniz ed section and content) Reason Comments Suspicious Skin Lesion Reason Comments Skin Check Reason Comments Med Refill Ordered Prescriptions (unrec ognized section and content) Prescription Sig Dispensed Refills Start Date End Da te ondansetron (ZOFRAN) 4 mg tablet Take 1 tablet (4 mg total) by mouth every 8 (eight) hours if needed for nausea or vomiting for up to 7 days. 20 tablet 0 02/10/2022 02/17/2022 aspirin 81 mg chewable tablet Chew 1 tablet (81 mg total) 2 (two) times a day. 1) Aspirin 81 mg, 1 tab PO BID for 6 weeks, Disp appropriate quantity. If patient is prescribed Arixtra/Lovenox/Xarel to, do not begin Aspirin until that medication is finished and then Aspirin only needs to be taken for 4 weeks. 84 each 0 02/11/2022 03/25/2022 oxyCODONE (ROXICODONE) 5 mg immediate release tablet Take 1-2 tablets (5-10 mg total) by mouth every 4 (four) hours if needed for moderate pain or severe pain for up to 7 days. Dx: Z96.6 Max Daily Amount: 60 mg 40 tablet 0 02/10/2022 02/17/2022 traMADoL (ULTRAM) 50 mg tablet Take 1-2 tablets (50-100 mg total) by mouth every 6 (six) hours if needed for moderate pain for up to 7 days. Dx: Z96.6 Max Daily Amount: 400 mg 40 tablet 0 02/10/2022 02/17/2022 acetaminophen (TYLENOL) 500 mg tablet Take 2 tablets (1,000 mg total) by mouth 3 (three) times a day for 7 days. Take every 8 hours for one week, then as needed. Do not exceed 3,000 mg daily limit. 50 tablet 0 02/10/2022 02/17/2022 cephalexin (KEFLEX) 500 mg capsule Take 1 capsule (500 mg total) by mouth 3 (three) times a day for 3 doses. 3 capsule 0 02/10/2022 02/11/2022 Scheduled Active and Recently Administ ered Medications (unrecognized section and content) Medication Order 02/08/2022 02/09/2022 02/10/2022 acetaminophen (TYLENOL) tablet 1,000 mg 1,000 mg, oral, Every 6 hours scheduled, First dose on Thu02/10/22 at 1200, Recovery & On Unit 1200 (Canceled Entry - Provider: Automatic Discharge Provider - Comment: Automatically canceled at discontinue of medication order) aspirin EC tablet 81 mg 81 mg, oral, 2 times daily, First dose on Thu02/11/22 at 0900, For 42 days, Phase II/On Unit, Do not crush, chew, or split. ceFAZolin (ANCEF) 2 gram/20 mL IV syringe 2 g (COMPLETED) 2 g, intravenous, Administer over 3 Minutes, Once, On Thu02/10/22 at 0545, For 1 dose, Preprocedure, Administer within 60 minutes of incision For pt under 120 KG, Indication: Prophylaxis-Surgical 0642 (Given - Provid er: CRISTIANA Martinez) ceFAZolin (ANCEF) 2 gram/20 mL IV syringe 2 g 2 g, intravenous, Administer over 3 Minutes, Every 8 hours, First dose on Thu02/10/22 at 1400, For 2 doses, Recovery & On Unit, Indication: Prophylaxis-Surgical celecoxib (CeleBREX) capsule 200 mg (COMPLETED) 200 mg, oral, Once, On Thu02/10/22 at 0545, For 1 dose, Preprocedure, If not allergic to NSAIDs 0555 (Given - Provid er: Kiya Bowles RN) dexamethasone (DECADRON) injection 10 mg 10 mg, intravenous, Once, On Thu02/10/22 at 0545, For 1 dose, Preprocedure 0545 (Canceled Entry - Provider: Automatic Discharge Provider - Comment: Automatically canceled at discontinue of medication order) lactated Ringer's infusion (COMPLETED) 100 mL/hr, intravenous, Once, On Thu02/10/22 at 0545, For 1 dose, Preprocedure 0555 (New Bag - Prov ider: Kiya Bowles RN) sodium chloride 0.9 % flush 10 mL(Linked Group 1) 10 mL, intravenous, 2 times daily, First dose on Thu02/10/22 at 0900, Recovery & On Unit 0900 (Canceled Entry - Provider: Automatic Discharge Provider - Comment: Automatically canceled at discontinue of medication order) tranexamic acid (CYKLOKAPRON) injection 1,000 mg (COMPLETED) 1,000 mg, intravenous, Administer over 10 Minutes, Once, On Thu02/10/22 at 0545, For 1 dose, Preprocedure, Not to exceed 100 mg (1 mL) per minute., Tranexamic Acid Indication: Surgical Prophylaxis: Orthopedic 0642 (Given - Provid er: CRISTIANA Martinez) Continuous Medication Order 02/08/2022 02/09/2022 02/10/2022 Oxygen Therapy, Adult inhalation, Continuous, Starting on Thu02/10/22 at 0800, Recovery (only), Device: Nasal Cannula, Keep O2 Sat Above: 92% 0800 (Canceled Entry - Provider: Automatic Discharge Provider - Comment: Automatically canceled at discontinue of medication order) PRN Medication Order 02/08/2022 02/09/2022 02/10/2022 albuterol 2.5 mg /3 mL (0.083 %) nebulizer solution 2.5 mg 2.5 mg, nebulization, Once as needed, wheezing, Starting on Thu02/10/22 at 0735, For 1 dose, Recovery (only) diphenhydrAMINE (BENADRYL) injection 25 mg 25 mg, intravenous, Every 15 min PRN, itching, Starting on Thu02/10/22 at 0735, For 2 doses, Recovery (only) EPINEPHrine (ADRENALIN) injection (CANCELED) As needed, Starting on Thu02/10/22 at 0724, Intraprocedure 0724 (Given - Provid er: Emani Holt MD) hydrALAZINE (APRESOLINE) injection 5 mg 5 mg, intravenous, Every 10 min PRN, systolic BP greater than:, 190, Starting on Thu02/10/22 at 0735, For 4 doses, Recovery (only), As needed for: -SBP GREATER than 190 mmHg -DBP GREATER than 100 mmHg HYDROmorphone (DILAUDID) injection 0.5 mg 0.5 mg, intravenous, Every 5 min PRN, severe pain, Starting on Thu02/10/22 at 0735, For 6 doses, Recovery (only), 1st line for severe pain meperidine (DEMEROL) 50 mg/mL injection 12.5 mg 12.5 mg, intravenous, Every 15 min PRN, rigors, shivering, Starting on Thu02/10/22 at 0735, For 4 doses, Recovery (only) ondansetron (PF) (ZOFRAN) injection 4 mg(Linked Group 2) 4 mg, intravenous, Every 8 hours PRN, vomiting, nausea, Starting on Thu02/10/22 at 0735, Recovery (only), -ONLY give IV if patient is unable to take orally. -If inadequate response within 30 minutes, proceed to next-line agent or contact provider if no further options ordered. ondansetron ODT (ZOFRAN-ODT) disintegrating tablet 4 mg(Linked Group 2) 4 mg, oral, Every 8 hours PRN, vomiting, nausea, Starting on Thu02/10/22 at 0735, Recovery (only), -Give IV if patient is unable to take orally. -If inadequate response within 30 minutes, proceed to next-line agent or contact provider if no further options ordered. For ODT tablets: -Do not remove from blister pack until just before administering. -Patient should allow tablet to dissolve on tongue. oxyCODONE (ROXICODONE) immediate release tablet 5 mg 5 mg, oral, Every 4 hours PRN, Breakthrough pain, Starting on Thu02/10/22 at 0757, Recovery & On Unit, May consider scheduled oxyCODONE instead of PRN oxyCODONE-acetaminophen (PERCOCET) 5-325 mg per tablet 1 tablet 1 tablet, oral, Every 4 hours PRN, moderate pain, Starting on Thu02/10/22 at 0735, For 2 doses, Recovery (only) 0838 (Given - Provid er: Daljit Mc RN) ropivacaine (NAROPIN) 0.5 % injection (CANCELED) As needed, Starting on Thu02/10/22 at 0724, Intraprocedure 0724 (Given - Provid er: Emani Holt MD) sodium chloride 0.9 % flush 10 mL(Linked Group 1) 10 mL, intravenous, As needed, line care, Starting on Thu02/10/22 at 0757, Recovery & On Unit sodium chloride 0.9 % irrigation solution (CANCELED) As needed, Starting on Thu02/10/22 at 0724, Intraprocedure 0724 (Given - Provid er: Emani Holt MD) vancomycin (VANCOCIN) vial for injection (CANCELED) As needed, Starting on Thu02/10/22 at 0724, Intraprocedure 0724 (Given - Provid er: Emani Holt MD - Comment: mixed in cement) Linked Groups Order Group 1: Insert peripheral IV (CANCELED) STAT, Once, On Thu02/10/22 at 0758, For 1 occurrence
Recovery & On Unit And Maintain IV access (CANCELED) Until discontinued, Starting on Thu02/10/22 at 0758, Until Specified
Recovery & On Unit And Saline lock IV (CANCELED) Routine, Once, On Thu02/10/22 at 0758, For 1 occurrence
When tolerating PO fluids, Recovery & On Unit And sodium chloride 0.9 % flush 10 mLJump to med 10 mL, intravenous, 2 times daily, First dose on Thu02/10/22 at 0900, Recovery & On Unit And sodium chloride 0.9 % flush 10 mLJump to med 10 mL, intravenous, As needed, line care, Starting on Thu02/10/22 at 0757, Recovery & On Unit Group 2: ondansetron ODT (ZOFRAN-ODT) disintegrating tablet 4 mgJump to med 4 mg, oral, Every 8 hours PRN, vomiting, nausea, Starting on Thu02/10/22 at 0735, Recovery (only)
-Give IV if patient is unable to take orally. -If inadequate response within 30 minutes, proceed to next-line agent or contact provider if no further options ordered. For ODT tablets: -Do not remove from blister pack until just before administering. -Patient should allow tablet to dissolve on tongue.
Or ondansetron (PF) (ZOFRAN) injection 4 mgJump to med 4 mg, intravenous, Every 8 hours PRN, vomiting, nausea, Starting on Thu02/10/22 at 0735, Recovery (only)
-ONLY give IV if patient is unable to take orally. -If inadequate response within 30 minutes, proceed to next-line agent or contact provider if no further options ordered.
Care Teams (unrecognized sec tion and content) Powder Worker Tnt Relationship Specialty Start Date End Date Marco A Huizar DO [address] [place] [phone] PCP - General Internal Medicine 01/23/22 Team Status: Active Member Role Status Dates Marco A Huizar JR DO Primary Care Provider Active Team Status: Inactive Member Role Status Dates Marco A Huizar JR DO Primary Care Provider Active Start: August 05, 2023 End: August 07, 2023 Andrés Fisher MD Admit Provider Active Start: August 05, 2023 End: August 07, 2023 Daljit Khalil MD Other Provider Active Start: August 05, 2023 End: August 07, 2023 Dionte Rosa DO Attending Provider Active St art: August 05, 2023 End: August 07, 2023 Team Status: Active Member Role Status Dates Marco A Huizar JR DO Primary Care Provider Active Start: August 05, 2023 Andrés Fisher MD Admit Provider Active Start: August 05, 2023 Dionte Rosa DO Other Provider Active Start: August 05, 2023 Daljit Khalil MD Attending [facility] ov[facility], Other Provider Active Start: August 05, 2023 Team Status: Active Member Role Status Dates Marco A Huizar JR DO Primary Care Provider Active Start: August 05, 2023 End: August 07, 2023 Andrés Fisher MD Admit Provider Active Start: August 05, 2023 End: August 07, 2023 Dionte Rosa DO Other Provider Active Start: August 05, 2023 End: August 07, 2023 Daljit Khalil MD Attending Pr enmaer, Other Provider Active Start: August 05, 2023 End: August 07, 2023 Team Status: Inactive Member Role Status Dates Marco A Huizar JR DO Primary Care Provider Active Start: September 11, 2023 End: September 11, 2023 Giovanna Castillo APRN [facility] Attending Provider Active Start: September 11, 2023 End: September 11, 2023 Team Status: Inactive Member Role Status Dates Marco A Huizar JR DO Primary Care Provider Active Start: September 22, 2023 End: September 22, 2023 Daljit Khalil MD Attending Provider Active Start: September 22, 2023 End: September 22, 2023 Team Status: Inactive Member Role Status Dates Marco A Huizar JR DO Primary Care Provider Active Start: October 02, 2023 End: October 02, 2023 Sivakumar Garcia MD Attending Provider Active Start: October 02, 2023 End: October 02, 2023 Powder Worker Tnt Relationship Specialty Start Date End Date Marco A Huizar MD [address] [place] [id number] PCP - General Internal Medicine 05/14/23 Powder Worker Tnt Relationship Specialty Start Date End Date Marco A Huizar MD [facility] [place], [place] [phone] PCP - General Internal Medicine 05/14/23 Powder Worker Tnt Relationship Specialty Start Date End Date Marco A Huizar MD [address] [place], [place] [phone] PCP - General Internal Medicine 05/14/23 Powder Worker Tnt Relationship Specialty Start Date End Date Marco A Huizar MD [facility] [place] [address] PCP - General Internal Medicine 05/14/23 Powder Worker Tnt Relationship Specialty Start Date End Date Marco A Huizar MD [address] [place] [id number] PCP - General Internal Medicine 05/14/23 Powder Worker Tnt Relationship Specialty Start Date End Date Marco A Huizar MD [address] [place] [id number] PCP - General Internal Medicine 05/14/23 Powder Worker Tnt Relationship Specialty Start Date End Date Marco A Huizar Jr., [address] [place] [id number] PCP - General Internal Medicine 09/15/16 Powder Worker Tnt Relationship Specialty Start Date End Date Marco A Huizar MD [address] [place] [id number] PCP - General Internal Medicine 05/14/23 Daljit Perez DO [address] [place] [phone] Referring Physician Neurology 05/05/24 Powder Worker Tnt Relationship Specialty Start Date End Date Marco A Huizar MD [address] [place] [id number] PCP - General Internal Medicine 05/14/23 Powder Worker Tnt Relationship Specialty Start Date End Date Marco A Huizar Jr., [address] [place] [id number] PCP - General Internal Medicine 09/15/16 Powder Worker Tnt Relationship Specialty Start Date End Date Marco A Huizar MD [address] [place] [address] [id number] PCP - General Internal Medicine 05/14/23 Daljit Perez DO [address] [phone] Referring Physician Neurology 05/05/24 Powder Worker Tnt Relationship Specialty Start Date End Date Marco A Huizar MD [facility] [place] [address] PCP - General Internal Medicine 05/14/23 Daljit Perez DO [address] [phone] Referring Physician Neurology 05/05/24 FOR RECORDS PERTAINING TO PATIENTS WHO ARE OR HAVE BEEN ENROLLED IN A CHEMICAL DEPENDENCY/SUBSTANCEABUSE PROGRAM, SOME INFORMATION MAY BE OMITTED. This clinical summary was aggregated from multiple sources. Caution should be exercised in using it in the provision of clinical care. This summary normalizes information from multiple sources, and as a consequence, information in this document may materially change the coding, format and clinical context of patient data. In addition, data may be omitted in some cases. CLINICAL DECISIONS SHOULD BE BASED ON THE PRIMARY CLINICAL RECORDS. [employer] [facility]. provides no warranty or guarantee of the accuracy or completeness of information in this document.
== END 2024-07-19 08:53 ==
PROVIDERS: PCP Internal Medicine; Visit Provider Internal Medicine Cardiovascular Disease
DX: E78.00 Pure hypercholesterolemia, unspecified (principal); E03.9 Hypothyroidism, unspecified
CPT/HCPCS: 36415; 80061; 84443; 84450; 84460

== ENCOUNTER 2024-11-03 09:32 | Outpatient (OUT) | payer MEDICARE, OTHER, SELFPAY ==
--- NOTE | 2024-11-03 09:30 | CA_ITS ---
Patient Name: DEL MCMAHON MR#: [id number] : 1945 Exam Date: 11/03/2024 Ordering Doctor: DR. TIM PARADA M.D. ECHOCARDIOGRAM REPORT PROCEDURE: CA ECHO DOPPLER COMPLETE INDICATIONS: Ascending aortic aneurysm, hypertension COMPARISON: None. DESCRIPTION: COMPLETE ECHOCARDIOGRAM Real-time transthoracic echocardiography with 2D, M-mode, spectral and color flow Doppler performed. QUALITY: Technical quality was good. LEFT VENTRICLE: Normal chamber size. Proximal septal hypertrophy (sigmoid septum). LV EF: Global left ventricular systolic function is normal; visually estimated ejection fraction is 60-65 %. Calculated left ventricular ejection fraction is 66%. No significant wall motion abnormalities. DIASTOLIC: Normal diastolic function. ATRIAL SEPTUM: Visually appears intact. LEFT ATRIUM: Normal chamber size. RIGHT ATRIUM: Mild dilation. RIGHT VENTRICLE: Normal chamber size. Normal right ventricular systolic function. TRICUSPID VALVE: Normal mobility and thickness. No stenosis with mild regurgitation. Doppler studies reveal mildly (35-45) elevated right sided pressures. RVSP 40 mmHg MITRAL VALVE: Normal mobility and thickness. No evidence of mitral valve stenosis. There is no mitral annular calcification. Trivial mitral regurgitation. AORTIC VALVE: Normal trileaflet appearance. Thickened aortic valve. Normal leaflet mobility. No evidence of aortic valve stenosis. No aortic regurgitation. AORTIC ROOT: Normal diameter and appearance. Ascending aorta is mildly dilated (4.2 cm). Aortic arch is normal in size. PULMONIC VALVE: Normal thickness and mobility. No stenosis. Mild regurgitation. PERICARDIUM: Anterior free space; trivial effusion versus fat pad. IVC: IVC is dilated (2.6 cm), does not fully collapse. CONCLUSION: 1. Global left ventricular systolic function is normal; visually estimated ejection fraction is 60 to 65% 2. Normal right ventricular size and systolic function 3. The right atrium is mildly dilated 4. Normal diastolic function 5. Mild tricuspid regurgitation 6. Mildly elevated right ventricular systolic pressure; RVSP 40 mmHg 7. Mild pulmonic regurgitation 8. The ascending aorta is mildly dilated measuring 4.2 cm 9. Anterior free space; trivial effusion versus fat pad Adult Echocardiography Procedure Report Left Ventricle LVEDD (3.7 - 5.6 cm): 4.21 cm LVESD (2.2 - 4.0 cm): 3.05 cm LVIVS thickness (0.6 - 1.2 cm): 1.51 cm LVPW thickness (0.5 - 1.0 cm): 1.13 cm e': 0.06 m/s E - e': 9.83 LVOT Max Gradient: 5.27 mm[Hg] LVOT Area (cm2): 1.15 m/s Peak Velocity (LVOT): 1.15 m/s Mean Velocity (LVOT): 0.71 m/s LVOT Diameter 2.41 cm Left Ventricular Ejection Fraction: 66.49 % Left Atrium LA Volume Index (2D A2C): 25.53 ml/m2 Left Atrium Systolic Dimension: 3.54 cm Mitral Valve MV E to A Ratio: 0.61 Mitral Valve A-Wave Peak Velocity: 0.95 m/s Mitral Valve E-Wave Peak Velocity: 0.58 m/s Right Ventricle Aorta AO Root Diam: 4.16 cm Ascending Ao Diam: 4.23 cm Aortic Valve AoV Area (Peak Bar): 3.88 cm2, 3.88 cm2 AoV Area (VTI): 4.01 cm2, 4.01 cm2 Peak Velocity(Antegrade Flow): 1.35 m/s Peak Gradient(Antegrade Flow): 7.24 mm[Hg] Mean Velocity(Antegrade Flow): 0.91 m/s Mean Gradient(Antegrade Flow): 3.78 mm[Hg] Velocity Time Integral: 27.75 cm Tricuspid Valve Peak Velocity (Regurgitant Flow): 2.21 m/s, 2.50 m/s, 2.11 m/s, 2.23 m/s Pulmonic Valve Peak Velocity: 0.79 m/s Peak Gradient: 2.50 mm[Hg] Right Atrium Right Atrium Systolic Pressure: 58.91 ml, 58.91 ml Dictated by: Romina Garcia M.D. on 11/03/2024 at 15:55 Approved by: Romina Garcia M.D. on 11/03/2024 at 15:59
--- OUTSIDE RECORDS SUMMARY | 2024-11-03 09:37 | XMS_ITS | CCD ---
Author Organization [facility] CliniSyor Care Team Providers Care Fell Cutter Name Role Phone DR MARCO A HUIZAR [...] JR Marco A Huizar Primary Care Provider MD Andrés Fisher Admit Provider MD Daljit Khalil Other Provider [phone] DO Dionte Rosa Attending Provider AURELIO ROUSSEAU [...] BURR Attending Unavailable KRISTIE BURR Referring Unavailable MARCO A HUIZAR JR Primary Care Unavailable MAYA Castillo Attending [...] UnavailMarco A Saunders MD Primary Care Provider [phone] Gaye Flores DO, Charles L Primary Care Provider Daljit Perez DO Unavailable Gaye Flores DO, Charles L Primary Care Provider AURELIO LOERA Referring Unavailable BLAKE MERINO Attending Unavailable AURELIO LOERA Referring Unavailable TIM PARADA Attending Unavailable RAYMOND VINES Attending Unavailable DALJIT PEREZ Attending Unavailable MARCO A HUIZAR Referring Unavailable RAYMOND VINES Attending Unavailable RAYMOND VINES Attending Unavailable RAYMOND VINES Attending Unavailable PANCHITO BALDERAS Attending Unavailable PANCHITO BALDERAS Attending Unavailable Allergies Allergy Classification Reported Allergen(s) Allergy Type Date of Onset Reaction(s) Facility (20 sources) Diclofenac; Translations: [DICLOFENAC SODIUM] Drug Allergy 02-10-2022 [facility] Medications Current Medications Medication Drug Class(es) [...] 81 mg celecoxib 200 mg oral capsule (20 sources) Nonsteroidal Anti-inflammatory Drug Start: 07-06-2023 End: [...] daily Levothyroxine Active 100 MCG PO Daily February 05, 2021 1:00am levothyroxine (S YNTHROID, LEVOTHROID) 75 MCG tablet Take 100 mcg by mouth daily. Active take 1 tablet by nubia th once daily in the morning Levothyroxine Sodium 100 MCG 1 tablet in the morning on an empty stomach Orally Once a day Active levothyroxine (Synthroid, Le voxyl) 37.5 mcg split tablet (17 sources) levothyroxine (S ynthroid, Levoxyl) 37.5 mcg [...] day Active tolnaftate 10 mg/ml topical solution (8 sources) tolnaftate (Kendra ctin) 1 % external [...] Active triamcinolone acetonide 1 mg/ml topical cream (17 sources) Corticosteroid Start: 03-30-2023 triamcinolone (Kenalog) 0.1 [...] mg by mouth in the morning. Active Mkgbuwxr-Oef-Obfhy-Vit K-Lycop (One-A-Day Men's Multivitamin) 400-20-300 mcg tablet (3 sources) Start: 08-05-2023 End: 08-07-2023 take 1 tablet by mouth once daily Zicytbyx-Uhw-Fhqid-Vit K-Lycop (One-A-Day Men's Multivitamin) 400-20-300 mcg tablet Discontinued 1 TAB PO Daily August 05, 2023 12:00am August 07, 2023 9:54am nystatin 100 unt/mg topical powder (1 source) Polyene Antifungal Start: 12-16-2023 End: 01-15-2024 nystatin (Mycostatin) [id number] UNIT/GM powder Indications: Onychomycosis Apply 1 application [...] of cardiac pacemaker] Onset: 01-19-2019 05-14-2023 Chronic Disorders of lipid metabolism (2 sources) Pure hypercholesterolemia, unspecified; Translations: [Pure hypercholesterolemia, unspecified] Onset: 07-15-2024 Chronic E Codes: Fall (1 source) Fall Onset: 08-04-2023 Malaise and fatigue (1 source) Weakness; Translations: [Weakness] Onset: 08-04-2023 Episodic Mycoses (4 sources) Onychomycosis; Translations: [Tinea unguium] 04-06-2024 Episodic [...] melanin hyperpigmentation] 03-31-2024 Episodic Other skin disorders (3 sources) Nail deformity; Translations: [Other nail disorders] 04-06-2024 Episodic Other skin disorders (4 sources) Callosity; Translations: [Corns and callosities] 04-06-2024 Episodic Other skin disorders (1 source) Asteatosis cutis; Translations: [Xerosis cutis] 04-06-2024 Episodic Pneumonia (except that caused by tuberculosis or sexually transmitted disease) (10 sources) Pneumonia; Translations: [Pneumonia, unspecified organism] Onset: 08-04-2023 08-05-2023 Episodic Respiratory failure; insufficiency; arrest (adult) (1 source) Acute respiratory failure with hypoxia; Translations: [Acute respiratory failure with hypoxia] Onset: 08-04-2023 Episodic Septicemia (except in labor) (7 sources) Sepsis; Translations: [Sepsis, unspecified organism] Onset: 08-05-2023 08-05-2023 Episodic Thyroid disorders (19 sources) Hypothyroidism; Translations: [Hypothyroidism, unspecified] Onset: 01-19-2019 05-14-2023 Chronic Unclassified (1 source) Weakness - Generalized Onset: 08-04-2023 Unclassified (1 source) EMS Onset: 08-04-2023 Unclassified (1 source) Aneurysm of the ascending aorta, without rupture; Translations: [Aneurysm of the ascending aorta, without rupture] Onset: 07-15-2024 Past or Other Problems Problem Classification Problem Date Documented Date Episodic/Chronic Joint disorders and dislocations; trauma-related (4 sources) [...] of the ascending aorta, without rupture] Onset: 07-15-2024 Results Test Name Value Interpretation Reference Range Facility 36on 08-17-2024 36 Regarding lab result s from 07/19/2024: MD Jessica Romeo MA Cholesterol is high. In the presence of ascending aortic aneurysm he should be on statin therefore start him on Lipitor 20 mg daily with low-fat diet and recheck lipids and AST ALT in 2 months. for patient to return my call. Normal [facility] Office Visiton 07-15-2024 Follow-up visit [id number] Del Mcmahon 1945 M Date Provider Department Center 07/15/2024 [id number] PARADA JARVIS Michelle Family History Problem Relation Age of Onset Hypertension Sister Family Status - Relation Status Age at Sister Level of Service:71489 [place] OFFICE/OUTPATIENT ESTABLISHED MOD [facility] 30 MIN Reason for Visit and Comments: Hypertension [215040] - Had routine labs with lipid panel in May 2024. He does not take amlodipine anymore and he isn't sure why. His pharmacy confirmed it hasn't been filled since July 2023. aneurysm [Other] symptomatic bradycardia s/p PPM [Other] - Device was routinely interrogated in the office last week. Denies chest pain, SOB, palpitations, and lightheadedness/syncope. [facility] No Panel Informationon 03-31 [facility] No Panel Informationon 02-02 Type of biopsy: [...] yes Amount of lidocaine used: 0.5 cc [facility] No Panel InformationOrdered By: Jayashree De La Cruz on 02-03-2024 [facility] Office Visiton 02-02-2024 Follow-up visit [id number] Del Mcmahon 1945 M Date Provider Department Center 02/02/2024 [facility] Family History Problem Relation Age of Onset Hypertension Sister Family Status - Relation Status Age at Sister Level of Service:25146 [place] OFFICE/OUTPATIENT ESTABLISHED LOW MDM 20 MIN Reason for Visit and Comments: Aortic Aneurysm [452] Hypertension [335292] Normal [facility] PSA Total (Not a Screen)on 0 10-02-2023 PSA Total (Not a Screen) 0.850 ng/mL Normal 0.000-4.00 0 [facility] Comment on above: Result Comment: Gustavo al tumor marker results determined by assays using different manufacturers or methods may not be comparable. [facility] attendant children's institution and method: Flow[employer] DXI, CHEMILUMINESCENT IMMUNOASSAY. PERFORMED BY: [place] [address] PATHOLOGIST SALES DEVELOPMENT DIRECTOR KERLINE PRICE M.D. Performed By: #### C MP, PT, PTT, DIFF CBC #### [facility] [address] [place] [address] Prostate specific Ag [Mass/v olume] in Serum or PlasmaOrdered By: Sivakumar Garcia on 10-02-2023 Prostate specific Ag [Mass/Vol] 0.850 ng/mL 0.000-4.00 0 [facility] Comment on above: Serial tumor marker results determined by assays using different manufacturers or methods may not be comparable.[facility] attendant children's institution and method:Peoplefilter TechnologyEL DXI, CHEMILUMINESCENT IMMUNOASSAY. 36on 10-01-2023 36 Please let him know his ECHO shows his aortic aneurysm is stable, no change in size. Recommend yearly ECHOs for follow-up along with strict BP control (<130/90). The rest of his ECHO looked good, every thing was normal. F/U as planned. Thanks! Normal [facility] Telephoneon 10-01-2023 Telephone [id number] Del Mcmahon 1945 M Date Provider Department Center 10/01/2023 [facility] Family History Problem Relation Age of Onset Hypertension Sister Family Status - Relation Status Age at Sister Normal [facility] CT chest w conon 09-11-2023 CT chest w con [facility] [place] [address] [place] [address] CT Scan Report Signed Patient: Del Mcmahon MR#: [id number] : 1945 Acct:[id number] Age/Sex: 78 / M ADM Date: 09/11/23 Loc: CT Room: Type: [facility] Attending Dr: TOD Metcalf APRN Copies to: [...] Chi Morrow M.D.09/11/2023 3:07 PM Dictation Location: [place] [address] Transcribed By: [facility] 09/11/23 1507 Dictated By: Chi Morrow DO 09/11/23 1500 Signed By: 09/11/23 1507 Normal [facility] ISTAT XRay CREon 09-11-2023 ISTAT GFR > 60.0 Normal [facility] Comment on above: Result Comment: PERF ORMED BY: [place] [address] PATHOLOGIST SALES DEVELOPMENT DIRECTOR KERLINE PRICE M.D. Performed By: #### I SCRE #### [address] No Panel InformationOrdered By: Giovanna Castillo on 09-11-2023 Bedside Estimated GFR (eGFR) > 60.0 [facility] Whole blood creatinine measu rementOrdered By: Giovanna Castillo on 09-11-2023 Creatinine [Mass/Vol] 1.1 mg/dL Normal 0.6-1.3 [facility] Comment on above: ER/ESD physician is notified/shown all ISTAT results.Critical values may be confirmed by laboratory testing ifdeemed necessary by ER attending doctor. Result Comment: ER/E SD physician is notified/shown all ISTAT results. Critical values may be confirmed by laboratory testing if deemed necessary by ER attending doctor. Performed By: #### I SCRE #### [facility] [address] [place] [address] Basic Metabolic Panelon 07-15 Creatinine Clr Calc Pharmacy 71.50 Normal [facility] Comment on above: Performed By: #### C BCNO, BMP, MG #### [address] GFR/1.73 sq M.predicted MDRD (S/P/Bld) [Vol rate/Area] mL/min/{1.73_m2} Normal [facility] Comment on above: Performed By: #### C BCNO, BMP, MG #### [facility] [address] Calcium [Mass/volume] in Ser um or PlasmaOrdered By: Dionte Rosa on 08-06-2023 Calcium [Mass/Vol] 7.8 mg/dL Low 8.6-10.3 [facility] Comment on above: Performed By: #### C BCNO, BMP, MG #### [facility] [address] Carbon dioxide, total [Moles /volume] in Serum or PlasmaOrdered By: Dionte Rosa on 08-06-2023 CO2 [Moles/Vol] 20.6 mmol/L Low 21.0-31.0 [facility] Comment on above: Performed By: #### C BCNO, BMP, MG #### [facility] [address] Chloride [Moles/volume] in S gonzalo or PlasmaOrdered By: Dionte Rosa on 08-06-2023 Chloride [Moles/Vol] 105 mmol/L Normal 98-107 [facility] Comment on above: Performed By: #### C BCNO, BMP, MG #### [address] Creatinine [Mass/volume] in Serum or PlasmaOrdered By: Dionte Rosa on 08-06-2023 Creatinine [Mass/Vol] 1.05 mg/dL Normal 0.70-1.30 [facility] Comment on above: Performed By: #### C BCNO, BMP, MG #### [address] Erythrocyte distribution wid th [Ratio] by Automated countOrdered By: Dionte Rosa on 08-06-2023 Erythrocyte distribution width (RBC) [Ratio] 13.8 % Normal 12.0-14.8 [facility] Comment on above: Performed By: #### C BCNO, BMP, MG #### [facility] [address] [place] [address] [place] Erythrocytes [#/volume] in B lood by Automated countOrdered By: Dionte Rosa on 08-06-2023 RBC (Bld) [#/Vol] 3.86 10*6/uL Low 3.90-5.60 [facility] Comment on above: Performed By: #### C BERNICE BMP, MG #### [facility] [address] Glucose [Mass/volume] in Ser um or PlasmaOrdered By: Dionte Rosa on 08-06-2023 Glucose [Mass/Vol] 114 mg/dL High 70-100 [facility] Comment on above: ADA recommended refe rence rangeRandom Glucose Reference Range is dependent on time and content of last meal. Glucose of more than 200 mg/dL in a nonstressed, ambulatory subject supports the diagnosis of Diabetes Mellitus. Result Comment: [place] om Glucose Reference Range is dependent on time and content of last meal. Glucose of more than 200 mg/dL in a nonstressed, ambulatory subject supports the diagnosis of Diabetes Mellitus. ADA recommended reference range Performed By: #### C BERNICE BMP, MG #### [address] Hematocrit [Volume Fraction] of Blood by Automated countOrdered By: Dionte Rosa on 08-06-2023 Hematocrit (Bld) [Volume fraction] 37.9 % Low 38.8-50.0 [facility] Comment on above: Performed By: #### C NYASIA QUEEN, MG #### [facility] [address] [place] [address] [place] Hemoglobin [Mass/volume] in BloodOrdered By: Dionte Rosa on 08-06-2023 Hemoglobin (Bld) [Mass/Vol] 12.8 g/dL Low 13.0-17.0 [facility] Comment on above: Performed By: #### C BERNICE BMP, MG #### [facility] [address] [place] [id number] [facility] Hemogram CBC Without Diffon 08-06-2023 Mean Corpuscular HGB Conc 33.8 g/dL Normal 32.5-35.6 [facility] Comment on above: Performed By: #### C BCNO, BMP, MG #### [facility] [address] WBC (Bld) [#/Vol] 13.3 10*3/uL High 4.1-10.5 [facility] Comment on above: Performed By: #### C BCNO, BMP, MG #### [facility] [address] Leukocytes [#/volume] correc paul for nucleated erythrocytes in Blood by Automated counOrdered By: Dionte Rosa on 08-06-2023 WBC corrected for nucl RBC Auto (Bld) [#/Vol] 13.3 10*3/uL High 4.1-10.5 [facility] MCH [Entitic mass] by Automa paul countOrdered By: Dionte Rosa on 08-06-2023 MCH (RBC) [Entitic mass] 33.2 pg Normal 27.5-35.2 [facility] Comment on above: Performed By: #### C BCNO, BMP, MG #### [facility] [address] MCHC Auto (RBC) [Mass/Vol]Or dered By: Dionte Rosa on 08-06-2023 MCHC (RBC) [Mass/Vol] 33.8 g/dL 32.5-35.6 [facility] MCV [Entitic volume] by Auto mated countOrdered By: Dionte Rosa on 08-06-2023 MCV (RBC) [Entitic vol] 98.0 fL Normal 83.5-101 [facility] Comment on above: Performed By: #### C BCNO, BMP, MG #### [facility] [address] [place] [address] Magnesium [Mass/volume] in S gonzalo or PlasmaOrdered By: Dionte Rosa on 08-06-2023 Magnesium [Mass/Vol] 1.8 mg/dL Low 1.9-2.7 [facility] Comment on above: Result Comment: PERF ORMED BY: [address] [place] [address] PATHOLOGIST SALES DEVELOPMENT DIRECTOR KERLINE PRICE M.D. Performed By: #### C BCNO, BMP, MG #### [facility] [address] [place] [address] No Panel InformationOrdered By: Dionte Rosa on 08-06-2023 Estimated GFR (CKD-EPI) > 60.0 mL/Min [facility] Creatinine Clearance (Chem 71.50 [facility] Platelet mean volume [Entiti c volume] in Blood by Automated countOrdered By: Dionte Rosa on 08-06-2023 Platelet mean volume (Bld) [Entitic vol] 10.5 fL High 6.6-10.1 [facility] Comment on above: Result Comment: PERF ORMED BY: [place] [address] PATHOLOGIST SALES DEVELOPMENT DIRECTOR KERLINE PRICE M.D. Performed By: #### C BCNO, BMP, MG #### [facility] [address] [place] [address] Platelets [#/volume] in Bloo d by Automated countOrdered By: Dionte Rosa on 08-06-2023 Platelets (Bld) [#/Vol] 163 10*3/uL Normal 150-450 [facility] Comment on above: Performed By: #### C BCNO, BMP, MG #### [facility] [address] [place] [address] Potassium [Moles/volume] in Serum or PlasmaOrdered By: Dionte Rosa on 08-06-2023 Potassium [Moles/Vol] 4.0 mmol/L Normal 3.5-5.1 [facility] Comment on above: Performed By: #### C BCNO, BMP, MG #### [facility] [address] [place] [address] Serum or plasma anion gap de terminationOrdered By: Dionte Rosa on 08-06-2023 Anion gap [Moles/Vol] 14.4 mmol/L Normal 6.0-15.0 [facility] Comment on above: Performed By: #### C BCNO, BMP, MG #### [facility] [address] [place] [address] [place] Sodium [Moles/volume] in Ser um or PlasmaOrdered By: Dionte Rosa on 08-06-2023 Sodium [Moles/Vol] 136 mmol/L Normal 136-145 [facility] Comment on above: Performed By: #### C BCNO, BMP, MG #### [address] Urea nitrogen [Mass/volume] in Serum or PlasmaOrdered By: Dionte Rosa on 08-06-2023 Urea nitrogen [Mass/Vol] 16 mg/dL Normal 7-25 [facility] Comment on above: Performed By: #### C BCNO, BMP, MG #### [address] Activated partial thrombopla stin time (aPTT) in platelet poor plasma by coagulation aOrdered By: Andrés Fisher on 08-05-2023 aPTT Coag (PPP) [Time] 30.4 s 25.1-36.5 [facility] Comment on above: A hematocrit value g reater than 55% may lead to inaccurate results in coagulation testing. Patients having hematocrit values >55% require a special collection tube for coagulation studies. Please contact the laboratory at [phone] for redraw instructions. Aerobic Cultureon 08-05-2023 Aerobic Culture Moderate Normal Respiratory Kate 2 Days Gram Stain Result 2+ White Blood Cells 1+ Epithelial Cells 3+ Gram Positive Cocci 1+ Gram Positive Bacilli 1+ Gram Negative Bacilli PERFORMED BY: [place] [address] PATHOLOGIST SALES DEVELOPMENT DIRECTOR KERLINE PRICE M.D. Normal [facility] Comment on above: Performed By: #### C MP, PT, PTT, DIFF CBC #### [place] [id number] [facility] Alanine aminotransferase [En zymatic activity/volume] in Serum or PlasmaOrdered By: Andrés Fisher on 08-05-2023 ALT [Catalytic activity/Vol] 88 U/L High 7-52 [facility] Comment on above: Performed By: #### C MP, PT, PTT, DIFF CBC #### [facility] [address] [place] [address] [place] Albumin [Mass/volume] in Ser um or Plasma by Bromocresol green (BCG) dye binding methoOrdered By: Andrés Fisher on 08-05-2023 Albumin BCG dye [Mass/Vol] 3.4 g/dL Low 3.5-5.7 [facility] Alkaline phosphatase [Enzyma tic activity/volume] in Serum or PlasmaOrdered By: Andrés Fisher on 08-05-2023 ALP [Catalytic activity/Vol] 129 U/L High 34-104 [facility] Comment on above: Performed By: #### C MP, PT, PTT, DIFF CBC #### [facility] [address] [place] [address] [place] Anisocytosis [Presence] in B lood by Light microscopyOrdered By: Andrés Fisher on 08-05-2023 Anisocytosis Ql (Bld) Slight Normal [facility] Comment on above: Performed By: #### C MP, PT, PTT, DIFF CBC #### [facility] [address] [place] [address] [place] Aspartate aminotransferase [ Enzymatic activity/volume] in Serum or PlasmaOrdered By: Andrés Fisher on 08-05-2023 AST [Catalytic activity/Vol] 40 U/L High 13-39 [facility] Comment on above: Performed By: #### C MP, PT, PTT, DIFF CBC #### [facility] [address] [place] [address] [place] Basophils Auto (Bld) [#/Vol] Ordered By: Andrés Fisher on 08-05-2023 Basophils (Bld) [#/Vol] N/A [facility] Basophils/100 WBC Auto (Bld) Ordered By: Andrés Fisher on 08-05-2023 Basophils/100 WBC (Bld) N/A [facility] Bilirubin.total [Mass/volume ] in Serum or PlasmaOrdered By: Andrés Fisher on 08-05-2023 Bilirubin [Mass/Vol] 1.1 mg/dL High 0.3-1.0 [facility] Comment on above: Performed By: #### C MP, PT, PTT, DIFF CBC #### [address] Comprehensive Metabolic Pane michel 08-05-2023 Albumin [Mass/Vol] 3.4 g/dL Low 3.5-5.7 [facility] Comment on above: Performed By: #### C MP, PT, PTT, DIFF CBC #### [address] Anion gap [Moles/Vol] 14.8 mmol/L Normal 6.0-15.0 [facility] Comment on above: Performed By: #### C MP, PT, PTT, DIFF CBC #### [address] Calcium [Mass/Vol] 8.3 mg/dL Low 8.6-10.3 [facility] Comment on above: Performed By: #### C MP, PT, PTT, DIFF CBC #### [address] Chloride [Moles/Vol] 106 mmol/L Normal 98-107 [facility] Comment on above: Performed By: #### C MP, PT, PTT, DIFF CBC #### [address] CO2 [Moles/Vol] 20.4 mmol/L Low 21.0-31.0 [facility] Comment on above: Performed By: #### C MP, PT, PTT, DIFF CBC #### [address] Creatinine [Mass/Vol] 1.08 mg/dL Normal 0.70-1.30 [facility] Comment on above: Performed By: #### C MP, PT, PTT, DIFF CBC #### [address] Creatinine Clr Calc Pharmacy 68.86 Normal [facility] Comment on above: Result Comment: PERF ORMED BY: [place] [address] PATHOLOGIST SALES DEVELOPMENT DIRECTOR KERLINE PRICE M.D. Performed By: #### C MP, PT, PTT, DIFF CBC #### [address] GFR/1.73 sq M.predicted MDRD (S/P/Bld) [Vol rate/Area] mL/min/{1.73_m2} Normal [facility] Comment on above: Performed By: #### C MP, PT, PTT, DIFF CBC #### [address] Glucose [Mass/Vol] 86 mg/dL Normal 70-100 [facility] Comment on above: Result Comment: [place] Glucose Reference Range is dependent on time and content of last meal. Glucose of more than 200 mg/dL in a nonstressed, ambulatory subject supports the diagnosis of Diabetes Mellitus. ADA recommended reference range Performed By: #### C MP, PT, PTT, DIFF CBC #### [address] Potassium [Moles/Vol] 4.2 mmol/L Normal 3.5-5.1 [facility] Comment on above: Performed By: #### C MP, PT, PTT, DIFF CBC #### [address] Sodium [Moles/Vol] 137 mmol/L Normal 136-145 [facility] Comment on above: Performed By: #### C MP, PT, PTT, DIFF CBC #### [address] Urea nitrogen [Mass/Vol] 21 mg/dL Normal 7-25 [facility] Comment on above: Performed By: #### C MP, PT, PTT, DIFF CBC #### [address] Diff and CBCon 08-05-2023 Erythrocyte distribution width (RBC) [Ratio] 13.8 % Normal 12.0-14.8 [facility] Comment on above: Performed By: #### C MP, PT, PTT, DIFF CBC #### [address] Hematocrit (Bld) [Volume fraction] 40.5 % Normal 38.8-50.0 [facility] Comment on above: Performed By: #### C MP, PT, PTT, DIFF CBC #### [address] Hemoglobin (Bld) [Mass/Vol] 13.6 g/dL Normal 13.0-17.0 [facility] Comment on above: Performed By: #### C MP, PT, PTT, DIFF CBC #### [address] MCH (RBC) [Entitic mass] 33.1 pg Normal 27.5-35.2 [facility] Comment on above: Performed By: #### C MP, PT, PTT, DIFF CBC #### [address] MCV (RBC) [Entitic vol] 98.3 fL Normal 83.5-101 [facility] Comment on above: Performed By: #### C MP, PT, PTT, DIFF CBC #### [address] Mean Corpuscular HGB Conc 33.7 g/dL Normal 32.5-35.6 [facility] Comment on above: Performed By: #### C MP, PT, PTT, DIFF CBC #### [address] Platelet Estimate Normal Normal Normal [facility] Comment on above: Performed By: #### C MP, PT, PTT, DIFF CBC #### [address] Platelet mean volume (Bld) [Entitic vol] 9.6 fL Normal 6.6-10.1 [facility] Comment on above: Result Comment: PERF ORMED BY: [place] [address] PATHOLOGIST SALES DEVELOPMENT DIRECTOR KERLINE PRICE M.D. Performed By: #### C MP, PT, PTT, DIFF CBC #### [address] Platelet Morphology Normal Normal Normal [facility] Comment on above: Result Comment: PERF ORMED BY: [place] [address] PATHOLOGIST SALES DEVELOPMENT DIRECTOR KERLINE PRICE M.D. Performed By: #### C MP, PT, PTT, DIFF CBC #### [address] Platelets (Bld) [#/Vol] 161 10*3/uL Normal 150-450 [facility] Comment on above: Performed By: #### C MP, PT, PTT, DIFF CBC #### [address] RBC (Bld) [#/Vol] 4.12 10*6/uL Normal 3.90-5.60 [facility] Comment on above: Performed By: #### C MP, PT, PTT, DIFF CBC #### [address] Eosinophils Auto (Bld) [#/Vo l]Ordered By: Andrés Fisher on 08-05-2023 Eosinophils (Bld) [#/Vol] N/A [facility] Eosinophils/100 WBC Auto (Bl d)Ordered By: Andrésmartin Fisher on 08-05-2023 Eosinophils/100 WBC (Bld) N/A [facility] Folate [Mass/volume] in Seru m or PlasmaOrdered By: Andrés Fisher on 08-05-2023 Folate [Mass/Vol] 19.8 ng/mL >5.9 [facility] Comment on above: Folate reference ran ge: >5.9 ng/mlThe WHO technical consultation on folate and vitamin [id number] has determined that folate concentrations lessthan 4 ng/ml are considered deficient. Gram Stainon 08-05-2023 Microscopic observation Gram stain Nom (Unsp spec) Gram Stain Result 2+ White Blood Cells 1+ Epithelial Cells 3+ Gram Positive Cocci 1+ Gram Positive Bacilli 1+ Gram Negative Bacilli PERFORMED BY: [place] [address] PATHOLOGIST SALES DEVELOPMENT DIRECTOR KERLINE PRICE M.D. Normal [facility] Comment on above: Performed By: #### C MP, PT, PTT, DIFF CBC #### [address] Gram stain for investigation of transfusion reactionOrdered By: Andrés Fisher on 08-05-2023 Microscopic observation Gram stain Nom (Unsp spec) 2 Days [facility] INR in Platelet poor plasma by Coagulation assayOrdered By: Andrés Fisher on 08-05-2023 INR Coag (PPP) [Relative time] 1.4 {INR} Normal [facility] Comment on above: INR Therapeutic Rang e [...] C MP, PT, PTT, DIFF CBC #### [address] Leukocytes [#/volume] in Blo od by Automated countOrdered By: Andrés Fisher on 08-05-2023 WBC (Bld) [#/Vol] 16.5 10*3/uL High 4.1-10.5 [facility] Comment on above: Performed By: #### C MP, PT, PTT, DIFF CBC #### [address] Lymphocytes Auto (Bld) [#/Vo l]Ordered By: Andrés Fisher on 08-05-2023 Lymphocytes (Bld) [#/Vol] N/A [facility] Lymphocytes/100 WBC Auto (Bl d)Ordered By: Andrés Lorenzkpor on 08-05-2023 Lymphocytes/100 WBC (Bld) N/A [facility] Lymphocytes/100 leukocytes i n Blood by Manual countOrdered By: Andrés Fisher on 08-05-2023 Lymphocytes/100 WBC (Bld) 5 % Low 18-42 [facility] Comment on above: Performed By: #### C MP, PT, PTT, DIFF CBC #### [facility] [address] [place] [address] Manual blood segmented neutr ophils/100 leukocytesOrdered By: Andrés Fisher on 08-05-2023 Segmented neutrophils/100 WBC (Bld) 91 % High 50-70 [facility] Comment on above: Performed By: #### C MP, PT, PTT, DIFF CBC #### [facility] [address] Monocytes Auto (Bld) [#/Vol] Ordered By: Andrés Cabralesor on 08-05-2023 Monocytes (Bld) [#/Vol] N/A [facility] Monocytes/100 WBC Auto (Bld) Ordered By: Andrés Fisher on 08-05-2023 Monocytes/100 WBC (Bld) N/A [facility] Monocytes/100 leukocytes in Blood by Manual countOrdered By: Andrés Fisher on 08-05-2023 Monocytes/100 WBC (Bld) 4 % Normal 2-11 [facility] Comment on above: Performed By: #### C MP, PT, PTT, DIFF CBC #### [facility] [address] [place] [address] [place] Neutrophils Auto (Bld) [#/Vo l]Ordered By: Andrés Cabralesor on 08-05-2023 Neutrophils (Bld) [#/Vol] N/A [facility] Neutrophils/100 WBC Auto (Bl d)Ordered By: Andrés Cabralesor on 08-05-2023 Neutrophils/100 WBC (Bld) N/A [facility] Nucleated erythrocytes [Pres ence] in Blood by Automated countOrdered By: Andrés Fisher on 08-05-2023 Nucleated RBC Auto Ql (Bld) N/A [facility] Partial Thromboplastin Timeo n 08-05-2023 aPTT Coag (Bld) [Time] 30.4 s Normal 25.1-36.5 [facility] Comment on above: Result Comment: A he matocrit value greater than 55% may lead to inaccurate results in coagulation testing. Patients having hematocrit values >55% require a special collection tube for coagulation studies. Please contact the laboratory at [phone] for redraw instructions. PERFORMED BY: [place] [address] PATHOLOGIST SALES DEVELOPMENT DIRECTOR KERLINE PRICE M.D. Performed By: #### C MP, PT, PTT, DIFF CBC #### [address] Peripheral white blood cell differential % bands, microscopic examOrdered By: Andrés Fisher on 08-05-2023 Band form neutrophils/100 WBC (Bld) 1 % Normal 0-5 [facility] Comment on above: Performed By: #### C MP, PT, PTT, DIFF CBC #### [address] Platelet adequacy [Presence] in Blood by Light microscopyOrdered By: Andrés Fisher on 08-05-2023 Platelets LM Ql (Bld) Normal Normal [facility] Platelet morphology finding [Identifier] in BloodOrdered By: Andrés Fisher on 08-05-2023 Platelet morphology finding Nom (Bld) Normal Normal [facility] Protein [Mass/volume] in Ser um or PlasmaOrdered By: Andrés Fisher on 08-05-2023 Protein [Mass/Vol] 6.5 g/dL Normal 6.4-8.9 [facility] Comment on above: Performed By: #### C MP, PT, PTT, DIFF CBC #### [address] Prothrombin time (PT)Ordered By: Andrés Fisher on 08-05-2023 PT Coag (PPP) [Time] 16.4 s High 9.0-12.9 [facility] Comment on above: A hematocrit value g reater than 55% may lead to inaccurate results in coagulation testing. Patients having hematocrit values >55% require a special collection tube for coagulation studies. Please contact the laboratory at [phone] for redraw instructions. Result Comment: A he matocrit value greater than 55% may lead to inaccurate results in coagulation testing. Patients having hematocrit values >55% require a special collection tube for coagulation studies. Please contact the laboratory at [phone] for redraw instructions. Performed By: #### C MP, PT, PTT, DIFF CBC #### [address] RBC morphologyOrdered By: Fr sloane Fisher on 08-05-2023 RBC morphology finding Nom (Bld) N/A [facility] Serum globulin measurement b y calculation (mass/volume)Ordered By: Andrés Fisher on 08-05-2023 Globulin (S) [Mass/Vol] 3.1 g/dL Normal [facility] Comment on above: Performed By: #### C MP, PT, PTT, DIFF CBC #### [address] Serum or plasma albumin/glob ulin mass ratioOrdered By: Andrés Fisher on 08-05-2023 Albumin/Globulin [Mass ratio] 1.1 {ratio} Normal [facility] Comment on above: Performed By: #### C MP, PT, PTT, DIFF CBC #### [address] Thyroid Stim Hormone w/Rflxo n 08-05-2023 Thyroid Stim Hormone w/Rflx 2.58 u[iU]/mL Normal 0.45-5.33 [facility] Comment on above: Performed By: #### C MP, PT, PTT, DIFF CBC #### [address] Thyrotropin [Units/volume] i n Serum or PlasmaOrdered By: Andrés Fisher on 08-05-2023 TSH Qn 2.58 m[IU]/L 0.45-5.33 [facility] Vit. B12/Folate Profileon Folate 19.8 ng/mL Normal >5.9 [facility] Comment on above: Result Comment: [place] te reference range: >5.9 ng/ml The WHO technical consultation on folate and vitamin b12 deficiencies has determined that folate concentrations less than 4 ng/ml are considered deficient. Performed By: #### V [id number], TSH3 wRFLX, [id number] #### [address] Vitamin B12 ser/plasOrdered By: Andrés Fisher on 08-05-2023 Cobalamin (Vitamin B12) [Mass/Vol] 514 pg/mL Normal 180-914 [facility] Comment on above: Performed By: #### V [id number], TSH3 wRFLX, [id number] #### [facility] [address] [id number] [facility] Vitamin D 25 Hydroxy Totalon 08-05-2023 Vitamin D 25 Hydroxy Total 33.9 ng/mL Normal 30-100 [facility] Comment on above: Result Comment: AR MIN D STATUS 25(OH)VITAMIN D RANGE (ng/mL) Deficient <20 Insufficient 20 to <30 Sufficient 30 to 100 Reference: Harinder MF,[place], Thomas MARX, et al. Evaluation,treatment, and prevention of vitamin D deficiency; an Endocrine Society clinical practice guideline. JCEM. 2010; 96(7):1911-30. PERFORMED BY: [place] [address] PATHOLOGIST SALES DEVELOPMENT DIRECTOR KERLINE PRICE M.D. Performed By: #### C MP, PT, PTT, DIFF CBC #### [facility] [address] [place] [address] Vitamin D+Metabolites [Mass/ volume] in Serum or PlasmaOrdered By: Andrés Fisher on 08-05-2023 Vitamin D+Metabolites [Mass/Vol] 33.9 ng/mL 30-100 [facility] Comment on above: VITAMIN D STATUS 25( [place])VITAMIN D RANGE (ng/mL) Deficient <20 Insufficient 20 to <30Sufficient 30 to 100Reference: Harinder MF,[place] FLORES, Thomas MARX, et al. Evaluation,treatment, and prevention of vitamin D deficiency; an Endocrine Society clinical practice guideline. JCEM. 2010; 96(7):1911-30. BLOOD CULTUREon 08-04-2023 Bacteria identified Aer cx Nom (Bld) CULTURE RESULTS NO GROWTH 5 DAYS Normal [facility] Bacteria identified Aer cx Nom (Bld) CULTURE RESULTS NO GROWTH 5 DAYS Normal [facility] CBC AND AUTO DIFFon 08-04-19 Erythrocyte distribution width (RBC) [Ratio] 13.8 % Normal 11.5-15.0 [facility] Comment on above: Performed By: #### C RAÚL, 82342-1, CMP, 5643-2, 2157-6, 81525- 9, 2639-3, 92333-2 #### [facility] ([id number]) [address] [place] [address] 36357 Hematocrit (Bld) [Volume fraction] 40.5 % Normal 39-49 [facility] Comment on above: Performed By: #### C RAÚL, 18485-0, CMP, 5643-2, 2157-6, 72211- 9, 2639-3, 09173-1 #### [facility] ([id number]) [address] [place] [address] 55735 Hemoglobin (Bld) [Mass/Vol] 13.8 g/dL Normal 13.0-17.0 [facility] Comment on above: Performed By: #### C RAÚL, 26507-8, CMP, 5643-2, 2157-6, 25514- 9, 2639-3, 06195-1 #### [facility] ([id number]) [address] [place] [address] 81418 Lymphocytes (Bld) [#/Vol] 0.4 10*3/uL Low 1.0-3.5 [facility] Comment on above: Performed By: #### C BCA, 07519-3, CMP, 5643-2, 2157-6, 79795- 9, 2639-3, 26262-9 #### [facility] ([id number]) [address] [place] [address] 00024 Lymphocytes/100 WBC (Bld) 2.0 % Normal [facility] Comment on above: Performed By: #### C BCA, 06557-0, CMP, 5643-2, 2157-6, 45898- 9, 2639-3, 38041-2 #### [facility] ([id number]) [address] [place] [address] 66677 MCH (RBC) [Entitic mass] 33.2 pg Normal 27-34 [facility] Comment on above: Performed By: #### C BCA, 50671-5, CMP, 5643-2, 2157-6, 82587- 9, 2639-3, 00358-7 #### [facility] ([id number]) [address] [place] [address] 28151 MCHC (RBC) [Mass/Vol] 34.2 g/dL Normal 32-36 [facility] Comment on above: Performed By: #### C BCA, 44856-7, CMP, 5643-2, 2157-6, 24176- 9, 2639-3, 65454-2 #### [facility] ([id number]) [address] [place] [address] 16948 MCV (RBC) [Entitic vol] 97 fL Normal 80-100 [facility] Comment on above: Performed By: #### C BCA, 80878-2, CMP, 5643-2, 2157-6, 21382- 9, 2639-3, 34610-2 #### [facility] ([id number]) [address] [place] [address] 69739 Monocytes (Bld) [#/Vol] 1.2 10*3/uL High 0-0.9 [facility] Comment on above: Performed By: #### C RAÚL, 56323-1, CMP, 5643-2, 2157-6, 27424- 9, 2639-3, 83397-1 #### [facility] ([id number]) [address] [place] [address] 26601 Monocytes/100 WBC (Bld) 7.0 % Normal [facility] Comment on above: Performed By: #### C RAÚL, 90958-1, CMP, 5643-2, 2156-6, 93853- 9, 2639-3, 74382-9 #### [facility] ([id number]) [address] [place] [address] 36002 Neutrophils (Bld) [#/Vol] 16.0 10*3/uL High 1.5-6.6 [facility] Comment on above: Performed By: #### C RAÚL, 24227-5, CMP, 5643-2, 2156-6, 37730- 9, 2639-3, 79289-9 #### [facility] ([id number]) [address] [place] [address] 66321 Platelet mean volume (Bld) [Entitic vol] 9.4 fL Normal 7-12 [facility] Comment on above: Performed By: #### C RAÚL, 36641-3, CMP, 5643-2, 7-6, 66281- 9, 2639-3, 08155-7 #### [facility] ([id number]) [address] [place] [address] 91385 Platelets (Bld) [#/Vol] 175 10*3/uL Normal 150-450 [facility] Comment on above: Performed By: #### Maria Dolores BCA, 18725-7, CMP, 5643-2, 2157-6, 08466- 9, 2639-3, 75893-5 #### [facility] ([id number]) [address] [place] [address] 26006 RBC COUNT 4.17 X10E12/L Normal 4.10-5.70 [facility] Comment on above: Performed By: #### C BCA, 72383-6, CMP, 5643-2, 2157-6, 39437- 9, 2639-3, 95482-3 #### [facility] ([id number]) [address] [place] [address] 93957 RBC morphology finding Nom (Bld) REVIEWED Normal [facility] Comment on above: Performed By: #### C BCA, 44549-9, CMP, 5643-2, 2157-6, 27627- 9, 2639-3, 16227-4 #### [facility] ([id number]) [address] [place] [address] 99374 SEG NEUTROPHIL 91.0 % Normal [facility] Comment on above: Performed By: #### C BCA, 56142-4, CMP, 5643-2, 2157-6, 07973- 9, 2639-3, 02766-5 #### [facility] ([id number]) [address] [place] [address] 60519 WBC (Bld) [#/Vol] 17.6 10*3/uL High 4.0-11.0 [facility] Comment on above: Performed By: #### C BCA, 08320-5, CMP, 5643-2, 2157-6, 73300- 9, 2639-3, 58050-4 #### [facility] ([id number]) [address] [place] [address] 48943 CK [Catalytic activity/Vol]o n 05 CPK 196 U/L High 24-195 [facility] Comment on above: Performed By: #### C BCA, 07837-6, CMP, 5643-2, 2157-6, 35652- 9, 2639-3, 60800-5 #### [facility] ([id number]) [address] [place] [address] 47887 COMPREHENSIVE METABOLIC PANE Michel 08-04-2023 Albumin [Mass/Vol] 3.5 g/dL Normal 3.2-5.3 [facility] Comment on above: Performed By: #### C BCA, 75630-9, CMP, 5643-2, 2157-6, 78387- 9, 2639-3, 10004-5 #### [facility] ([id number]) [address] [place] [address] 43079 ALP [Catalytic activity/Vol] 131 U/L High 39-130 [facility] Comment on above: Performed By: #### C BCA, 60528-8, CMP, 5643-2, 2157-6, 63003- 9, 2639-3, 71335-1 #### [facility] ([id number]) [address] [place] [address] 74940 ALT [Catalytic activity/Vol] 123 U/L High 0-40 [facility] Comment on above: Performed By: #### C BCA, 13100-9, CMP, 5643-2, 2157-6, 07100- 9, 2639-3, 97821-8 #### [facility] ([id number]) [address] [place] [address] 34852 Anion gap [Moles/Vol] 12 mmol/L Normal 5-15 [facility] Comment on above: Performed By: #### C BCA, 39865-7, CMP, 5643-2, 2157-6, 60521- 9, 2639-3, 38821-3 #### [facility] ([id number]) [address] [place] [address] 68936 AST [Catalytic activity/Vol] 71 U/L High 0-41 [facility] Comment on above: Performed By: #### C BCA, 90370-0, CMP, 5643-2, 2157-6, 89914- 9, 2639-3, 39001-7 #### [facility] ([id number]) [address] [place] [address] 33040 Bilirubin [Mass/Vol] 1.1 mg/dL Normal 0.3-1.2 [facility] Comment on above: Performed By: #### C BCA, 73297-5, CMP, 5643-2, 2157-6, 93396- 9, 2639-3, 32590-8 #### [facility] ([id number]) [address] [place] [address] 47614 Calcium [Mass/Vol] 8.4 mg/dL Low 8.5-10.5 [facility] Comment on above: Performed By: #### C BCA, 61572-8, CMP, 5643-2, 2157-6, 76725- 9, 2639-3, 08753-4 #### [facility] ([id number]) [address] [place] [address] [place] [address] Chloride [Moles/Vol] 104 mmol/L Normal 98-109 [facility] Comment on above: Performed By: #### C BCA, 02270-1, CMP, 5643-2, 2157-6, 47108- 9, 2639-3, 55479-3 #### [facility] ([id number]) [address] [place] [address] 87566 CO2 [Moles/Vol] 21 mmol/L Low 22-32 [facility] Comment on above: Performed By: #### C BCA, 89946-0, CMP, 5643-2, 2157-6, 69082- 9, 2639-3, 96349-8 #### [facility] ([id number]) [address] [place] [address] 60343 Creatinine [Mass/Vol] 1.53 mg/dL High 0.70-1.20 [facility] Comment on above: Result Comment: METH OD TRACEABLE TO IDMS STANDARD Performed By: #### C BCA, 11049-7, CMP, 5643-2, 2157-6, 73194-8, 2639-3, 30022-9 #### [facility] ([id number]) [address] [place] [address] 20876 GFR/1.73 sq M.predicted among non-blacks MDRD (S/P/Bld) [Vol rate/Area] 47 mL/min/{1.73_m2} Low >59 [facility] Comment on above: Result Comment: Reported eGFR is based on the CKD-EPI 2020 equation that does not use a race coefficient. Performed By: #### C BCA, 24325-4, CMP, 5643-2, 2157-6, 71233-7, 2639-3, 57763-0 #### [facility] ([id number]) [address] [place] [address] 27546 Glucose [Mass/Vol] 166 mg/dL High 65-99 [facility] Comment on above: Performed By: #### C BCA, 69926-9, CMP, 5643-2, 2157-6, 74823- 9, 2639-3, 86380-2 #### [facility] ([id number]) [address] [place] [address] 60726 Potassium [Moles/Vol] 3.9 mmol/L Normal 3.5-5.0 [facility] Comment on above: Performed By: #### C BCA, 28252-0, CMP, 5643-2, 2157-6, 57971- 9, 2639-3, 97650-2 #### [facility] ([id number]) [address] [place] [address] 96178 Protein [Mass/Vol] 6.9 g/dL Normal 6.0-8.0 [facility] Comment on above: Performed By: #### C BCA, 15418-8, CMP, 5643-2, 2157-6, 56680- 9, 2639-3, 25245-5 #### [facility] ([id number]) [address] [place] [address] 21580 Sodium [Moles/Vol] 137 mmol/L Normal 134-146 [facility] Comment on above: Performed By: #### C BCA, 45973-5, CMP, 5643-2, 2157-6, 97103- 9, 2639-3, 45309-6 #### [facility] ([id number]) [address] [place] [address] 72337 Urea nitrogen [Mass/Vol] 29 mg/dL High 5-27 [facility] Comment on above: Performed By: #### C BCA, 53133-9, CMP, 5643-2, 2157-6, 83661- 9, 2639-3, 72184-4 #### [facility] ([id number]) [address] [place] [address] ABDOMEN AND PELVIS W CONT on [...] Pickering MD on 08/04/2023 3:41 PM Normal [facility] CT CHEST WO CONTon 4 CT [...] Sal MD on 08/04/2023 5:26 PM Normal [facility] DRUG SCREEN, URINEon 024 AMPHETAMINE/METHAMP Negative Normal NEG [facility] Comment on above: Result Comment: AMPH /METH screening cut off = 1000 ng/mL Performed By: #### C BCA, 96790-5, CMP, 5643-2, 2157-6, 34785-3, 2639-3, 53094-2 #### [facility] ([id number]) [address] [place] [address] 88103 BARBITURATES Positive Abnormal NEG [facility] Comment on above: Result Comment: Conf irmation available upon request. Barbiturates screening cut off value = 200 ng/mL Performed By: #### C BCA, 67315-9, CMP, 5643-2, 2157-6, 89562-5, 2639-3, 77103-7 #### [facility] ([id number]) [address] [place] [address] 37059 BENZODIAZEPINES Negative Normal NEG [facility] Comment on above: Result Comment: Angel odiazepines screening cut off value = 200 ng/mL Performed By: #### C BCA, 68766-1, CMP, 5643-2, 2157-6, 05023-7, 2639-3, 96138-3 #### [facility] ([id number]) [address] [place] [address] 42129 CANNABINOIDS Negative Normal NEG [facility] Comment on above: Result Comment: Jody abinoids/THC screening cut off value = 50 ng/mL Performed By: #### C BCA, 81956-2, CMP, 5643-2, 2156-6, 84649-0, 2639-3, 61287-1 #### [facility] ([id number]) [address] [place] [address] 07516 COCAINE METABOLITE Negative Normal NEG [facility] Comment on above: Result Comment: Coca ine screening cut off value = 300 ng/mL Performed By: #### C BCA, 67173-4, CMP, 5643-2, 2156-6, 76284-4, 2639-3, 81289-5 #### [facility] ([id number]) [address] [place] [address] 70675 ECSTASY Negative Normal [facility] Comment on above: Result Comment: Ecst asy screening cut off value = 500 ng/mL This report is intended for use in clinical monitoring or management of patients. Performed By: #### C BCA, 50502-2, CMP, 5643-2, 2156-6, 78390-4, 2639-3, 20974-6 #### [facility] ([id number]) [address] [place] [address] 74103 METHADONE Negative Normal [facility] Comment on above: Result Comment: Meth adone screening cut off value = 300 ng/mL. Performed By: #### C BCA, 95813-3, CMP, 5643-2, 2156-6, 40741-8, 9-3, 54858-5 #### [facility] ([id number]) [address] [place] [address] 48485 OPIATES Negative Normal NEG [facility] Comment on above: Result Comment: Opia manjeet screening cut off value = 300 ng/mL NOTE: This test is used for the detection of codeine, hydrocodone (>1000 ng/mL), morphine and hydromorphone (>900 ng/mL) in urine. Performed By: #### C BCA, 39322-0, CMP, 5643-2, 2156-6, 45488-2, 2639-3, 31493-2 #### [facility] ([id number]) [address] [place] [address] 03717 OXYCODONE Negative Normal NEG [facility] Comment on above: Result Comment: Oxyc odone screening cut off value = 300 ng/mL NOTE: This test is used for the detection of oxycodone and oxymorphone in urine. Performed By: #### C BCA, 64057-9, CMP, 5643-2, 2156-6, 33874-5, 2639-3, 74651-1 #### [facility] ([id number]) [address] [place] [address] 12366 PHENCYCLIDINE Negative Normal NEG [facility] Comment on above: Result Comment: Phen cyclidine screening cut off value = 25 ng/mL Performed By: #### C BCA, 06671-8, CMP, 5643-2, 2156-6, 47076-3, 2639-3, 34166-0 #### [facility] ([id number]) [address] [place] [address] 95674 ETHANOLon 08-04-2023 Ethanol [Mass/Vol] mg/dL Normal 0.00-0.08 [facility] Comment on above: Result Comment: This report is intended for use in clinical monitoring or management of patients. Performed By: #### C BCA, 45832-4, CMP, 5643-2, 6, 73079-0, 2639-3, 69294-2 #### [facility] ([id number]) [address] [place] [address] 40593 Lactate (P mary) [Moles/Vol]o n 08-04-2023 Lactate [Moles/Vol] 1.0 mmol/L Normal 0.4-2.0 [facility] Comment on above: Performed By: #### C BCA, 41461-2, CMP, 5643-2, 2156-6, 05501- 9, 2639-3, 16915-9 #### [facility] ([id number]) [address] [place] [address] 68065 LACTATE W/REFLEX 2.3 mmol/L High 0.4-2.0 [facility] Comment on above: Performed By: #### C BCA, 20778-2, CMP, 5643-2, 2156-6, - 9, 2639-3, 55593-1 #### [facility] ([id number]) [address] [place] [address] [id number] MAGNESIUMon 08-04-2023 Magnesium [Mass/Vol] 1.8 mg/dL Normal 1.8-2.6 [facility] Comment on above: Performed By: #### C BCA, 35273-1, CMP, 5643-2, 2156-6, - 9, 2639-3, 37513-6 #### [facility] ([id number]) [address] [place] [address] 25137 Myoglobin [Mass/Vol]on 08-03 SERUM MYOGLOBIN 436.0 ng/mL High 17.4-105.7 [facility] Comment on above: Performed By: #### C BCA, 58804-3, CMP, 5643-2, 2156-6, - 9, 2639-3, 84158-8 #### [facility] ([id number]) [address] [place] [address] 98676 Troponin I.cardiac High sens itivity method [Mass/Vol]on 08-04-2023 1 HOUR TROP I, HIGH SENSITIVITY 47 ng/L High <21 [facility] Comment on above: Result Comment: Elevations of hs-Troponin may be due to causes other than myocardial ischemia. Recommend serial hs-Troponin testing be performed. For the initial evaluation and management of chest pain patients, refer to the algorithms linked below. Emergency Patient: [email or web address]& uh=acaea Inpatient: [email or web address]& uh=acaea Performed By: #### C BCA, 59814-9, CMP, 5643-2, 2157-6, 48303-9, 2639-3, 24281-3 #### [facility] ([id number]) [address] [place] [address] 78284 TROPONIN I, HIGH SENSITIVITY 31 ng/L High <21 [facility] Comment on above: Result Comment: Elevations of hs-Troponin may be due to causes other than myocardial ischemia. Recommend serial hs-Troponin testing be performed. For the initial evaluation and management of chest pain patients, refer to the algorithms linked below. Emergency Patient: [email or web address]& uh=acaea Inpatient: [email or web address]& uh=acaea Performed By: #### C BCA, 09223-6, CMP, 5643-2, 2157-6, 93815-6, 2639-3, 36416-2 #### [facility] ([id number]) [address] [place] [address] 54618 URN MACROSCOPIC NURon 2023 BILIRUBIN JIMY Negative Normal NEG [facility] Comment on above: Performed By: #### C BCA, 21400-1, CMP, 5643-2, 2157-6, 63026- 9, 2639-3, 42040-3 #### [facility] ([id number]) [address] [place] [address] 28930 BLOOD/HGB JIMY Trace Abnormal NEG [facility] Comment on above: Performed By: #### C BCA, 25235-1, CMP, 5643-2, 2157-6, 25133- 9, 2639-3, 18697-9 #### [facility] ([id number]) [address] [place] [address] 05161 GLUCOSE JIMY Negative Normal NEG [facility] Comment on above: Performed By: #### C BCA, 05968-6, CMP, 5643-2, 2157-6, 40933- 9, 2639-3, 26254-7 #### [facility] ([id number]) [address] [place] [address] 17594 KETONES JIMY Negative Normal NEG [facility] Comment on above: Performed By: #### C BCA, 10938-5, CMP, 5643-2, 2157-6, 28470- 9, 2639-3, 41271-8 #### [facility] ([id number]) [address] [place] [address] [place] [address] LEUKOCYTE ESTERASE JIMY Negative Normal NEG [facility] Comment on above: Performed By: #### C BCA, 67364-7, CMP, 5643-2, 2157-6, 35168- 9, 2639-3, 93555-0 #### [facility] ([id number]) [address] [place] [address] 28888 NITRITE JIMY Negative Normal NEG [facility] Comment on above: Performed By: #### C BCA, 53130-1, CMP, 5643-2, 2157-6, 72339- 9, 2639-3, 77314-4 #### [facility] ([id number]) [address] [place] [address] 35331 PH JIMY 5.5 Normal 5.0-8.5 [facility] Comment on above: Performed By: #### C BCA, 86398-1, CMP, 5643-2, 2157-6, 32108- 9, 2639-3, 33683-5 #### [facility] ([id number]) [address] [place] [address] PROTEIN JMIY 30 mg/dL Abnormal NEG [facility] Comment on above: Performed By: #### C BCA, 14426-4, CMP, 5643-2, 2157-6, 43133- 9, 2639-3, 28678-2 #### [facility] ([id number]) [address] [place] [address] 87588 SPECIFIC GRAVITY JIMY 1.010 Normal 1.003-1 .03 5 [facility] Comment on above: Performed By: #### C BCA, 41818-8, CMP, 5643-2, 2157-6, 29824- 9, 2639-3, 30380-5 #### [facility] ([id number]) [address] [place] [address] 38913 UROBILINOGEN JIMY 1.0 eu/dL Normal <1.1 [facility] Comment on above: Performed By: #### C BCA, 24802-9, CMP, 5643-2, 2157-6, 38911- 9, 2639-3, 86740-7 #### [facility] ([id number]) [address] [place] [address] 84363 Glucose Auto test strip (Bld ) [Mass/Vol]on 02-10-2022 Glucose [Mass/Vol] 119 mg/dL High 70-99 [facility] Comment on above: Performed By: #### 2 340-8 #### [facility] [address] [place] [address] Glucose [Mass/Vol] 119 mg/dL High 70 - 99 mg/dL [facility] Interpretation and review of laboratory results Abnormal [facility] SARS-CoV-2 (COVID-19) RNA NA A+probe Ql (Resp)on 02-10-2022 Interpretation and review of laboratory results Normal [facility] SARS-CoV-2 (COVID-19) RdRp gene DILSHAD+probe Ql (Resp) Not detected Not Detected [facility] SARS-CoV-2 RNA Resp Ql DILSHAD+p robeon 02-10-2022 SARS-CoV-2 (COVID-19) RNA DILSHAD+probe Ql (Resp) Not detected Normal Not Detected [facility] Comment on above: Performed By: #### 9 4500-6 #### [facility] [address] [facility] [place] [address] Basic metabolic 2000 panelon 01-22-2022 Anion gap [Moles/Vol] 10 mmol/L Normal 6-18 [facility] Comment on above: Performed By: #### 2 4321-2 #### [facility] [address] [place] [address] Calcium [Mass/Vol] 8.9 mg/dL Normal 8.9-10.3 [facility] Comment on above: Performed By: #### 2 4321-2 #### [facility] [address] [place] [address] Chloride [Moles/Vol] 102 mmol/L Normal 98-107 [facility] Comment on above: Performed By: #### 2 4321-2 #### [facility] [address] [place] [address] CO2 [Moles/Vol] 25 mmol/L Normal 22-32 [facility] Comment on above: Performed By: #### 2 4321-2 #### [facility] [address] [place] [address] Creatinine [Mass/Vol] 1.01 mg/dL Normal 0.60-1.30 [facility] Comment on above: Performed By: #### 2 4321-2 #### [facility] [address] [place] [address] GFR/1.73 sq M.predicted among non-blacks MDRD (S/P/Bld) [Vol rate/Area] 78 mL/min/{1.73_m2} Normal >=60 [facility] Comment on above: Result Comment: Effcathi ctive December 22, 2021, calculation based on the?Chronic Kidney Disease Epidemiology Collaboration (CKD-EPI) equation refit?without adjustment for race. Performed By: #### 2 4321-2 #### [facility] [address] [place] [address] Glucose [Mass/Vol] 70 mg/dL Normal 70-99 [facility] Comment on above: Performed By: #### 2 4321-2 #### [facility] [address] [place] [address] 01759 Potassium [Moles/Vol] 4.4 mmol/L Normal 3.6-5.1 [facility] Comment on above: Performed By: #### 2 4321-2 #### [facility] [address] [place] [address] Sodium [Moles/Vol] 137 mmol/L Normal 136-145 [facility] Comment on above: Performed By: #### 2 4321-2 #### [facility] [address] [place] [address] Urea nitrogen [Mass/Vol] 26 mg/dL High 8-20 [facility] Comment on above: Performed By: #### 2 4321-2 #### [facility] [address] [place] [address] Urea nitrogen/Creatinine [Mass ratio] 25.7 mg/mg High 12.0-20.0 [facility] Comment on above: Performed By: #### 2 4321-2 #### [facility] [address] [place] [address] Hemogram and platelets WO di fferential panel (Bld)on 01-22-2022 Basophils (Bld) [#/Vol] 0.07 10*3/uL Normal 0.00-0.20 [facility] Comment on above: Performed By: #### 2 4317-0 #### [facility] [address] [place] [address] 43320 Basophils/100 WBC (Bld) 1.0 % Normal 0.0-2.0 [facility] Comment on above: Performed By: #### 2 4317-0 #### [facility] [address] [place] [address] 31052 Eosinophils (Bld) [#/Vol] 0.74 10*3/uL High 0.00-0.70 [facility] Comment on above: Performed By: #### 2 4317-0 #### [facility] [address] [place] [address] 57676 Eosinophils/100 WBC (Bld) 10.4 % High 0.0-7.0 [facility] Comment on above: Performed By: #### 2 4317-0 #### [facility] [address] [place] [address] 31062 Erythrocyte distribution width (RBC) [Ratio] 13.0 % Normal 11.0-14.8 [facility] Comment on above: Performed By: #### 2 4317-0 #### [facility] [address] [place] [address] 41973 Hematocrit (Bld) [Volume fraction] 47.9 % Normal 39.0-49.0 [facility] Comment on above: Performed By: #### 2 4317-0 #### [facility] [address] [place] [address] 68434 Hemoglobin (Bld) [Mass/Vol] 16.4 g/dL Normal 13.5-17.5 [facility] Comment on above: Performed By: #### 2 4317-0 #### [facility] [address] [place] [address] 03005 Immature granulocytes (Bld) [#/Vol] 0.01 10*3/uL Normal 0.00-0.10 [facility] Comment on above: Performed By: #### 2 4317-0 #### [facility] [address] [place] [address] 51243 Immature granulocytes/100 WBC (Bld) 0.1 % Normal 0.0-1.2 [facility] Comment on above: Performed By: #### 2 4317-0 #### [facility] [address] [place] [address] 61968 Lymphocytes (Bld) [#/Vol] 1.67 10*3/uL Normal 1.00-4.80 [facility] Comment on above: Performed By: #### 2 4317-0 #### [facility] [address] [place] [address] 01478 Lymphocytes/100 WBC (Bld) 23.5 % Normal 17.9-49.6 [facility] Comment on above: Performed By: #### 2 4317-0 #### [facility] [address] [place] [address] 35509 MCH 33.1 pcg Normal 27.0-34.0 [facility] Comment on above: Performed By: #### 2 4317-0 #### [facility] [address] [place] [address] 82433 MCHC (RBC) [Mass/Vol] 34.2 g/dL Normal 30.8-35.3 [facility] Comment on above: Performed By: #### 2 4317-0 #### [facility] [address] [place] [address] 68845 MCV (RBC) [Entitic vol] 96.8 fL Normal 80.0-97.0 [facility] Comment on above: Performed By: #### 2 4317-0 #### [facility] [address] [place] [address] Monocytes (Bld) [#/Vol] 0.71 10*3/uL Normal 0.00-0.90 [facility] Comment on above: Performed By: #### 2 4317-0 #### [facility] [address] [place] [address] 85045 Monocytes/100 WBC (Bld) 10.0 % Normal 0.0-12.0 [facility] Comment on above: Performed By: #### 2 4317-0 #### [facility] [address] [place] [address] 45284 Neutrophils Absolute 3.90 K/mcL Normal 1.80-7.70 [facility] Comment on above: Performed By: #### 2 4317-0 #### [facility] [address] [place] [address] 16999 Neutrophils/100 WBC (Bld) 55.0 % Normal 38.1-75.5 [facility] Comment on above: Performed By: #### 2 4317-0 #### [facility] [address] [place] [address] Platelet mean volume (Bld) [Entitic vol] 10.7 fL Normal 6.2-12.1 [facility] Comment on above: Performed By: #### 2 4317-0 #### [facility] [address] [place] [address] 72068 Platelets (Bld) [#/Vol] 181 10*3/uL Normal 142-424 [facility] Comment on above: Performed By: #### 2 4317-0 #### [facility] [address] [place] [address] 36608 RBC (Bld) [#/Vol] 4.95 10*6/uL Normal 4.30-5.70 [facility] Comment on above: Performed By: #### 2 4317-0 #### [facility] [address] [place] [address] WBC (Bld) [#/Vol] 7.1 10*3/uL Normal 4.6-10.2 [facility] Comment on above: Performed By: #### 2 4317-0 #### [facility] ([facility] [address] [place] [address] Consent Formson 05-08-2021 Consent Forms [id number] Normal [facility] ECHOCARDIO M/2D COMPLETEon 0 05-08-2021 ECHOCARDIO M/2D COMPLETE Patient: DEL MCMAHON Exam Date: 05/08/2021 : 1945 Gender:M Ordering : BALTA ROD Admission #: [id number] Family : DR MARCO A HUIZAR D.O. Order #: [id number] CLICK HERE TO VIEW EXAM ECHOCARDIOGRAM REPORT [...] Area(A4C): 14.20 cm2 Left Atrium Systolic Volume(A2C): 17033 mm3 Left Atrium Systolic Volume(A4C): 06851 mm3 Mitral Valve MV E to A [...] Solomon Weiss M.D. on 05/08/2021 at 14:22 [facility] Coding Summaryon 04-26-2021 Coding Summary HTMLBase 64 ZwvtijvoEQy4cNi+PGhlYWQ+PE 7THVDuR63uaGCbuO7GZ0jVLN5X AJYMFRDYLS1HNK2kuWU2FZnlK5 VybiAv HmlmuGFlFX90AYf8YHS6uDooNE uhjZ4qjWXqH5e7BfKiFT24hN35 LYpmISJaUnX0ZqDxldtubBNb F2osAsLqrSQxOxq+PHRhYmxlIH ljCBUuYJgfWCTwLzPoqGuhLM2p Ec8rXLJfKKHqnLsiiDFcDeLi m1tdXSQhLEkeDX3ihGyqN8HhfZ Y5XOJjd7p7Kp33xMH+PHRkIHN0 uQzoEFtjn781RxDzr4snDJC3 rTOnJOpeVYJ7A06sk7B7GUVdJR BzWPW1vPP6vC4klAzjfrdaE6It bXFuZvY7DNU0sJCpxL6veQut dubgqD9nMzd+P95AGT3DOGQBXV 2LBcs4X0XiLjyvkMR+CP88NCSg MC58yTQtxUYio2xpcZc7XpUr VANrBSF9lBycHFqyx4DnHGVpG5 2dzPJhv9J5QSJfeNzshDGdAzTi cVC3rI6tWIwfzfigr6jnluai Nrepb8sfhj05wM55I23gAAzgGL WcRDD9QSToZMKxzDbcbl0pbQ2e Ii8+GOhfg7iqp2zpoGc9RuQa VILnfmCfzYciTTY7p0VnTz10V7 AtlDkqr2TgUnk3po83bAPym6Y8 dMW1HBuuCZYzmS4mEFncLeY4 TBXgAtXagK11nEEiXDqoOx5jmW kqxZmpWG7sHYRmwdzsFJVjlB5v PSEbfLLauCjmHO9kKCWxynfk v482EwJrEGE7OVDlvFAyM5QijM 6rAmXuLYZrJFSlY2SriDAdOCds Q838EXkxFhZ3SOGgltKmP9Hl YVMggKcqRxO9j4F6Oc0Gg9Vpjx afNBN0MWpvUUXyBsPeCfAiLcF4 G1ClLmc4PCIuiBsaGV5jG4Ry CEEsxjejvinojWJ3FBDrVTQfpI 26dQCwHCrhDl6rp1E7b162MWCp SXUobO97Nq8ikQytTUYgdBUR nE5iuklit9xlqtmuHsXcZZZiON c2KPj9ELJatHfyUaEqJOQ7KvP5 IZU7sMXqrR5syBxnchkqvZ9j Oyc+X72jyK3wQFR3SGW4uyftGY VafxGiPB13GI04K2XeGlvltZKg bGU+CHTynoAvkGutHJ9oGsBm l7fod9SgFIeyY5LjUHIrZPyzPs k8PLPcUKP0fEE9vJ7gNGTfYWvu q6T9xKS0F5PkjiVres0sm8rq NAQtQSvoU12ipBXzh6Y7BQDswS T8IYYdvSvyOuClrL01Auz+PGNv yVukw9BoHalvo7vwx3tbgJn5 PgOzKKKiflUyjEncDAT8p6FuRu 14S08rNAamPAUaPKDbQDXeZWLv wQnhzp6yeG1gMd3+PGNvbCB3 kIY8aQ0uIUMjDxV2TBpuD363Pm GrqLFyFraha8xzs6olhMy4PbUs HZSgmeHibXllMDQ2v8XpOl70 R97aELnlMGMrCLJzUFWpDQLcwN fodc5cxC0jMd4+CJ4da8ragb33 zX80rXF+GCIaFBC2cRkwWRpp IRNozK7uUJaoJqR3PJFmDnHhuK 90oTZyQDyrNv5jyPaofJxgQE5y RWNydaasa504DbXyu9veYXKl lTIvDEncYIT3E25hh8S9LLUgVC AtMLD6dXF5gP8hhAhlcsbzuEBx wLpftkSxiEqjRHhsSOpsT397 IHRvcDsnPlBhdGllbnQgTmFtZT g7O9KyPcw3VSJoaCclRW7ibMNj XYzxOx9wbKgcwDsbQU8xYELx idqcw456VzYoz3ioGWFsaAGyQF awUNC5O55jr2J0XIOqJFZbTHY9 dGB3jC0xjFsjnlyucLMpuWxi qvDriVofVTxoMDebP477DAUmcZ cdOoEkfzLuHEUrlOZ1AN25XZ05 dLPck3P5fKT4W7WxWHHbxkix ypjulAM7WCPdCCGylM54Rl7dtM qgXn9bGFJjDYM0WPNvnCHmI5Jv aP0qWbYnBTDiKDYbE6DcbIUh BTjyJ222WYlrJxV5PQJllkEbL2 ZgCPMcrHrgIkF2j6T6Bd2FC1W4 IR97MN65wSSmi8J5mIG0S8Nd EMBacqmptmcuwJS8IJBzZQIulV 94Nk3mzIgaJg5eGKFcCWR8LOGq bBKrG5EwbS1qRoIaQYPiQCJp G9MxhIKxLYqkD869KRuiPdX8DE DrniOtY6LsEJCasZxqOqB2k2C8 Gt0ZJEh3AU63XS92lHNqf9I2 bIO5C0UiOIRbnsecfbkoqRW0ZC ToKREjoD09Gk2bwZykTm6bTHPr SIZ2VCFwnEPaC3GzvI8rFyWz LCKoNHIdZ5MekJUiGOzuK897NK ocXpN5GKAippKpC9IzRCZkbSdt OzN5k5Z5Kw1JALNdQJ10NNF5 cEF0PR42RG05A4XxXeujbYNgkZ U+PHRhYmxlIHdpZHRoPScxMDAl FjWesOuxCX5eDv9qEXQkLHWm hWcycKAaVpCxl5dlTJSnATeeFU 0fmPexQ9ObwTE3XWNbf2w1Rd50 B17jW1PjiLG+WTZxwGH8rXZ7 mI8nPbPxLcO2ARckI957VlNquU NgRsbtd1drs9mvvAj1FvP2KJSf boAhzGwyIZE3x6HvEm86D82a IHdpZHRoPSIxNSUiIHZhbGlnbj 1agA5zGw7+GUXamIK1fZV2bA6h EoBaXsZ7TLdbS443UeEbqPYd Ebjds9efy7dxfXx8ZiQrZRFyyo SvtUmsMBK5b9AoEi52V4HyqDsb t1CyFnj3qf21hYEzw0C2bIZ3 C0JmPHPmyxzscYVhjOmrTT0tIM AyivwoJEPqgI2tFYWeP8t9AcHj UdL5KEmvQ7IlxzX9ZROujWXz CKihRPI5L16pi7D4KDSrUSMsNC Q8lKZ4uO3pzJastqenqCXlwYnj nbJcvCimQMcdCXsbF973BRIc bHlzKSMqpJ5wYCMayMXcmPcxSK 8bSBDvakvxExLMId6SLseELB5d VNfRJo1LCMMHYEQYI2MESIgW UjwvdGQ+FTTlHIL1rWdiYLkkRQ ZeaK5bJOMuP9o4CnZxVqK3JAny N4LhDOMlqdnmHo98eR6vKtKb HuY2PMkhN0IkxjB3ZDFsnWBwJO miEHY2U80ps9A5VPJpDOIwWXZ5 cRK3qK9nzEphuxhzrSGkqEyu kgGraMraYSruERdrA353ANEenT uaMuGdNzOyZpB5PMc0X0CxMmf6 QWWdzFxhSF0guAIfXChkCn8w vXevwOerCJ8mVHGaqposPACcnZ 5wGSLmcCCnkAzrHG8sQIZnxnyj d359AoAuDAH9JDPgdPMlU9Zd nT3jWqYiSKXzOELnN3HclYYsET unP095TVboNlO1IKArwmQcS8Wf IIEmrZbzRgV7t0R3Fe88DUVR ZWFyczwvdGQ+TKOkTNA4hXodEM odCIUeeM0hOYXrQ6q5DxOjNtP1 WFctA2YpYRJntirxMq69cZ5j EtOqAsP5ONoeH5UgmiN8ABOrvL JeHBbcXTB7D44ng1P7XVQhBFYa PAN0wME9kU2xeVfdgziamAOw hIfabjAawPpbSNuoXJclA846IW RyxRvcZb9YYSV2R9YzMhm8MDBc lRsvPN2tsOGcRBdcNc4vgVsf cLwrJU7fNYGloyfiZMVixF7xAX LqlDDhiNrpBV2aEOLvfxxhy961 OsKwNHJ7VDPoaBOqC0XsrN4a TkEhCHKcEKKwV4HzlFUhHQekA8 43FAfmPvY8QJRerxWtW6IjVCXf bQodIvE0s5I6Yz5OdSNdZ6Ld X3i5K5XlFgaazLH+CJ85SIYoQX 27xWPbvZUse7buzAz4AgTsKBFh ZDA2kHyhZLvqz9PeNHOrS37c qUXaj3Y1IVGpkKlyuHZaEgPfqT K4hK1kIZmivlivi0vcshahTxcn j3okox19tL55H21zZCqbRDRa XMWyGDMmLLMeuYrzcp0ijI1tOf 8+ZFUiaVB0iIW2wX7yIcKaLaZ8 SVtiI547JrAghALlEvydf3ka d4eezDx8KhCtKITwvcZwdJaaBQ O0o8AhKa10W11bTKbuHRPbDWBb ZZFbNIKvjDvjil6soU1kBl0+ RA6lu4srko40kA27fRO+PHRkIH D4wJgnPUecBDWtbI3gOObmWsZ0 DDQeVjBgvT69mLXmWHduFh0e wRlupNvlFQ5tFBXbrozpb328Vm Gmh6beIXQthEVlEHxvIEN4C38w v3Z2QJHfYMQbETW7iIY7eX9w bGlnbjogbGVmdDsgdmVydGljYW jsFBsgE398BTAfoDsjRsEwdUCx K8dwodBCXJ9vLpaplEG+PHRk GRL7fLvcHZtfAWHjfC1hAIIeH6 c2BvAaIiW4YVesS6YafvW9MXEh fLVbXIEfjWMDgQ8elqvbc7tf tisyOuGgGSXqADv1BIw2YPCsaY yaNaTyOSC9RyI0JXY8xNHqfD8z dQgnnfzugI8qCiq+RklOOjwv dGQ+VACiMGL9sMurRCmzJEQndT 3yJZReB1d4QhZoIrQ2ZQdoX4Rm akG9FGBsaMZbQVUojUBJoK9u qjhay9tqpyefWuDqCAFlUOg3PR l5EWRjgZgoPdPwPVE3SuU1ZMR7 tNDenJ3zyLbjrkfmnJ4hDvb+ TVJOOjwvdGQ+NAHrGJF5wSvoPD kmCAPgkK6cBRLhN5x0SoPaLaF3 JBmgG4SmirH9BIIswEBrAYOv tRHJlW4trtyya2btfaidHsNaUH VhHFk2XEi6JJKxgYkmObHpCKI9 TsF7RDZ7tRJknO8rkHlgqbav pX2gZhb+IQR9GBA2VU90QQ79F9 RyPjwvdGFibGU+PHRhYmxlIHdp RINkVJtfUZApKnKbkGyvWS8u Ym9 (more content not included)... [facility] Coding Summary HTMLBase 64 LzjflhovZBv8eVq+PGhlYWQ+PE 8SCQRsB51ahAXqbB7OV5bTNQ6L XFIVFNCWNY3SNZ5nnDG4MKbeP1 VybiAv GukzaTKyBI53SPw8DMT3yFbqHA cyjA8guSDaY0m2AyXwUP14dY99 KJxlVVVlZiA3QhYyvtwujZXs A3bzCoVgqLZmMxl+PHRhYmxlIH nrJYSsCCtsTDGwLlKylCsnGN5m Fc0aCCOaBGOjjRgcgDZvEbFp o2srFQWaOHzaPL1tiJfgA9OfgU R8DWYhr9p5Fr40tAO+PHRkIHN0 rLlvFCdpv093GkJtn6azKJS5 fPIzPFihCPG3Y41kf3F7AQKjCO RpRAU3jWK7fA2paXeajnwxV8Nj hRTfGiQ6PTF7fYOofH1hrFjv afgdyS1nEox+P62EWT8ORBYQBY 8DUze4Z4LmHmobpYY+GU45IYEz YJ33cEUtlWZrc4wldCd9HgCc ZRCeNBB9cHcrVNtzb7GwZFVfE3 3ucOFdv9R5OIFzsQnwiRLyXvBk yCG9pW6yCXikqhfmu9oqpmqb Bfrtd8yepy49qI62C69rMIajJM XfTEZ9THUwXUMtmIulze0jnL8y Ii8+TAswa6dhr5zqdIs7ByRw JDEoyiRneHbuDOV0f4AvTx30H4 RifXvak4MaAjs0bn21nUSen3F1 lWC8YOtzBWWocG4bYAviHhL2 AAUpYePjnZ77yIXrQJmzWt5imI dshVduXF5vWIHmhknjIXXrbS1p VFMlkCEilZcpTQ6bDODqcvrf i884FbToTRS2TKCurLZeT4QpeQ 3aOaLlZFVwTJSdO6RgaAMfJXej J161HBhwKuH0UDMvkcLnO8Hq UVNcjUkpCtJ2f6I5Vr5Tl1Uemt bmRPR1BIycRXLjTdTdWcAmInN3 L3PoFmx9FPPfqNpmMJ1qM1Mx CKQzfyjxdvwsbFF9TVQfYXUqyQ 30uKBaHSxjUv0la4Z5r097KRZs LPFvbA59Pc8vwSkgJKSkdLKI qN2duosdk5jziabgJjFcBODjXD m9YXu0SUJamZeuWbOnXBB8FpT2 UCA9sCEdwO2uqDbhuhpcuW2k Oyc+G49ijA8cYAI2JJT9nclfLX PrgyRkKN39EY25W3OnJhjirBNv bGU+FTXzteXzeAumJB7iShGx k6iau2ZiVEseI6PlEFTfSNuwBs k8OFXsBJE0zDE0lA1lWYBaGJzl d1A5tUH3V9PckgMhhd6uw5ec ZHOtLUezC00drJVje6C4TMZkmY S1LAWgaCzyHlJrzD30Wvf+PGNv gVxlp5CxCqonr0exs7yfoCu5 YvCdJZSktqZfyGcfOTF6d5ZxYe 65B55gTVafUOZlMXHsYYLhIEVe hQrmud7lzC2vDm9+PGNvbCB3 jME1fG9qJZTqMcG5OPieK525Dz FarXBoOzkyi1qjq3sfvZj4JyYg MYToegTjyNktXGQ5e1SjFv30 M30qMTchJTWgFMCiKOJqXTSntM mnhn6bzZ4uCk0+JW3bt5allo82 nM17hZT+QVRkEBY4hEfoDGgm SFUjwH7gXDcdBeJ2TKHbNcThgD 85mRNsMAhiQj9nyNburAzaWN2b HHCojntxv615NtEao2gfGXMr pTMcOHjyRYW9P66se1M2NVTaGN SdAMP2aTA5yV5hoCuqkrdrfGLy gFxnwoXnrBpiPZoaMNysQ079 IHRvcDsnPlBhdGllbnQgTmFtZT s9A6XePps0OYLibGwuUM7cyPHj PGbgSt6bkAbtlQgdAC0tBEQg emcpp813BrLsy6udLOLxuOKdCE lqYUH4X22zw1W3BXIcWYVjGWH2 wSI8jG4tuUnblfgqjCFfaLjc nkJwwOocLYptSNfaN639HMMihX ksJfEnciJaWQHhrDU1MB63PT12 iBJiu1D0tDX2L3SwOSBapgwu oeqzsUW8XPIrQLWyoQ47Ke7psW jqOt9oVWPhSVO9SOUblGAsW9Ng rP3uXhHsCMXnIJSaL8DffWVw DVfxM714THtbEmD9XYGgijHeT7 ZhEZZtrLmtAjL9d7V8Np0HP6L9 WV38LH70eZJig6Y6uRL1F6Sc RKVvjdlwcbtklRW9POZgTOPehL 39Bo2xwKjlTl2iPPPwMUA9NTJo xICoG9EncE7nZrEpBYQnBLGc D2UnfQCsTRmnR447CJywEjF2TE EkkgEcL3OxEBUhzFhvYbK6x2R6 Dr7LXLq4HF40LU28cHWbm3M4 lLB6M3SiXRAdthnnjxnivOR9HX ReZQBaxK05Eb2jyWpvWi0cJHEt RLT7LVXuxLOqO7GwpI7fKqUl SMPzTDEbM8SqiGSkNJkgJ721ZY iyEnG8ZDJijpBhT5AiZIBcjIdq PzQ6b9G3Cf1BLUOxYN27WRE5 hAY9PC69ZH62O8WtHhrbuVBhhM U+PHRhYmxlIHdpZHRoPScxMDAl ZkPimUqoIM5qQk2kXEZgGCKs rOrviWUtHyDjv9htIOHgKBydRL 0pbTviX0NtrRU2BBDip3n1Am84 E80rO2HtlDR+CIZmuNQ3hZD4 eG3lWiYpIiP7JOeoH336QpAdjX IiUmmmz1klj7xudZs9NkV9VCOy mwHjzMirSTG1r3BgPn56L99p IHdpZHRoPSIxNSUiIHZhbGlnbj 3twE0dSz0+JPSroTI3oIM3bT5c IjFxZgD2FLhfZ249SnHneDFv Gpffp5lso6qfeYn8KuAjEDSwls NddWzzFRQ9b1ZuYy95Y0CltAhr m6CnDzq9bb59dDJxc7X0kCV9 C0RcMDSykrysiQQqpAhgED4gTD OzcrcjOJBaxT0rGHFoA8n5EgUi TcB6CVawQ2BqgjX6IFVvvIOx RFfpEYV0E51ci2P8AFQcDCLeRA U1eGM9gU7gkGkgfvcqlWYqdImi fnJpfNsoDRvdMXslK617SNFq oKeoUZGttJ8sCISalKLqzDhsHP 1jGPZvohhtZsJXRo0QTgmQZY8u UBpRQa0DOQTFINTMR1PEXSqC UjwvdGQ+GXLtTOT7rPaaPFgrJD PnpQ5vFXAuL9p1VzPrHuB1VPar T2RcUDUpqnrvMn65bB0jPpUa HlA4WPtcM0LxdjV0WGYbxCQyCH hpHTI1H52er2L7DWKwGRErOOH2 bGH9zQ0tcYkhldortHVvjMzn epTlsOaxMWqiWLcwK698MERykK ciFhCsSrSkXbE5TYb7M1YmFdo1 ALRcoXalMZ6gdGYvAYofZd8s oTshiLzfUH8bGPEtrpcpCKAsiQ 9xQZBazYUuhEgdEF8iSNKsjnrf q280YsWiPCZ8RSAyhJXzG6Gr pK2vCoGnTXTqKTCnT3NdbCMwBF qhK181HIbcPfR0NYOabrOkJ5De VVOiuFxaFfZ7j8G3Df83DPRD ZWFyczwvdGQ+FNSuREJ3kQuiPI naJMOmiI2vBDFmV2d7ScGkKnP8 CPlfP6HmQEWxkahmKv34hD3v SxLmLcA9QWbiS1PiasR6LKYgoQ QhQKelZDS9T74hp9Y2ULQsVKXk JDS3hYU8lV5gsRtdrarxhFBs cLsuovJcwTakOSwuHQfzN631JD VljKpdMh4RECQ3E4HzXqu4FHGq dMsoTO1neKJqFWdbEe9qmMxd oAxbJW0uHYXfhvqsJFPmdI1gOB DqsLFypRjeJC0nNMVqotkbj173 UuUqWHT9TTOpmIDrE3DlfY0g ScWaPFGwJLHnL4MxdPMeATcvO2 78BIemTdB6TPMuvjYvV8FyHGPd hKhvInI5l5P6Hm1ZJEbfT7Sa Z0EnlFzqmSY+VT70wj67G8WpIf gyCcd3YEJtZGR6uDW1uB8qVWPq SGkpz4U4yLI6W9AddtLlti4y e9khKYHwKZpnP46szHVkp4W0AJ AmbLY5ZPMkqBnrWsNzwL59Zwm+ AGUegXjli6SlFrzsm5dbb7it lIs2HmSvPIZwcaBgeYqcWIL3d2 AwJg25Y28wIWseFTKwPOCtVCSc JGXnrAbwop1tfX8lIo1+PGNv gWA4zMB9eO2gXmSwDeX7SPvfG6 61XvZfuZGxHmykt6yqy0kkwDy5 UpDhKSDsaaRqyEftSTN2z1Il Nu36I0QslSyle8XlDes1ki40lI Pbp8E4tIK6N8CjFVTkysacsOEh tWqjZI9tQHObcoimXLZisE1o EMFpI9c1DhNySdP0OAqpA5Ctiv F8LVOrxNQyPPFalHIApB8tspua d6gnvhohUiHqWMLaKJv0PRx2 YUUtqLlxZsUhZJG6DhU7VCF7pP DvqU7snLqkbegngR1vGtu+UGh5 c7xorTCcEM2ilXK1SB11KL85 eZZrk1Y2cGA3A6CiQQUukeskrz yihRA2ZTAaLIDaaI55Aj6xnLmt Xo9xACNoGPQ9KNLzwGDkI9Xp oN1sNkHpBTZjDVCxZ2IbuIHgDB krC083AOjnKmO0PQYzwqYsO8Om QUZkdBpxXeR9n6H0Dh4CGN52 NP67WW40dWAxu0O9aDS2S2TrQE ZvkydyhnxqnPM8KMVuIMXllO07 Ie2pjSvgFt9iMVJdBQH4PKZz gCGlA5XyzV1gSnReLELuJBEfJ2 CcsOIaGDkxG860FSzvOcJ5VEFc ipBtQ1NsMIHisJynXrQ9i2X7 Ra9EMm03RS75HS17sJEly0H2lP Y1B7VlSBRfcoimddlxcHT1NDMy IHQomK79Bk3dzWmpEx6dBYXk YGI5ZOLzpZUrH2YbeW1xYnZwIP JiFGNaL1HspSHgMNuhW357CHyz HpE7VZMfyhChZ3RdIHGhuAbm HsK6u3J8Ly8OMQxjsus5P9DzTl wvdHI+DN77CCEtAY53xPNyqYCw p2dvfLf9UgDlZIEcDQO5jJil PSd (more content not included)... [facility] - [facility] Results [id number] Sendout [facility] Send Out. See Report [facility] Comment on above: Order Comment: prost ate chips Performed By: #### 2 [id number] ####[facility] (DEFAULT)[address] [place] [address] Consent Formson 04-24-2021 Consent Forms [id number]#1.00[facility] Implantable Deviceson 2021 Implantable Devices [id number]#[address] [place] [address] Provider Orderson 04-24-2021 Provider Orders [id number]#[address] [place] [address] Provider Orders [id number]#[address] [place] [address] Anesthesia Noteon 04-23-2021 Anesthesia Note Patient: DEL [...] on: 04/23/2021 09:56 EST] Sivakumar Larsen MD [facility] Anesthesia Note Patient: DEL MCMAHON Age: [...] All Problems Cardiac pacemaker / SNOMED CT 9167565009 / Confirmed Hypothyroidism / SNOMED CT 01205701 / Confirmed Tremors of nervous system / SNOMED CT 12741678 / Confirmed Histories Family History: No family history items have been selected or recorded. Procedure history: Laser ablation of prostate ([id number]) on 09/25/2020 at 75 Years. Comments: 09/25/2020 12:12 EDT - Marta Velez RN Greenlight laser, cystoscopy Kidney ([id number]). Comments: 09/18/2020 8:36 EDT - Alexis Moran RN removal of left kidney, deformed from Cardiac pacemaker ([id number]). Colonoscopy ([id number]). Arthroscopy of knee ([id number]). Comments: 04/05/2021 13:03 Praveena Camacho RN left [...] Heart Rate Peripheral 60 bpm (APR 23 07:25) Resp Rate 16 br/min (APR 23 07:25) SBP H 142 mmHg (APR 23:25) DBP H 91 mmHg (APR 23:25) Pain assessment: Self-reports no pain. General: Alert and oriented, No acute distress, Slow historian.. Airway: Mallampati classification: I (soft palate, fauces, uvula, pillars visible). Mouth: Teeth ( Within normal limits ). Respiratory: Respirations are non-labored. Cardiovascular: Normal rate, Regular rhythm. Neurologic: Alert, Oriented. Review / Management Laboratory Results Plan [place] [employer]#(ASA) physical status classification: Class [...] on: 04/23/2021 08:23 EST] Sivakumar Larsen MD [facility] ED Clinical Summaryon 2021 ED Clinical Summary [facility] - Emergency Department [address] [place] [address] ED Clinical Summary PERSON INFORMATION Name: DEL MCMAHON Age: 76 Years Sex: MALE : 1945 MRN: Acct#: Visit Reason: Catheter check; CATHETER CHECK Arrival: 04/23/2021 13:23:04 Discharge: 04/23/2021 14:30:00 LOS: 000 01:07 Check In: 04/23/2021 13:23:04 Checkout:04/23/2021 14:30:00 Address: [address] [place] [address] [facility] [address] PCP: MARCO A HUIZAR JR. PROVIDER INFORMATION Provider Role Assigned Unassigned MARIE SORIANO ED PA 04/23/2021 13:24:57 Yoanna RNAdina ED Nurse 04/23/2021 13:34:30 VITALS INFORMATION Vital [...] Systolic Bloo (more content not included)... Normal [facility] ED Note - Physicianon 2021 ED [...] % Oxygen Flow (more content not included)... [facility] ED Note-Nursingon 04-23-2021 ED Note-Nursing [facility] via private vehicle. Ambulated with a [...] of red urine in leg bag. Normal [facility] ED Patient Summaryon 022 ED Patient Summary [facility] - Emergency Department [address] [place] [address] PATIENT DISCHARGE INSTRUCTIONS Patient Information Name: DEL MCMAHON Age: 76 Years Date of : 1945 Reason For Visit: Catheter check; CATHETER CHECK Arrival Time: 04/23/2021 13:23:04 Primary Care Physician: MARCO A HUIZAR JR. Attending Physician: Rolly Rivas MD Comment: Visit Diagnosis: Diagnoses This Visit Catheter check ([id number]) Elevated blood pressure reading (R03.0) Valladares catheter problem (T83.9XXA) Prescription Information: If you have been given a prescription for narcotics, seek immediate medical attention if you have any difficulty breathing or any sudden status changes such as confusion and sleepiness. If you or anyone you know is experiencing suicidal thoughts, mental health, alcohol and/or drug addiction problems; contact the [facility] 06/10 Crisis Hotline -Text 4HYGC to 656231. If you received any narcotics, sedation, or [...] With: Address: When: MARCO A HUIZAR JR. [address] [place] [address] [phone] Business (1) Within 3 to 5 days With: Address: When: Sivakumar Garcia [address] [place] [address] [place] [phone] Business (1) Within 2 to 4 days Comments: Follow-up with your urologist in the next few days. Continue to keep a close eye on the catheter, if this continues to cause you issues with draining return to the emergency department for reevaluation. Medication Information: The exam and treatment you received today in the [facility] Emergency Department were for an urgent problem and are not intended as complete care. It is important for you to follow up with a doctor, nurse practitioner, or physician?s assistant shift supervisor for ongoing care. If your symptoms become [...] so we can reach you if necessary. [facility] Emergency Department has provided you with a complete list of medications post discharge. Please inform your district agent/provider of your visit and for further instruction [...] is too (more content not included)... Normal [facility] Inpatient Patient Summaryon 04-23-2021 Inpatient Patient Summary [address] [address] Patient Discharge Instructions Name: DEL MCMAHON : 1945 Patient Address: [address] [place] [address] [place] [address] Primary Care Provider: Name: GAYE FLORES MARCO A After you are discharged if you find you have any questions, please, call [phone] ext [phone] to speak to a nurse. Discharge Diagnosis: Bladder neck contracture Prescription Information: If you have been given a prescription for narcotics, seek immediate medical attention if you have any difficulty breathing or any sudden status changes such as confusion and sleepiness. If you or anyone you know is experiencing suicidal thoughts, mental health, alcohol and/or drug addiction problems; contact the [facility] 06/10 Crisis Hotline -Text 4HDAL to 754108. If you received any narcotics, sedation, or [...] business decisions or sign any legal documents [facility] would like to thank you for allowing us to assist you with your healthcare needs. The following includes patient education materials and information regarding your injury/illness. DEL MCMAHON has been given the following list of follow-up instructions, prescriptions, and patient education materials: Follow-up Instructions With: Address: When: MARCO A HUIZAR JR. [address] [place] [address] [place] [address] Business (1) Medications During the course [...] for Disease Control and Prevention November 2013 [facility] 04-23-2021 [facility] Intraoperative Record [facility] Intra-Op Record Summary Primary Physician: Sivakumar Garcia MD Finalized Date/Time: 04/23/21 09:47:53 Pt. Name: DEL MCMAHON Kym/Sex: 1945 MALE Med Rec #: [id number] Physician: Sivakumar Garcia MD Financial #: [id number] Pt. Type: D Room/Bed: / Admit/Disch: 04/23/21 06:30:35 - Institution: Case Times MAGR Entry 1 Patient In Room Time 04/23/21 08:27:00 Out Room Time 04/23/21 09:14:00 Anesthesia Start Time 04/23/21 08:25:00 Stop Time 04/23/21 09:15:00 Surgery Start Time 04/23/21 08:40:00 Stop Time 04/23/21 09:06:00 Last Modified By: Alonso LEROY, Christy Moore 04/23/21 09:35:08 Case Attendance MAGR Entry 1 Entry 2 Entry 3 Case Attendee Sivakumar Garcia MD, Bradley MD Radloff, Leigh-Ann CST Role Performed Surgeon - Primary Anesthesiologist of Cashier And Salesperson Record Time In 04/23/21 08:27:00 04/23/21 08:27:00 04/23/21 08:27:00 Time Out 04/23/21 09:14:00 04/23/21 09:14:00 04/23/21 09:14:00 Procedure Cystoscopy TURP Cystoscopy TURP Cystoscopy TURP Last Modified By: Alonso LEROY, Christy Gupta RN, Christy Gupta RN, Christy Moore 04/23/21 09:35:09 04/23/21 09:35:09 04/23/21 09:35:09 Entry 4 Entry 5 Case Attendee Boo GREEN, Brigitte Echeverria RN Role Performed Scrub Personnel Soaker Meat Time In 04/23/21 08:27:00 04/23/21 08:27:00 Time Out 04/23/21 09:14:00 04/23/21 09:14:00 Procedure Cystoscopy TURP Cystoscopy TURP Last Modified By: Alonso LEROY, Christy Gupta RNChristy 04/23/21 09:35:09 04/23/21 09:35:09 Surgical Procedures MAGR [...] from s (more content not included)... [facility] 04-23-2021 [facility] Post[facility] Record [facility] Phase II Record Summary Primary Physician: Sivakumar Garcia MD Finalized Date/Time: 04/23/21 10:47:18 Pt. Name: DEL MCMAHON ALFSYEDMANASA Mejía/Sex: 1945 MALE Med Rec #: [id number] Physician: Sivakumar Garcia MD Financial #: [id number] Pt. Type: D Room/Bed: / Admit/Disch: 04/23/21 [...] Signed By: Ligia Cerna RN 04/23/21 10:47 [facility] MAGR Preoperative Recordon 0 04-23-2021 [facility] Preoperative Record [facility] Pre-Op Record Summary Primary Physician: Sivakumar Garcia MD Finalized Date/Time: 04/23/21 09:22:29 Pt. Name: LISANDRO DEL DALJIT Beyer./Sex: 1945 MALE Med Rec #: [id number] Physician: Sivakumar Garcia MD Financial #: [id number] Pt. Type: D Room/Bed: / Admit/Disch: 04/23/21 [...] Signed By: Ligia Cerna RN 04/23/21 09:22 [facility] Patient Handouton 04-23-2021 Patient Handout [facility] 2019 Novel Coronavirus (CoVI D-19), DILSHAD LCon 04-18-2021 SARS-CoV-2 (COVID-19) RNA DILSHAD+probe Ql (Unsp spec) Not detected Invalid Interpretation Code Not Detected [facility] Comment on above: Order Comment: [id number] Result Comment: This nucleic acid amplification test was developed and its performance characteristics determined by [employer]. Nucleic acid amplification tests include RT- PCR [...] detected) result in this assay. Performed At: [address] [id number] Ddera Martinez PhD Ph:[phone] Performed By: #### 6 [id number] ####[facility] (DEFAULT)[address] [place] [address] Coding Summaryon 04-18-2021 Coding Summary HTMLBase 64 SabgwmzsYMi5lFf+PGhlYWQ+PE 2JRHOtW12hoBKcuN9XS8qHUS3F XEHGJJZUJL5TBL1yuIC7KGpqX9 VybiAv TlcjqDFePA16FVa6OKY6bPwwBY snyV8jxRWxH4k6OrDlEU40xY30 VLhoSDYmYzA0ZlBuhqnyaINn I1jiZoSmjGXvCef+PHRhYmxlIH izEQEgHUgiPUUeWtCyzYoqVN5e Cn0cMEQvTIZvoIzbbGNfTnSw l5mhNMKbHQnrTC6qcQzeB1BnuQ F8PJWha3c7Pd05xDG+PHRkIHN0 mFjoHLzze271SgRxs0ltWIW3 wQIpPJixHCW7L14ov9I7LFCuWX VhGIS4hZM8uC9laNotvowkT8Vq aHRyQkP8VBB0wQFllI7fmTrj jeynlH2zDsu+N72EVY2EZJZPRF 0HDwm2O5WmEckklRA+TU79PQYj BD46nVNoxONdb6rqxSo2PbPt EOGjVYN4mKkmDExxw2CjDWOcX1 3ocWVml8W5YNWppBmybZHeXmIh dYH3cO3oQNbwmxxdy5bqlawj Vuqzj9zvvc11jP98T39jJWveZD NwKME5XFTqFISlfAtyns4sqV0k Ii8+ZZpaz2tdh8bkzYl5TrMj GGCsyvMbsSilLHY9u8BlOt39S9 BnyYgwh7HzHle3hi03kDZja0V7 cUS1YLttXGJhmI8xABrzOnP0 UGMgNyCryI11tVQmGAgpJs9ikD yohLttNJ5cNHCnkccbDYPnnR1i BQSaeVUqxKqyKM8cTCIdcite o951QhTtQZH6FXUurDDxD3AhwE 9jHcYgJMBqSKTgW0DwbKYmJIjn K988ZEevQtG2UFKfvbLoA8Qu IADxlXawAyQ3f8V5Jj3Xd0Vzhh jvLER9FEqiFXRoAmIxKzXpZuP7 U4PoVyy5JUQyqOocLD4yI9Gr FLHemtewdswgjKQ4PECgMSBxwX 94jMCgALooWa8lg4K2e785JXCi MEOrdU53So0poYuxDPQvoXVC fL6begmmm0fysukpKaMmOGUuBE i8ZHs6FJOpgOtcXrDrIRZ1IgQ1 JAY1qMJleG5mjYdjoavrrI5a Oyc+H54ncE1aVPZ6HPD2texkCT VxleSlGG22VL87Y3YmZgaooXEu bGU+BUXucjOsoZfxXI4ySgZt l9tem0JdIBdvX2VgAXGcDEyzBr d3OKKcJAE3dNH9kX0cXQUwBIof y7L7cSB3E7JfoiXlvw9yj9yj IPMbHVvbW26yfFEgg9Z9HRLetE K1WQOcdNhhQqQvsS58Lvp+PGNv cOxkv1BcYtwvv7avx4vbkXm1 ArKaCQGfmrAcfCexFYX0d5ToGz 06T50iMCoaDVIqSHNeFMHxEEUl tKvanv0yvF1hDx8+PGNvbCB3 iAG4eG3bQJStXgP9ICpoO305Us OwtQZbTtptg5zdm4cexEs8WuGd HOYzuvPoeYrpGNA0e4KbCp76 M92nISagODVaMAJyDAWrKEWcjA gpsf7vwU2pZf5+TF6mu4klul08 nZ63yXF+HLJvXBJ5xFrvJPrh MNYjgZ3iJUlyNfY6ZUCkEwHsuF 86tAPbNXwsYw3rjSuzdAsfWR6h YHGnqxxbe898QuAvr3faXCSu oUQvMTdtYWC3Q65nj8N4LZPdWO XmUVJ7pEP5rS4esRerabqooOFn tWbadoPmjHhmUSyeOHjsM718 IHRvcDsnPlBhdGllbnQgTmFtZT t8F1KeTxo2RYZxfImtUA9abUKg PSjhRe7grMbllPfiNG9rMFBg lqzte189LhPmq8ozOPKwfRSiJI ymRAN3L59dn4T0TAVkPZLmHNU6 xNY1hU1zaTcyaxscfACydDvv jePdgVknWChxZJiiZ366CEDewT vqHpPjptTwPKVrcNP7IW98HK96 bIDuz6S6oOE3G9IzWNEfsrel ynejcGG7RXFiDIRnfM95Ah8gaF gqTv4iUGDkAAT1NPObvYWnF3Nf iD1nBsFvQFSlLNDjB3YczGMq BCnuR492TUevCfW8ZTFkonRlK1 QqPROvyZthFhV3a4F0Ud8FU1L3 EX63YK19wQGgm3A2nTV6R4Je FTTlrndcmpnnjNE8VENeBFXwaX 80Ph8jgHvvQi0oMSFqNOL8UANt yVCkM9NnkY9fBtYbPYCgITXi H3ElgKAlPPwtO201ZMjeGoH7SL DbjqGdC1TqUGSrpBdqKdW4d1K4 Qx7IXQr2OU68XC25eMRlv0S3 rHO1Q1XiRFNbhnyhmalewES8TZ XyYMOipP76Wx1viSwyHv6tJJFc PSJ4CEOfyGFwW0DsoD2wXfUx WIWeMURfS4BbwJDwALegK060BL xhFeM0VFJdmbRhP2YvBAGbeBby ZuL0w5G6Ic4XYMJxFF20SQN5 xJX6LS15DU18N4IsXrzquLYozA U+PHRhYmxlIHdpZHRoPScxMDAl FdFimGynEA3sGw2aJSQcTREd iPbfpYGyPaQgf3fsNBWxZRnzQW 1izAbdQ7YraAR2HCNyr7g0Ro10 P79kX9NhjGL+GVUblQG4qCL0 zR8oBmQlRbM4KYtwA603EsPxoO KiZyaww9bgo6cmvJj2EkO6PSXi jrYzhPjvQMC9x8OiYi66Z01x IHdpZHRoPSIxNSUiIHZhbGlnbj 4iyN4sAn1+KJOqrLR2iQA6oE4e QaXqMiM9KFlyL452MvWhhYLu Tfuic9rze4kafCu3SnAhOYVvsl JqkHkcSBM3x6DlGr29P7YhpWaw t1SgHpt6rh12qUWem2S0fNM6 D7RrEJNbdysvsCFoiTvmJS1yVS XunfadPUExdR1bGKZpM4s4OjIr WsI8KSrcQ2QburP3OFFvcBZv MPqbIGR9Z36vg7I6JSZpMBRuNI B8uNX4sI4xtLfitqkcdSKyoZpm rnHezWhpYDerJSslY898FXSx oImaEVNlqG2vEJVxbYYvbJqjAP 7fXTIwnfwtAeAICl2AKqiQNK3n VDlYCc8SNTSIIGNFF6KELLjX UjwvdGQ+HTSwNOO2dMgwSVhwDD TojY5sDLFvF2s2BuMhVtM8QBqh P1UkGOZwiycjDf58kZ1uZmOv GoZ0ZIlzT6FuxfZ4VQNgsZBqQU qaPKV8H56pm5Z9ZYGyARZwQOZ6 hCM0rW5xqRvpxylajJIykCwv foUatYgdNEjhECyoZ684YDXejP ilQjFaOvQsUsQ7GXo6T0PfDor4 TMMqrEocWK7mjCXbTJotWw5q uXtyfGziOD7oQQTesulkQCTjoR 7gNTAdkQDdbNenAK6hOUHmrtnn y120ViDxRFN6YEUqzPGfT2Dc fO3qEnEsTAWjVIDkV2BleYBvCU ifW306DZpvNfA6CMSzspFqY1Ir CPNabPvtWoR2e3J9Sg85DYVV ZWFyczwvdGQ+AHRwYLA5iYbsRC cfRWRkvF4vZCQfY9d7VgNiVhE1 RNsdR0HoDZGevkmcVi87aO0i MzUsKdB3KFmcE4SmzmO5IHKlcB AdGDsnMRW6D20ga2J8IMSmPDEh DQL0aPT2iJ0zoPoqbqkpaNMk wGqvqzNddNpwNJktEBuwL927JF QlsUkjBf7OEFK6R8XiFzy3XKJx lOivOD8nfVMfHUtjKf1usOks iNjoJK2fNIQewdtqXBFrnW6pRD CohDHezTqlZG7cOJRysysva491 ZmWnPTF0BCZmsBDtT5DuuW8n RsNlYMItWOQyH6XwwGNaWAloQ9 69EGtsXbM4JBOoteBpS5ZySTNn jGluLfL7k6H3Nf3QGOurkUW+ BD71do48D7LuPuqxKfm9AFBsAN P2eNE1vT0sQMCtTMvvg1N5hMH3 Y4NmblNcsd6vs0uvRYNyDDiz J07rzSBez4R7UJAgkEA8JRVlhC iaQeMkmN44Niy+UMZofSkgj1Yz Ylknu6zay0cemWy2GqVeWGMe tyXvoMazASQ9k6PiAy15I80iRK giAEHbTNFnIFJrCDAufMfvnx0k iT1iTd1+TBHstBB4yMC1lQ1p GjCvOeC6CMxrQ654WaUvkUHsWi bly2hhy7xpvPp6PjGcZAJtmtPn jNbnHYK1s6QiBv45A4DjdKvk g3EiRaf7zc22mHJej3F3fTR5F0 NqLBTyesxquEFtcEigOA6sRKRn rhduOASsdH5yVQZfZ8v3SgNc InH3HZmgO5GsxbD4HNSarHXkUW MlmPNVzV8jipcsv1tzfcqiHtDz OQCiHOp3EYv4WWLkzPmeGoIt SBZ9FlP1JYA6vUZgpP6mkFtyeq ikgU0nMay+GYq6y5wfmEZbNX0h gKX3WI87JV28tWYly1B7iSK3 V3TfQSCqkbtnqhqfbBC5VVCnMM LkrZ19Wf6auQgsNa5sKCSlBGM2 EHPecCMfA1UiyU6dYzVoKGCc CRWtZ2JcqYFaKFwrH093XBrqKb Y7LRUnujJtM3SmGBEmpEoeHyE6 n4J5Tb1AXH77MY55TM04eGIh v1U6qUJ5H6KaXVUmiatyofrbdK B9TJKqUKWkcS98Qx7uvNbpBp6b IAGuBAZ8CTUybXOyG5WbrJ8u NeYaESCiHUOrX0UspPRtVMqgI6 23YZeqXsM5XRFlipLcF5BmMYTk tJnrMhZ7r1R4Iv3JVa22FJ20 ZP50aRYnc7P6sOY4E0EsTKLugx qwtffjgKJ6KSUpDLElxB96Lj0y cYloRt1eYJSgRWQ9NKTyoJGd H2AzoX7vFsKvOAQuJQDuQ0EpuI WaYEulD414OJemTtJ4FFQsftPt I9LiORRycGpdSjS6a8M8Qx7P RDsvitp7X0HlQjdbnSA+PC90YW BrKZ91dBJgkVGmr8ictMt8KeWr BIWcUVP2dPanODsuq7ZzSIFv Y29 (more content not included)... [facility] Coding Summaryon 04-11-2021 Coding Summary [employer]Base 64 MxbmmvzdVQl2rYo+PGhlYWQ+PE 6CBHRcQ92piLVesP5SH8jXQM7G FAFNLVZFPM0FXT6byUN7QOmyX2 VybiAv XfufjKTfCC94NQk4HML0xOiaCD glcG3htAViZ6j0CmPuZV36oM77 NXlpFUCgWjM6IjKdewxupAJw A7fnKdSlkHXvUba+PHRhYmxlIH kyVPUyLTdsSSMbUoKkvRjkCX8q Mp2hYROeSCWsbEsilGPnFyJw o8jhZSGsZTthHU0qtJpvD4FnrV B3MGUsj5l7Ii44rSQ+PHRkIHN0 uBwjFJyhz468LtXll2tdFQA2 sZMcZSafXFK1W63ss5I8BDQwNF CnFRB1yOK7iS2glHtrjwhgT1Nu lUNuMiU3KKI2gVUhhW8tbGmr jfdruM5vOrr+J06CTT0SBGHEOQ 9LGhh3N3XlOhbhySF+SN97TFVi HK23qYXwnVNyq7syuLb0VnPc XHEzXMR4uSjjFWehj9WoELHsX0 9sjODqv6P8XLQpxZborABuUtNa tLE6aN7yKSvhakjxt9nhiswt Uixpg9gacj76pB82M38aJPujUF WsZFA8KXZaIIRfuBxleg2csC5h Ii8+QRpcb6nrx2ourOx7AtNo ATLantDpaLbkLZC9u1ViFq81Y2 UmfYagf5NfDgw2fx85kVLqj9X0 eRP0JWzzAYEnfK8gMWudWhQ1 KHCzJwWfbO77wBTbTIavNh3caF xjwHdgOU1lLXOypupmNAEuqF3r IUKilQEvoPkkJD6pBUVirxsi f539UnSaGIT4AZRjoSFwN6RhwK 5fUmEfURPlNFSxZ3IjuUZcJOkx Z080VBfxJeT3SOAoogWqS2Mp DJTxcSzrFmX8w1Q4Jc1Hd0Mwcu sqFGF8AJqhGYDvNcE3JxJmFnH3 T6BoTug2MZTwsHysFK3gW3Uf JLVudusywigguKY7PYFvMKDfhN 96mUUrCXjkZl8gq6G5z316HPLq MZYveV52Ce8chGxyBZNitPOP dE9idqphd7pwjepwMpHbAUJjMM m1KYg3HTAkrHaxQeLyJBE7PfV1 IQK8pMWphV7aqSlpqkpzsC8j Oyc+Z49khF9wTYC1YIW0jsfmGV EuzuEcDB77MX11J3NcPodzsJAu bGU+XRGgecXwbTuaSD6qDaBu d3itu0JdIXbnA9RqOXZwKByvLx x3QWTvGYJ0uCY7eA8qXIZaRVpy m3Z9fUE9T8NshjPnrb3mf9xw RNQxUJzsP61wnWFae7C2UXPoyN A8VVYzxPjfTtBwlK65Yqg+PGNv uRfie3NrCaoyq7vpz8bzyEo1 OgWvFDRoanIpoQoeMCR3n5RwEj 14V46vLHnuQDNvPVXdQTBnFRYi xMyphs4twZ2dUu6+PGNvbCB3 gYY1wL6bYCSaArU6HGbnK357Mq LyxTHdQkogt9zxc5wmoHc1LaWj FSKwnnVafFrnRJM8j1IyYv30 T80zZXyiSWLlHSWlVFZcKQMerF jhnw5svC1hCw6+FX7fj8twsl31 rA94bOH+GWXnZLX7hXnyJBfl KSDinD9lNTplFbW1RSVmGxOqcR 28lEUrHIkbJw6naQfajGnyTT7i LLZzluxdd667KbThx0loKMQk oUVmVKowGSX6V85xa9N1QHGhEI QsPMP7nUC3bW0ehChrgvaghVJs vOnjzsNldDuxLRswQYoiN022 IHRvcDsnPlBhdGllbnQgTmFtZT n9Z3PjOvg9WUGcwYyvYU0inOTv RCzkTt3beEjknObcLY3zSWNz bquhf352PrFff8oeLQCmmWZoHF biEWB0J57yb1O6UKAwIJTvNQF1 cNX5vN6zbBwsgmwjdZQbxDee hlRraVtnPOczUQfsT759TJDiyS tkSsLwsuSnGIWcpPA8OP62DV73 mTAkw8Q7mTN0C2UcSFMehkgj eqdwoKU4NWMyDORqiX39Vj2xdZ xzSz8eJGUfQMW1JNJsuDLmX0Wp gF1qGjUiHROvKOSuK2IgcGVv POejA775BFwfNiQ6VVAbygYiE9 CfTNBcyPxaYqU3p1D1Hx7MZ7D9 AJ45YR77rPFpb0J3yGS7D7Cp GGBsrkngymavlZL0IKDjRTPppO 53Ez0mgAcdEv4qFYCrYIB6GQJz zHMzJ5ZjuU0kRfXlSLVcLECz G5SwbTMwDHbnA155TMnpObS8WU EdnqEsU5JgKCNqcMxyRqH9e9N0 It7YXSz2FP81VN31gOBty8O6 cVZ0H2VlIZAljvtbpiaerKO2GI DaTIQorO33Ym9twRneRm4gMEOh FVQ2HJGlpZGzM1EytS8xGjUl RPTyDANpX1TwqSKyMDgqG147IC vvQpL5KDRoaqJoE0GwSRWkvQxj VmC6o3I4Eu0PCWDeST93ABY6 xRS1TE98XJ94J0HtNiozjBDejG U+PHRhYmxlIHdpZHRoPScxMDAl OdVffUeqPJ2sBf9pBKNvXXIj iXuekWQxIsSiy4ulMOMmTLmnCF 2qeZjgG0AroEG8VULgp0n3Rf12 S29sU4LzuVL+GRCwjVV3zRW7 vF9eArEkKyR2FBsoN471DiBhiC BuCqpuq9snr7hrqJi1GoV8OJHa ooLghUkxRPX2a6HyFu61Z77o IHdpZHRoPSIxNSUiIHZhbGlnbj 6lnJ2aXv0+WPXjlIM0vNO9yD3r AwKjLlW9CEitV211MoFgsWUa Qblwf0sfu8dxyBb7XgUcZZVsjr ArfPjlYEU9j6ReWv62Q0FmnWup a8MwWff0ku06tYBbq6Y6rBW9 N9QuKUPxrywahYOlsNplVJ5vVP MmovtpAHBpmV1aKDQfY5a6SaUw RxO9QXsaW1RidnX8UYMizVXh LBctVNQ6P95xw9P6ZWZkSYZaNR D0eRS6lV3xrEzltxaabIUnuQms rcAqbFkyBNbmUXcnF475FJLi rGtfBODkxK2zBFLkpVKzgLabKP 6gDCUlrpfxIkCQMg4BFimTVL9d KSaSSr8GOVPZNWWAJ5YCBUzK UjwvdGQ+CIYnUDR2xFtmYSgeMT AniP0zYZBnZ7w4FtXlKzE2MMih S9KgSRXbuobdGa32gF5jXtSq IvZ1OQugH8DxidC5RFPrfOHdOX vpGGA1Q80cb7M0ZIPcDSDhQIB3 mVD4qH9rmPdcdeqgoWPjtMaq ajTajPrwAJhpGSdyM824FEOyaM pzNfUqPdWoMhQ7LLk5M0TtIsm8 UVXpwGqkPD9voFJvJCowXu7t zWvhrXeyJW5rRCPpipicVCObgU 5kKQIvcDEyiSrnPG5iOGYgpjkd a368EbCfXIV8SMCmrRZzH8Bx jZ0lYxIaFOVaSRLgL2YrqMJgPN xyT289KRlsTuB8QIRceoXbA3Vl CHAjpYzcIxC1k3G6Wm08EYNU ZWFyczwvdGQ+VLTwSUI6bFdfHO okCGZuyW7uCYNuY3o1PzTeSaR6 GCmiW1DePXNyjicbSi28sL6i WoXvLrC1AQqkG4NyvyC3ZTXwlN OrOXxlEYL6N11ze6D3TQRcXFBj WBI0kWU9eU4fgMvuuhncwCQw wAskwjYndZupIQtuIAqzH950GZ VkhIpwLk5MHDP6X3SxPde2QIZw ySjjKH5bhKQcHIjgRz5wkDag xBsdGG2aSXBlbbzxXPLieC1wDB UnpLTweQmuCB8tJOGuwgbwp908 MkOaMBK0TJInfUFgJ3BswB0h HsEuARBaRQXrB8EizUVrZBdlL3 62SZpwBrA3ITMfycVmM5FqFDTc wSlvLwG7c7H5Wh2CBTqvxQZ+ MP05xj24W9BtKvmpXka7IFSzPS M5nLR7aA8qSUZfBIfsc9M3fIQ2 S3YofpAhtu4jl9hhVAXaLQlx Z06mfZYmf0H2NXVewMW0AMFarP glHiOcjF57Dor+XETxjKlzs4Cs Tfrpx2wps7frySp4LgSgSOSf lsGqpWwuYOP1b7PuOk86B11mKH qkXXAdWEJnGRAqHSQcdNqjdj6b jC6cTm0+MNZhcMR4bOQ1jA1u VdJsQcD1SVceJ998TlExvDBlVe rfm5zwl9ujzHy7RgWeQDPhvqBe oZodDGB4l3CeRj36J6UefGmv u8SpPvr7tj37wRXgo7I9jHW0R7 SvYYYjhmvdeWJbwHzuZT8uIKNy rsrzRAVivV4cXSSbS6b8OoHl PoZ8KCfwU7UrutK1JYTmpGVzZA UxyKMZbQ8vnjmyc5sdgkqgDlDs WCExNCo1KYd0QGInsAjiCgXp WLW2GzX7CIA8jADgiN6paBsclf umxF7eWtg+ZYu8g6sarIDnIU8j tTJ2OH63RS68zQQhi1D3oNX6 B5LtOGEwwgttrnwldZR7VZUmQZ MvsV34Ha4nyYfzTn6hLASySHW7 KAZgmEZfT0DepO8eOvTkXKRp DALiV6ZwzERpXOyhB193MKttXg Y2PVBdmaIeQ8ShTZXocVovCfJ0 d0U9Xd0ZJO53EP57PH29iMNg c6D5qIG4N6TbZQCtvvajphbfcA S2QBSuDCLkmJ88Os8tsVmnNp6z TIMcOMV9SUQpzIEdH0SclI8r MfFmPFUxVRHhF1EwyLFvMNldB0 51IUkiRaU1GIGfejZyM1IuPBHk eCgqDrV7j3Q4Na1YNu53LD37 QK87vGWuu3W2rYX6E3JnLGDram sxkjushIM7PFFuOOYxaO65Eu3m xYjvXc7tZAMkFIH2FATxiQLy Z9GajG5wMrRwQLKqKJCcU7BsvS VfCBteY255GMhnCjE8SZKifiPo L8PuVWGfvYzwMoY9e4J2Ri4U XFvvlli6A0YaByxidYM+PC90YW PsIS37yIIqzCUoq8xunQw5CaMf JPLdFAU6oWluFQtyd9IqNFEc Y29 (more content not included)... [facility] Progress Note - Nurseon 03-17 Progress Note - Nurse PAT review done dahiana Deng, no orders received. [Electronically Signed on: 04/09/2021 14:57 EST] Praveena Lowe RN [Verified on: 04/09/2021 14:57 EST] Praveena Lowe RN [facility] Provider Orderson 04-08-2021 Provider Orders [id number] [facility] C Urineon 04-07-2021 C Urine No growth at 2 days. [facility] Comment on above: Performed By: #### 6 [id number] #### [facility] (DEFAULT) [address] [place] [address] .Auto Diff 1on 04-05-2021 Auto Pine % 11 % Normal 1-[address] [facility] Comment on above: Performed By: #### 7 [id number], [id number], [id number] ####[facility] (DEFAULT)[address] [place] [address] Baso Abs# 0.0 x10 Normal 0.0-0.[address] [facility] Comment on above: Performed By: #### 7 [id number], [id number], [id number] ####[facility] (DEFAULT)[address] [place] [address] Basophils/100 WBC (Bld) 0.7 % Normal 0.2-2.[address] [facility] Comment on above: Performed By: #### 7 [id number], [id number], [id number] ####[facility] (DEFAULT)[address] [place] [address] 31431 Eos Abs# 1.0 x10 High 0.0-0.[address] [facility] Comment on above: Performed By: #### 7 [id number], [id number], [id number] ####[facility] (DEFAULT)[address] [place] [address] 55982 Eosinophils/100 WBC (Bld) 12.9 % High 0.9-4.[address] [facility] Comment on above: Performed By: #### 7 [id number], [id number], [id number] ####[facility] (DEFAULT)[address] [place] [address] 24277 Lymph Abs# 1.8 x10 Normal 1.3-2.[address] [facility] Comment on above: Performed By: #### 7 [id number], [id number], [id number] ####[facility] (DEFAULT)[address] [place] [address] 61766 Lymphocytes/100 WBC (Bld) 24 % Normal 14-[address] [facility] Comment on above: Performed By: #### 7 [id number], [id number], [id number] ####[facility] (DEFAULT)[address] [place] [address] 34268 Pine Abs# 0.9 x10 High 0.0-0.[address] [facility] Comment on above: Performed By: #### 7 [id number], [id number], [id number] ####[facility] (DEFAULT)[address] [place] [address] 24974 Neut Abs# 3.9 x10 Normal 1.5-9.[address] [facility] Comment on above: Performed By: #### 7 [id number], [id number], [id number] ####[facility] (DEFAULT)[address] [place] [address] 91795 Neutrophils/100 WBC (Bld) 51 % Normal 44-[address] [facility] Comment on above: Performed By: #### 7 [id number], [id number], [id number] ####[facility] (DEFAULT)[address] [place] [address] 99777 BMP Standardon 04-05-2021 eGFR Non AA >60 Invalid Interpretation Code [facility] Comment on above: Performed By: #### 7 [id number], [id number], [id number] ####[facility] (DEFAULT)[address] [place] [address] 25657 eGFR AA >60 Invalid Interpret[address] Code [facility] Comment on above: Result Comment: [employer] Kidney disease could be indicated at eGFRs of less than 60 ml/min/1.73m2. Kidney Failure is indicated at less than 15 ml/min/1.73m2 Performed By: #### 7 [id number], [id number], [id number] ####[facility] (DEFAULT)[address] [place] [address] 09858 Anion gap [Moles/Vol] 12.0 mmol/L Normal 5.0-19.0 [facility] Comment on above: Performed By: #### 7 [id number], [id number], [id number] ####[facility] (DEFAULT)76 [place] [address] 39406 Calcium [Mass/Vol] 9.0 mg/dL Normal 8.9-10.[address] [facility] Comment on above: Performed By: #### 7 [id number], [id number], [id number] ####[facility] (DEFAULT)[address] [place] [address] 77339 Chloride [Moles/Vol] 102 mmol/L Normal 101-111 [facility] Comment on above: Performed By: #### 7 [id number], [id number], [id number] ####[facility] (DEFAULT)[address] [place] [address] 44664 CO2 [Moles/Vol] 27 mmol/L Normal 21-[address] [facility] Comment on above: Performed By: #### 7 [id number], [id number], [id number] ####[facility] (DEFAULT)[address] [place] [address] 41721 Creatinine [Mass/Vol] 1.12 mg/dL Normal 0.90-1.30 [facility] Comment on above: Performed By: #### 7 [id number], [id number], [id number] ####[facility] (DEFAULT)[address] [place] [address] 19113 Glucose [Mass/Vol] 93.0 mg/dL Normal 74.0-118.[address] [facility] Comment on above: Performed By: #### 7 [id number], [id number], [id number] ####[facility] (DEFAULT)[address] [place] [address] 24944 Osmolality 279 mOsm/L Invalid Interpretation Code [facility] Comment on above: Performed By: #### 7 [id number], [id number], [id number] ####[facility] (DEFAULT)[address] [place] [address] 36860 Potassium [Moles/Vol] 4.1 mmol/L Normal 3.6-5.1 [facility] Comment on above: Performed By: #### 7 [id number], [id number], [id number] ####[facility] (DEFAULT)[address] [place] [address] 86436 Sodium [Moles/Vol] 137.0 mmol/L Normal 136.0-[address] [facility] Comment on above: Performed By: #### 7 [id number], [id number], [id number] ####[facility] (DEFAULT)[address] [place] [address] 68949 Urea nitrogen [Mass/Vol] 29 mg/dL High 8-[address] [facility] Comment on above: Performed By: #### 7 [id number], [id number], [id number] ####[facility] (DEFAULT)[address] [place] [address] 65772 Urea nitrogen/Creatinine [Mass ratio] 26.0 mg/mg High 4.6-16.[address] [facility] Comment on above: Performed By: #### 7 [id number], [id number], [id number] ####[facility] (DEFAULT)[address] [place] [address] 00613 CBC w/ Auto Diffon Erythrocyte distribution width (RBC) [Ratio] 13.6 % Normal 11.5-15.[address] [facility] Comment on above: Performed By: #### 7 [id number], [id number], [id number] ####[facility] (DEFAULT)[address] [place] [address] 43801 Hematocrit (Bld) [Volume fraction] 49.4 % Normal 34.8-51.[address] [facility] Comment on above: Performed By: #### 7 349778, [id number], [id number] ####[facility] (DEFAULT)[address] [place] [address] 75912 Hemoglobin (Bld) [Mass/Vol] 16.0 g/dL Normal 11.8-17.[address] [facility] Comment on above: Performed By: #### 7 [id number], [id number], [id number] ####[facility] (DEFAULT)[address] [place] [address] 67645 Instr WBC 7.7 x10 Invalid Interpretation Code [facility] Comment on above: Performed By: #### 7 [id number], [id number], [id number] ####[facility] (DEFAULT)[address] [place] [address] 26143 Man Diff? Auto Normal [facility] Comment on above: Performed By: #### 7 [id number], [id number], [id number] ####[facility] (DEFAULT)[address] [place] [address] 57130 MCH (RBC) [Entitic mass] 31 pg Normal 24-[address] [facility] Comment on above: Performed By: #### 7 555540, [id number], [id number] ####[facility] (DEFAULT)[address] [place] [address] 06780 MCHC (RBC) [Mass/Vol] 32 g/dL Normal 26-37 [facility] Comment on above: Performed By: #### 7 610513, [id number], [id number] ####[facility] (DEFAULT)[address] [place] [address] 29494 MCV (RBC) [Entitic vol] 97 fL Normal 81-[address] [facility] Comment on above: Performed By: #### 7 [id number], [id number], [id number] ####[facility] (DEFAULT)[address] [place] [address] 48043 Platelet 172 x10 Normal 138-[address] [facility] Comment on above: Performed By: #### 7 759373, [id number], [id number] ####[facility] (DEFAULT)[address] [place] [address] 43468 Platelet mean volume (Bld) [Entitic vol] 9.9 fL Normal 6.3-10.[address] [facility] Comment on above: Performed By: #### 7 382646, [id number], [id number] ####[facility] (DEFAULT)[address] [place] [address] RBC 5.11 x10 Normal 3.70-5.[address] [facility] Comment on above: Performed By: #### 7 428174, [id number], [id number] ####[facility] (DEFAULT)[address] [place] [address] 12316 WBC 7.7 x10 Normal 3.5-10.[address] [facility] Comment on above: Performed By: #### 7 789380, [id number], [id number] ####[facility] (DEFAULT)[address] [place] [address] Provider Orderson 02-03-2021 Provider Orders [id number] Normal [facility] Progress Note - Nurseon 01-14 Progress [...] [Verified on: 01/25/2021 08:34 EST] Marta Velez [facility] Coding Summaryon 01-24-2021 Coding Summary HTMLBase 64 MkfavahdIDo7rZq+PGhlYWQ+PE 6BLNRhY97yoQMllV9JQ9hCFW5C XADGUHLOEM7RES5loWU8DEzzN0 VybiAv NxghsJYqLV60YAx1POL0oXcqKY vsrF7bjNRmJ4r0UvMgWG95iZ88 FGuqVUCcMjO2PuYczbxdbBRk W6jfRaZdvIMuUot+PHRhYmxlIH utZGMzSIqoOEEhQcMcfRtlDQ4r Jf9eFEUkUYHdnTcuoGIuMtHo p8krJIDbSItnRA8sfNdzP8OjiM S5OGIhm0c6Yf07hUM+PHRkIHN0 pEnsHJaht805InKlg1tyGPY4 kFPsJPszEPB3E89no1G7GPSsKC MbIMV2sYE0hW6mtVkijyokF5Zm mLXbSuT6QQD7zBRbeZ8ezRkh pdxohJ7kOuj+L43LFK0KZPZTFI 6FAyt4M1KyVovpmJV+VK64NMOt FJ49dTDqkIVyb9txqOu8QzRt TMJaDUY3bIpnPZqvg1CiZIIvP9 3ywNHnp9R8WOQqhNayvENuPlOt mOM9lA7kOCbghhokb8kltqho Gguto6kwqg93mE15I75hNNlhZL IeYYO4EKBcCTXqkBpvxh9osZ8u Ii8+JVeif9gik4otkFf0ZtCd DGNlbpIprJnwHIK5t2VsSg84I1 FfrLlap6EvMal3lc06pAYbu5B5 pCW5XVbdRJLopW2zWNloVgY9 CAKvAmClhN66oWRxKHuvJn2xpM aylAwcBH5uIBKwtjluQLUedC8u SFMndVUitNtnUV3eVXFxmrlq f758IrEpJQS6PZCeiFUxC2HfiT 0uGrAxWVGlQVZfK5DxvYSmLPyt A268LCtyFuV1YFHahqMuV0Rh LFQkqRylIkK6d3C0Lm7As3Azpu wzRVP6GXuiXTKpIkTnJhJqRmK9 C5MdDxx4HZVtmYqtSW8dN2Nv XBKgpsnjjfnetJS1EZRcJVRpiG 24uCAcFJuhEt5gi2Q9l445WJUv MXOtzI89Rf0tvHalCMNybFAN fU4vmbrbo9sffrtbUdNpAGUfCR f8XSd4FFInmLemCcPaKHP8FjQ4 QNT1aKGyiN1mcOcpeiqgbV8r Oyc+V51vnX8bKRC2LCP4extvOU EhsaQwHX43KW99K5UaQaruiJCp bGU+NKAreeIqiQelZY2gXvWu l9bbv4TtXJctS8KvYZGpRTjhEq h6YVHkIJZ0bQL5cC3nVGQzUOlq e2O1zVC8S7WqfvHozo8bg9im MXWdYTcmW39hpKFeu7I1CQLcaB T3ZWKlzQkjXoKvxH33Ngi+PGNv bBtwu7OyGakvb0yeh8oywCq8 GvQyYWBmsxMgbRvzWUA2b5CmYt 75I07dOCklHWVuSRXdCSNzAKBx wJwfji6yvQ2lKi1+PGNvbCB3 nQI7gH7wPQJqUeV9JKtcP216Nt FrnDRxFbdpt7qix7nmbWr9HoVy COUojiYmpUnkOAP8g6JwBh37 U08bEDmzNJIqFPGwFUJeBCRqjF rfmr1jjQ4sDl2+CS7my4ztmp32 dW63qFC+DURxSLD7dFcjIBom OKEudW4vPOukLfV6PQUfIzKvtK 39pKVnAVbaNm9wiFzfdHssIL7l SUZnmfmch620YjAaa4hhGQAe vIWlBSxkMKK5Q77pk2T2ZOIfWS XcLEP2vKZ3tD1wsXqzsphqzQCa gDaqmwFafOswNLrfPEgkT682 IHRvcDsnPlBhdGllbnQgTmFtZT z6F7LrAbu7MTJbpPlcYN7qtFHq JClyDk3wfQvmxDvfED8fSFMl buyyt857SxOwm8yxYTObfVBmBN lfEUL2I51to8F1VTYhLRYgYYX1 jIL7rB4msQssohdoyGXtdQua vsNofTyuALblWUftP819DIQbpP qyDyUuzzCvGJQsuFD0UL58YV49 sZJtt0O9jPF1J4RkDBErjncn ahxtiKU9GRMbQRZbdR70Ir3fjE ztZw7zKYIgPKF0GTFfaIOzR4Om tC1bBvKbKRIpNDYbJ9PubFQp RFxpT440GEwiGcH1KGSbzeCmS7 GzIXWrrJkxLzW5i9E4Hj0UR9B5 GO85UD12cSZdz0F1hQN2J7Bt UCFtwjbcyliejUT3RNOiRSHkeK 00Uc4dwShjYc4sOJEnDUS5QJKq tKLrU6EdkF2gOjCmQIQeHSJn S1GzcZHeOHtbG752RYhtZhQ7KO GltsEkS4RvBUJmxThuAeP5i6Z9 Ud1YQNt7YW62LL94fEWub2H6 wWL1Z2NtURUxvqrazqnrpMH9II VeXNInfB54Vy7dsUqtIl3mWKLm NGX9SXLhyYJpW2WudX5mNoKf ZDJgSFMwG6EkxPJiXAifX482YO oyMtS5MMHgszIcY6QuDFQawTav XnB3w0R4Zn8ADSIbMF81QBO6 vKV2PW51EJ90I5FuNlsytKKdlR U+PHRhYmxlIHdpZHRoPScxMDAl GaJcsAonVE9qOj9wWXCzSIXr xMtxtQKgHiZyy5xmBYYhCVirML 2ljMvzY2MbcSO2AOIkz5p3Bh97 G51oI1FbaSY+SHKcuPB3tUO9 eB5mGbUiSrN9LFurN340JyUrhX XkEsijw5rtx0ngrJd3DiQ7FMHv eqGdcMsdAQW4z9HwIn46N49z IHdpZHRoPSIxNSUiIHZhbGlnbj 1dlA8fUt4+EKQihJS0oDH6vO5o AdAiDrL7RDomD348EeIrtADk Llsmf4yrk1unjUg9HzKpMTPxlm AeeSrlZNU1h4KjYa33X0VujItt e5LdYgq9jb00oHEun8N5hZX8 R5QxQSHysrdopHHtiDdyJH2qGU KirwlmIYYozC8pDBJtJ6u5XxId HmE4WHvpW6CkcjK2VEHrlEUd IYqyQTB3W03az7W5YCMlSSXhPZ V9rVT8uX2uvUkgmupyeYVhzLqz ypNhsLelMShwZPhkJ511GLAw nEbbZSGmxT7dKVTxrHWfvCweDT 9uKZIfoxvyIoVDSt3SSucMQR6g PPaUKn0LQFuaeWB+PHRkIHN0 kWncSSrkAFYysL7pMVUtA3c3Xu AiFmH6HLotH1ZnQPMevqtfMo84 fR4bXeUnSnY3LYvxK4WarrF1 RVJknIJsPZpkCKP2D12zi0Y6SG OoBWSfZGY7aOO6lH7cdTzctgbf bGVmdDsgdmVydGljYWwtYWxp U093HXKpdBtpTfKfJjFnIhT0HD k6F1XqKyf7QYEekNgxXI4czRCc BVooIl2rdTswoHvnTR1kYCTt sqprWNXlgP0fNKDnsGJxnAzkKT 5zKFFxlmixx461EiKcHFF8HZJx fQRnV3KdbE7zVkSpQXDqBMRj J3SvdPLyJJjpS195BExiDtP0PG LyefEdO3NxIRBqlRxcXoQ1o0H8 Bh53TyKQBJQjzpninWQ+PHRk AEH9oWsnAYhsZFRxqL3wPLAqO1 z3AjXjKoA9XEkrM4NzBFVekgsu Kl63pT6kIfYoXyA0KBnlV9Ze ytM2NBJkqYFqNDntOFD2E15py4 R7PKCvAFErTPS4uBH7tH7xrLif bjogbGVmdDsgdmVydGljYWwt SQoaO415KLArtNtiRq5JOXM2G5 YtXtp3VMEagDfsUP3mxZDrCOwb Fo6flNnggUciZF0tKUYufwuq FKPpzW0bGKMnvIJjqUxfEN7tMQ Vpuauhl670ZyXoNTT3ZEHwpIXt B5QxfV6qSyIgTXTcZYCxW5Lj eNFwOEhjH063JIkkZlP9GFIzch IyP4BjLAWmfIeuGhU1k2Q1Vk4F GUdzW2LpH8KlpAqcwHX+PC90 cu69J5ShBmyjEmu2SCRtKLL8rQ L5vN8nQFKwHUliz7J1oPM9H8Ex zeFhrj9qk6gcJJTzWYbwA98k iSHhx9R9HMFeqXO9YAYxpSxmAs ZmjP23Lsr+KEYbwYajt5LsOhpq o3rru4jecWo3DaTpKLDggzUw yJtvICD3v3LfFq81T51fYIwgRL OsIYEsTUOxOLAnrRymsv9jzZ8c Ii8+IEZfgJL0cYP4aW6sQwTp BfK9UMndV233VuRawQXyHjryu3 scp0bbvJg9VgYuRKCaebQxzXtu ICV7t9XcFj52K1JxlBuvz7Jc Lyz3qu95dAHmm7Y6cTI0J5WnOQ AjjwnaiXOvmSatLI2fYZNtafpe RSSzxJ5rHLGyT1g6XbVwPoT4 NIylZ0YlbuE3CSBhdHLkUSRmfU FVzN7ywufvk1ozogiiAzRuMIKd IMi1YOp2OCTudZoiQgZbVJR0 UhW6LRM8bQNlnB1esZrrpjbuvF 9wOyc+NZx8j2ebiFNfFE9vuTO9 FK76OU21zXFvg4I3vRS2K6Vz BCAapjagmfvnfFE5XWIvADOguL 60Oa7riNwbBx9eFBUsGGA8GBZd dUTeF3YkqK2dZoEbDUJfHITy D3DoiXQoEQxyJ099TGgrUbC8ET PsukTrI3JtVQXoeFyyUnZ2y9Y9 Dz0WWB48AG71HA32sGXpv3S6 wMH3Q1HpVIIbiysdaaddrXE8FH NzBXKbwH69Ej7vrKqnLy8hVGCn HDV7IUBscZAqL2CkoH7jZbFp MGUeSWHuC0DgyCXiHFtwH739OE bzEsU8GEQkisTuV8CiRPMcfPww UqS0u1W0Kp3GEl06TW84RB28 iWHva2A7lLR3F7OqJTSnekjent dzeAF8TITuZBMgtU66Ok1xkVlr Vy7lVMLqLGW4SGKyyJZgK7Db gU8qFkTwSBTuAGWdE9RekCTyWF avA549NTxyUkV0OGVoeaCiX7Tr CGVaiBsqAnG3j6N0Wd1LEUux hmo0S7ZnPgeuvTZ+CA78ELTkRZ 69jKXwqLSnd6epbUo6RdTcKQSw bGF (more content not included)... [facility] Consent Formson 01-23-2021 Consent Forms [id number] [facility] Consent Forms [id number][facility]22-2021 [place] [address] Patient Discharge Instructions Name: DEL MCMAHON : 1945 Patient Address: [address] [place] [address] Primary Care Provider: Name: MARCO A HUIZAR JR. After you are discharged if you find you have any questions, please, call [phone] ext [phone] to speak to a nurse. Discharge Diagnosis: OAB (overactive bladder) Prescription Information: If you have been given a prescription for narcotics, seek immediate medical attention if you have any difficulty breathing or any sudden status changes such as confusion and sleepiness. If you or anyone you know is experiencing suicidal thoughts, mental health, alcohol and/or drug addiction problems; contact the [facility] 06/10 Crisis Hotline -Text 4HZNA ae 301027. If you received any narcotics, sedation, or [...] business decisions or sign any legal documents [facility] would like to thank you for allowing us to assist you with your healthcare needs. The following includes patient education materials and information regarding your injury/illness. LISANDRO DEL has been given the following list of follow-up instructions, prescriptions, and patient education materials: Follow-up Instructions With: Address: When: MARCO A HUIZAR JRWilla [address] [place] [address] Business (1) Medications During the course of [...] for Disease Control and Prevention November 2013 [facility] MAGR Intraoperative Recordon 01-22-2021 MAGR Intraoperative Record MAGR Intra-Op Record Summary Primary Physician: Sivakumar Garcia MD Finalized Date/Time: 01/22/21 09:45:21 Pt. Name: DEL MCMAHON Kym/Sex: 1945 MALE Med Rec #: [id number] Physician: Sivakumar Garcia MD Financial #: [id number] Pt. Type: D Room/Bed: / Admit/Disch: 01/22/21 [...] Entry 3 Case Attendee Sivakumar Garcia MD, RN, Scott Lawrence CST Role Performed Surgeon - Primary Scrub Personnel [employer] Time In 01/22/21 09:12:00 01/22/21 09:12:00 01/22/21 09:12:00 Time Out 01/22/21 09:30:00 01/22/21 09:32:00 01/22/21 09:32:00 Procedure Cystoscopy Local Cystoscopy Local Cystoscopy Local Last Modified By: Lara Lofton RN 01/22/21 Lara Lofton RN 01/22/21 Lara Lofton RN 01/22/21 09:31:26 09:31:26 09:31:26 Entry 4 Case Attendee Lara Lofton RN Role Performed [employer] Time In 01/22/21 09:12:00 Time Out 01/22/21 09:32:00 Procedure Cystoscopy Local Last Modified By: Lara Lofton RN 01/22/21 09:31:26 Surgical Procedures MAGR Pre-Care Text: A.20 Verifies operative procedure, surgical site, and laterality Im.150 Develops individualized plan of care Entry 1 Procedure Cystoscopy Local Primary Procedure Yes Primary Surgeon Jose LYLE, Sivakumar Ott Surgeon Comment LOCAL CYSTO Start 01/22/21 09:17:00 [...] Signed By: Lara Lofton RN 01/22/21 09[facility]45 [facility] Preoperative Record MAGR Pre-Op Record Summary Primary Physician: Sivakumar Garcia MD Finalized Date/Time: 01/22/21 09:48:36 Pt. Name: DEL MCMAHON/Sex: 1945 MALE Med Rec #: [id number] Physician: Sivakumar Garcia MD Financial #: [id number] Pt. Type: D Room/Bed: / Admit/Disch: 01/22/21 [...] consent correct. General Comments: Patient arrived to [facility] ambulatory. Patient denies any recent cold/flu symptoms, SOB, sleep apnea, diabetes, or CP. Patient does have a pacemaker. Finalized By: Praveena Lowe RN Document Signatures Signed By: Praveena Lowe RN 01/22/21 09:48 [facility] Patient Handouton 01-22-2021 Patient Handout [facility] Coding Summaryon 09-27-2020 Coding Summary HTMLBase 64 ZwhehmjuGMc7wXe+PGhlYWQ+PE 1FWRWfK31ucJNwiX9VI6gDCY0D MXOXLCRCHQ6WRO5pfRZ9FRapG9 VybiAv EahfqOHqCR77BIo8ELN5bBjgTD fhwT2ktZKaB2p2GoUsCI55kS90 CMimPCHvKeW8GeQwfvfktLGt X1ugGqLxuKRbJmg+PHRhYmxlIH bmKFStXGfsCHEcZiWtrBpyUA2j Ni5xZJUzGGCevMncnFRbUxHj g9tcAWNzKJriND5ohOmnE6ItiB S0SKNli2x3Br66aTY+PHRkIHN0 fEraAVidm073ArFtz3nbVGI7 dXGlFPkpQJH2Q52wp6Y3PCVuXN ByBOI3gYK2wM5naEopxkkvH3Xq sOBfRkO8DPM1nQGjaS6fyIvi xrnhnH9uDom+L27KIS5QIXLYVP 9XHid8U7YsKsvmfSN+ES60LQJw PO89lUNugVIbs2dpzXr4CaEw CPSjXEC1aJjhDCigb8KrHIRuL5 7uvZBuk2J1RQRfxCbsfLMyDkQq wIG5dI9zOGuelhlef9kraava Rwodv1cqjx03pT06T91oIRepAR PpPWS7BHZwZXHuwRokwb0lzK2i Ii8+LNfko3cqk8ebyPi1HtSp CFBorbNvrQtjKDO0b4ApFe37C4 NeuPufw9JiBcs1yd94aSOut5D4 oEC7LQgoNXZnxE7iEMyvQvD6 JRDbGwClkW79lYMhOEbfYw1ewT cnrGexMV7lXIFzyhhpTEDbbB8q WWLgoNZddYqtMY8tMFOhmqkk v313EbJcYWN7ZKMwqLJwV1XzgG 9lVsWpZPBwWIAuF4RklBKsYFvl S780JNjqRuD9QXVggaNeE0Gj MIJgkOhjUaH2w4L1Hg3Co2Cbjs rgBYI1DNboWXS8NmC7UsWpGvC7 T1KwRun1DXWmsDhfVX8qF9Dz LEEponrksebweJX2EOJpABMpkE 83dMHdBBzwFw6yj4R4h603LODh ECWzyD22Gd2bzGtbCEXecVGF vM8fnrtrd6bnbtywVkJwWBOsLV y1QIe6IKAjnUooTtYxZMP1OmQ0 QBN6uKSinH9pgUptgqoyaH9i Oyc+O53oxV3gCAJ7RPA7xgkcFN OcpaTwKW35FW46R7WxLcbdoMNw bGU+LMAsymVbcGhdIE8mLlOb b5nrm3WiEBvuY4YvKLSdALetEx h7OYRyISQ0vKB8nI8eDCQsECrw d1R1tHQ6K3HrssNcle1ri2mr XVMuHGumJ13zqAGej1Y5AAGnbF Y0DUAvhZunXnFmuW65Wvq+PGNv pSxci9EkBqqrl0jjv3ymfSu2 OgZxROXrbdShlUgpKFR6t2UbGv 52S49iSPwnDIIlEDWbJHVvOQWb jFphhh9bfH4sLp3+PGNvbCB3 fXR9mA8hWOKsYkK1OAqsT933Tv NpfOHnSblwf6dpc6wjkWf2AaJc MVRzufOzbSrpQAL4o3BwCz92 Z49qGDgsYMGkAOTwNWTrECSerR bark2enG0rVd9+DT8dq0aewd51 pG90fOD+MEIoOZT3aExhSUvr WCBnyA7tQLhyNuM4VCEoGgZuzZ 33qJPbKJttWv8gcQhzqBsyPC0n CQGgstkza153HdZff8rjPSIf xRSxMLmuPQX3E23ve2A7SPEqOX JpXTJ4jUA9hL1hoOdjavbglZDa xUydnuKehAasPJopLLebX264 IHRvcDsnPlBhdGllbnQgTmFtZT m2B7DwVhg8BZAcoTbrMA7knGMv ZHqrGz5ntXulwFjrSK2jNWKa qwqhq206CjYbj0oaRGLoqAPsWN coTDS1I85ke3M0BFAmLLKrFGY2 aFY8cF0boUbidfuewDQtyMhs cvQvtYjxHOqpXEbdG139NKAweO pdBgRyrrFtKEMfeZX5ZL81FP30 gFHio5H5pWU6Y1JhQMWzwakv ytuwrGL7FCJxSDRccT43Nw3roC dlYo0dAONxQDF7UJMiyTRbL9Ja lZ6dKyTnDAEwCIWdH1EzzUOd BRpmP176CFcdUaS6DWQcpzVfP2 YjHIUkhAiwAfP7x9H4Eu7ZK5O7 IX60MF26kIDio3W5tIH1V8Tc UWMcfrpazwwsnNN2VIRaLEYpgN 60Yt4kfScaMj2vVHSsGFT2VRRk gEOvU0VqqK8gWvZaIJXyJYGh F6SztNGtIMefN330EDstRaZ0LD VgbeHqS4XrYZSrgOofMnV0v7I2 Tr9HEGg9UM82EM96nSCkt8J1 gZI5I7RcNTLjbyndwvqhnAA0KR BvZGEnoA87Lf7dwZzzMr0fRUUz TBQ4MPZupTFqT6GshD0tPfKk UDYrOHQpH4MorADqNGxoN840IL eiIqI3MPYxsgPeX2WjSXUuaOis TkW7g0J5Zg2RNITaFT28GMO7 hJD4WV83FG09P3LoAhhafXIxcF U+PHRhYmxlIHdpZHRoPScxMDAl GpJpfZbqQD3lXm7uAUNqHAQt lLrupSOyItUqy3agCWEcZSfhCM 2seBamD4EgmOF8KBHpi2q4Cf40 P01mS4RfpYC+HQYyqNE4oLR1 eM6wYfZfGpO1ZHgnA511XtCkzC WlYzmha1xow7ffdYo3AhC7VOVh dyEvoWvgGMS9q5SwWr53I82h IHdpZHRoPSIxNSUiIHZhbGlnbj 9jhO0lRs7+CWKwtZA5yYC7gI6x NiXbHsQ0RVuaA930JqEpzNBg Sfpql1jlo6wprGv0FdVhHZCkmt JozJibNVG6q8EgHr18V5IfeWbh j6RjNis0dg25wMWoo1U8bPJ6 U8BhUVSovpvdzBBxoAfdYP7jLL YavztdQVJpwW3qCSExH9s3BiHv KvZ5TWvwT7DqrvA6CKNmuEVu BWurUIZ9H70yb1Z2GETmAAJdOJ E0gLJ7yY7gyMjgkjodzEQlsGng xyYzuIdiAZgeGTglA343CNEq lIduNMQqqJ8tZFGzuMNcgGhbBF 5mPRDolbghVgFCEc1VDcgSBB5p NPhKJx5ZLQwqtDU+PHRkIHN0 vKnfJBxpFOJvoZ0dXQGdV0q4Zl ShKzO5XTllS6HzVVNfdrvaPo92 eR9zRwCgGfX6OWrlZ0FifmE4 QFOvyCAhOKvnBAQ4I33qj4E1UX ObGHLwITK0bTF7wN5zpLqbkttg bGVmdDsgdmVydGljYWwtYWxp A244AWTwePgeJjGqLrFyOmB3HX o5O9FlMzg6XFDgxFjkZO2adLRf EXseUt3obKxvkQjxFZ0rMKMy vgvqWOIjrH0bHZVrfVFpzOixXZ 7jUNJdvypqs543IsIcAHP9DBAj nZCxM4EjaL5oHaHxFLTeRXXs H7WlmXMxTKtqB895NJdfBfK8OH MigxPqA7RgTKRapRpdQuI3h1S7 By53FrPXFDQcblikmJO+PHRk NSU7eBfbHCaiFHGpxV1pSUJgN1 y1GeLcTwG7GIpxD4EpCRVdyplz Ou35hY9mDtHaSyG6OLrcE8Lz jpC3DDGqgRAmDUevGGK4R22iw1 K1MHUvRLDlUEW0kVO3eA9ymPbp bjogbGVmdDsgdmVydGljYWwt YZdqU573HYJijDfpQr6DHMG6P8 QuYuz3OWTwkYjpFJ5udVLkTNij Im9hyRibyYerVN7iTSGrkkpv JEDiuD9tSZIheOVzrTsjUG2bHU Nsatjnf178HpLtTBG7NKXleXEe Q4BzqG2qCnNnIKZdLOZkV4Vw oJEkIYqmB681WRxnPwA7ZQLccw DzA6MzDATlgTfdVcC3r0B2Fc2S GUkvD4TyQ5EpkScawAW+PC90 uv01I2KqNjboQnk0OVLhJAI8tT C3gS9hIDYtDCzje6Y2oHO8Y7Qp ncCwdn9av3seXMDkOPywL07j hYMtv6P9NIKwtXT1ZPDprQknLf CuuZ68Mnp+VAUplOqyn1MxJrpi y0kit9icvVf6FvOiFMOcwaJh yEndOTC9x1FbPs78F60lFQvzZR XhNDGyLFWwXHOmsKmhud3vjK8z Ii8+FXKwoOC1rCZ4oW3pKsEb OaS2QIviK117CiPpaQZrNymab7 inc4qhnDz9MeVwBNVgzpDtjXvy GTT1b8FkUh00Y5RshCptq1We Prl7zr16aKYsp7H8aJJ7Y8HyUV DqznollUAcdZemMI4bKZPblqzo NNNypD0uVMHgG1w7YbUfMcI2 ENwvV6RhluG8FHCqdRDwQVEmjX PBwP9sdlndt7ktgxfnGoXrJKTk UIo2ZFu0OZRstXbaGcOiBUU7 HzH6ZEJ8zUUkjG0dwJspcfsxyU 9wOyc+CHc2k7jjsCQtTB2gaWK6 XP13HZ91uTTey6E8xRQ9S6Tr XNDnvkphimcfuMB4TPGpOQLepK 06Hp5fxIpcJd5xOUUpXER8ERDj iYLfE5BafN2lQcNsSHIrKLBh D2ObvGOnCJnhZ613EAksDbH7KT MlkeVsI9NrLENxxJunRzE5o2B9 Yw4NWJ40RR07WL01mXFbu3M4 kJH8U6EaHXVmqgntsmftsPO6IN RfYCRwiK09Cr1acPftIb2pCARi FQL2DRWqyEGnZ0PgiF5aVrKw DZUpPEHiA6JwbWDyVWmtN929BB acDjC6ZRVbxzEmC2CaXLEznZct NkZ3a4W6Ag5VIu51NE77RR80 jDGto6A8jXJ3X0PtTEEwvdtqol beaOR5CIJgUATyiJ59Jp5rxRmh Ga2eIJJeEKH1ADHypSJfJ2Yp qZ1vOjCuPTLwUPUyT6XtqGFzEC mvZ477YVvnMfZ9GSIgeoSuG5Nh XXUsuCpfIgQ5b7J5Tq2YBFbx bsc5X1XtXabpqWB+DJ41EXPeAY 48pOEamFTof6asgSu1BpXyZUJo IKV4wDtcQZeut3FkZYEsY57s bGF (more content not included)... [facility] Provider Orderson 09-27-2020 Provider Orders [id number][facility] Documentso n 09-26-2020 Advance Directive Documents [id number]#[facility] Advance Directive Documents [id number]#[facility] Consent Formson 09-26-2020 Consent Forms [id number]#[facility] Implantable Deviceson 2020 Implantable Devices [id number]#[facility] Outside Recordson 09-26-2020 Outside Records [id number]#[facility] Telemetry Stripson Telemetry Strips [id number]#1.00OTGTIFF [facility] Anesthesia Noteon 09-25-2020 Anesthesia Note Patient: [...] on: 09/25/2020 08:29 EDT] Corbin Tang MD [facility] Anesthesia Note Patient: DEL MCMAHON Age: [...] All Problems Cardiac pacemaker / SNOMED CT [id number] / Confirmed Hypothyroidism / SNOMED CT [id number] / Confirmed Histories Family History: No family history items have been selected or recorded. Procedure history: Kidney ([id number]). 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 Social History Electronic Cigarette/Vaping Assessment Electronic Cigarette [...] (SEP 25:36) DBP H 103 mmHg (SEP 25:36) General: Alert and oriented, No acute distress. Airway: Mallampati classification: II (soft palate, fauces, uvula visible). Mouth: Within normal limits. Respiratory: Respirations are non-labored. Cardiovascular: Normal rate. Review / Management Laboratory Results ECG interpretation: atrial paced, old inferior infarct. Plan [place] [employer]#(ASA) physical status classification: Class III. Anesthetic Preoperative Plan Anesthesia: General. . Anesthetic plan, risks, benefits, and alternatives discussed with the patient and/or family. Patient verbalized understanding. Family/Guardian present. Informed consent was given. Consent was signed by the patient. [Electronically Signed on: 09/25/2020 07:08 EDT] Corbin Tang MD [Verified on: 09/25/2020 07:08 EDT] Allysontara, Crobin Lisseth [facility] Coding Summaryon 09-25-2020 Coding Summary HTMLBase 64 UpoimmtaLYf6pRg+PGhlYWQ+PE 1FCZUkT19taTDpmE6VA7aHEU1T HUYNMFIRJO9MKP6wnDV0LRpoI5 VybiAv OzcmxVWsGI63DPk4TYC8yXfxYW awkB6hdOZdE5f0DhBgRK78bJ86 BJkxEPQdHmB6HrAdktzivNXv L9rmReRwlYZxOjw+PHRhYmxlIH kcADCoPIaxMWMwNpDoaXjrPH3m Rq8yGSEpLVVuzTyweZUuTrNh v6afBIOqYLpaPF6fhIybA0GprL Q7QCZgl1r6Ls53uLY+PHRkIHN0 hKsbNWcid527RwVly7baSJT9 tHSoMReaGZM6F89hr5Q1URCmIS PrLWL1iIM8wD4haXhxnyzlO9Nx cTSxVpE5ZCM4zJBykV6tvTam ushaoJ1eQht+S95BPD9MUQRQLI 8XPxz0A1GuTayndGV+WZ29OKKz VQ41xZObeUKsu0zbcRe0QcYr ZTByBLD5iBckNXopp5XjTCKnA6 1ceUCgx3Q3KDLvbUpsqMRbQrDq oYH1gN9gAXivmoaut7vpeneu Jxkve9vffi59mY37C34vADtaHY GuQVB5ZTTbEIUpiVdlyb9eoX4u Ii8+CNyeb7otf6dvnVt7JtYz KNFgwfVijWyrHJU2w3JhTa86Y6 AveTbtm7ZwRqs2yd83lDGyr7O7 gOY5VXsmGEEytV5aXGxbXpZ8 RDKgVgXejW49gXQsUUtvKa7zrK vfrIwgVA9bYVEsrlhyTVXprR6p CHLibFGynLelCU0qHRUoajks y119TiYuXRW4CNRurFPpH9RkjQ 8pQhGjIMTiRQZwP8NcoCXzAYad L650WXtnDoV8TOChloJdE4Ox XZVgpUvaDxX1i8H0Js2Lb2Gagd szGHR6JPowRRD2IsVxBtEiQkM6 K4WoBqb8LXBjgDgwID1zR7Tn KWDadbaoeauflNP2CGZuUVFpnX 15gVNxHUlpOw9pw3C9v586UGXs GQWmoE88Lx4rpNhhLMWdqPEJ fP2qrbzjg7nhsoguTnZhCBAkHO x2CRj6WDOwnEfzJkAbWLS0OfS3 BUX7uLFkjU6llQhvdhqxfD6h Oyc+D91ubC8kLNM9ETE8ijzkTR IeljNfYP61MG75H9BgWasmvJLo bGU+JGGvqyLtuUgxGN1sKvFw h2obx3TcNXppB2FcEDZyWInoBu w0EFDfVZA1cMG2hR0qQEXsWNit c0P0qEY1F1PeemAnip0fr9dl QRThDUmxQ26jfZKzi2S0RBPpvI V3SIVepRukOqQkuF75Yth+PGNv wQgsk3HoLubyc9tpd8ulkYb3 VvArCPRevpHwfNrfAKL8q2UvKc 84Z13cLVgdDBDcJSGgOUFnXARs zOoqkh4kcM3vXi4+PGNvbCB3 bRA4gH9hCUWqTiH6QFgeE467Uv WdwZRdTlkgw0ylq6ijuJw8NdBz IXEdkiClhZptUZC9s6QyIg49 K49qJUixAENwKDCyIVEcEKVujL luqv3krD2zTk0+HL7oa6jezv03 yV69vJJ+WBBpROY2eZlkGQon LYFqdF1lLCteLsN8NPQuQpKdgO 58yTQqTHldMh4hrWmnvIqhUY4m IXMxrsbwk941FsEbh8ctNPLs kZOyTPpsRIC9X44lo5K5AMMpBJ OgKHF3xMK0dG5skDjzqszgeGVk dKldgiIudAacJSmrQAsdX742 IHRvcDsnPlBhdGllbnQgTmFtZT t6D2BwWbn6DSBfiYevMX7tcHGo OTysGf9lqMyldImgQM5sKTNw fkkmk547TyDwr7asJBNniMWtGW mlLJZ5K08xe4H7FXHkBHNiPBI5 tGR8jU6btAvqhhwtiOXzyNlh xoIxxAxdXMjrUBunP301EINlzZ lcFeYyuiTiWITioUW4AC14EH29 tVJxo3F4aDN8T2MkPPRgzqky ucwldMH1GAVdOVQxuJ54Dw4xsF yvRx4tZIUpEJE5IUMzgNSgV3Ue yG5oYxSmHAKaKGRlF8XzwMCy PDtcX881ZKvzUyJ2ZKGlduOdW9 HaNHZktPeuDaF7i5Z6Vl3NQ5O4 AZ11PV59pYTkk4W9uON1Z7Xl WLQwiyfgbrsewQB2ZIYzEVBfsL 99Oh4llVhiRq9lQZZyFRP8XLDu tYEtF2RgsP3qPqKeORYwKZXl P4EucZOvYYmwS986EFjwMiZ9VJ EiayHqO0IwOXWrwEhdPpT1x8Q2 Ix8FUKr4PY49KU89aPQzb9O5 oOJ9J0VfVTWhxfrrmmebfPO9MO TaOHLmoS08Rn7voKclIn5rPMKl QHP3VXBlwHPxW9QrjJ8cXcWn WNPrPRUhC3PjwTCmBHuxS516GZ mgUkZ2PCCrfdKhW3UaXOFoeOtd DbC8h4K2Np7BVPCxVZ80BFA5 rBS2KW96FA07U3EmLhmgbEZbpP U+PHRhYmxlIHdpZHRoPScxMDAl WzIskKjfGC7hKp0oLIHzXYPh cYsszIXmBpLzk3fyYMTmUZpeYX 2hjXddC3GerWD9VWCen9z3Vd25 S16lB1SgkRV+WDLzhRN2kZN1 pE4jNiFrFdC7EEdqZ201XnRtpX IlGgeei3qpq7qpcNn5HlG9NNXg ckZyoHyiHGH9j2CfUa82I92a IHdpZHRoPSIxNSUiIHZhbGlnbj 9deA9wDd0+BCJqfMH2yZE3gM1b NtKaWpW4VBmoV902HaWrxFOl Aafqa2piz8miaCf0RaKbTHBugd GpzFabNAZ0c9ZxFf03S2TjhHma g9HjEtb8ty14sDDex2N0hEA7 Q9EiXAWtcjxtnTRflUueFR5tCJ HuhnvbQFLylU3rQOCtE4r1JpWw MtI7JEjfV5XjgoI0STUheYRh GTquXSN1D05mg0T2MXUvMOTqCP P5tDJ1qQ2joQfpjktogLDwxPsp soKymWszLGrpSCjcV338FYTb dKwjVFQodW2zSMVocFNfjJdqKW 7hZHKjifhkZsFFXm0WEpbIBA2w VHiBHo7WCVaabHK+PHRkIHN0 iWapOFbdCKUsvI8bFFGuS3e1Kz TmLkZ6TAuxZ5NoAOHmdabxZo33 aI6iXxCmRaI7NMdlP3WlpaO7 ORWtuDYgYHuvTNE0B39cz5I5AP YoWYKgVBY9zAX0uN3rfBqtitmn bGVmdDsgdmVydGljYWwtYWxp D050TGBgeFnfGtUjQpVmBsH0TW l4M7CqUel6AANcyQmlFR5mmFTz JLkvYe1zvGkkiGtkVX7tGRDp fdnyMXTriY8eMOJpyHAnhJzlST 4jOXWykozlv328VzWhCCM9FDDb qGBdF4NerV8fLwEwRHGdOSDv E0SjqHBoJUngZ068WUkdCsP5RV MrwmAiN2VgZFYlgAtvRsB7p6K3 Bq72ZlBPMNVjbztrjPV+PHRk XSZ8eXosSQeeZSHhzF4lGXDgI2 v1MgSyKbR1YJbuE3JdHISjuojg Op47gV2vHiIzUfF5YCbcO1Cx lbN3TUXkiUXyADowTKW4R76ge1 L4WGYuANItKTP9vTP7qQ7icDod bjogbGVmdDsgdmVydGljYWwt PDdmS837VSTttUpyTc0SJMN1Z9 DaOyr2TWSkzPeqSY8xtPQbIHvk In9irFgnwUtyUA9hPHTvmnvg YIUtfJ4iDINyhGIefEhgKM2mKP Yxinjnp392EvRbOLH0PURnmYZu R0AduQ3tIkXgHONmHIUjO2Ba sULjDSpbI450FIlhImG5PPAeon YcI7CyDMUabItmSkR2r4X2Fd2S UDwvdGQ+UV12qq54R7TbGfgc Zib1ANJxDFD5fDB5dG8dQQJfZQ zzl9O1jKE0F8IsazZfor9ci8cy WVAgBDniD09xkTWmx5J7LETa gOE1HDQytZtgPmSanD97Umu+PG NnfFxnx0ZqUcjoj3buv3grcXa2 CtHtHLTnjeMolAupKZL0w5Ha Bd02Y45yPJmkXHTmGDVsHEVyNU AjqCezpr5knZ5jPt9+PGNvbCB3 pBK4eI9yZgYcLsL7KBzcP705 SzPhiAYrEbpik9lhc7zooDs3Sf SpSSAwiiXghGqjPMU8d7AoEo13 T6FhbBtpy5AlOpl9ld10nPDo l7A2mPF2L3GlBDXopfcawWEuvA hsEU0ySSQfxyleQCTsnF5vMHUg V4e7YnHzYcS5NXbxO8YhvlV1 IJSnaYZmHBRoaOHTjP5komkdj1 rgizoeTcSuNJZmKWk3UPx3UBBy sKqpSmSkYFJ1VwK8QTZ5cPBy gX5unRlqclchvS5sUhn+UGh5c2 rinBWvMR5sjNK5AX87UW07iZRq o1G9qDM7M1UiCQAuzvmahdkm tCZ3RPInRLMpeX72Js3pgIyoIh 3jMSRaUAF8FDZnvVXrB8LeuJ6m QjGmVPXhVUKxW1EajJGqMSwo C700BQquVbE2RCJqrfIvE9GiWN VjgTglVpX4p7G3Kx5SGB61FS60 TQ09wUTsv2M5aUY7N0QrOKBt nehyxlwzgVQ4FRGnBHGugZ83Wl 8pwEtmWl8kKMNeQTW6RLTowRWo E4WvuO5gToMdXZMmKLRpT1Pm jOThXBgwL720FTaaVmR2PCWxlt LoA1KvAXKkcDzgJqK3b8K3Tr5Q Xl84VR60HJ90pBZcp9T4mHZ1 V6JgRDObmecsmrtpcMA1NCIpBQ HreL34Ek9eyYwyJp1dFJAzVEM2 OETajMZdZ0CuwO5eHoLyQYHk CUYbN9ZwhUWyZQxeG661HIvkZd S2KTYlcqNkY8ZwZDShiIfnOtV5 x4N7Kc5VJQzxpav9V3EuQkxu dHI+ZY09ASFbQO41uLHtyLBen7 zevFn5EtEiQIUoTEP1dWxfCOjp z0DsXAScN58lxYOtx6G8LUQx bGx (more content not included)... Normal [facility] Inpatient Patient Summaryon 09-25-2020 [place] [address] Patient Discharge Instructions Name: DEL MCMAHON : 1945 Patient Address: [address] [place] [address] [address] [place] [address] Primary Care Provider: Name: MARCO A HUIZAR JR. After you are discharged if you find you have any questions, please, call [phone] ext [phone] to speak to a nurse. Discharge Diagnosis: BPH (benign prostatic hyperplasia) Prescription Information: If you have been given a prescription for narcotics, seek immediate medical attention if you have any difficulty breathing or any sudden status changes such as confusion and sleepiness. If you or anyone you know is experiencing suicidal thoughts, mental health, alcohol and/or drug addiction problems; contact the [facility] 06/10 Crisis Hotline -text 4HVVQ sy 026341. If you received any narcotics, sedation, or [...] business decisions or sign any legal documents [facility] would like to thank you for [...] surgery. With: Address: When: Sivakumar Garcia [address] [facility], [place] [address] Business (1) With: Address: When: MARCO A HUIZAR [facility] [place], [place] [id number] Business (1) Medications During the course of [...] these instructions at home: Medicines ? Take gmhn-vwy-gfkfvzo and prescription medicines only as told by your health care provider. ? If you were (more content not included)... Normal [facility] MAGR Intraoperative Recordon 09-25-2020 MAGR Intraoperative Record MAGR Intra-Op Record Summary Primary Physician: Sivakumar Garcia MD Finalized Date/Time: 09/25/20 08:48:17 Pt. Name: DEL MCMAHON/Sex: 1945 MALE Med Rec #: [id number] Physician: Sivakumar Garcia MD Financial #: [id number] Pt. Type: D Room/Bed: / Admit/Disch: 09/25/20 [...] Role Performed Surgeon - Primary Anesthesiologist of [employer] Record Time In 09/25/20 07:34:00 09/25/20 07:34:00 [...] risk for normoth (more content not included)... [facility]R PACU Record MAGR PACU Record Sum sudhir Primary Physician: Sivakumar Garcia MD Finalized Date/Time: 09/25/20 09:41:02 Pt. Name: DEL MCMAHON/Sex: 1945 MALE Med Rec #: [id number] Physician: Sivakumar Garcia MD Financial #: [id number] Pt. Type: D Room/Bed: / Admit/Disch: 09/25/20 06:01:00 - Institution: PACU Case Times MAGR Entry 1 In PACU I 09/25/20 08:26:00 Discharge from PACU 09/25/20 09:20:00 I Last Modified By: Lara Lofton RN 09/25/20 09:41:01 Finalized By: Lara Lofton RN Document Signatures Signed By: Lara Lofton RN 09/25/20 09:41 [facility] MAGR Postoperative Recordon 09-25-2020 MAGR Postoperative Record [facility] Record Summary Primary Physician: Sivakumar Garcia MD Finalized Date/Time: 09/25/20 12:23:31 Pt. Name: DEL MCMAHON/Sex: 1945 MALE Med Rec #: [id number] Physician: Sivakumar Garcia MD Financial #: [id number] Pt. Type: D Room/Bed: / Admit/Disch: 09/25/20 [...] Signed By: Marta Velez RN 09/25/20 12:23 [facility] 09-25-2020 MAGR Preoperative Record MAGR Pre-Op Record Summary Primary Physician: Sivakumar Garcia MD Finalized Date/Time: 09/25/20 07:47:12 Pt. Name: DEL MCMAHON /Sex: 1945 MALE Med Rec #: [id number] Physician: Sivakumar Garcia MD Financial #: [id number] Pt. Type: D Room/Bed: / Admit/Disch: 09/25/20 [...] Signed By: Leyla Hdz RN 09/25/20 07:47 [facility] Patient Handouton 09-25-2020 Patient Handout Urology [...] these instructions at home: Medicines ? Take dqlm-bub-tnqgmnm and prescription medicines only as told by [...] provider. Document Revised: 06/23/2019 Document Reviewed: 09/10/2017 [employer] Patient Education ? 2019 [employer] Normal [facility] C Urineon 09-20-2020 C Urine <10,000 cfu/ml Normal [facility] Comment on above: Performed By: #### 6 [id number] ####[facility] (DEFAULT)[address] [place] [address] Progress Note - Nurseon 07-0 Progress Note - Nurse PAT review done dahiana Graham, no orders received. [Electronically Signed on: 09/19/2020 09:34 EDT] Praveena Lowe RN [Verified on: 09/19/2020 09:34 EDT] Praveena Lowe RN Normal [facility] Provider Orderson 09-19-2020 Provider Orders [id number] Normal [facility] .Auto Diff 1on 09-18-2020 Auto Pine % 14 % High 1-[address] [facility] Comment on above: Performed By: #### 7 [id number], [id number] #### [facility] (DEFAULT) [address] [place] [address]76 Baso Abs# 0.0 x10 Normal 0.0-0.[address] [facility] Comment on above: Performed By: #### 7 [id number], [id number] #### [facility] (DEFAULT) [address] [place] [address] 05434 Basophils/100 WBC (Bld) 0.7 % Normal 0.2-2.[address] [facility] Comment on above: Performed By: #### 7 [id number], [id number] #### [facility] (DEFAULT) [address] [place] [address] 58595 Eos Abs# 0.7 x10 High 0.0-0.[address] [facility] Comment on above: Performed By: #### 7 [id number], [id number] #### [facility] (DEFAULT) [address] [place] [address] 29222 Eosinophils/100 WBC (Bld) 10.1 % High 0.9-4.[address] [facility] Comment on above: Performed By: #### 7 [id number], [id number] #### [facility] (DEFAULT) [address] [place] [address] 82564 Lymph Abs# 1.5 x10 Normal 1.3-2.[address] [facility] Comment on above: Performed By: #### 7 [id number], [id number] #### [facility] (DEFAULT) [address] [place] [address] 55210 Lymphocytes/100 WBC (Bld) 21 % Normal 14-[address] [facility] Comment on above: Performed By: #### 7 [id number], [id number] #### [facility] (DEFAULT) [address] [place] [address] 00995 Pine Abs# 1.0 x10 High 0.0-0.[address] [facility] Comment on above: Performed By: #### 7 [id number], [id number] #### [facility] (DEFAULT) [address] [place] [address] 15892 Neut Abs# 3.8 x10 Normal 1.5-9.[address] [facility] Comment on above: Performed By: #### 7 [id number], [id number] #### [facility] (DEFAULT) [address] [place] [address] 91906 Neutrophils/100 WBC (Bld) 55 % Normal 44-[address] [facility] Comment on above: Performed By: #### 7 [id number], [id number] #### [facility] (DEFAULT) [address] [place] [address] 74184 CBC w/ Auto Diffon 1 Erythrocyte distribution width (RBC) [Ratio] 13.3 % Normal 11.5-15.[address] [facility] Comment on above: Performed By: #### 7 [id number], [id number] #### [facility] (DEFAULT) [address] [place] [address] 89129 Hematocrit (Bld) [Volume fraction] 44.8 % Normal 34.8-51.[address] [facility] Comment on above: Performed By: #### 7 [id number], [id number] #### [facility] (DEFAULT) [address] [place] [address] 43903 Hemoglobin (Bld) [Mass/Vol] 15.0 g/dL Normal 11.8-17.[address] [facility] Comment on above: Performed By: #### 7 [id number], [id number] #### [facility] (DEFAULT) [address] [place] [address] 14295 Instr WBC 7.0 x10 Invalid Interpretation Code [facility] Comment on above: Performed By: #### 7 [id number], [id number] #### [facility] (DEFAULT) [address] [place] [address] 20482 Man Diff? Auto Normal [facility] Comment on above: Performed By: #### 7 [id number], [id number] #### [facility] (DEFAULT) [address] [place] [address] 78782 MCH (RBC) [Entitic mass] 32 pg Normal 24-[address] [facility] Comment on above: Performed By: #### 7 [id number], [id number] #### [facility] (DEFAULT) [address] [place] [address] 17760 MCHC (RBC) [Mass/Vol] 34 g/dL Normal 26-37 [facility] Comment on above: Performed By: #### 7 [id number], [id number] #### [facility] (DEFAULT) [address] [place] [address] 11583 MCV (RBC) [Entitic vol] 97 fL Normal 81-[address] [facility] Comment on above: Performed By: #### 7 [id number], [id number] #### [facility] (DEFAULT) [address] [place] [address] 62954 Platelet 132 x10 Low 138-[address] [facility] Comment on above: Performed By: #### 7 [id number], [id number] #### [facility] (DEFAULT) [address] [place] [address] 85989 Platelet mean volume (Bld) [Entitic vol] 9.9 fL Normal 6.3-10.[address] [facility] Comment on above: Performed By: #### 7 [id number], [id number] #### [facility] (DEFAULT) [address] [place] [address] 97908 RBC 4.61 x10 Normal 3.70-5.[address] [facility] Comment on above: Performed By: #### 7 [id number], [id number] #### [facility] (DEFAULT) [address] [place] [address] 82099 WBC 7.0 x10 Normal 3.5-10.[address] [facility] Comment on above: Performed By: #### 7 [id number], [id number] #### [facility] (DEFAULT) [address] [place] [address] Progress Note - Nurseon 08-16 Progress Note - Nurse Patient was schedu led today for upcoming surgery 09/25/20. Patient did not show up. Multiple calls attempted with no answer. Call made to Dr. Garcia's office. Spoke with Latoya informed of above. [Electronically Signed on: 09/12/2020 13:21 EDT] Abimbola Neri RN [Verified on: 09/12/2020 13:21 EDT] Abimbola Neri RN [facility] NM DARWIN SCANon 03-14-2020 NM DARWIN SCAN [facility] Department of Radiology [address] [place] [id number] Patient Name: DEL MCMAHON : 1945 Sex: M Age: Race: White Pt. Location: [facility] Patient Status: D Ordered Date: 02/20/2020 12:15:00 PM Completed Date: 03/14/2020 01:36 PM Requesting Provider: AMANDA CONLEY Attending Provider: AMANDA CONLEY Report Copy To: MARCO A HUIZAR Signs & Symptoms: R25.1 History: Order in [facility] [phone] NPC PER MEDICARE ABN PASSED [id number] 02-22-20 ROGERS Comments: r/o Essential vs. PD [...] degeneration. Electronically signed: Mookie Schafer. Transcribed by: [email or web address], User Resident: Electronically Signed by: MOOKIE SCHAFER @ 03/15/2020 03:41 PM Normal [facility] Comment on above: Order Comment: r/o E ssential vs. PD tremor Vital Signs Date Time Vital Sign Value Performing Clinician Kaci marin 05-05-2024 08:23-0500 Body weight 101.42 kg [employer] Work Phone: [facility] [employer] 05-05-2024 08:23-0500 Diastolic blood pressure 88 mm[Hg] [place] [employer] DO Work Phone: [facility] [employer] 05-05-2024 08:23-0500 Heart rate 65 /min [employer] Work Phone: [facility] [employer] 05-05-2024 08:23-0500 SaO2% (BldA) [Mass fraction] 97 % [employer] Work Phone: [facility] [employer] 05-05-2024 08:23-0500 Systolic blood pressure 158 mm[Hg] Daljit Perez DO Work Phone: [facility] 09-22-2023 15:39-0400 Body height 180.34 cm JR Marco A Huizar Work Phone: [facility] 09-22-2023 15:39-0400 Body mass index (BMI) [Ratio] 28 kg/m2 JR Marco A Valone Work Phone: [facility] 09-22-2023 15:39-0400 Body temperature 96.8 [degF] JR Marco A Valone Work Phone: [facility] 09-22-2023 15:39-0400 Body weight 91.17 kg JR Marco A Valtammy Work Phone: [facility] 09-22-2023 15:39-0400 Diastolic blood pressure 75 mm[Hg] JR Marco A Valone Work Phone: [facility] 09-22-2023 15:39-0400 Heart rate 65 /min JR Marco A Valone Work Phone: [facility] 09-22-2023 15:39-0400 Respiratory rate 20 /min JR Marco A Valtammy Work Phone: [facility] 09-22-2023 15:39-0400 SaO2% (BldA) [Mass fraction] 98 % JR Strickland Valone Work Phone: [facility] 09-22-2023 15:39-0400 Systolic blood pressure 118 mm[Hg] JR Marco A Valone Work Phone: [facility] 08-07-2023 08:30-0400 Body temperature 98.5 [degF] JR Marco A Valone Work Phone: [facility] 08-07-2023 08:30-0400 Diastolic blood pressure 82 mm[Hg] JR Marco A Valone Work Phone: [facility] 08-07-2023 08:30-0400 Heart rate 65 /min JR Marco A Valone Work Phone: [facility] 08-07-2023 08:30-0400 Respiratory rate 22 /min JR Marco A Huizar Work Phone: [facility] 08-07-2023 08:30-0400 SaO2% (BldA) [Mass fraction] 93 % JR Marco A Huizar Work Phone: [facility] 08-07-2023 08:30-0400 Systolic blood pressure 165 mm[Hg] JR Marco A Huizar Work Phone: [facility] 08-07-2023 06:00-0400 Body weight 98 kg JR Marco A Huizar Work Phone: [facility] 08-06-2023 08:30-0400 Inhaled oxygen flow rate 1 L/min JR Marco A Huizar Work Phone: [facility] 08-05-2023 15:41-0400 Body height 180.34 cm JR Marco A Huizar Work Phone: [facility] 05-05-2023 10:42-0500 Body height 180.3 cm Lidya Bentley MD Work Phone: [facility] [employer] [facility] 05-05-2023 10:42-0500 Body mass index (BMI) [Ratio] 28.6 kg/m2 Lidya Bentley MD Work Phone: [facility] [employer] [facility] 05-05-2023 10:42-0500 Body weight 92.99 kg Lidya Bentley MD Work Phone: [facility] [employer] [facility] 05-05-2023 10:42-0500 Diastolic blood pressure 77 mm[Hg] Lidya Bentley MD [facility] 05-05-2023 10:42-0500 Heart rate 60 /min Lidya Bentley MD Work Phone: [facility] [employer] [facility] 05-05-2023 10:42-0500 Systolic blood pressure 132 mm[Hg] Lidya Bentley MD Work Phone: [employer] 02-10-2022 10:29-0500 Body temperature 98.2 [degF] Emani Holt MD Work Phone: [employer] 02-10-2022 10:29-0500 Diastolic blood pressure 94 mm[Hg] Emani Holt MD Work Phone: [employer] 02-10-2022 10:29-0500 Heart rate 59 /min Emani Holt MD Work Phone: [employer] 02-10-2022 10:29-0500 Respiratory rate 16 /min Emani Holt MD Work Phone: [employer] 02-10-2022 10:29-0500 SaO2% (BldA) [Mass fraction] 92 % Emani Holt MD Work Phone: [employer] 02-10-2022 10:29-0500 Systolic blood pressure 173 mm[Hg] Emani Holt MD Work Phone: [employer] 02-10-2022 05:45-0500 Body height 180.3 cm Emani Holt MD Work Phone: [employer] 02-10-2022 05:45-0500 Body mass index (BMI) [Ratio] 28.5 kg/m2 Emani Holt MD Work Phone: [employer] 02-10-2022 05:45-0500 Body weight 92.7 kg Emani Holt MD Work Phone: [employer] 08-27-2021 12:15-0400 Body height 180.34 cm Jose Olexa Other [employer] Other 08-27-2021 12:15-0400 Body mass index (BMI) [Ratio] 29.29 kg/m2 Jose Olexa Other [employer] Other 08-27-2021 12:15-0400 Body weight 95.26 kg Jose Olexa Other [employer] Other 02-19-2021 11:45-0500 Body height 180.34 cm Jose Olexa Other [employer] Other 02-19-2021 11:45-0500 Body mass index (BMI) [Ratio] 29.84 kg/m2 Jose Olexa Other [employer] Other 02-19-2021 11:45-0500 Body weight 97.07 kg Jose Olexa Other [employer] Other 01-15-2021 10:00-0400 Body height 180.34 cm Jose Olexa Other [employer] Other 01-15-2021 10:00-0400 Body mass index (BMI) [Ratio] 29.76 kg/m2 Jose Olexa Other [employer] Other 01-15-2021 10:00-0400 Body weight 96.8 kg Jose Olexa Other [employer] Other 12-25-2020 09:30-0400 Body height 180.34 cm Mario Hadley Other [employer] Other 12-25-2020 09:30-0400 Body mass index (BMI) [Ratio] 28.59 kg/m2 Mario Hadley Other [employer] Other 12-25-2020 09:30-0400 Body weight 92.99 kg Mario Hadley Other [employer] Other Encounters Encounter Date Encounter Type Care Provider Facility Start: 10-05-2024 End: 10-05-2024 Anisha Vines DPM Work Phone: [facility] Start: 10-05-2024 End: 10-05-2024 Bamboo flowsheet Raymond Vines DPM Work Phone: [facility] Start: 10-05-2024 End: 10-05-2024 Patient encounter procedure Raymond Vines DPM Work Phone: [facility] Comment on above: Onychomycosis; Deformity of toenail; Pre-ulcerative calluses Start: 10-05-2024 End: 10-05-2024 ambulatory RAYMOND VINES Not Available Start: 07-15-2024 End: 07-15-2024 ambulatory [facility] Start: 07-06-2024 End: 07-06-2024 Bamboo flowsheet Raymond Vines DPM Work Phone: [facility] Start: 07-06-2024 End: 07-06-2024 Bamboo flowsheet Raymond Vines DPM Work Phone: [facility] Start: 07-06-2024 End: 07-06-2024 ambulatory RAYMOND VINES Not Available Start: 07-06-2024 End: 07-06-2024 Patient encounter procedure Raymond Vines DPM Work Phone: [facility] Comment on above: Onychomycosis; Deformity of toenail; Pre-ulcerative calluses Start: 07-05-2024 End: 07-05-2024 ambulatory [facility] Start: 06-22-2024 End: 06-23-2024 Agnes Bentley MD Work Phone: [facility] Comment on above: Benign essential [...] Bamboo flowsheet Raymond Vines DPM Work Phone: [facility] Start: 04-06-2024 End: 04-06-2024 Bamboo flowsheet Raymond Vines DPM Work Phone: [facility] Start: 04-06-2024 End: 04-06-2024 Office outpatient visit 15 minutes Raymond Vines DPM Work Phone: [facility] Comment on above: Onychomycosis (Prima ry Dx); Deformity of toenail; Pre-ulcerative calluses; Xerosis of skin Start: 04-06-2024 End: 04-06-2024 ambulatory RAYMOND VINES Not Available Start: 03-31-2024 End: 03-31-2024 Bamboo flowsheet Panchito Balderas MD Work Phone: [facility] Start: 03-31-2024 End: 03-31-2024 Bamboo flowsheet Panchito Balderas MD Work Phone: [facility] Start: 03-31-2024 End: 03-31-2024 ambulatory PANCHITO BALDERAS Not Available Start: 03-31-2024 End: 03-31-2024 Office outpatient visit 15 minutes Panchito Balderas MD Work Phone: [facility] Comment on above: Other atopic dermati tis (Primary Dx); Actinic keratosis; Capillary angioma; Seborrheic keratosis; Lentigines Start: 02-03-2024 End: 02-03-2024 Bamboo flowsheet Panchito Balderas MD Work Phone: [facility] Start: 02-03-2024 End: 02-03-2024 Bamboo flowsheet Panchito Balderas MD Work Phone: [facility] Start: 02-03-2024 End: 02-03-2024 Patient encounter procedure Panchito Balderas MD Work Phone: [facility] Comment on above: Neoplasm of unspecif ied behavior of bone, soft tissue, and skin (Primary Dx) Start: 02-03-2024 End: 02-03-2024 ambulatory PANCHITO BALDERAS Not Available Start: 02-02-2024 End: 02-02-2024 ambulatory [facility] Start: 12-22-2023 End: 12-22-2023 ambulatory [facility] Start: 12-16-2023 End: 12-16-2023 Patient encounter procedure Raymond Vines DPM Work Phone: [facility] Comment on above: Pre-ulcerative callu ses (Primary Dx); Onychomycosis Start: 12-16-2023 End: 12-16-2023 Bamboo flowsheet Raymond Vines DPM Work Phone: [facility] Start: 12-16-2023 End: 12-16-2023 Bamboo flowsheet Raymond Vines DPM Work Phone: [facility] Start: 12-16-2023 End: 12-16-2023 ambulatory RAYMOND VINES Not Available Start: 10-02-2023 End: 10-02-2023 Patient encounter procedure JR Marco A Huizar Work Phone: [facility] [place] Work Phone: Start: 10-02-2023 End: 10-02-2023 ambulatory JR Marco A Huizar Work Phone: [facility] Work Phone: Start: 09-22-2023 End: 09-22-2023 ambulatory JR Marco A Huizar Work Phone: [facility] Work Phone: Start: 09-22-2023 End: 09-22-2023 Patient encounter procedure JR Marco A Huizar Work Phone: [facility] Work Phone: Start: 09-11-2023 End: 09-11-2023 Patient encounter procedure JR Marco A Huizar Work Phone: [facility] Scan [place] Work Phone: Start: 09-11-2023 End: 09-11-2023 ambulatory Giovanna Anna Facility:[facility] Start: 08-06-2023 End: 08-06-2023 ambulatory [facility] Start: 08-05-2023 End: 08-07-2023 Non-patient / Non-visit JR Marco A Huizar Work Phone: [facility] Work Phone: Start: 08-05-2023 End: 08-07-2023 Evaluation and management of inpatient JR Marco A Huizar Work Phone: [facility] [place] [facility] Work Phone: Start: 08-04-2023 End: 08-05-2023 Emergency department patient visit [facility] Start: 08-04-2023 End: 08-05-2023 Emergency department patient visit [place] [facility] Start: 08-04-2023 End: 08-05-2023 Emergency department patient visit MARCO A HUIZAR [facility] Start: 06-28-2023 End: 06-29-2023 Agnes Bentley MD Work Phone: [facility] Comment on above: Benign essential irwin mor Start: 05-05-2023 End: 05-05-2023 ambulatory LIDYA BENTLEY [facility] Start: 05-05-2023 End: 05-05-2023 Office outpatient visit 15 minutes Lidya Bentley MD Work Phone: [facility] Comment on above: Benign essential irwin mor (Primary Dx) Start: 02-10-2022 End: 02-10-2022 ambulatory EMANI HOLT [facility] Start: 02-10-2022 End: 02-10-2022 Evaluation and management of inpatient Emani Holt MD Work Phone: [facility] Start: 02-10-2022 End: 02-10-2022 Subsequent hospital visit by physician Emani Holt MD Work Phone: [facility] Start: 08-27-2021 End: 08-27-2021 ambulatory Jose Olexa Other [employer] Other Start: 08-27-2021 Office outpatient vi sit 15 minutes Jose Adkinsxa [facility] [place] [facility] Start: 05-08-2021 End: 05-09-[address] MARCO A HUIZAR Facility:[facility] Start: 02-19-2021 End: 02-19-2021 ambulatory Jose Olexa Other [employer] Other Start: 02-19-2021 Postop follow up vis it related to original px Jose Olexa [facility] [place] [facility] Start: 02-12-2021 End: 02-12-2021 ambulatory Jose Olexa Other [facility] Other Start: 02-12-2021 Telephone encounter Jose Olexa [facility] [facility] Start: 01-15-2021 End: 01-15-2021 ambulatory Jose Olexa Other [employer] Other Start: 01-15-2021 Encounter for other preprocedural examination Jose Olexa [facility] [place] [facility] Start: 01-15-2021 Office outpatient vi sit 25 minutes Jose Adkinsxa [facility] [place] [facility] Start: 12-25-2020 Office outpatient vi sit 25 minutes Mario Hadley [facility] Procedures Date Procedure Procedure Detail Performing Clinician Start: 03-31-2024 CRYOTHERAPY SKIN LESION Panchito Balderas MD Work Phone: Start: 02-03-2024 SKIN / NAIL BIOPSY Kt Balderas MD Work Phone: Start: 09-11-2023 CT of thorax with contrast Marco A Huizar Work Phone: Start: 08-05-2023 Investigation of transfusion reaction JR Strickland Gaye Work Phone: Start: 02-10-2022 POCT GLUCOSE BLOOD Jv Holt MD Work Phone: Start: 02-10-2022 Sars-cov-2 detection by dna/rna Emani Holt MD Work Phone: Plan of Treatment Date Care Activity Detail Author Start: 03-30-2025 End: 03-30-2025 Patient encounter procedure 03/30/2025 10:20 AM EST Office Visit [facility] [address] [place] [address] Panchito Balderas MD [address] [place] [address] [facility] Start: 11-14-2024 Influenza vaccination [facility] Start: 10-05-2024 End: 10-05-2024 Patient encounter procedure [facility] Comment on above: Arrived Start: 08-23-2024 End: 08-23-2024 Patient encounter procedure 08/23/2024 8:40 AM EDT Office Visit [facility] [address] [place] [address] Jessica Ardon, SUZANNE [address] [facility] [address] [place] [address] [facility] Start: 08-03-2024 Tobacco Screening Tobacco Screening [facility] Start: 07-05-2024 End: 07-05-2024 Patient encounter procedure 07/05/2024 9:45 AM EDT Procedure Visit [facility] [address] [place] [address] Raymond Vines DPM [address] [place] [address] [facility] Start: 05-05-2024 Adult BMI Screening Adult BMI Screening [facility] Start: 05-05-2024 Tobacco Screening Tobacco Screening [facility] Start: 05-05-2024 End: 05-05-2024 Patient encounter procedure 05/05/2024 8:30 AM EST Office Visit [facility] [address] [facility] [address] [place] [phone] Daljit Perez DO [address] [facility] [address] [place] [address] Arrived [facility] Comment on above: Arrived Start: 04-06-2024 End: 04-06-2024 Patient encounter procedure [facility] Comment on above: Arrived Start: 03-31-2024 End: 03-31-2024 Patient encounter procedure 03/31/2024 10:30 AM EST Office Visit [facility] [address] [place] [address] Panchito Balderas MD [address] [place] [address] [facility] Start: 03-24-2024 End: 03-24-2024 Patient encounter procedure 03/24/2024 1:15 PM EST Procedure Visit [facility] [address] [place] [address] Raymond Vines DPM [address] [place] [address] [facility] Start: 02-03-2024 End: 02-03-2024 Patient encounter procedure 02/03/2024 11:35 AM EST Office Visit [facility] [address] [place] [phone] Panchito Balderas MD [address] [place] [address] Arrived [facility] Comment on above: Arrived Start: 12-16-2023 End: 12-16-2023 Patient encounter procedure 12/16/2023 2:15 PM EDT Procedure Visit [facility] [address] [place] [phone] Raymond Vines DPM [address] [place] [address] Arrived [facility] Comment on above: Arrived Start: 11-15-2023 COVID-19 Vaccine ( season) COVID-19 Vaccine () [facility] Start: 11-15-2023 Influenza vaccination [facility] Start: 08-07-2023 [facility] Start: 08-05-2023 Consultation [facility] Start: 08-05-2023 Hospital admission [facility] Start: 02-10-2023 Falls Risk Assessment Falls Risk Assessment [facility] Start: 11-28-2022 Adult BMI Screening Adult BMI Screening [facility] Start: 11-28-2022 Tobacco Screening Tobacco Screening [facility] Start: 11-14-2022 COVID-19 Vaccine ( season) COVID-19 Vaccine ( season) [facility] Start: 11-14-2022 Influenza vaccination Influenza Vaccine [facility] Start: 06-11-2022 Adult BMI Follow Up Plan Adult BMI Follow Up Plan [facility] Start: 02-10-2022 End: 02-10-2022 Arthrp knee condyle&plateau medial/lat cmprt ARTHROPLASTY KNEE UNICONDYLAR Unilateral primary osteoarthritis, right knee Pain in right knee 02/10/2022 6:30 AM EST [facility] Start: 11-14-2021 Influenza vaccination Influenza Vaccine (#1) [facility] Start: 11-13-2021 Adolescent depression screening assessment Depression Screening [facility] Start: 11-13-2021 Hepatitis C screening Hepatitis C Screening [facility] Start: 11-13-2021 Lipid panel Cholesterol Screening (Lipid Panel) [facility] Start: 11-13-2021 Medicare Annual Wellness Visit Medicare Annual Wellness Visit [facility] Start: 11-13-2021 Screening for malignant neoplasm of colon Colorectal Cancer Screening: Colonoscopy [facility] Start: 11-13-2021 Social Influencers of Health Screening Social Influencers of Health Screening [facility] Start: 2021 COVID-19 Vaccine (3 - Booster for Yanet series) COVID-19 Vaccine (3 - Booster for Yanet series) [facility] Start: 2012 Fall Risk Screening Fall Risk Screening [facility] Start: 2012 Pneumococcal Vaccine: 65+ Years (1 of 1 - PCV) Pneumococcal Vaccine: 65+ Years (1 of 1 - PCV) [facility] Start: 1997 Pneumococcal Vaccine: 65+ Years (1 of 1 - PCV) Pneumococcal Vaccine: 65+ Years (1 of 1 - PCV) [facility] Start: 1966 DTaP,Tdap and Td Vaccines (1 - Tdap) DTaP,Tdap and Td Vaccines (1 - Tdap) [facility] Start: 1966 DTaP,Tdap,and Td Vaccines (1 - Tdap) DTaP,Tdap,and Td Vaccines (1 - Tdap) [facility] Start: 1966 Zoster Vaccines (1 of 2) Zoster Vaccines (1 of 2) [facility] Start: 1965 Adult BMI Follow Up Plan Adult BMI Follow Up Plan [facility] Start: 1959 Depression Screening Depression Screening [facility] Start: 1953 Pneumococcal Vaccine: 65+ Years (1 - PCV) Pneumococcal Vaccine: 65+ Years (1 - PCV) [facility] Start: 1947 Hepatitis B Vaccines (1 of 3 - 3-dose series) Hepatitis B Vaccines (1 of 3 - 3-dose series) [facility] Start: 1947 Medicare Annual Wellness Visit Medicare Annual Wellness Visit [facility] CT Chest W contrast IV [facility] Dermatopathology exam Dermatopat hology exam Pathology and Cytology Timed Neoplasm of unspecified behavior of bone, soft tissue, and skin Release Upon Ordering for 1 Occurrences starting 02/03/2024 [facility] Work Phone: Comment on above: Release Upon Ordering for 1 Occurrences starting 02/03/2024 Patient Education Know your Meds [facility] Work Phone: Patient referral [facility] Work Phone: Immunizations Immunization Date Immunization Notes Care Provider Fa cili 01-09-2021 COVID-19 mRNA-1273 (Moderna) JR Marco A Huizar Work Phone: [facility] 05-21-2020 COVID-19 Ad26.COV2.S (Yanet) JR Marco A Huizar Work Phone: [facility] 01-14-2019 influenza virus vaccine, unspecified formulation Lidya Bentley MD Work Phone: [facility] [employer] Payers Date Payer Category Payer Unknown [id number] 2023 Self-pay [id number] 2023 Private Health Insurance [employer] [place] [address] [id number] 2013 Managed Care Other (unspecified) [place] [address] [id number] 2013 Unknown [id number] [id number] 2013 Unknown [id number]. 1.13.502. [id number] 2012 Medicare [id number]. 1.13.502. [id number] 1959 Medicare [id number] 1959 Self-pay [id number] 1959 Unknown [id number] 1947 Unknown [id number] 2.16.840.1.516725.3.579. 2.593 1947 Unknown [id number] 2.16840.1.689698.3.579. 2.593 1947 Unknown [id number] 2.16.840.1.459457.3.579. 2.1143 1947 Unknown [id number] 2.16.840.1.775751.3.579. 2.128 1947 Unknown [id number] 2.16.840.1.429083.3.579. 2.128 1947 Unknown [id number] 2.16.840.1.357948.3.579. 2.128 1947 Unknown [id number] 2.16.840.1.285011.3.579. 2.128 1947 Unknown [id number] 2.16.840.1.980793.3.579. 2.128 1947 Unknown [id number] 2.16.840.1.813331.3.579. 2.1286 1947 Unknown [id number] 2.16.840.1.853367.3.579. 2.1286 1947 Unknown [id number] 2.16.840.1.545387.3.579. 2.1259 1947 Unknown [id number] 2.16.840.1.907085.3.579. 2.1259 1947 Unknown [id number] 2.16.840.1.261618.3.579. 2.1259 1947 Unknown [id number] 2.16.840.1.115471.3.579. 2.1259 1947 Unknown [id number] 2.16.840.1.385829.3.579. 2.1259 1947 Unknown [id number] 2.16.840.1.977407.3.579. 2.1259 1947 Unknown [id number] 2.16.840.1.972502.3.579. 2.1259 Unknown [id number] 2.16.840.1.322263.3.579. 2.531 Unknown [id number] 2.16.840.1.362506.3.579. 2.531 Social History Date Type Detail Facility Start: 08-04-2023 End: 07-06-2024 Sex Assigned At [facility] [employer] Other Start: 02-03-2022 End: 03-30-2023 Tobacco smoking status MIIS Never smoked tobacco [facility] Start: 02-03-2022 End: 03-30-2023 Tobacco use and exposure Smokeless tobacco non-user [facility] Start: 02-10-2022 Alcohol intake Ex-drinker (finding) [facility] Start: 02-03-2022 Alcohol Comment social [facility] Start: 1945 Sex Assigned At Not on file [facility] Start: 01-24-2022 End: 02-03-2022 Exposure to SARS-CoV-2 (event) Not sure [facility] Start: 1945 Sex Assigned At Male F [facility] Start: 08-10-2023 End: 10-05-2024 Alcoholic beverage intake Lifetime non-drinker (finding) [facility] Start: 08-04-2023 End: 07-06-2024 History of Social function [facility] Start: 05-05-2023 End: 08-04-2023 Alcohol intake Current non-drinker of alcohol (finding) [facility] Frequency of Alcohol Consumption Never [facility] Start: 10-19-2014 Sex Male (finding) [facility] Medical Equipment Procedure Code Equipment Code Equipment Origin al Text Equipment Identifier Dates Cement Bone Biom et R 1x40 [facility] - [id number], [id number] FDA Start: 02-10-2022 Femoral Component [id number] )[id number], [id number] FDA Start: 02-10-2022 Goals Date Patient Goal Desired Activity /State Functional Status Date Assessment Result Facility 08-07-2023 Functional status Patient at Baseline [facility] Work Phone: Mental Status Date Assessment Result Facility 08-07-2023 Cognitive function Cognitive Sta tus Patient at Baseline [facility] Work Phone: Clinical Notes 09-25-2020 to 10-05-2024 Raymond Vines DPM - 10/05/2024 1:15 PM Bree Vines DPM - 07/06/2024 1:00 PM Toño Perez DO - 05/05/2024 8:30 AM Sheri Vines DPM - 04/06/2024 8:00 AM EST Note Date & Type Note Facility 10-05-2024 History of Present illness Narrative Images from [...] toenails. PCP: Dr. Huizar Date Last seen: 09/30/2024. Review of Systems General: Chills denies. Fatigue [...] refill of Urea 36%/Clobetasol 0.[facility] and apply to thickened toenails at bedtime [...] via manual and mechanical means. 3. Patient was advised to continue: RX: Urea 36%/Clobetasol 0.005% cream from [facility] and apply to calluses twice a day as prescribed to soften callused skin. Patient did not need refill. 4. Reappoint in 10-12 weeks. Xerosis of [...] hospitalization or amputation. documented in this encounter [facility] 07-15-2024 Note [place] [facility] - [facility] Subjective Del Mcmahon is a 79 y.o. year old male patient being seen for Hypertension , ascending aortic aneurysm, and symptomatic bradycardia s/p PPM Patient Active Problem List Diagnosis Abnormal stress test Benign essential tremor Cardiac pacemaker in situ SOB (shortness of breath) Hypothyroidism Obesity (BMI 30-39.9) Obstructive sleep apnea syndrome Symptomatic sinus bradycardia Syncope and collapse Tremor Other atopic dermatitis Bradycardia Hilar mass Pneumonia Sepsis (CMS/HCC) HPI Patient has history of bradycardia and permanent pacemaker implantation, ascending aortic aneurysm, obstructive sleep apnea, and hypothyroidism. He is here today for follow-up visit.He states that he has been doing well. He denies any chest discomfort at rest or with exertion. He denies exertional dyspnea, orthopnea or paroxysmal nocturnal dyspnea. He denies dizziness, syncope or near syncope. He denies palpitations, legs edema or discomfort on exertion. His only problem now is the knees arthritis which is holding him from walking as much as he used to. Despite that he continues to be physically active and he tries to walk on daily basis ROS All systems were reviewed and they were negative except for the positive findings noted above in the history Past Medical History: Diagnosis Date Abnormal ECG Aneurysm Arrhythmia Hypertension Hypothyroidism Sleep apnea Symptomatic sinus bradycardia Past Surgical History: Procedure Laterality Date INSERT / REPLACE / REMOVE PACEMAKER REPLACEMENT TOTAL KNEE ONCOLOGIC Family History Problem Relation Name Age of Onset Hypertension Sister Social History Tobacco Use Smoking status: Never Smokeless tobacco: Never Substance Use Topics Alcohol use: Not Currently Allergies Allergies Allergen Reactions Diclofenac Sodium the doctor gave me this and it turned red and ate my knee Medications Current Outpatient Medications: celecoxib (CeleBREX) 200 mg capsule, Take 200 mg by mouth if needed for mild pain (1-3 pain score)., Disp: , Rfl: hydroxychloroquine (Plaquenil) 200 mg [...] Rfl: primidone (Mysoline) 250 mg tablet, Take 750 mg by mouth at bedtime., Disp: , Rfl: Objective Visit Vitals BP 136/86 (BP Location: Right arm, Patient Position: Sitting) Pulse 62 Ht 1.803 m (5' 11 ) Wt 99.8 kg (220 lb) SpO2 95% BMI 30.68 kg/m??? Smoking Status Never BSA 2.24 m??? Physical exam: GENERAL: alert and oriented x3, well developed, in no acute distress. HEAD: atraumatic, normocephalic. EYES: LICO, EOMI. NECK: trachea midline, no JVD present, no carotid bruits present. CARDIAC: S1, S2 present. RRR. No murmur, rubs, or gallops. RESPIRATORY: CTAB, no increased effort of breathing, no rales, rhonchi, or wheezing. ABDOMEN: soft, nontender, nondistended. EXTREMITIES: no lower extremity edema. No rash/skin discoloration present. NEURO: strength/sensation equal and symmetric in bilateral upper and lower extremities. PSYCH: appropriate mood, affect, and judgement. Recent Labs 07/06/2023 White blood count 6, hemoglobin 17, hematocrit 51.3, platelets 152 Cholesterol 205, triglycerides 66, HDL 70, LDL 123 Total protein 6.6, albumin 4.3, total bilirubin 0.3, AST 27, ALT 37 12/15/2023 Sodium 141, potassium 5.1, BUN 24, creatinine 1.13, GFR 67 BNP 85 TSH 6.15 HbA1c 5.6% Imaging and other tests EK12/15/2023 showed A paced V sensed rhythm, low voltage, otherwise normal EKG Echo:09/29/2023 LVEF 65% Normal RV size and systolic function Moderate LA dilatation No significant valvular dysfunction Normal right sided pressures Moderately dilated AscAo measuring 4.2cm Lexiscan nuclear stress test 06/30/2018: ??? The stress ECG was non-diagnostic ??? Basal inferolateral wall defect small in size, that is partially reversible, consistent with diaphragmatic artifact ??? Normal left ventricular systolic function. Normal left ventricular wall motion ??? Nuc Stress EF 70 % ??? Based on the perfusion study data, risk of cardiovascular events is low CTA coronary with calcium scoring (11/09/2018) IMPRESSIONS: * Total coronary calcium score 0.0 * No hemodynamically significant stenosis of the coronary arteries. - RCA/PDA: No hemodynamically significant stenosis. - Left circumflex: No dynamically significant stenosis. - LAD: No hemodynamically significant stenosis. - Acute marginal1: No hemodynamically significant stenosis. - Obtuse marginal: No hemodynamically significant stenosis. * Normal left ventricular wall motion, LV ejection fraction 70 % * Normal cardiac chamber (more content not included)... [facility] 07-06-2024 History of Present illness Narrative Images [...] hospitalization or amputation. documented in this encounter [facility] 05-05-2024 History of Present illness Narrative Images [...] be embarrassing. 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 He has been on primidone a few [...] History: Diagnosis Date Actinic keratosis Hypothyroidism (acquired) (CMS/HCC) Pacemaker 12/2019 Pneumonia 10/2023 Past Surgical History: [...] , wrist extensors , wrist flexor , emergency veterinary technician strength 5/5. LUE Strength deltoid , biceps , triceps , wrist extensors , wrist flexor , emergency veterinary technician strength 5/5. RLE Strength illopsoas, quadriceps, tibialis [...] reflex 2+ . Martin's sign negative. Coordination: Zbfaub-nx-hcuc testing and rapid alternating movements are normal Gait: Normal Review and summary of old records: I have reviewed the patient's notations from [facility], Dr. Bentley, on 05/05/2023. The patient [...] essential tremor. The patient has been seen [facility] movement disorder specialist, Dr. Lidya Bentley and [...] me that he has previously had a equipment monitor phototypesetting placed and was found to have pauses [...] did offer to send a referral to [facility] for consideration of surgical intervention for essential tremor. Patient states that he is not comfortable with this at this time and does not wish to pursue this. Should he change his mind in the future we can pursue it. Pt has been fully educated on their diagnosis, lab results, treatment options, follow up plan, and return instructions documented in this encounter [facility] 04-06-2024 History of Present illness Narrative Images [...] hospitalization or amputation. documented in this encounter [facility] 03-31-2024 History of Present illness Narrative Skin [...] limited to risks of scarring, darker or regional merchandising manager pigmentary changes, recurrence, incomplete removal and infection. [...] Visit: 1 year documented in this encounter [facility] 02-02-2024 Note Cardiovascular Medic [facility] SUBJECTIVE Chief Complaint Patient presents with Aortic [...] Final Atrial Rate 01/11/2019 60 BPM Final NV Interval 01/11/2019 208 ms Final QRS DURATION 01/11/2019 76 ms Final QT Interval 01/11/2019 394 ms Final QTC CALCULATION(BEZET) 01/11/2019 394 ms Final P [place] 01/11/2019 -5 degrees Final R-[place] 01/11/2019 -27 degrees Final T Wave [place] 01/11/2019 38 degrees Final Diagnosis 01/11/2019 Final [...] * Total danette (more content not included)... [facility] 02-02-2024 Note Patient here for 6 [...] All other systems reviewed and are negative. [facility] 12-16-2023 History of Present illness Narrative Images [...] prevention. Refill of Nystatin powder eRx(G8553) to [facility] for continued use. 7. Reappoint [...] in 10-12 weeks. documented in this encounter [facility] 08-06-2023 Progress note Note Date/Time August 06, 2023 8:02am [facility] [address] [place] [address] Pulmonology Progress Note Signed Patient: Del Mcmahon MR#: [id number] : 1945 Acct:[id number] Age/Sex: 78 / M Adm Date: 4 Loc: 4 Room: 4O1334-9 Type: ADM IN Attending Dr: Dionte Rosa [...] #2 for patient admitted in transfer from [facility] for left upper lobe pneumonia with concern [...] <Electronically signed by MD Daljit Khalil> 08/06/231999 [facility] Work Phone: 1(513) 291-474305-23-2024 Progress note Author Dionte Rosa [facility] August 06, 2023 11:49am Note Date/Time August 06, 2023 11:50 am [facility] [address] [place] [address] Hospitalist Progress Note Signed Patient: Del Mcmahon MR#: [id number] : 1945 Acct:[id number] Age/Sex: 78 / M Adm Date: 4 Loc: Room: [address] [place] [address] Type: ADM IN Attending Dr: Dionte Rosa [...] signed by Dionte Rosa DO> 08/06/23 1149 [facility] Work Phone: 1(356) 760-377605-22-2024 Consult note Author Daljit Khalil [facility] August 05, 2023 6:30pm Note Date/Time August 05, 2023 8:53a m [facility] [address] [place] [address] Pulmonology Consult Note Signed Patient: Del Mcmahon MR#: [id number] : 1945 Acct:[id number] Age/Sex: 78 / M Adm Date: 4 Loc: Room: [address] [place] [address] Type: ADM IN Attending Dr: Dionte Rosa DO Copies to: DO Daljit Campbell Jr, MD Shawn J Warner, DO~ HPI Date/Time of Consultation: Date of Service: 08/05/2023 Time of Service: 08:50 Consulting Provider: Daljit Khalil Requesting Provider: Dionte Rosa History of Present Illness History of present illness: Mr. Mcmahon is a 78 year old male seen at the request of the hospitalist service for left-sided pneumonia and concern for hilar mass on CT scan. Patientreportedly presented to the emergency department at [facility] due to cough with falls and dizziness. Patient also complained of fatigue and near syncope. 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 He is a never smoker with no prior history of malignancy. He has no family history of lung cancer. Review of Systems Review of Systems All other systems reviewed & are negative unless noted below or in HPI [facility] Medical History (Updated 08/05/23 @ [...] List clean-up per request of Phys. EHR [facility] Surgical History (Updated 08/05/23 @ 01:24 by Keysha Ladd, MARIAA) History of partial knee replacement right H/O transurethral resection of prostate Problem List clean-up per request of Phys. EHR Cmte History of kidney removal left Problem List clean-up per request of Phys. EHR [facility] Family History (Updated 08/05/23 @ 01:26 by Keysha Ladd, RN) Sister Hypertension Cancer Father Mother Social [...] mg PO DAILY 08/05/23 [History Confirmed 08/05/23] fiwoktum-mjtnaili-rgcds acid 400 mcg-vit K 20 mcg-lycop 300 [...] the thorax of August 04, 2023 from [facility] was reviewed personally. To my review, there [...] #1 for patient admitted in transfer from [facility] for left upper lobe pneumonia with concern [...] <Electronically signed by MD Daljit Khalil> 08/05/23 1830 [facility] Work Phone: 1(246) 941-364705-22-2024 Progress note Author Dionte Rosa [facility] August 05, 2023 12:29pm Note Date/Time August 05, 2023 12:29 pm [facility] [address] [place] [address] Hospitalist Progress Note Signed Patient: Del Mcmahon MR#: [id number] : 1945 Acct:[id number] Age/Sex: 78 / M Adm Date: 4 Loc: Room: [address] [place] [address] Type: ADM IN Attending Dr: Dionte Rosa [...] PO 08/04/24 08:59 Not Given DAILY ILDA Ondansetron HCl 4 mg 08/05/23 06:09 Ondansetron [...] signed by Dionte Rosa DO> 08/05/23 1229 [facility] Work Phone: 1(868) 185-404805-22-2024 History and physical note Author Andrés Fisher [facility] August 05, 2023 7:38am Note Date/Time August 05, 2023 4:32a m [facility] [address] [place] [address] Hospitalist H&P Signed Patient: Del Mcmahon MR#: [id number] : 1945 Acct:[id number] Age/Sex: 78 / M Adm Date: 4 Loc: Room: [address] [place] [address] Type: ADM IN Attending Dr: Dionte Rosa DO Copies to: DO Andrés Campbell Jr, MD Shawn J Warner, ~ HPI DATE OF EXAMINATION: 08/05/23 CHIEF COMPLAINT: Weakness, falls HISTORY OF PRESENT ILLNESS: Mr. Mayer is a 78-year-old male with PMH of hypothyroidism, essential tremor, BPH who presented to the emergency department at [facility] with complaints of cough, falls and dizziness [...] of smoking. In the emergency department at [facility], patient has significantly elevated temperature [...] that which is noted above in HPI [facility] Medical History (Updated 08/05/23 @ [...] clean-up per request of Phys. EHR Cmte Surgical History (Updated 08/05/23 @ 01:24 by [...] mg PO DAILY 08/05/23 [History Confirmed 08/05/23] npvrvuye-ypccocie-wqabw acid 400 mcg-vit K 20 mcg-lycop 300 [...] 3 Documented By: Andrés Fisher MD 4 0422 Signed By: <Electronically signed by Andrés Fisher MD> 08/05/23 0738 [facility] Work Phone: 1(301) 514-150505-21-2024 NoteXR CHEST 1 VW Procedure: Chest x-ray performed Number of views:AP portable erect History:Hypoxia and dizziness Comparison:05/05/2018 Findings: The heart and lungs show no acute findings, and the mediastinum and christy are grossly negative . Impression: No acute process Finalized by Kayce Loya DO on 08/04/2023 2:29 [facility] History of Present illness Narrative* Lidya Bentley MD - 05/05/2023 10:30 AM EST Images from the original note were not included. [address] [facility] [phone] Patient: Del Mcmahon Date of : 1945 [...] difficulty drinking coffee. 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 He has had generalized soreness, especially [...] you for your understanding. [facility] Instructions* Patient Instructions* Lidya Bentley MD - 05/05/2023 10:30 AM EST Increase primidone to 2.5 tabs morning for 1 week, then increase further to 3 tab morning Keep bedtime primidone he same If you get dizzy, sleepy, or off balance with increased dose, lower back down and notify Dr. Bentley See family doctor for stiffness documented in this [facility]Tr[facility]11-28-2022 History of Present illness Narrative* Lauren Ferrell [...] PT - 02/10/2022 9:50 AM EST [facility] Evaluation PT Discharge Recommendations: Outpatient [...] of Steps 2 Prior Function Level of [place] Independent with mobility and functional transfers Prior [...] Comments + void while up with PT, hilario tsang applied, met PT goals Medical Staff Made [...] Training Activity 1: Gait with standard walker [id number] SBA, cues for speed Gait Training Activity [...] Violeta Munoz PT Completed Goal: Pt will transfer with SBA. (Resolved) Dates: Start: 02/10/22 Expected End: 02/11/22 Met: 02/10/22 Outcomes Date/Time User Outcome 02/10/22 1038 Violeta Munoz PT Completed Goal: Pt will ambulate 100 ft. with walker and SBA (Resolved) Dates: Start: 02/10/22 Expected End: 02/11/22 Met: 02/10/22 Outcomes Date/Time User Outcome 02/10/22 1038 Violeta Munoz PT Completed Goal: Pt will ascend/descend steps [...] Completed Education Documentation Precautions, taught by Violeta Munoz PT at 02/10/2022 [...] end of the procedure documented in this encounterSci-Waymart Forensic Treatment CenterZapwrf29-89-8301 Procedure note* Emani Holt MD - 02/10/2022 7:[address] [facility], A Member of [facility] OPERATIVE REPORT PATIENT NAME: Del Mcmahon DATE OF : 1945 [facility]#: [id number] SURGEON: Emani Holt MD DATE OF SERVICE: 02/10/2022 DATE OF SURGERY: 02/10/2022 PREOPERATIVE DIAGNOSIS: OA right knee (M17.11) POSTOPERATIVE DIAGNOSIS: OA right knee (M17.11) PROCEDURE: Right Medial Compartment Unicondylar Arthroplasty (97380) Femoral Component: Medacta, Lauren Medial Femoral Component , Size: 4 Tibial Component: Lauren Medial Tibial Baseplate , Size: 4 Polyethylene: Lauren Medial Tibial Insert , 9mm Fixation: Biomet Bone Cement with 1g Vancomycin ATTENDING SURGEON: Emani Holt MD COLOR TELEVISION CONSOLE MONITOR: Vita Reynaga PA-C INDICATIONS: Patient is a [...] awake, alert, and stable in good condition. COLOR TELEVISION CONSOLE MONITOR/ATTENDING PARTICIPATION: Vita Reynaga PA-C assisted with proper [...] By: Emani Holt MD on 02/10/2022 07:36:[address] [facility], A Member of [facility] OPERATIVE REPORT PATIENT NAME: Del Mcmahon DATE OF : 1945 CSN#: [id number] SURGEON: Emani Holt MD DATE OF SERVICE: 02/10/2022 DATE OF SURGERY: 02/10/2022 REF 02.18.IF4.09.RM LOT [id number] LAUREN Partial Knee System - Medial Tibial insert fix S4 RM - 9mm UseBy 2024-11-06 () [id number] (17 [id number] 10 [id number] REF 02.18.TF4.RM LOT [id number] LAUREN Partial Knee System - Medial Tibial Tray Fix Cemented S4 RM Use By 2026-10-14 () [id number] (17) [id number] (10) [id number] REF 02.18.004RM LOT [id number] LAUREN Partial Knee System - Medial Anatomical Femoral Component CementedS4 RM Use By 2026-11-24 () [id number] (17) [id number] (10) [id number] [facility] CenterHeuwsk06-92-2337 Procedure note* Emani Holt MD - 02/10/2022 7:[address] [facility], A Member of [facility] OPERATIVE REPORT PATIENT NAME: Del Mcmahon DATE OF : 1945 CSN#: [id number] SURGEON: Emani Holt MD DATE OF SERVICE: 02/10/2022 DATE OF SURGERY: 02/10/2022 PREOPERATIVE DIAGNOSIS: OA right knee (M17.11) POSTOPERATIVE DIAGNOSIS: OA right knee (M17.11) PROCEDURE: Right Medial Compartment Unicondylar Arthroplasty (64562) Femoral Component: Medacta, Lauren Medial Femoral Component , Size: 4 Tibial Component: Lauren Medial Tibial Baseplate , Size: 4 Polyethylene: Lauren Medial Tibial Insert , 9mm Fixation: Biomet Bone Cement with 1g Vancomycin ATTENDING SURGEON: Emani Holt MD COLOR TELEVISION CONSOLE MONITOR: Vita Reynaga PA-C INDICATIONS: Patient is a [...] awake, alert, and stable in good condition. COLOR TELEVISION CONSOLE MONITOR/ATTENDING PARTICIPATION: Vita Reynaga PA-C assisted with proper [...] By: Emani Holt MD on 02/10/2022 07:36:[address] [facility], A Member of [facility] OPERATIVE REPORT PATIENT NAME: Del Mcmahon DATE OF : 1945 CSN#: [id number] SURGEON: Emani Holt MD DATE OF SERVICE: 02/10/2022 DATE OF SURGERY: 02/10/2022 REF 05.03.IF4.09. LOT [id number] LAUREN Partial Knee System - Medial Tibial insert fix S4 RM - 9mm UseBy 2024-11-06 () [id number] (17 [id number] (10 [id number] REF 05.03.TF4.RM LOT [id number] LAUREN Partial Knee System - Medial Tibial Tray Fix Cemented S4 RM Use By 2026-10-14 () [id number] (17) [id number] (10) [id number] REF 05.03.004RM LOT [id number] LAUREN Partial Knee System - Medial Anatomical Femoral Component CementedS4 RM Use By 2026-11-24 () [id number] (17 [id number] (10) [id number] * Kiya Bowles RN - 02/10/2022 6:27 [...] orders at this time. documented in this encounterHouston Mkpjar97-83-3419 Procedure note* Kiya Bowles RN - 02/10/2022 6:[address] Holt notified of patient having an abrasion to right first digit with antibiotics taken up until 1 to 2 days ago, no further orders at this time. AbbeyPostGnfjch68-24-7711 Procedure note* Kiya Bowles RN - 02/10/2022 6:[address] Acosta notified that patient did not take his metoprolol this morning, no further orders at this time. PatriciaDJO GlobalYkxkmg71-15-1423 History and physical note* Emani Holt MD - 02/10/2022 6:12 AM EST History and Physical Update ( H&P completed within the previous thirty days ) I personally reviewed the History and Physical, interviewed and examined the patient prior to surgery. No changes have occurred in the patient's condition since the History and Physical was completed. [facility] Work Phone: 1(528) 978-603911-28-2022 History and physical note* Emani Holt MD - 02/10/2022 6:12 AM EST History and Physical Update ( H&P completed within the previous thirty days ) I personally reviewed the History and Physical, interviewed and examined the patient prior to surgery. No changes have occurred in the patient's condition since the History and Physical was completed. documented in this encounterSci-Waymart Forensic Treatment CenterYpkvtz93-55-0665 Hospital course Narrative* Marta Santillan RN - [...] prior to your surgery. Check in at dental receptionist desk [address] [place] [address]. If Outpatient, these additional instructions apply: An adult must stay with you the whole time you are here and drive you home. An adult must stay withyou at home for 24 hours due to Anesthesia. If you have BRENNAN, you are required to stay 3 hours after your surgery before we can discharge you. documented in this encounterSci-Waymart Forensic Treatment CenterIqqivv28-16-5442 Evaluation note* Encounter Date Diagnosis Assessment Notes [...] Other specified postprocedural states (ICD-10 - Z98.890) [facility] Other 02-09-2022 Note [id number]#1.00[facility]02-09-2022 [id number]#1.00[facility] 04-23-2021 NoteEducation Materials Hypertension, Adult [...] eggs, or tofu. ? (more content not included)...[facility] HospitalQyifgccd42-52-1424 [facility] SURGERY Clinical Discharge Summary PERSON INFORMATION Name DEL MCMAHON Age 76 Years 1945 Sex MALE Language Tuvaluan PCP MARCO A HUIZAR JR. Marital Status [facility] Service Ambulatory Surgery Acct# Arrival 04/23/2021 06:30:35 Visit Reason Surgery-Cystoscopy TURP with injection of Stem Cells Acuity LOS 025 01:57 Address: [address] [place] [address] [place] [address] Comment: PROVIDER INFORMATION VITALS INFORMATION Vital Sign [...] With: Address: When: MARCO A HUIZAR JR. [address] [place] [address] [address] [facility] (1) DIAGNOSIS Bladder neck contracture Comment: EUGENE MILLER [facility]12-07-2021 Evaluation note* Encounter Date Diagnosis Assessment Notes [...] Other specified postprocedural states (ICD-10 - Z98.890) [employer] Other 11-30-2021 Evaluation note* Encounter Date Diagnosis Assessment Notes Treatment Notes Treatment Clinical Notes Jan, Other specified postprocedural states (ICD-10 - Z98.890) [facility] Other 11-21-2021 Note [id number]21 [facility] SURGERY Clinical Discharge Summary PERSON INFORMATION Name DEL MCMAHON Age 75 Years 1945 Sex MALE Language Tuvaluan PCP MARCO A HUIZAR JR. Marital Status Med Service Ambulatory Surgery Acct# Arrival 01/22/2021 07:47:00 Visit Reason SURGERY - LOCAL CYSTO Acuity LOS 011 22:47 Address: [address] [place] [address] [place] [address] Comment: PROVIDER INFORMATION VITALS INFORMATION Vital Sign [...] With: Address: When: MARCO A HUIZAR JR. [address] [place] [address] [facility] () DIAGNOSIS OAB (overactive bladder) Comment: EUGENE MILLER [facility]11-02-2021 Evaluation note* Encounter Date Diagnosis Assessment Notes [...] M17.11) Jan, Pre-op exam (ICD-10 - Z01.818) [facility] Other 10-12-2021 Evaluation note* Encounter Date Diagnosis [...] osteoarthritis of right knee (ICD-10 - M17.11) [facility] Other 07-21-2021 Note [id number]#1.00[facility]07-15-2021 [id number]#1.00[facility] 09-26-2020 [id number]#1.00[facility]07-14-2021 [id number]#1.00[facility]07-13-2021 [facility] SURGERY Clinical Discharge Summary PERSON INFORMATION Name DEL MCMAHON Age 75 Years 1945 Sex MALE Language Tuvaluan PCP MARCO A HUIZAR JR. Marital Status Med Service Ambulatory Surgery Acct# Arrival 09/25/2020 06:01:00 Visit Reason SURGERY - CYSTOSCOPY GREENLIGHT Acuity LOS 221 21:25 Address: [address] [place] [address] [place] [address] Comment: PROVIDER INFORMATION VITALS INFORMATION Vital Sign [...] surgery. With: Address: When: Sivakumar Garcia [address] [facility], [place] [address] Business (1) With: Address: When: MARCO A HUIZAR JR. [address] [place] [address] Business (1) DIAGNOSIS BPH (benign prostatic hyperplasia) Comment: PHYS [facility] summary Author Dionte Rosa [facility] August 07, 2023 2:17pm Note Date/Time August 07, 2023 2:00p m [facility] [address] [place] [address] Discharge Summary Signed Patient: Del Mcmahon MR#: [id number] : 1945 Acct:[id number] Age/Sex: 78 / M Adm Date: 4 Loc: Room: [address] [place] [address]: Dionte Rosa DO Copies to: [...] an order has been sent electronically to [facility] and you will be provided with a copy of the order at discharge. Please call [facility] Central Scheduling at [phone] to schedule the imaging. It may requirea [...] no rashes or lesions Documented By: Dionte Rosa, 08/07/23 1359 Signed By: <Electronically signed by Dionte Rosa, > 08/07/23 1417 [facility] Work Phone: Evaluation note* Diagnosis Onset Date Resolution Status Pneumonia acute Sepsis acute [facility] Work Phone: Evaluation note* Diagnosis Onset Date Resolution Status Pneumonia resolved Sepsis resolved Hilar mass acute Pneumonia resolved [facility] Work Phone: Evaluation note* Diagnosis Neoplasm of unspecified behavior of bone, soft tissue, and skin- Primary documented in this encounter [facility] HealthcareEvaluation note* Diagnosis Other atopic dermatitis- Primary Actinic keratosis Capillary angioma Nevus, non-neoplastic Seborrheic keratosis Lentigines documented in this encounter [facility] HealthcareEvaluation note* Diagnosis Onychomycosis- Primary Dermatophytosis of nail Deformity of toenail Unspecified disease of nail Pre-ulcerative calluses Xerosis of skin documented in this encounter [facility] HealthcareEvaluation note* Diagnosis Pre-ulcerative calluses- Primary Onychomycosis Dermatophytosis of nail documented in this encounter [facility] HealthcareEvaluation note* Diagnosis Benign essential tremor- Primary Essential and other specified forms of tremor [facility]* Diagnosis Benign essential tremor Essential and other specified forms of tremor documented [facility]* Diagnosis Essential tremor- Primary Sick sinus syndrome (CMS/HCC) Sinoatrial node dysfunction AICD (automatic cardioverter/defibrillator) present Automatic implantable cardiac defibrillator in situ documented in this encounter [facility] HealthcareEvaluation note* Diagnosis Benign essential tremor Essential and other specified forms of tremor documented in this encounter [facility] SystemEvaluation note* Diagnosis Onychomycosis Dermatophytosis of nail Deformity of toenail Unspecified disease of nail Pre-ulcerative calluses documented in this encounter [facility] HealthcareEvaluation note* Diagnosis Onychomycosis Dermatophytosis of nail Deformity of toenail Unspecified disease of nail Pre-ulcerative calluses documented in this encounter [facility] HealthcareHistory general Narrative - Reported* Type Description Date Medical History thyroid disease Medical History enlarged prostate Surgical History prostate Surgical History cardiac pacemeker Surgical History kidney removed Hospitalization History See Above [facility] Other Hiszahe general Narrative - Reported* Type Description Date Medical History thyroid disease Medical History enlarged prostate Surgical History prostate Surgical History cardiac pacemeker Surgical History kidney removed Surgical History right knee scope wit h medial meniscectomy and chondral debridement (DOS 02/13/2021) Hospitalization History See Above [facility] Other Hisxbag general Narrative - Reported* Type Description Date Medical History thyroid disease Medical History enlarged prostate Surgical History prostate Surgical History cardiac pacemeker Surgical History kidney removed Surgical History right knee scope wit h medial meniscectomy and chondral debridement (DOS 02/13/2021) Surgical History Prostate Surgery 05/07 Hospitalization History See Above [facility] Other History of Present illness Narrative* Panchito [...] Visit: pending biopsy results documented in this encounterNOSaint John's HospitalInstructionsNot on filedocumented in this encounterProSouthwest General Health Center SystemInstructionsNot on filedocumented in this encounterProSycamore Medical CenterReason for visit Narrative* Auth/Cert Specialty Diagnoses / Procedures Referred By Jhonatan lino Referred To Contact Diagnoses Unilateral primary osteoarthritis, right knee Pain in right knee M17.11 M25.561 Procedures NV ARTHROPLASTY KNEE CONDYLE AND PLATEAU MEDIAL OR LATERAL COMPARTMENT NV ARTHROPLASTY KNEE CONDYLE AND PLATEAU MEDIAL OR LATERAL COMPARTMENT Right medial unicompartmental knee arthroplasty Emani Holt MD [address] [place] [address] [facility] [place] [address] [place] [address] Referral ID Status Reason Start Date Expiration Date Visits Re quested Visits Authorized [id number] 1 1 [facility] for visit Narrative* Consultation (Routine) - Closed Specialty Diagnoses / Procedures Referred By Jhonatan lino Referred To Contact Neurology Diagnoses Tremor, unspecified Procedures NV OFFICE/OUTPATIENT [facility] 30 MINUTES Marco A Huizar MD [address] [place] [address] Phone: tel: fax: Shawn Lockett MD [address] [place] [address] Phone: tel: fax: Referral ID Status Reason Start Date Expiration Date V isits Requested Visits Authorized [id number] Closed Consult and Treat 04/29/2024 10/26/2024 1 1 [facility] Healthcare Summary Purpose Family History No Family History Records Found Relationship Condition Age at Onset Recorded Date/T mansi sister Hypertension Unknown Malignant neoplasm Unknown Unknown father Unknown Not Specified Unknown Relationship Condition Age at Onset Recorded Date/T mansi sister Hypertension Unknown Malignant neoplasm Unknown Unknown father Unknown mother Unknown Advance Directives No Advanced Directives Records Found Advance Directive Response Recorded Date/ Time Advance [...] section and content) DATE CREATED AUTHOR 03/30/2020 [facility] DATE CREATED AUTHOR AUTHOR'S ORGANIZ ATION 05/09/2021 [facility] DATE CREATED AUTHOR AUTHOR'S ORGANIZ ATION 05/09/2021 [facility] DATE CREATED AUTHOR AUTHOR'S ORGANIZ ATION 02/10/2022 [facility] DATE CREATED AUTHOR AUTHOR'S ORGANIZ ATION 05/12/2023 [facility] DATE CREATED AUTHOR AUTHOR'S ORGANIZ ATION 08/08/2023 [facility] DATE CREATED AUTHOR AUTHOR'S ORGANIZ ATION 08/09/2023 [facility] DATE CREATED AUTHOR AUTHOR'S ORGANIZ ATION 10/05/2023 [facility] DATE CREATED AUTHOR AUTHOR'S ORGANIZ ATION 08/18/2024 [facility] DATE CREATED AUTHOR AUTHOR'S ORGANIZ ATION 10/07/[address] [facility] dical Specialists EPIC REASON FOR VISIT (unrecogniz ed section and [...]
Care Teams (unrecognized sec tion and content) Fell Cutter Relationship Specialty Start Date End Date Marco A Huizar DO [address] [place] [phone] PCP - General Internal Medicine 01/23/22 Team [...] August 05, 2023 Daljit Khalil MD Attending Pr ovidmanasa, Other Provider Active Start: August 05, 2023 [...] 07, 2023 Daljit Khalil MD Attending Pr ovider, Other Provider Active Start: August 05, 2023 End: August 07, 2023 Team Status: Inactive Member Role Status Dates Marco A Huizar JR DO Primary Care Provider Active Start: September 11, 2023 End: September 11, 2023 Giovanna Castillo APRN [facility] Attending Provider Active Start: September 11, 2023 [...] October 02, 2023 End: October 02, 2023 Fell Cutter Relationship Specialty Start Date End Date Marco A Huizar MD [address] [place] [id number] PCP - General Internal Medicine 05/14/23 Fell Cutter Relationship Specialty Start Date End Date Marco A Huizar MD [address] [place] [address] PCP - General Internal Medicine 05/14/23 Fell Cutter Relationship Specialty Start Date End Date Marco A Huizar MD [address] [place] [address] PCP - General Internal Medicine 05/14/23 Fell Cutter Relationship Specialty Start Date End Date Marco A Huizar MD [address] [place] [address] PCP - General Internal Medicine 05/14/23 Fell Cutter Relationship Specialty Start Date End Date Marco A Huizar MD [address] [place] [address] [phone] PCP - General Internal Medicine 05/14/23 Fell Cutter Relationship Specialty Start Date End Date Marco A Huizar MD [address] [place] [address] PCP - General Internal Medicine 05/14/23 Fell Cutter Relationship Specialty Start Date End Date Marco A Huizar Jr., DO [address] [place] [address] [phone] PCP - General Internal Medicine 09/15/16 Fell Cutter Relationship Specialty Start Date End Date Marco A Huizar MD [address] [place] [address] [phone] PCP - General Internal Medicine 05/14/23 Daljit Perez DO [address] [place] [phone] Referring Physician Neurology 05/05/24 Fell Cutter Relationship Specialty Start Date End Date Marco A Huizar MD [address] [place] [address] [phone] PCP - General Internal Medicine 05/14/23 Fell Cutter Relationship Specialty Start Date End Date Marco A Huizar Jr., DO [address] [place] [address] [phone] PCP - General Internal Medicine 09/15/16 Fell Cutter Relationship Specialty Start Date End Date Marco A Huizar MD [address] [place] [address] [phone] PCP - General Internal Medicine 05/14/23 Daljit Perez DO [address] [place] [phone] Referring Physician Neurology 05/05/24 Fell Cutter Relationship Specialty Start Date End Date Marco A Huizar MD [address] [place] [address] [phone] PCP - General Internal Medicine 05/14/23 Daljit Perez DO [address] [place] [phone] Referring Physician Neurology 05/05/24 Fell Cutter Relationship Specialty Start Date End Date Marco A Huizar MD [address] [place] [id number] PCP - General Internal Medicine 05/14/23 Daljit Perez DO [address] [place] [id number] Referring Physician Neurology 05/05/24 Fell Cutter Relationship Specialty Start Date End Date Marco A Huizar MD [address] [place] [id number] PCP - General Internal Medicine 05/14/23 Daljit Perez DO [address] [place] [phone] Referring Physician Neurology 05/05/24 FOR RECORDS PERTAINING [...] BE BASED ON THE PRIMARY CLINICAL RECORDS. [facility]. provides no warranty or guarantee of the accuracy or completeness of information in this document.
== END 2024-11-03 09:33 | disposition home or self-care (01) ==
LOC: CARD 09:32
PROVIDERS: PCP Internal Medicine; Visit Provider Internal Medicine Cardiovascular Disease
DX: I71.21 Aneurysm of the ascending aorta, without rupture (principal)
CPT/HCPCS: 93306